=== PATIENT | female | born 1940 | race Caucasian/White ===

== ENCOUNTER 2020-06-16 10:59 | Inpatient (IN) | payer MEDICARE, SELFPAY ==
[2020-06-16 11:18] VITALS: BP 144/78; BP 158/88; PULSE 115; PULSE 99; RESP 24; TEMP 36.4; O2SAT 88; O2SAT 90; BMI 18.7
--- NOTE | 2020-06-16 11:20 | PC.NURSE ---
PT ALERT AND ORIENTED X4. NEUROS INTACT. SKIN WPD. RR APPROX 24 AT REST, BUT APPEARS NON-LABORED. I/E WHEEZE THROUGHOUT BILATERALLY. SPO2 88% ON RA. PLACED ON 1L VIA NC AND SPO2 INCREASED TO MID 90S. PT ALSO HAS VERY MILD EDEMA TO BILATERAL ANKLES. PT RECEIVED DUONEB GUT SORTER BY EMS. SINUS RHYTHM ON MONITOR. IV ACCESS IN PLACE. AWAITING INITIAL MD CARMICHAEL.
--- NOTE | 2020-06-16 11:42 | XR_ITS ---
EXAMINATION: XR CHEST CLINICAL INFORMATION: Dyspnea. COMPARISON: None TECHNIQUE: Frontal view of the chest was obtained. FINDINGS: Asymmetric curvilinear opacity is noted at right upper lung field, may represent changes secondary to osseous disease involving the anterior end of the right first rib. Both lung girard are symmetrically expanded, otherwise appear unremarkable. The cardiac mediastinal silhouette is within normal limit. Moderate thoracolumbar levoscoliosis is present. IMPRESSION: Asymmetric opacity at right upper lung field, may represent changes secondary to osseous disease involving anterior end of the right first rib.
--- NOTE | 2020-06-16 12:08 | PC.NURSE ---
pt ambulated short distance. steady but slow gait using walker. states ambulating is much easier with walker compared to cane she has at home. spo2 85% on ra upon return to stretcher.
[2020-06-16 12:17] LABS: Basophils Percent Auto 0.2 % (0-2); Hematocrit 42.3 % (37-47); Hemoglobin 14.3 g/dl (12.0-16.0); Imm Gran Abs Auto 0.06 X10*3/uL (0.00-0.03); Imm Gran Pct Auto 0.5 % (0.0-0.4); Lymphocytes Absolute Auto 0.5 X10*3/uL (1.2-4.9); Lymphocytes Percent Auto 4.6 % (20-40); MANUAL DIFF FLAG SCAN; Mean Corpuscular HGB Conc 33.8 g/dl (31.0-35.0); Mean Corpuscular Volume 97.7 fL (80-98); Mean Platelet Volume 9.9 fL (9.4-12.3); Monocytes Absolute Auto 0.7 X10*3/uL (0.1-1.2); Monocytes Percent Auto 5.9 % (2-11); Neutrophils Absolute Auto 10.4 X10*3/uL (2.0-8.3); Neutrophils Percent Auto 88.8 % (45-73); Platelet Count 315 X10*3/uL (160-400); Red Blood Count 4.33 X10*6/uL (4.20-5.50); Red Cell Distribution Width 14.2 % (11.0-16.0); SCAN SMEAR FLAG 1; White Blood Count 11.7 X10*3/uL (4.8-10.8)
[2020-06-16 12:37] LABS: SLIDE REVIEW VERIFIED
[2020-06-16 12:38] LABS: Alanine Aminotransferase 26 U/L (0-31); Albumin Level 3.3 g/dL (3.5-5.0); Alkaline Phosphatase 117 U/L (39-117); Anion Gap 14 (12-20); Aspartate Amino Transferase 43 U/L (5-31); Bilirubin Total 0.7 mg/dL (0.0-1.0); Blood Urea Nitrogen 10 mg/dL (9-16); Calcium 8.9 mg/dL (8.4-10.2); Carbon Dioxide 30 mmol/L (22-29); Chloride 93 mmol/L (96-108); Creatinine Clr Calc Pharmacy 86.5; Estimated Glomerular Filt Rate > 60; Glucose Random 105 mg/dL (60-115); Potassium 3.6 mmol/l (3.3-5.1); Sodium 133 mmol/L (135-145); Total Protein 6.1 g/dL (6.5-8.0)
--- NOTE | 2020-06-16 12:40 | CT_ITS ---
EXAMINATION: CT HEAD W/O IV CONTRAST CT CERVICAL SPINE W/O IV CONTRAST CLINICAL INFORMATION: Weakness. Patient on ground. COMPARISON: None TECHNIQUE: Head - Contiguous axial imaging of the head was performed from the skull base to the vertex without the administration of intravenous contrast, and axial images are reconstructed at 2 mm and 5 mm slice thickness. Cervical spine - A volumetric, helical CT acquisition of the cervical spine was obtained without contrast; in addition to the standard set of axial images, multiplanar reformatted images were provided in the coronal and sagittal imaging planes. This CT examination was performed using dose optimization techniques as appropriate, variously including the following: *Automated exposure control *Adjustment of mA and/or kV according to patient size (this includes techniques or standardized protocols for targeted exams where dose is matched to indication/reason for exam; i.e. extremities or head) *Use of iterative reconstruction technique DLP: 855 mGy-cm (total) FINDINGS: HEAD: No intracranial hemorrhage, extra-axial fluid collection, focal mass effect or midline shift. Atherosclerotic calcification of cavernous carotid arteries. Patchy hypoattenuation is present within supratentorial white matter, likely sequela of chronic [id number] microangiopathy. The butler-white matter differentiation is maintained. No evidence of an acute major vascular territory infarction. Xpdx-xv-fbkowybk atrophy of cerebral and cerebellar hemispheres is associated with commensurate prominence of the ventricles and sulci. No hydrocephalus. No acute findings within the cerebellar hemispheres or brainstem. The cerebellar tonsils are in normal position. The calvarium is intact. The mastoid air cells and middle ear cavities are well aerated. Temporomandibular joints are normal. Scattered secretions/mucosal thickening of some of the ethmoid air cells. Otherwise, paranasal sinuses are unremarkable. Orbits and globes are unremarkable. CERVICAL SPINE: No acute abnormalities. The craniocervical junction is normal. The occipital condyles, dens and atlantodental articulation are intact. The vertebral body heights are maintained. No fractures in the anterior or posterior elements. No prevertebral soft tissue swelling. 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 Chondrocalcinosis of multiple intervertebral discs. The disc spaces are generally well-preserved throughout the cervical spine. There is a stairstep pattern of mild, approximately 0.2 cm anterolisthesis at C4-C5, C5-C6, C6-C7 and C7-T1. No evidence of spinal canal or neural foraminal stenosis. No spinal hematoma or focal fluid collection in the visualized neck. There is centrilobular and paraseptal emphysema of the partially visualized upper lobes. Thyroid gland is atrophied. There appears to be a small, 0.5 cm hypodense nodule in the right thyroid lobe. IMPRESSION: * No hemorrhage or other acute intracranial pathology. * Ivxh-vj-jquzzumt cerebral atrophy, and chronic small vessel ischemic changes of supratentorial white matter. * No cervical spine fracture. Multilevel facet arthropathy is noted. There is a stairstep pattern of mild degenerative anterolisthesis at C4-C5, C5-C6, C6-C7 and C7-T1. * Centrilobular and paraseptal emphysema of the visualized upper lobes.
[2020-06-16 12:44] LABS: INTERNATIONAL NORM RATIO 1.3 (0.9-1.1); Prothrombin Time 14.9 SEC (10.8-13.0)
[2020-06-16 12:45] LABS: B Type Natriuretic Peptide 26 pg/mL (<100); Troponin-I High Sensitivity 8.9 ng/L (<3.5-17.0)
--- NOTE | 2020-06-16 12:45 | CT_ITS ---
EXAMINATION: CT ANGIOGRAM OF THE CHEST WITH AND WITHOUT CONTRAST (CT PULMONARY ANGIOGRAM FOR PE) CLINICAL INFORMATION: Reason for Exam hypoxia. Pneumonia? PE? COMPARISON: None TECHNIQUE: Prior to contrast administration, noncontrast localization images were obtained. Subsequently, multidetector volumetric imaging was performed from the thoracic inlet to below the diaphragms following the administration of 65 mL Omnipaque 350 intravenous contrast. No contrast reaction reported Sagittal, coronal, and MIP oblique sagittal reformatted images were obtained on the CT workstation, uploaded to PACS, and reviewed. This CT examination was performed using dose optimization techniques as appropriate, variously including the following: *Automated exposure control *Adjustment of mA and/or kV according to patient size (this includes techniques or standardized protocols for targeted exams where dose is matched to indication/reason for exam; i.e. extremities or head) *Use of iterative reconstruction technique Total exam dose-length product 222 mGy-cm FINDINGS: QUALITY OF STUDY/CONTRAST BOLUS: Satisfactory. PULMONARY ARTERIES: No central or segmental pulmonary emboli. THORACIC AORTA: No aneurysm or dissection. Marked atherosclerotic changes with abundant asymmetric irregular plaque present in the descending thoracic aorta. No mural ulcerations are seen. LUNG: Emphysematous changes are present throughout the lungs. The left hemidiaphragm is mildly elevated and there is left lower lobe infiltrate/atelectasis. There is a 4 mm left lower lobe lung nodule (series 7 image 309). No other nodules are seen. PLEURA: No pleural effusion or pneumothorax. MEDIASTINUM: Normal heart size. No pericardial effusion. No hilar or mediastinal lymphadenopathy. No evidence of septal bowing or right heart strain. CHEST WALL/AXILLA: No axillary or internal mammary lymphadenopathy. OSSEOUS STRUCTURES: There is a mild scoliosis convex to the right. Minimal degenerative changes are seen. A compression fracture is noted in the last included vertebrae of the series. UPPER ABDOMEN: Unremarkable. No reflux of contrast into the hepatic veins to suggest elevated right heart pressures. IMPRESSION: 1. No evidence of pulmonary emboli. 2. 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 VTE: Negative
[2020-06-16 12:47] LABS: Partial Thromboplastin Time 34.5 SEC (24.1-38.0)
[2020-06-16] MEDS: Albuterol/Iprat 2.5/0.5MG 3 ML AMPUL.NEB INHALE ×2 (12:56→20:03)
[2020-06-16] MEDS: Magnesium Sulfate/H2O 2 GM/50 ML PIGGYBACK IV (13:06)
[2020-06-16] MEDS: methylPREDNISolone Sod Succ/PF 125 MG/2 ML VIAL IVPUSH (13:07)
[2020-06-16 13:25] LABS: Lactic Acid 0.9 mmol/L (0.5-2.0)
[2020-06-16 13:42] VITALS: BP 130/60; PULSE 97; O2SAT 96
--- NOTE | 2020-06-16 13:47 | ED_ITS ---
HPI - SOB/Dyspnea General Chief Complaint: Dyspnea Stated Complaint: difficulty breathing Time Seen by Provider: 06/16/20 12:40 History of Present Illness HPI Narrative: patient presents to ED for shortness of breath and chronic cough. Patient states shortness of breath on exertion. Patient states secondary complaint is weakness has worsened since the Summer. Patient states this morning when she was on the toilet she felt weak / tired and could not get up. Patient states she crawled to the kitchen to she go use the phone and called her son. Patient states usually ambulates with a cane. Patient once again chronic weakness since the summer. Related Data Home Medications Medication Instructions Recorded Confirmed albuterol sulfate [ProAir HFA] 2 puff INHALATION DIRECTED PRN 06/16/20 06/16/20 atorvastatin 5 mg PO QAM 06/16/20 06/16/20 fluticasone furoate-vilanterol 1 inh INHALATION DAILY 06/16/20 06/16/20 [Breo Ellipta] Allergies Allergy/AdvReac Type Severity Reaction Status Date / Time No Known Allergies Allergy Verified 06/16/20 11:11 Review of Systems Review of Systems: Chronic weakness Yes all other systems are reviewed and are negative Cardiovascular: Cardiovascular: Reports no additional cardiovascular complaints, Denies chest pain, Denies chest pain at rest, Denies chest pain with activity, Denies Epigastric Pain, Reports dyspnea and Reports dyspnea on exertion Respiratory: Respiratory: Reports cough, Denies excessive phlegm production, Denies pain on inspiration, Denies pain with cough, Reports dyspnea and Reports dyspnea on exertion Gastrointestinal: Gastrointestinal: Reports no additional gastrointestinal co mplaints Genitourinary: Genitourinary: Reports no additional female genitourinary complaints Musculoskeletal: Musculoskeletal: Reports no additional musculoskeletal complaints Neurologic: Reports system reviewed and no additional complaints, except as documented Psychiatric: Psychiatric: Reports no additional psychiatric complaints [facility] Past Medical History Medical History (Updated 06/16/20 @ 17:46 by REGGIE Saleh) COPD (chronic obstructive pulmonary disease) Hyperlipidemia Hypertension Peripheral vascular disease Family History Family History (Updated 06/16/20 @ 17:08 by Alycia Sinha NP) Mother Breast cancer Social History Social History Alcohol intake: never Smoking Status: Current every day smoker Use of substances other than those prescribed or required for medical reasons: No Advance Directives: No Advance Directives Information Provided: No Physical Exam Vital Signs: Vital Signs: Vital Signs Temp Pulse Resp BP Pulse Ox 06/16/20 15:26 97.9 F 97 14 125/60 95 06/16/20 13:42 97 130/60 96 06/16/20 11:18 97.5 F 99 24 H 144/78 H 88 L Body Mass Index 18.7 Const: General: cooperative, healthy appearing and comfortable Orientation/consciousness: oriented to person, oriented to place, oriented to time and patient oriented x3 Chest: Chest palpation & inspection: normal inspection of the chest Resp: Effort & Inspection: normal respiratory effort and able to speak in complete sentences Auscultation: wheezes and diminished lung sounds Cardio: Jugular venous distension: no JVD Palpation: normal PMI Rhythm: regular rhythm Heart sounds: S1 normal heart sound present GI: Inspection: Yes normal to inspection : General: No CVA tenderness and Yes no CVA tenderness Back/Spine/Pelvis: Back: no CVA tenderness, No CVA tenderness and No back tenderness Skin: General skin exam: no rashes or lesions noted Neuro: General: oriented to person, oriented to place, oriented to time, patient oriented x3, gait normal and CN's II-XI intact bilaterally Cranial n erves: Yes CN's II-XII intact bilaterally Extrem: Other: vascular, motor, and neuro exam of all extremities are intact. Patient able to ambulate on her own with a walker. While ambulating O2 sat dropped to 88%. Bilateral lower extremity negative for any pitting edema or calf pain Course Course Course Narrative: patient will have a cardiac evaluation due to due to age and complaining of shortness of breath. Patient will also be treated for COPD. Patient will be given magnesium, Solu-Medrol, and albuterol ipratropium. O2 saturation dropped to 88% on room air on ambulation. Patient complained of shortness of breath on exertion. Reevaluation(s) Reevaluation #1: X-ray shows right upper lobe opacity will do chest CT to confirm for pneumonia and rule out PE. Lactic and blood culture order. Patient on 2 L oxygen 94%. Time: 14:11 Reevaluation #2: patient admitted to the hospital for COPD exacerbation. patient given ceftriaxone and azithromycin at the request of hospitalist. Chest CT negative for PE. COVID swab sent Time: 17:42 MDM - SOB/Dyspnea MDM Narrative Medical decision making narrative: patient admitted to the hospital for COPD exacerbation. Patient presently states she is feeling better after receiving treatment. Patient is seen any evaluated by hospitalist. Differential Diagnosis Differential diagnosis: Likely acute exacerbation of chronic obstructive airways disease Lab Data Result diagrams: 06/16/20 12:11 06/16/20 12:11 Labs: Lab Results 06/16/20 06/16/20 06/16/20 Range/Units 12:11 12:11 12:11 WBC 11.7 H (4.8-10.8) X10*3/uL RBC 4.33 (4.20-5.50) X10*6/uL Hgb 14.3 (12.0-16.0) g/dl Hct 42.3 (37-47) % MCV 97.7 (80-98) fL MCH 33.0 (27.0-33.0) pg MCHC 33.8 (31.0-35.0) g/dl RDW 14.2 (11.0-16.0) % Plt Count 315 (160-400) X10*3/uL MPV 9.9 (9.4-12.3) fL Immature Gran % (Auto) 0.5 H (0.0-0.4) % Neut % (Auto) 88.8 H (45-73) % Lymph % (Auto) 4.6 L (20-40) % Spink % (Auto) 5.9 (2-11) % Eos % (Auto) 0.0 (0-4) % Baso % (Auto) 0.2 (0-2) % Lymph # (Auto) 0.5 L (1.2-4.9) X10*3/uL Spink # (Auto) 0.7 (0.1-1.2) X10*3/uL Eos # (Auto) 0.0 (0.0-0.4) X10*3/uL Baso # (Auto) 0.0 (0.0-0.2) X10*3/uL Abs Immat Gran (auto) 0.06 H (0.00-0.03) X10*3/uL Absolute Neuts (auto) 10.4 H (2.0-8.3) X10*3/uL Absolute Nucleated RBC 0.000 (0.0-0.012) X10*3/uL Nucleated RBC % (auto) 0.0 (0.0-0.2) /100WBC Smear Tech's Comments VERIFIED PT 14.9 H (10.8-13.0) SEC INR 1.3 H (0.9-1.1) APTT 34.5 (24.1-38.0) SEC Sodium 133 L (135-145) mmol/L Potassium 3.6 (3.3-5.1) mmol/l Chloride 93 L (96-108) mmol/L Carbon Dioxide 30 H (22-29) mmol/L Anion Gap 14 (12-20) BUN 10 (9-16) mg/dL Creatinine 0.48 L (0.5-1.4) mg/dL Estim Creat Clear Calc 86.5 Estimated GFR > 60 Random Glucose 105 (60-115) mg/dL Lactic Acid (0.5-2.0) mmol/L Calcium 8.9 (8.4-10.2) mg/dL Total Bilirubin 0.7 (0.0-1.0) mg/dL AST 43 H (5-31) U/L ALT 26 (0-31) U/L Alkaline Phosphatase 117 (39-117) U/L Troponin I High Sens (<3.5-17.0) ng/L B-Natriuretic Peptide (<100) pg/mL Total Protein 6.1 L (6.5-8.0) g/dL Albumin 3.3 L (3.5-5.0) g/dL Urine Color Urine Appearance Urine pH (5.0-8.0) Ur Specific [place] (1.005-1.025) Urine Protein (NEG-TRACE) MG/DL Urine Glucose (UA) (NEG) MG/DL Urine Ketones (NEG) MG/DL Urine Blood (NEG) Urine Nitrite (NEG) Ur Leukocyte Esterase (NEG) Coronavirus (PCR) 06/16/20 06/16/20 06/16/20 Range/Units 12:11 12:59 15:11 WBC (4.8-10.8) X10*3/uL RBC (4.20-5.50) X10*6/uL Hgb (12.0-16.0) g/dl Hct (37-47) % MCV (80-98) fL MCH (27.0-33.0) pg MCHC (31.0-35.0) g/dl RDW (11.0-16.0) % Plt Count (160-400) X10*3/uL MPV (9.4-12.3) fL Immature Gran % (Auto) (0.0-0.4) % Neut % (Auto) (45-73) % Lymph % (Auto) (20-40) % Spink % (Auto) (2-11) % Eos % (Auto) (0-4) % Baso % (Auto) (0-2) % Lymph # (Auto) (1.2-4.9) X10*3/uL Spink # (Auto) (0.1-1.2) X10*3/uL Eos # (Auto) (0.0-0.4) X10*3/uL Baso # (Auto) (0.0-0.2) X10*3/uL Abs Immat Gran (auto) (0.00-0.03) X10*3/uL Absolute Neuts (auto) (2.0-8.3) X10*3/uL Absolute Nucleated RBC (0.0-0.012) X10*3/uL Nucleated RBC % (auto) (0.0-0.2) /100WBC Smear Tech's Comments PT (10.8-13.0) SEC INR (0.9-1.1) APTT (24.1-38.0) SEC Sodium (135-145) mmol/L Potassium (3.3-5.1) mmol/l Chloride (96-108) mmol/L Carbon Dioxide (22-29) mmol/L Anion Gap (12-20) BUN (9-16) mg/dL Creatinine (0.5-1.4) mg/dL Estim Creat Clear Calc Estimated GFR Random Glucose (60-115) mg/dL Lactic Acid 0.9 (0.5-2.0) mmol/L Calcium (8.4-10.2) mg/dL Total Bilirubin (0.0-1.0) mg/dL AST (5-31) U/L ALT (0-31) U/L Alkaline Phosphatase (39-117) U/L Troponin I High Sens 8.9 (<3.5-17.0) ng/L B-Natriuretic Peptide 26 (<100) pg/mL Total Protein (6.5-8.0) g/dL Albumin (3.5-5.0) g/dL Urine Color YELLOW Urine Appearance CLEAR Urine pH 7.0 (5.0-8.0) Ur Specific [place] <= 1.005 (1.005-1.025) Urine Protein NEG (NEG-TRACE) MG/DL Urine Glucose (UA) NEG (NEG) MG/DL Urine Ketones NEG (NEG) MG/DL Urine Blood NEG (NEG) Urine Nitrite NEG (NEG) Ur Leukocyte Esterase NEG (NEG) Coronavirus (PCR) 06/16/20 06/16/20 Range/Units 15:31 16:21 WBC (4.8-10.8) X10*3/uL RBC (4.20-5.50) X10*6/uL Hgb (12.0-16.0) g/dl Hct (37-47) % MCV (80-98) fL MCH (27.0-33.0) pg MCHC (31.0-35.0) g/dl RDW (11.0-16.0) % Plt Count (160-400) X10*3/uL MPV (9.4-12.3) fL Immature Gran % (Auto) (0.0-0.4) % Neut % (Auto) (45-73) % Lymph % (Auto) (20-40) % Spink % (Auto) (2-11) % Eos % (Auto) (0-4) % Baso % (Auto) (0-2) % Lymph # (Auto) (1.2-4.9) X10*3/uL [place]ink # (Auto) (0.1-1.2) X10*3/uL Eos # (Auto) (0.0-0.4) X10*3/uL Baso # (Auto) (0.0-0.2) X10*3/uL Abs Immat Gran (auto) (0.00-0.03) X10*3/uL Absolute Neuts (auto) (2.0-8.3) X10*3/uL Absolute Nucleated RBC (0.0-0.012) X10*3/uL Nucleated RBC % (auto) (0.0-0.2) /100WBC Smear Tech's Comments PT (10.8-13.0) SEC INR (0.9-1.1) APTT (24.1-38.0) SEC Sodium (135-145) mmol/L Potassium (3.3-5.1) mmol/l Chloride (96-108) mmol/L Carbon Dioxide (22-29) mmol/L Anion Gap (12-20) BUN (9-16) mg/dL Creatinine (0.5-1.4) mg/dL Estim Creat Clear Calc Estimated GFR Random Glucose (60-115) mg/dL Lactic Acid (0.5-2.0) mmol/L Calcium (8.4-10.2) mg/dL Total Bilirubin (0.0-1.0) mg/dL AST (5-31) U/L ALT (0-31) U/L Alkaline Phosphatase (39-117) U/L Troponin I High Sens (<3.5-17.0) ng/L B-Natriuretic Peptide (<100) pg/mL Total Protein (6.5-8.0) g/dL Albumin (3.5-5.0) g/dL Urine Color Urine Appearance Urine pH (5.0-8.0) Ur Specific [place] (1.005-1.025) Urine Protein (NEG-TRACE) MG/DL Urine Glucose (UA) (NEG) MG/DL Urine Ketones (NEG) MG/DL Urine Blood (NEG) Urine Nitrite (NEG) Ur Leukocyte Esterase (NEG) Coronavirus (PCR) Cancelled NEGATIVE ECG Data Pacemaker model: EKG shows sinus tachycardia with heart rate of 104. negative STEMI Discharge Plan Discharge Clinical Impression: COPD (chronic obstructive pulmonary disease) Patient Disposition: Admitted As Inpatient
--- NOTE | 2020-06-16 14:10 | ECG_ITS ---
Test Reason : FALL Blood Pressure : / mmHG Vent. Rate : 102 BPM Atrial Rate : 102 BPM P-R Int : 132 ms QRS Dur : 082 ms QT Int : 350 ms P-R-T Axes : 063 -18 067 degrees QTc Int : 456 ms Sinus tachycardia Left axis deviation Otherwise normal ECG No previous ECGs available Referred By: Rodolfo De La Rosa Electronically Signed By:BRIAN LAMAS MD
--- NOTE | 2020-06-16 14:11 | PC.NURSE ---
SON IN [facility] REQUESTING UPDATE ON PATIENTS STATUS, UPDATE GIVEN
--- NOTE | 2020-06-16 14:15 | PC.NURSE ---
pt off to ct
[2020-06-16] MEDS: iohexoL 350 MG/ML 100 ML INFUS..BTL IV (14:50)
--- NOTE | 2020-06-16 15:14 | P.HPIM_ITS ---
History of Present Illness Date of Service: 06/16/20 <Alycia Sinha NP - Last Filed: 06/18/20 19:57> Chief Complaint: Shortness of breath <Alycia Sinha NP - Last Filed: 06/18/20 19:57> 79-year-old woman presenting to the ER with increased shortness of breath and weakness. She reports her shortness of breath has been ongoing but worse over the last several days. She reported that she had went to the bathroom and she was unable to get up from the toilet. She ended up having to crawl on the floor to her kitchen to get her phone. She called her son and then her son ended up calling EMS. She reported a cough with yellow sputum. She denied fever, chills, nausea, vomiting, diarrhea, sick contacts. She has no recent travel or sick contacts. She continues to smoke 5 cigarettes a day. She does not use oxygen at home. Chest CTA was obtained and was negative for PE or consolidation. She was not noted to have fever or leukocytosis. she received several doses of albuterol, 1 dose of Solu-Medrol, ceftriaxone, azithromycin and magnesium. She will be admitted for further management and treatment acute respiratory failure related to COPD exacerbation. <Alycia Sinha NP - Last Filed: 06/18/20 19:57> Review of Systems Review of Systems: Denies any recent fever chills or decrease in appetite respiratory see HPI cardiovascular is adjustment of any PND or edema gastrointestinal denies any dysphagia abdominal pain nausea vomiting or diarrhea genitourinary denies any dysuria frequency or hematuria musculoskeletal denies any joint pain or swelling neuropsych denies any weakness or seizures all other systems reviewed are negative <Alycia Sinha NP - Last Filed: 06/18/20 19:57> Neurologic: Reports system reviewed and no additional complaints, except as documented <Alycia Sinha NP - Last Filed: 06/18/20 19:57> [facility] Medical History: Medical History (Updated 06/27/20 @ 00:00 by Background Daemon) COPD (chronic obstructive pulmonary disease) Hyperlipidemia Hypertension Peripheral vascular disease <EDMUNDO Shetty Last Filed: 06/18/20 19:57> Functional capacity: independent ambulation <EDMUNDO Shetty Last Filed: 06/18/20 19:57> Family History: Family History Mother Breast cancer <Alycia Sinha NP - Last Filed: 06/18/20 19:57> Social History: Social History Household Members: None Housing: House Do you presently have visiting nurse or other home services: No Alcohol intake: never Smoking Status: Current every day smoker Tobacco Type: Cigarette Packs Per Day: 3 Cigarettes Per Day: 60.0 Years Smoked: 50 Smoked in Last 30 Days: Yes Patient Interested in Nicotine Replacement: Yes Patient Given Instructions on How to Stop Smoking: Yes Date Education Initiated: 06/16/20 Second Hand Smoke Exposure: Yes Use of substances other than those prescribed or required for medical reasons: No Currently Displaying Signs/Symptoms of Drug Intoxication Withdrawal: No Have you been hit, kicked, punched, or otherwise hurt by someone within the past year? If so, by whom?: No Do you feel safe in your current relationship?: No Current Relationship Is there a partner from a previous relationship who is making you feel unsafe now?: No Are you made to feel afraid or neglected: No Advance Directives: No Advance Directives Information Provided: No Advance Directives on File: No Do you have thoughts of harming others: None Do you have a plan to hurt others: No Plan Recently lost weight without trying: Yes service: No Current occupational status: retired <Alycia Sinha NP - Last Filed: 06/18/20 19:57> Meds Allergies/Adverse reactions: Allergies Allergy/AdvReac Type Severity Reaction Status Date / Time No Known Allergies Allergy Verified 06/16/20 11:11 <Alycia Sinha NP - Last Filed: 06/18/20 19:57> Home medications: Home Medications Medication Instructions Recorded Confirmed Type Breo Ellipta 1 inh INHALATION DAILY 06/16/20 06/16/20 History albuterol sulfate [ProAir HFA] 2 puff INHALATION DIRECTED PRN 06/16/20 06/16/20 History <Alycia Sinha NP - Last Filed: 06/18/20 19:57> Physical Exam Vital Signs and Narrative: Vital Signs: Last Vital Signs Temp 97.5 F 06/16/20 11:18 Pulse 97 06/16/20 13:42 Resp 24 H 10/11/20 11:18 BP 130/60 06/16/20 13:42 Pulse Ox 96 06/16/20 13:42 Body Mass Index 18.7 <Alycia Sinha NP - Last Filed: 06/18/20 19:57> Results Labs Labs: Laboratory Tests 06/16/20 06/16/20 06/16/20 12:11 12:11 12:11 WBC 11.7 H RBC 4.33 Hgb 14.3 Hct 42.3 MCV 97.7 MCH 33.0 MCHC 33.8 RDW 14.2 Plt Count 315 MPV 9.9 Immature Gran % (Auto) 0.5 H Neut % (Auto) 88.8 H Lymph % (Auto) 4.6 L [place] % (Auto) 5.9 Eos % (Auto) 0.0 Baso % (Auto) 0.2 Lymph # (Auto) 0.5 L [place] # (Auto) 0.7 Eos # (Auto) 0.0 Baso # (Auto) 0.0 Abs Immat Gran (auto) 0.06 H Absolute Neuts (auto) 10.4 H Absolute Nucleated RBC 0.000 Nucleated RBC % (auto) 0.0 Smear Tech's Comments VERIFIED PT 14.9 H INR 1.3 H APTT 34.5 Sodium 133 L Potassium 3.6 Chloride 93 L Carbon Dioxide 30 H Anion Gap 14 BUN 10 Creatinine 0.48 L Estim Creat Clear Calc 86.5 Estimated GFR > 60 Random Glucose 105 Lactic Acid Calcium 8.9 Total Bilirubin 0.7 AST 43 H ALT 26 Alkaline Phosphatase 117 Troponin I High Sens B-Natriuretic Peptide Total Protein 6.1 L Albumin 3.3 L 06/16/20 06/16/20 12:11 12:59 WBC RBC Hgb Hct MCV MCH MCHC RDW Plt Count MPV Immature Gran % (Auto) Neut % (Auto) Lymph % (Auto) [place] % (Auto) Eos % (Auto) Baso % (Auto) Lymph # (Auto) [place] # (Auto) Eos # (Auto) Baso # (Auto) Abs Immat Gran (auto) Absolute Neuts (auto) Absolute Nucleated RBC Nucleated RBC % (auto) Smear Tech's Comments PT INR APTT Sodium Potassium Chloride Carbon Dioxide Anion Gap BUN Creatinine Estim Creat Clear Calc Estimated GFR Random Glucose Lactic Acid 0.9 Calcium Total Bilirubin AST ALT Alkaline Phosphatase Troponin I High Sens 8.9 B-Natriuretic Peptide 26 Total Protein Albumin <Alycia Sinha NP - Last Filed: 06/18/20 19:57> Assessment and Plan (1) COPD (chronic obstructive pulmonary disease): (2) Hyperlipidemia: 79-year-old woman admitted with COPD exacerbation. COPD exacerbation. Duo nebs, Solu-Medrol, supplemental oxygen as needed. antibiotics. Hyperlipidemia. Continue statin. Tachycardia. Likely from albuterol. DVT prophylaxis with Lovenox Case discussed with Dr. Law Full code <Alyica Sinha NP - Last Filed: 06/18/20 19:57>
[2020-06-16 15:23] LABS: Glucose Urine UA NEG (NEG); Leukocyte Esterase Urine NEG (NEG); Nitrite Urine NEG (NEG); Specific Gravity - Urine <= 1.005 (1.005-1.025); Urine Blood NEG (NEG); Urine Ketones NEG (NEG); Urine Protein NEG (NEG-TRACE)
[2020-06-16 15:26] VITALS: BP 125/60; PULSE 97; RESP 14; TEMP 36.6; O2SAT 95
[2020-06-16 15:31] LABS: Appearance Urine CLEAR; Color Urine YELLOW
--- NOTE | 2020-06-16 15:52 | PC.NURSE ---
hospitalist at bedside for evaluation
[2020-06-16] MEDS: cefTRIAXone sodium 1 GM in 0.9 % Sodium Chloride 50 ML IV (16:30)
[2020-06-16] MEDS: Azithromycin 500 MG in 0.9 % Sodium Chloride 250 ML 250 MG IV (17:23)
[2020-06-16 17:45] LABS: SARS COV2 PCR INHOUSE NEGATIVE (Negative)
--- NOTE | 2020-06-16 18:31 | PC.NURSE ---
CALLED MED/SURG FLOOR TO GIVE REPORT. HEAD BUTLER TOLD ME SHE WOULD LET THE RN KNOW AND RN WOULD CALL ME BACK
[2020-06-16 18:52] VITALS: BP 133/70; PULSE 89; RESP 16; O2SAT 98
--- NOTE | 2020-06-16 19:20 | PM.EVENT ---
Event Note Event Note: Patient seen and examined. Case discussed with Alycia Sinha NP. Agree with her history and physical. In brief, 79-year-old smoker who presents to the hospital with complaints of shortness of breath. Being admitted for COPD exacerbation. CT showing possible pneumonia. Steroids Bronchodilators Antibiotics
[2020-06-16] MEDS: Flu Vacc QS2020-21(6mos up)/PF 0.5 ML SYRINGE IM (21:07)
[2020-06-16] MEDS: Enoxaparin Sodium 40 MG/0.4 ML SYRINGE SUBCUT (21:08)
[2020-06-16 23:22] VITALS: BP 127/55; PULSE 93; RESP 16; TEMP 36.4; O2SAT 98
[2020-06-17] VITALS (8 sets, daily range): BP systolic 123–149; BP diastolic 61–70; PULSE 61–105; RESP 16–19; TEMP 36.2–37; O2SAT 94–98; BMI 18.7
[2020-06-17] MEDS: 0.9 % Sodium Chloride Flush 3 ML SYRINGE IVFLUSH ×4 (00:21→23:25)
[2020-06-17] MEDS: guaiFENesin DM 200/20/10 ML 10 ML SYRUP PO (04:37)
[2020-06-17] MEDS: Albuterol/Iprat 2.5/0.5MG 3 ML AMPUL.NEB INHALE ×3 (07:30→19:53)
[2020-06-17 07:32] LABS: Anion Gap 10 (12-20); Blood Urea Nitrogen 17 mg/dL (9-16); Calcium 8.2 mg/dL (8.4-10.2); Carbon Dioxide 30 mmol/L (22-29); Chloride 99 mmol/L (96-108); Creatinine Clr Calc Pharmacy 78.4; Estimated Glomerular Filt Rate > 60; Glucose Random 146 mg/dL (60-115); Potassium 3.6 mmol/l (3.3-5.1); Sodium 135 mmol/L (135-145)
--- NOTE | 2020-06-17 08:37 | MHC.CM.PN ---
pt lives alone in her home. she uses a walker c ambulation. she does have a son that lives in the area and can help if she needs it. this will include a ride home if she is dc'd home . pt would like to go to str if pt eval reveals that she will need it. she would like to stay in [place] for the str and requested refs. be made to [place] str[facility] . this has been done. if pt does not require str then she would like to have [facility] for nsg and home pt, a ref. has been made for this dc option as well. dc plan will be one of these options. cm to cont. to follow.
[2020-06-17] MEDS: Atorvastatin Calcium 10 MG TABLET 5 MG PO (10:19)
--- NOTE | 2020-06-17 10:35 | HO.PM.IMPN ---
Subjective Subjective Date of Service: 06/17/20 Interval History: seen and examined this AM reports copious yellow sputum production reports still SOB with minimal exertion reports wheezing improved overall, slightly better feels weak and things she may need STR upon d/c Review of Systems General - no fevers or chills Cardiovascular - no chest pain Respiratory - +cough, productive; +SOB, denies wheezing Abdominal- no abdominal pain, nausea, vomiting, diarrhea Physical Exam Vital Signs: Vital Signs: Vital Signs Temp Pulse Resp BP Pulse Ox 06/17/20 08:00 97.6 F 92 16 98 06/17/20 07:50 97.3 F 88 18 127/70 95 06/17/20 03:17 98.6 F 100 16 133/67 95 06/17/20 00:00 98.0 F 93 16 123/64 94 06/16/20 23:22 97.6 F 93 16 127/55 L 98 06/16/20 18:52 89 16 133/70 98 06/16/20 15:26 97.9 F 97 14 125/60 95 06/16/20 13:42 97 130/60 96 06/16/20 11:18 97.5 F 99 24 H 144/78 H 88 L Body Mass Index 18.7 General - no acute distress, appears comfortable Cardiovascular - regular rate and rhythm, S1-S2 Lungs - diminished overall; L > R base rales Abdomen - soft, nontender, no rebound regarding Extremities - no edema bilaterally Neuro - awake and alert, no focal deficits Objective Data Current Medications Generic Name Dose Route Start Last Admin Trade Name Freq PRN Reason Stop Dose Admin Acetaminophen 650 mg 06/16/20 19:40 Acetaminophen 325 Mg Tablet PO Q6H PRN Pain, Mild (Pain Scale 1-3) Albuterol/Ipratropium 3 ml 06/16/20 20:00 06/17/20 07:30 Albuterol/Iprat 2.5/0.5mg 3 Ml Ampul.Neb INHALE 3 ml RQ4H WHILE AWAKE SYLVESTER Administration Atorvastatin Calcium 5 mg 06/17/20 09:00 06/17/20 10:19 Atorvastatin Calcium 10 Mg Tablet PO 5 mg DAILY SYL[facility]STER Administration Enoxaparin Sodium 40 mg 06/16/20 22:00 06/16/20 21:08 Enoxaparin Sodium 40 Mg/0.4 Ml Syringe SUBCUT 40 mg Q24H SYLVESTER Administration Guaifenesin/Dextromethorphan 10 ml 06/17/20 04:26 06/17/20 04:37 Guaifenesin Dm 200/20/10 Ml 10 Ml Syrup PO 10 ml Q4H PRN Administration Cough Ceftriaxone Sodium 1 gm/ 50 mls @ 100 mls/hr 06/17/20 15:00 Sodium Chloride IV Q24H SYLVESTER Azithromycin 500 mg/ Sodium 250 mls @ 250 mls/hr 06/17/20 16:00 Chloride IV Q24H SYLVESTER Magnesium Hydroxide 30 ml 06/16/20 19:40 Milk Of Magnesia 30 Ml Oral.Susp PO DAILY PRN Constipation Methylprednisolone Sodium Succinate 40 mg 06/16/20 21:00 06/17/20 10:19 Methylprednisolone Sod Succ/Pf 40 Mg/Ml Vial IVPUSH 40 mg BID SYLVESTER Administration Pharmacy Consult 1 each 06/16/20 16:02 Consult Rx Perform Med Rec MISCELLANE ONCE PRN Consult order Sodium Chloride 3 ml 06/17/20 00:00 06/17/20 10:19 0.9 % Sodium Chloride Flush 3 Ml Syringe IVFLUSH 3 ml QSHIFT SYLVESTER Administration Labs CBC & Chem 7: 06/16/20 12:11 06/17/20 06:28 Assessment and Plan (1) COPD exacerbation: Status: Acute (2) Acute respiratory failure with hypoxia: Status: Acute Assessment and Plan: This is a 79-year-old active smoker who presents to the hospital complaints of productive cough and progressive shortness of breath for several days prior to arrival. She is admitted for COPD exacerbation likely secondary to early pneumonia. 1. Acute respiratory failure with hypoxia wean O2 as tolerated due to copd and pneumonia 2. CAP rocephin/azithromcyin, day #2 f/u blood cx 3. COPD exacerbation wheezing improved stop iv steriods today, start prednisone by tomorrow continue updrafts 4. Generalized weakness Pt concerned about being home and think she may need STR will get PT eval tomorrow 5. HLD statin Full Code DVT pptx, lovenox
--- NOTE | 2020-06-17 12:29 | MHC.CM.PN ---
pls call family regarding dc planning @ [facility] [phone], [place] [phone], [facility] [phone]. dc plan is for patient to go to [facility]. cm to cont. to follow.
[2020-06-17] MEDS: cefTRIAXone sodium 1 GM in 0.9 % Sodium Chloride 50 ML IV (16:24)
[2020-06-17] MEDS: LORazepam 0.5 MG TABLET 0.25 MG PO (16:34)
[2020-06-17] MEDS: Azithromycin 500 MG in 0.9 % Sodium Chloride 250 ML 250 MG IV (17:16)
[2020-06-17] MEDS: Enoxaparin Sodium 40 MG/0.4 ML SYRINGE SUBCUT (23:22)
[2020-06-18] VITALS (8 sets, daily range): BP systolic 140–159; BP diastolic 69–98; PULSE 57–112; RESP 16–20; TEMP 36–37; O2SAT 92–98
[2020-06-18] MEDS: guaiFENesin DM 200/20/10 ML 10 ML SYRUP PO (04:23)
[2020-06-18] MEDS: Acetaminophen 325 MG TABLET 650 MG PO (05:34)
[2020-06-18] MEDS: LORazepam 0.5 MG TABLET 0.25 MG PO ×2 (05:41→21:13)
[2020-06-18] MEDS: Albuterol/Iprat 2.5/0.5MG 3 ML AMPUL.NEB INHALE ×4 (07:39→21:32)
[2020-06-18] MEDS: predniSONE 20 MG TABLET 40 MG PO (09:09)
[2020-06-18] MEDS: 0.9 % Sodium Chloride Flush 3 ML SYRINGE IVFLUSH ×3 (09:09→21:13)
[2020-06-18] MEDS: Atorvastatin Calcium 10 MG TABLET 5 MG PO (09:10)
[2020-06-18] MEDS: Nicotine 14 MG PATCH.TD24 TRANSDERMA (12:06)
--- NOTE | 2020-06-18 12:29 | MHC.CM.PN ---
nurse care melly de luna electronic medicL RECORD REVIEWED CASE DISCUSSED ON MULTIPLE DISCIPLAINRY ROUNDS WELL WITH STAFF GUS , MET WITH PATIENT SHE SEEMED WEAK SITTING IN THE AIR , CONTINUE S QWITH SYUPPPLWEMENTAL OXYGEN , I REVIEWED WITH HER THE FACILITY LIST SHE HAD GIVEN MY CO WORKER ON 06/17/20 SHE SAID SHE WANTED T SEE WHOM WOULD ACCEPT HER FIRST BEFORE MAKING FINAL DECISION, I WENT BACK TO HER ROOM , ATER SHE WAS IN BED , EATING HER LUNCH AND APPEARED TO BE MORE ALERT AND CONVERSATIONAL AND ASKED ABOUT [facility] , THERE HAD BEEN NO RESPONSE SO I CALLED AND ASKED [facility] TO REVIEWE AND PLEASE LET ME KNOW , (SHE DID RESPONF THAT PATIENT WOULD HAVE TO HAVE 2 NEGATIVE COVID TEST BEFORE COMING TO THEM, SHE WILL LET ME KNOW WHETHER CAN CAN ACCEPT PATIENT OR NOT , IN THE MEANTIME PATIENT IS REVIEWING LIST WITH HER FAMILY
--- NOTE | 2020-06-18 15:07 | P.PNIM_ITS ---
Subjective Subjective Date of Service: 06/18/20 Interval History: breathing improved but still anxious did not sleep well yesterday, very anxious Constitutional Constitutional: Denies fever(s) Cardiovascular Cardiovascular: Denies chest pain and Reports dyspnea Respiratory Respiratory: Reports cough, Reports dyspnea and Reports wheezing Allergic/Immunologic Allergic/Immunologic: Reports wheezing Physical Exam Vital Signs: Vital Signs: Vital Signs Temp Pulse Resp BP Pulse Ox 06/18/20 12:00 97.5 F 103 H 18 157/87 H 94 06/18/20 09:09 96 140/71 H 93 06/18/20 08:00 96.8 F 96 16 140/71 H 93 06/18/20 04:00 98.1 F 95 16 151/80 H 92 06/18/20 00:00 97.3 F 112 H 16 147/72 H 95 06/17/20 19:21 97.8 F 105 H 19 140/66 H 97 06/17/20 15:55 98.6 F 61 145/66 H 94 06/17/20 15:51 98.6 F 105 H 145/66 H 94 Body Mass Index 18.7 Const: General: no acute distress Chest: Chest palpation & inspection: normal inspection of the chest Resp: Effort & Inspection: normal respiratory effort Auscultation: wheezes (very soft end-expiratory at base. good air entry throughout) Cardio: Rate: regular rate Rhythm: regular rhythm Extrem: General: Yes no pedal edema Objective Data Current Medications Generic Name Dose Route Start Last Admin Trade Name Freq PRN Reason Stop Dose Admin Acetaminophen 650 mg 06/16/20 19:40 06/18/20 05:34 Acetaminophen 325 Mg Tablet PO 650 mg Q6H PRN Administration Pain, Mild (Pain Scale 1-3) Albuterol/Ipratropium 3 ml 06/16/20 20:00 06/18/20 11:16 Albuterol/Iprat 2.5/0.5mg 3 Ml Ampul.Neb INHALE 3 ml RQ4H WHILE AWAKE SYLVESTER Administration Atorvastatin Calcium 5 mg 06/17/20 09:00 06/18/20 09:10 Atorvastatin Calcium 10 Mg Tablet PO 5 mg DAILY SYLVESTER Administration Doxycycline Hyclate 100 mg 06/18/20 09:00 06/18/20 09:09 Doxycycline Hyclate 100 Mg Tablet PO 100 mg Q12H SYLVESTER Administration Enoxaparin Sodium 40 mg 06/16/20 22:00 06/17/20 23:22 Enoxaparin Sodium 40 Mg/0.4 Ml Syringe SUBCUT 40 mg Q24H SYLVESTER Administration Guaifenesin/Dextromethorphan 10 ml 06/17/20 04:26 06/18/20 04:23 Guaifenesin Dm 200/20/10 Ml 10 Ml Syrup PO 10 ml Q4H PRN Administration Cough Ceftriaxone Sodium 1 gm/ 50 mls @ 100 mls/hr 06/17/20 15:00 06/17/20 17:22 Sodium Chloride IV Infused Q24H SYLVESTER Infusion Lorazepam 0.25 mg 06/17/20 16:13 06/18/20 05:41 Lorazepam 0.5 Mg Tablet PO 0.25 mg Q8H PRN Administration Anxiety Magnesium Hydroxide 30 ml 06/16/20 19:40 Milk Of Magnesia 30 Ml Oral.Susp PO DAILY PRN Constipation Melatonin 3 mg 06/17/20 16:14 Melatonin 3 Mg Tablet PO BEDTIME PRN Insomnia Nicotine 14 mg 06/18/20 12:00 06/18/20 12:06 Nicotine 14 Mg Patch.Td24 TRANSDERMA 14 mg DAILY [facility] Administration Pharmacy Consult 1 each 06/16/20 16:02 Consult Rx Perform Med Rec MISCELLANE ONCE PRN Consult order Prednisone 40 mg 06/18/20 09:00 06/18/20 09:09 Prednisone 20 Mg Tablet PO 40 mg DAILY SYLVESTER Administration Sodium Chloride 3 ml 06/17/20 00:00 06/18/20 09:09 0.9 % Sodium Chloride Flush 3 Ml Syringe IVFLUSH 3 ml QSHIFT [facility] Administration Labs CBC & Chem 7: 06/16/20 12:11 06/17/20 06:28 Labs: Laboratory Results WBC 11.7 X10*3/uL (4.8-10.8) H 06/16/20 12:11 RBC 4.33 X10*6/uL (4.20-5.50) 06/16/20 12:11 Hgb 14.3 g/dl (12.0-16.0) 06/16/20 12:11 Hct 42.3 % (37-47) 06/16/20 12:11 MCV 97.7 fL (80-98) 06/16/20 12:11 MCH 33.0 pg (27.0-33.0) 06/16/20 12:11 MCHC 33.8 g/dl (31.0-35.0) 06/16/20 12:11 RDW 14.2 % (11.0-16.0) 06/16/20 12:11 Plt Count 315 X10*3/uL (160-400) 06/16/20 12:11 MPV 9.9 fL (9.4-12.3) 06/16/20 12:11 Immature Gran % (Auto) 0.5 % (0.0-0.4) H 06/16/20 12:11 Neut % (Auto) 88.8 % (45-73) H 06/16/20 12:11 Lymph % (Auto) 4.6 % (20-40) L 06/16/20 12:11 [place] % (Auto) 5.9 % (2-11) 06/16/20 12:11 Eos % (Auto) 0.0 % (0-4) 06/16/20 12:11 Baso % (Auto) 0.2 % (0-2) 06/16/20 12:11 Lymph # (Auto) 0.5 X10*3/uL (1.2-4.9) L 06/16/20 12:11 [place] # (Auto) 0.7 X10*3/uL (0.1-1.2) 06/16/20 12:11 Eos # (Auto) 0.0 X10*3/uL (0.0-0.4) 06/16/20 12:11 Baso # (Auto) 0.0 X10*3/uL (0.0-0.2) 06/16/20 12:11 Abs Immat Gran (auto) 0.06 X10*3/uL (0.00-0.03) H 06/16/20 12:11 Absolute Neuts (auto) 10.4 X10*3/uL (2.0-8.3) H 06/16/20 12:11 Absolute Nucleated RBC 0.000 X10*3/uL (0.0-0.012) 06/16/20 12:11 Nucleated RBC % (auto) 0.0 /100WBC (0.0-0.2) 06/16/20 12:11 Smear Tech's Comments VERIFIED 06/16/20 12:11 PT 14.9 SEC (10.8-13.0) H 06/16/20 12:11 INR 1.3 (0.9-1.1) H 06/16/20 12:11 APTT 34.5 SEC (24.1-38.0) 06/16/20 12:11 Sodium 135 mmol/L (135-145) 06/17/20 06:28 Potassium 3.6 mmol/l (3.3-5.1) 06/17/20 06:28 Chloride 99 mmol/L (96-108) 06/17/20 06:28 Carbon Dioxide 30 mmol/L (22-29) H 06/17/20 06:28 Anion Gap 10 (12-20) L 06/17/20 06:28 BUN 17 mg/dL (9-16) H D 06/17/20 06:28 Creatinine 0.53 mg/dL (0.5-1.4) 06/17/20 06:28 Estim Creat Clear Calc 78.4 06/17/20 06:28 Estimated GFR > 60 06/17/20 06:28 Random Glucose 146 mg/dL (60-115) H D 06/17/20 06:28 Lactic Acid 0.9 mmol/L (0.5-2.0) 06/16/20 12:59 Calcium 8.2 mg/dL (8.4-10.2) L 06/17/20 06:28 Total Bilirubin 0.7 mg/dL (0.0-1.0) 06/16/20 12:11 AST 43 U/L (5-31) H 06/16/20 12:11 ALT 26 U/L (0-31) 06/16/20 12:11 Alkaline Phosphatase 117 U/L (39-117) 06/16/20 12:11 Troponin I High Sens 8.9 ng/L (<3.5-17.0) 06/16/20 12:11 B-Natriuretic Peptide 26 pg/mL (<100) 06/16/20 12:11 Total Protein 6.1 g/dL (6.5-8.0) L 06/16/20 12:11 Albumin 3.3 g/dL (3.5-5.0) L 06/16/20 12:11 Urine Color YELLOW 06/16/20 15:11 Urine Appearance CLEAR 06/16/20 15:11 Urine pH 7.0 (5.0-8.0) 06/16/20 15:11 Ur Specific [place] <= 1.005 (1.005-1.025) 06/16/20 15:11 Urine Protein NEG MG/DL (NEG-TRACE) 06/16/20 15:11 Urine Glucose (UA) NEG MG/DL (NEG) 06/16/20 15:11 Urine Ketones NEG MG/DL (NEG) 06/16/20 15:11 Urine Blood NEG (NEG) 06/16/20 15:11 Urine Nitrite NEG (NEG) 06/16/20 15:11 Ur Leukocyte Esterase NEG (NEG) 06/16/20 15:11 Coronavirus (PCR) NEGATIVE (Negative) 06/16/20 16:21 Progress Note: A&P (1) COPD (chronic obstructive pulmonary disease): Status: Acute Assessment and Plan: Hospital d#3 79yo F with COPD admitted for acute exacerbation 1. COPD with acute exacerbation - changed to PO steroid, continue nebulized bronchodilators, doxycycline as below 2. acute hypoxic respiratory failure - wean O2 as tolerated 3. question of PNA - no radiographic evidence. on ceftriaxone d#3 but d/c tomorrow if PCT low and BCx negative, change azithromycin to doxycycline 4. tobacco abuse - NRT 5. dyslipidemia - statin 6. VTE ppx - LMWH 7. dispo - anticipate STR- lives alone and has generalized weakness
--- NOTE | 2020-06-18 15:17 | MHC.CM.PN ---
NURSE ANNE-MARIE MANAGEMENT NOTE ELECTRONIC MEDICAL RECRD REVIEWED PATIENT QND FAMILY CHOSE THE [facility] FOR SHORT TERM REHAB, I IONFRMED ALESHIA CHRISTIANSON OF THIS AND ADDI REPORTED THAT THEY MIGHT NOT HAVE A BED AVAILABLE FOR TOMORROW, I RECHECKED WITH [facility] ADDI REPORTED TO ME THAT SHE COULD ACCEPT [id number] AND HAD BED AVAILABILTIY , BUT WOULD NEED SECOND COVID TEST NEGATIVE. THEY ARE SEEKING INSURANCE AUTHRIZATION AND I REQUESTED RAPID COVID TEST ANTICIPATE DISCHARGE ON 06/19/20 GOING TO [facility] FOR AND [facility] FOR TRANSPORT
[2020-06-18] MEDS: cefTRIAXone sodium 1 GM in 0.9 % Sodium Chloride 50 ML IV (15:41)
[2020-06-18 18:35] LABS: SARS COV2 PCR INHOUSE NEGATIVE (Negative)
[2020-06-18] MEDS: Enoxaparin Sodium 40 MG/0.4 ML SYRINGE SUBCUT (21:14)
[2020-06-19 04:00] VITALS: BP 156/80; PULSE 90; RESP 17; TEMP 36.2; O2SAT 98
[2020-06-19 07:00] LABS: MANUAL DIFF FLAG NO
[2020-06-19 07:09] LABS: Hematocrit 35.1 % (37-47); Hemoglobin 11.6 g/dl (12.0-16.0); Imm Gran Abs Auto 0.03 X10*3/uL (0.00-0.03); Imm Gran Pct Auto 0.4 % (0.0-0.4); Lymphocytes Absolute Auto 1.4 X10*3/uL (1.2-4.9); Lymphocytes Percent Auto 20.4 % (20-40); Mean Corpuscular Hemoglobin 33.1 pg (27.0-33.0); Mean Corpuscular Volume 100.3 fL (80-98); Mean Platelet Volume 10.3 fL (9.4-12.3); Monocytes Percent Auto 13.7 % (2-11); Neutrophils Absolute Auto 4.6 X10*3/uL (2.0-8.3); Neutrophils Percent Auto 65.5 % (45-73); Platelet Count 330 X10*3/uL (160-400); Red Cell Distribution Width 14.8 % (11.0-16.0); White Blood Count 7.1 X10*3/uL (4.8-10.8)
[2020-06-19] MEDS: Albuterol/Iprat 2.5/0.5MG 3 ML AMPUL.NEB INHALE ×3 (07:30→15:40)
[2020-06-19 07:39] LABS: Anion Gap 9 (12-20); Blood Urea Nitrogen 16 mg/dL (9-16); Calcium 8.1 mg/dL (8.4-10.2); Carbon Dioxide 33 mmol/L (22-29); Chloride 102 mmol/L (96-108); Creatinine Clr Calc Pharmacy 96.6; Estimated Glomerular Filt Rate > 60; Glucose Random 114 mg/dL (60-115); Potassium 3.3 mmol/l (3.3-5.1); Sodium 141 mmol/L (135-145)
[2020-06-19 07:53] LABS: Procalcitonin 0.13 ng/mL
[2020-06-19 08:00] VITALS: BP 154/76; PULSE 98; RESP 18; TEMP 35.8; O2SAT 90
[2020-06-19] MEDS: Nicotine 14 MG PATCH.TD24 TRANSDERMA (09:19)
[2020-06-19] MEDS: predniSONE 20 MG TABLET 40 MG PO (09:19)
[2020-06-19] MEDS: Atorvastatin Calcium 10 MG TABLET 5 MG PO (09:20)
[2020-06-19] MEDS: Acetaminophen 325 MG TABLET 650 MG PO (09:20)
[2020-06-19] MEDS: 0.9 % Sodium Chloride Flush 3 ML SYRINGE IVFLUSH ×2 (09:21→15:26)
[2020-06-19] MEDS: LORazepam 0.5 MG TABLET 0.25 MG PO ×2 (09:28→17:00)
--- NOTE | 2020-06-19 10:19 | MHC.CM.PN ---
nurse director of patient care note electronic medical record reviewqed along with case discussed with staff nurse , anticipate dischagre back to [facility] today . i called to [employer] oil program compliance specialist to inform her of this possibility , i gave her the fax number to the nurses station for sta ff nurse to have hospitlist to complete with discharge paperwrok also requested that the hospitlaist also provide a discharge summary before transfer ., discharge plan return back to [facility] notified [employer] oil program compliance specialist [facility] transport [facility] follow up they will call the oil program compliance specialist with date and time of appointment
--- NOTE | 2020-06-19 10:30 | MHC.CM.PN ---
electronic medical record reviewqed along with case discussed with staff nurse and the hospitlaist , anticip[ate patient to be discharged today received the second covid test which was negative and forwarded to [facility] at their request with clinical update awaiting ins authorixation [facility] post d/c from [facility] will follow up with her at home
--- NOTE | 2020-06-19 10:33 | MHC.CM.PN ---
nurse career and transition teacher note electronic medical record reviewed along with case discussed with staff nurse , anticipate discharge back to [facility] today . i called to [facility] didactic program in dietetics director to inform her of this possibility , i gave her the fax number to the nurses station for sta ff nurse to have hospitlist to complete with discharge paperwrok also requested that the hospitlaist also provide a discharge summary before transfer ., discharge plan return back to [facility] notified [employer] didactic program in dietetics director [facility] transport [facility] follow up they will call the didactic program in dietetics director with date and time of appointment
[2020-06-19 11:30] VITALS: BP 156/67; PULSE 105; TEMP 36.1; O2SAT 95
--- NOTE | 2020-06-19 12:28 | P.DS_ITS ---
DS: Providers Provider Date of admission: 06/16/20 17:58 Primary care physician: Seng Ty MD DS: Diagnosis Discharge Diagnosis (1) COPD (chronic obstructive pulmonary disease): Status: Acute (2) Acute respiratory failure with hypoxia: Status: Acute DS: Summary Hospital Course Hospital Course: The patient was admitted to the Medical/Surgical floor and treated with supplemental oxygen, IV glucocorticoids, nebulized bronchodilators, and IV a ntibiotics. Her respiratory status improved and there was no evidence of pneumonia. She was discharged to SNF for short-term rehabilitation given generalized weakness. She was prescribed 3 more days of doxycycline and prednisone. Nicotine replacement was started and prescribed. She should be weaned off oxygen at the SNF. Time spent discussing smoking cessation with patient: 3 to 10 minutes Status at Discharge Functional status at discharge: uses cane/walker Overall status at discharge: patient is not back to baseline Time Spent with Patient Time attestation: Total time spent providing and/or coordinating discharge ser vices: 35 Time spent: Greater than 30 minutes Physical Exam Vital Signs: Vital Signs: Vital Signs Temp Pulse Resp BP Pulse Ox 06/19/20 11:30 97 F 105 H 156/67 H 95 06/19/20 08:00 96.5 F L 98 18 154/76 H 90 L 06/19/20 04:00 97.1 F 90 17 156/80 H 98 06/18/20 23:26 97.4 F 110 H 19 159/74 H 93 06/18/20 19:52 97.5 F 103 H 16 151/69 H 98 06/18/20 16:00 98.6 F 57 20 157/98 H 97 Body Mass Index 18.7 Const: General: no acute distress Orientation/consciousness: patient oriented x3 Neck: Neck: Yes supple Resp: Effort & Inspection: normal respiratory effort and able to speak in complete sentences Auscultation: clear to auscultation bilaterally Cardio: Rate: regular rate Rhythm: regular rhythm Neuro: General: patient oriented x3 DS: Data Data Completed and Pending Labs on day of discharge: Laboratory Results - last 72 hr 06/16/20 06/16/20 06/16/20 12:11 12:11 12:11 WBC RBC 4.33 Hgb Hct MCV 97.7 MCH 33.0 MCHC 33.8 RDW 14.2 Plt Count MPV 9.9 Immature Gran % (Auto) 0.5 H Neut % (Auto) 88.8 H Lymph % (Auto) 4.6 L Fisher % (Auto) 5.9 Eos % (Auto) 0.0 Baso % (Auto) 0.2 Lymph # (Auto) 0.5 L Fisher # (Auto) 0.7 Eos # (Auto) 0.0 Baso # (Auto) 0.0 Abs Immat Gran (auto) 0.06 H Absolute Neuts (auto) 10.4 H Absolute Nucleated RBC 0.000 Nucleated RBC % (auto) 0.0 Smear Tech's Comments VERIFIED PT 14.9 H INR 1.3 H APTT 34.5 Sodium 133 L Potassium 3.6 Chloride 93 L Carbon Dioxide 30 H Anion Gap 14 BUN 10 Creatinine 0.48 L Estim Creat Clear Calc 86.5 Estimated GFR > 60 Random Glucose 105 Lactic Acid Calcium 8.9 Total Bilirubin 0.7 AST 43 H ALT 26 Alkaline Phosphatase 117 Troponin I High Sens B-Natriuretic Peptide Total Protein 6.1 L Albumin 3.3 L Procalcitonin Urine Color Urine Appearance Urine pH Ur Specific [place] Urine Protein Urine Glucose (UA) Urine Ketones Urine Blood Urine Nitrite Ur Leukocyte Esterase Coronavirus (PCR) 06/16/20 06/16/20 06/16/20 12:11 12:59 15:11 WBC RBC Hgb Hct MCV MCH MCHC RDW Plt Count MPV Immature Gran % (Auto) Neut % (Auto) Lymph % (Auto) Fisher % (Auto) Eos % (Auto) Baso % (Auto) Lymph # (Auto) Fisher # (Auto) Eos # (Auto) Baso # (Auto) Abs Immat Gran (auto) Absolute Neuts (auto) Absolute Nucleated RBC Nucleated RBC % (auto) Smear Tech's Comments PT INR APTT Sodium Potassium Chloride Carbon Dioxide Anion Gap BUN Creatinine Estim Creat Clear Calc Estimated GFR Random Glucose Lactic Acid 0.9 Calcium Total Bilirubin AST ALT Alkaline Phosphatase Troponin I High Sens 8.9 B-Natriuretic Peptide 26 Total Protein Albumin Procalcitonin Urine Color YELLOW Urine Appearance CLEAR Urine pH 7.0 Ur Specific [place] <= 1.005 Urine Protein NEG Urine Glucose (UA) NEG Urine Ketones NEG Urine Blood NEG Urine Nitrite NEG Ur Leukocyte Esterase NEG Coronavirus (PCR) 06/16/20 06/16/20 06/17/20 15:31 16:21 06:28 WBC RBC Hgb Hct MCV MCH MCHC RDW Plt Count MPV Immature Gran % (Auto) Neut % (Auto) Lymph % (Auto) Fisher % (Auto) Eos % (Auto) Baso % (Auto) Lymph # (Auto) Fisher # (Auto) Eos # (Auto) Baso # (Auto) Abs Immat Gran (auto) Absolute Neuts (auto) Absolute Nucleated RBC Nucleated RBC % (auto) Smear Tech's Comments PT INR APTT Sodium 135 Potassium 3.6 Chloride 99 Carbon Dioxide 30 H Anion Gap 10 L BUN 17 H D Creatinine 0.53 Estim Creat Clear Calc 78.4 Estimated GFR > 60 Random Glucose 146 H D Lactic Acid Calcium 8.2 L Total Bilirubin AST ALT Alkaline Phosphatase Troponin I High Sens B-Natriuretic Peptide Total Protein Albumin Procalcitonin Urine Color Urine Appearance Urine pH Ur Specific [place] Urine Protein Urine Glucose (UA) Urine Ketones Urine Blood Urine Nitrite Ur Leukocyte Esterase Coronavirus (PCR) Cancelled NEGATIVE 06/18/20 06/19/20 06/19/20 17:37 06:15 06:15 WBC 7.1 RBC 3.50 L Hgb 11.6 L Hct 35.1 L MCV 100.3 H MCH 33.1 H MCHC 33.0 RDW 14.8 Plt Count 330 MPV 10.3 Immature Gran % (Auto) 0.4 Neut % (Auto) 65.5 Lymph % (Auto) 20.4 Fisher % (Auto) 13.7 H Eos % (Auto) 0.0 Baso % (Auto) 0.0 Lymph # (Auto) 1.4 Fisher # (Auto) 1.0 Eos # (Auto) 0.0 Baso # (Auto) 0.0 Abs Immat Gran (auto) 0.03 Absolute Neuts (auto) 4.6 Absolute Nucleated RBC 0.000 Nucleated RBC % (auto) 0.0 Smear Tech's Comments PT INR APTT Sodium 141 Potassium 3.3 Chloride 102 Carbon Dioxide 33 H Anion Gap 9 L BUN 16 Creatinine 0.43 L Estim Creat Clear Calc 96.6 Estimated GFR > 60 Random Glucose 114 Lactic Acid Calcium 8.1 L Total Bilirubin AST ALT Alkaline Phosphatase Troponin I High Sens B-Natriuretic Peptide Total Protein Albumin Procalcitonin Urine Color Urine Appearance Urine pH Ur Specific [place] Urine Protein Urine Glucose (UA) Urine Ketones Urine Blood Urine Nitrite Ur Leukocyte Esterase Coronavirus (PCR) NEGATIVE 06/19/20 06:15 WBC RBC Hgb Hct MCV MCH MCHC RDW Plt Count MPV Immature Gran % (Auto) Neut % (Auto) Lymph % (Auto) Fisher % (Auto) Eos % (Auto) Baso % (Auto) Lymph # (Auto) Fisher # (Auto) Eos # (Auto) Baso # (Auto) Abs Immat Gran (auto) Absolute Neuts (auto) Absolute Nucleated RBC Nucleated RBC % (auto) Smear Tech's Comments PT INR APTT Sodium Potassium Chloride Carbon Dioxide Anion Gap BUN Creatinine Estim Creat Clear Calc Estimated GFR Random Glucose Lactic Acid Calcium Total Bilirubin AST ALT Alkaline Phosphatase Troponin I High Sens B-Natriuretic Peptide Total Protein Albumin Procalcitonin 0.13 Urine Color Urine Appearance Urine pH Ur Specific [place] Urine Protein Urine Glucose (UA) Urine Ketones Urine Blood Urine Nitrite Ur Leukocyte Esterase Coronavirus (PCR) CTA chest 06/16/20: IMPRESSION: 1. No evidence of pulmonary emboli. 2. 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 Discharge Plan Discharge Patient Disposition: Xfer SNF Referrals: [facility] [Other] (they will provide short term rehab fr you ) [facility] [Outside] (nce you are discharged from the short term reahb they will be following you once you are home ) Seng Ty MD [Primary Care Provider] - Discharge Medications: New atorvastatin 10 mg Tablet 5 mg PO DAILY Qty: 30 RF: 0 doxycycline hyclate 100 mg Tablet 100 mg PO Q12H Qty: 6 RF: 0 ipratropium-albuterol 0.5 mg-3 mg(2.5 mg base)/3 mL Solution For Nebulization 3 ml inhalation RQ4H WHILE AWAKE Qty: 90 RF: 0 nicotine 14 mg/24 hr Patch 24 Hour 14 mg transdermal DAILY Qty: 30 RF: 0 lorazepam 0.5 mg Tablet 0.25 mg PO Q8H PRN (Reason: Anxiety) Qty: 12 RF: 0 prednisone 20 mg Tablet 40 mg PO DAILY Qty: 6 RF: 0 melatonin 3 mg Tablet 3 mg PO BEDTIME PRN (Reason: Insomnia) Qty: 30 RF: 0 dextromethorphan-guaifenesin 10-100 mg/5 mL Syrup 10 ml PO Q4H PRN (Reason: Cough) Qty: 120 RF: 0 Continued albuterol sulfate [ProAir HFA] 90 mcg/actuation Hfa Aerosol Inhaler 2 puff INHALATION DIRECTED PRN (Reason: Dyspnea) RF: 0 Breo Ellipta 100-25 mcg/dose Blister With Device 1 inh inhalation DAILY RF: 0 Discontinued atorvastatin 10 mg Tablet 5 mg PO QAM RF: 0 Discharge Orders: Discharge Order (Routine); Ordered 06/19/20 Ordered By: Joshua Mehta Diet: advance to your usual diet Activity on Discharge: As tolerated Patient Instructions: COPD (Chronic Obstructive Pulmonary Disease) (DC) Visit Report Forms: Patient Portal Discharge page Care Plan Goals: see Plan of Treatment Health Concerns: see Plan of Treatment Plan of Treatment: prednisone 40 mg daily for 3 days doxycycline 100 mg twice daily for 3 days quit smoking- use nicotine patch to quit see your primary care doctor upon discharge from SNF
[2020-06-19 15:00] VITALS: BP 143/66; PULSE 107; TEMP 36.3; O2SAT 94
[2020-06-19] MEDS: cefTRIAXone sodium 1 GM in 0.9 % Sodium Chloride 50 ML IV (15:25)
--- NOTE | 2020-06-19 16:33 | MHC.CM.PN ---
NURSE PURCHASING DEPARTMENT CLERK NOTE STILL AWAITING TO HEAR BACK FROM VIOLETTA AT [facility] REGARDING INSUIRnce authorization , received a message from case management office secretary that violetta garza could not get insruraNCE AUTH THEY HAD QUESTIONS AND FOR ME TO PLEASE CALL THE INSRUANCE NURSE JOHANNY I SPOKE WITH HER REVIEWED SOME CLINICAL AND THE P.T. EVAL AND DATE IT WAS DONE , SHE REPORTED TO ME THAT SHE WOULD CALL VIOLETTA AT [facility] . call to violetta at [facility] and found out that she had left for the day , i spoke with the [facility] rehab nurse chioma and she reportee she will reach violetta . i did not heaer from her so i again called the [place] nurse nain and she reported violetta hasd accepted patient and she would need to be hear before 6pm. i called [facility] and spoke with louie she checked and called me back o report that [facility] will be her for 5 pm transport to take patient to [facility] , i called to patient son eze borges with the discharge inofrmation phone number and address as he will bring clothes t her tnight i reviewed this with community outreach worker and to [facility] nurse milian i asked that he call the nurse nain with nurse to nurse report and fax over the discharge packet to them d/c summary and pt eval also in the green discharge envelpe for discharge
== END 2020-06-19 17:05 | disposition skilled nursing facility (03) | DRG 190 ==
LOC: HO.ED 18:11 → HO.S3 18:35
PROVIDERS: Physician Assistant; Admitting Provider Family Medicine; Emergency Provider Emergency Medicine; PCP Internal Medicine; Visit Provider Family Medicine
DX: J44.1 Chronic obstructive pulmonary disease with (acute) exacerbation (principal); J96.01 Acute respiratory failure with hypoxia; E78.5 Hyperlipidemia, unspecified; I10 Essential (primary) hypertension; F17.210 Nicotine dependence, cigarettes, uncomplicated; Z71.6 Tobacco abuse counseling; Z20.828 Contact with and (suspected) exposure to other viral communicable diseases; Z79.52 Long term (current) use of systemic steroids; Z79.899 Other long term (current) drug therapy
CPT/HCPCS: 36415; 70450; 71045; 71275; 72125; 80048; 80053; 81003; 83605; 83880; 84145; 84484; 85025; 85610; 85730; 87040; 87635; 90686; 93005; 96365; 96366; 96367; 96375; 97162; 99285; J1650; J2920; J2930; J3475

== ENCOUNTER → 2020-07-30 13:37 | Outpatient (BNVA) | payer MEDICARE, SELFPAY | PROVIDERS: PCP Family Medicine; Visit Provider Internal Medicine | DX: J44.9 Chronic obstructive pulmonary disease, unspecified (principal); J96.91 Respiratory failure, unspecified with hypoxia; F17.200 Nicotine dependence, unspecified, uncomplicated; Z79.899 Other long term (current) drug therapy; Z99.81 Dependence on supplemental oxygen | CPT/HCPCS: 99202 ==

== ENCOUNTER → 2020-10-08 14:32 | Outpatient (BNVA) | payer MEDICARE, SELFPAY | PROVIDERS: PCP Family Medicine; Visit Provider Internal Medicine | DX: Z13.89 Encounter for screening for other disorder (principal) | CPT/HCPCS: Q3014 ==

== ENCOUNTER 2021-01-01 14:00 | Outpatient (RCR) | payer MEDICARE, SELFPAY ==
--- NOTE | 2020-11-27 13:14 | MHC.PT.EP ---
[facility] [place] Office [place] Office [place] Office [address] Rani Wallace [address] [phone] F: [phone] F: [phone] F: [phone] F: [phone] Physical Therapy Plan of Care Date of Evaluation: 11/27/20 Date of Surgery: NA Diagnosis: DORSALGIA Assessment: Pt IS 79 YO F REFERRED TO PT FROM DR ODELL WITH DORSALGIA. Pt SEEN WITH HER SON PRESENT. BOTH REPORT HER BIGGEST ISSUE AT THIS TIME IS HER BALANCE. SON REPORTS MULTIPLE FALLS (OF NOTE, Pt HAD A 10 DAY STAY AT [facility] ?JUNE/JUL 2020 AFTER AN ER VISIT BECAUSE OF WEAKNESS. Pt THEN HAD HOME PT. HAS BEEN USING [facility] AND [facility] O2 (3L) SINCE THAT TIME. PRESENTS TO PT WITH DECREASED OVERALL STRENGTH AND POOR BALANCE. SHOULD BENEFIT FROM PT TO ADDRESS THESE ISSUES TO HELP IMPROVED FUNCTIONAL MOBILITY. Pt HAD BEEN LIVING ALONE, BUT NOW HER SON, SAMIA, LIVES WITH HER TO ASSIST HER WITH ADLS. FAR BACK PAIN, Pt SHOULD BENEFIT FROM SOME GENTLE STRETCHING AND SOFT TISSUE WORK. HER STRENGTH AND MOBILITY/BAL IMPROVES, WE MAY SEE AN IMPROVEMENT IN HER BACK PAIN ALSO Frequency and Duration: The patient will be seen 2X/WK X 12 WKS Short Term Goals: 1. Pt TO STAND FROM CHAIR WITH ARMS CROSSED 2. Pt/SON TO REPORT NO FALLS Care Home Goals: 1. I HEP WITH DC EX PLAN 2. DECREASED BACK PAIN AT LEAST 50% WITH ADLS 3. Pt ABLE TO STAND TANDEM FOR AT LEAST 10 SEC 4. INCREASED HIP FLEX AND ABD STRENGTH AT LEAST 1/2 MM GRADE 5. IMPROVED MOD OSWESTRY Treatment Plan: Modalities to reduce pain, spasms and effusion. Manual therapy to restore motion and function. Therapeutic exercise to improve strength and flexibility. Neuromuscular re-education for posture and balance. Therapeutic activities to return to functional activities of daily living. Electronically signed by: ABRAM BEJARANO PT Please sign and return to therapist. Thank you for your referral.
--- NOTE | 2021-01-10 12:56 | MHC.PT.PR ---
[facility] [place] Office [place] Office [place] Office [address] Rani Wallace [address] [phone] F: [phone] F: [phone] F: [phone] F: [phone] Physical Therapy Progress Note Diagnosis: DORSALGIA Date of Surgery: NA Date of Evaluation: 11/27/20 Treatments to Date: 6 Cancellations to Date: 5 No Shows to Date: 1 Subjective: Pt WITH SON. Pt WITH [facility] AND SON BRINGS PORTABLE O2 TANK (Pt NOT WEARING TO WALK IN/OUT OR DURING SESSION TODAY ). REPORTS NOT HAVING TOO MUCH PAIN TODAY. DIDNT COME IN ON WEDNESDAY BECAUSE MISSED APPT TIME Pain Score and Location: 2 LB Objective Measures: SEE EVAL Assessment: HISTORY OF CANCELLATIONS- ? TRANSITION TO HOME BASED PT DUE TO POOR ATTENDANCE/DESIRE TO ATTEND OUTPATIENT THERAPY IN RECENT WEEKS PT Plan: Frequency and Duration: The patient will be seen ? HOME Treatment Plan: Therapeutic Exercise Dynamic Therapeutic Activities Neuromuscular Re-ed Manual Therapies Canalith Repositioning Home Exercise Program Patient Education PT'S SON CALLED TODAY TO CANCEL APPT IN THERAPY AGAIN, STATING HIS MOM APPEARS MORE DEPRESSED, NOTICING HER IN BED MORE- NOT AGREEABLE TO COME TO PT DESPITE REPEATED ENCOURAGEMENT. THERAPIST DISCUSSED POTENTIAL OPTION OF EXPLORING HOME BASED PT TO HAVE THEM COME INTO THE HOME. PT'S SON TO SPEAK WITH PATIENT REGARDING PLAN/STATUS OF THERAPY- REPEATED WEEKLY CANCELLATIONS. PT'S SON REPORTS THEY ARE SLATED TO SEE DR. ODELL AT THE END OF THE MONTH FOR 2 MONTH FOLLOW UP. THERAPIST ENCOURAGED PATIENT'S SON TO PHONE PRIMARY REGARDING STATUS TO DISCUSS CONCERNS RE: DEPRESSION, AND PARTICIPATION WITH THERAPY. Reviewed/ Agreed with Student Documentation: Therapist: Thank you once again for your referral.
--- NOTE | 2021-01-22 15:19 | MHC.PT.DC ---
[facility] [place] Office [place] Office [place] Office [address] Rani Wallace [address] [phone] F: [phone] F: [phone] F: [phone] F: [phone] Physical Therapy Discharge Report Diagnosis: DORSALGIA Date of Surgery: NA Date of Evaluation: 11/27/20 Date of Discharge: 01/22/21 Treatments to Date: 6 Cancellations to Date: 5 No Shows to Date: 1 Discharge Status: Recommend MD Follow-up Visit Non-compliance Discharge Summary: Pt WAS SEEN IN PT FOR 6 TREATMENTS BUT MULTIPLE CANCELLATIONS/NO SHOWS. Pt WITH OVERALL FLUCTUATING POOR VS FAIR TOLERANCE TO EXS/STRETCHES WITHOUT SIGNIF CHANGE IN FUNCTIONAL MOBILITY OR PAIN LEVELS. Pt WITH REPORTED (THROUGH SON) DECREASED WILLINGNESS TO PARTICIPATE IN OUTPt PT (HX OF DEPRESSION). MAY BENEFIT FROM HOME PT SERVICES TO CONTINUE TO WORK ON STRENGTH/ENDURANCE, FUNCTIONAL MOBILITY AND MAY BENEFIT FROM PSYCH CONSULT/INTERVENTION (SPOKE WITH SON RE THIS). HE (SAMIA) SAYS HE WILL CONTACT MD MEDINA THESE ISSUES FOR POSSIBLE REFERRAL TO [facility] FOR HOME PT Electronically signed by: ABRAM BEJARANO PT Please sign and return to therapist. Thank you for your referral.
== END 2021-01-22 15:20 | disposition other institution (70) ==
LOC: HO.PTWFD 14:00
PROVIDERS: Visit Provider Family Medicine
DX: M54.9 Dorsalgia, unspecified (principal)
CPT/HCPCS: 97110; 97140; 97162; 97530

== ENCOUNTER 2021-02-07 10:31 | Outpatient (REF) | payer MEDICARE, SELFPAY ==
[2021-02-07 11:30] LABS: MANUAL DIFF FLAG NO
[2021-02-07 11:40] LABS: Basophils Absolute Auto 0.1 X10*3/uL (0.0-0.2); Eosinophils Absolute Auto 0.3 X10*3/uL (0.0-0.4); Eosinophils Percent Auto 5.1 % (0-4); Hematocrit 38.5 % (37-47); Hemoglobin 12.2 g/dl (12.0-16.0); Imm Gran Abs Auto 0.01 X10*3/uL (0.00-0.03); Imm Gran Pct Auto 0.2 % (0.0-0.4); Lymphocytes Absolute Auto 2.4 X10*3/uL (1.2-4.9); Lymphocytes Percent Auto 45.8 % (20-40); Mean Corpuscular HGB Conc 31.7 g/dl (31.0-35.0); Mean Corpuscular Volume 94.6 fL (80-98); Mean Platelet Volume 10.2 fL (9.4-12.3); Monocytes Absolute Auto 0.6 X10*3/uL (0.1-1.2); Monocytes Percent Auto 10.6 % (2-11); Neutrophils Percent Auto 37.3 % (45-73); Platelet Count 261 X10*3/uL (160-400); Red Blood Count 4.07 X10*6/uL (4.20-5.50); Red Cell Distribution Width 12.9 % (11.0-16.0); White Blood Count 5.3 X10*3/uL (4.8-10.8)
[2021-02-07 12:08] LABS: Alanine Aminotransferase 9 U/L (0-31); Albumin Level 4.1 g/dL (3.5-5.0); Alkaline Phosphatase 80 U/L (39-117); Anion Gap 15 (12-20); Aspartate Amino Transferase 17 U/L (5-31); Bilirubin Total 0.5 mg/dL (0.0-1.0); Blood Urea Nitrogen 16 mg/dL (9-16); Calcium 10.2 mg/dL (8.4-10.2); Carbon Dioxide 29 mmol/L (22-29); Chloride 100 mmol/L (96-108); Cholesterol 276 mg/dL; Estimated Glomerular Filt Rate > 60; Glucose Fasting 91 mg/dL (60-99); HDL Cholesterol 44 mg/dL; Potassium 4.6 mmol/L (3.3-5.1); Sodium 139 mmol/L (135-145); Total Protein 6.9 g/dL (6.5-8.0); Triglycerides 411 mg/dL
[2021-02-07 12:12] LABS: TSH reflex Free T4 2.28 uIU/mL (0.32-4.0)
== END 2021-02-07 10:32 | disposition home or self-care (01) ==
LOC: HO.LAB 10:31
PROVIDERS: PCP Family Medicine; Visit Provider Family Medicine
DX: Z00.00 Encounter for general adult medical examination without abnormal findings (principal)
CPT/HCPCS: 36415; 80053; 80061; 84443; 85025

== ENCOUNTER 2021-03-05 21:41 | Emergency (ER) | payer MEDICARE, SELFPAY ==
--- NOTE | ~2021-03-05 | XR_ITS ---
EXAMINATION: 1. CHEST X-RAY 2. RADIOGRAPHS RIGHT ELBOW 3. RADIOGRAPHS RIGHT HIP 4. RADIOGRAPHS RIGHT KNEE CLINICAL INFORMATION: Diffuse pain after fall. COMPARISON: Chest x-ray June 16, 2020 TECHNIQUE: Frontal view of the chest, 3 views of the right elbow, 2 views of the right hip (including frontal pelvis) and 2 views of the right knee were obtained. FINDINGS: CHEST: Cardiac silhouette is normal in size. The lungs are well aerated. There is no lobar consolidation. No pleural effusion or pneumothorax. Right elbow: No fracture or dislocation of the right elbow. No joint effusion. Mild soft tissue swelling. No radiopaque foreign body. Right hip: Visualized portion of the proximal right femur demonstrate no fracture. Femoral head is well-seated within the acetabulum. There is moderate narrowing of the right femoral acetabular joint space. The pelvic ring is intact. Vascular calcifications noted. Degenerative changes of the left hip without gross fracture or dislocation. Right knee: No fracture or dislocation. Tiny suprapatellar joint effusion. Mild to moderate narrowing of the medial and lateral joint spaces. Chondrocalcinosis noted. Vascular calcifications. XR/XR elbow RT 2V IMPRESSION: 1. No acute pulmonary pathology. 2. Soft tissue swelling of the right elbow without fracture. 3. Moderate degenerative changes of the right hip without fracture or dislocation. 4. Moderate degenerative changes of the right knee with a tiny suprapatellar joint effusion.
--- NOTE | ~2021-03-05 | CT_ITS ---
EXAMINATION: HEAD CT WITHOUT CONTRAST CERVICAL SPINE CT WITHOUT CONTRAST CLINICAL INFORMATION: Fall. Head trauma. COMPARISON: 06/16/2020 TECHNIQUE: Contiguous axial imaging of the head was performed without the administration of IV contrast. Axial multidetector volumetric images were also performed through the cervical spine without intravenous contrast. Multiplanar reconstructed images in coronal and sagittal orientations were submitted. This CT examination was performed using dose optimization techniques as appropriate, variously including the following: *Automated exposure control *Adjustment of mA and/or kV according to patient size (this includes techniques or standardized protocols for targeted exams where dose is matched to indication/reason for exam; i.e. extremities or head) *Use of iterative reconstruction technique DOSE: 929 mGy-cm FINDINGS: HEAD: There is no evidence of acute intracranial hemorrhage or territorial infarction. No abnormal mass-effect or midline shift. No extra-axial fluid collections. Hannon to white matter differentiation is well preserved. Mild to moderate enlargement of the ventricles, sulci, and extra-axial CSF spaces is indicative of parenchymal volume loss. Multiple areas of hypoattenuation in the subcortical and periventricular white matter are most consistent with chronic microangiopathic changes. Calcific atherosclerosis is present within the cavernous and supraclinoid segments of the internal carotid arteries. Patient is edentulous. No acute osseous findings. Soft tissues are unremarkable. Mastoid air cells are clear. A few round foci mucosal thickening are evident in the left maxillary sinus inferiorly. CERVICAL SPINE: Vertebral body heights are normal. No fractures of the vertebral bodies or posterior elements. As seen on the prior study, there is a stairstep pattern of mild, 2 mm anterolisthesis from C4-C5 through C7-T1, unchanged from prior and chronic in nature. No acute subluxation. Mild degenerative findings at the atlantodental articulation. Plantar occipital articulation is normal in alignment. Mild multilevel degenerative disc disease is characterized by slight loss of vertebral disc height and endplate and uncovertebral osteophytes with annular mineralization. There is [id number] multilevel facet arthropathy, most notably on the left at C4-C5. Central canal appears patent. No epidural hematomas are identified. No significant neural foraminal encroachment is appreciated. No significant paravertebral soft tissue swelling. Atherosclerotic calcifications are present in the carotid arteries. Centrilobular emphysema is noted in the lung apices. Thyroid gland is normal aside from a 7 mm hypointense cystic focus in the right lobe. No imaging follow-up is necessary. CT/CT cervical spine wo con IMPRESSION: 1. No acute intracranial pathology. Mild to moderate cerebral atrophy and chronic microangiopathic white matter changes. 2. No acute fracture or malalignment in the cervical spine. Mild to moderate multilevel degenerative spondylosis with chronic, degenerative pattern of anterolisthesis at multiple levels.
--- NOTE | ~2021-03-05 | XR_ITS ---
EXAMINATION: 1. CHEST X-RAY 2. RADIOGRAPHS RIGHT ELBOW 3. RADIOGRAPHS RIGHT HIP 4. RADIOGRAPHS RIGHT KNEE CLINICAL INFORMATION: Diffuse pain after fall. COMPARISON: Chest x-ray June 16, 2020 TECHNIQUE: Frontal view of the chest, 3 views of the right elbow, 2 views of the right hip (including frontal pelvis) and 2 views of the right knee were obtained. FINDINGS: CHEST: Cardiac silhouette is normal in size. The lungs are well aerated. There is no lobar consolidation. No pleural effusion or pneumothorax. Right elbow: No fracture or dislocation of the right elbow. No joint effusion. Mild soft tissue swelling. No radiopaque foreign body. Right hip: Visualized portion of the proximal right femur demonstrate no fracture. Femoral head is well-seated within the acetabulum. There is moderate narrowing of the right femoral acetabular joint space. The pelvic ring is intact. Vascular calcifications noted. Degenerative changes of the left hip without gross fracture or dislocation. Right knee: No fracture or dislocation. Tiny suprapatellar joint effusion. Mild to moderate narrowing of the medial and lateral joint spaces. Chondrocalcinosis noted. Vascular calcifications. XR/XR hip RT w [id number] IMPRESSION: 1. No acute pulmonary pathology. 2. Soft tissue swelling of the right elbow without fracture. 3. Moderate degenerative changes of the right hip without fracture or dislocation. 4. Moderate degenerative changes of the right knee with a tiny suprapatellar joint effusion.
--- NOTE | ~2021-03-05 | CT_ITS ---
EXAMINATION: HEAD CT WITHOUT CONTRAST CERVICAL SPINE CT WITHOUT CONTRAST CLINICAL INFORMATION: Fall. Head trauma. COMPARISON: 06/16/2020 TECHNIQUE: Contiguous axial imaging of the head was performed without the administration of IV contrast. Axial multidetector volumetric images were also performed through the cervical spine without intravenous contrast. Multiplanar reconstructed images in coronal and sagittal orientations were submitted. This CT examination was performed using dose optimization techniques as appropriate, variously including the following: *Automated exposure control *Adjustment of mA and/or kV according to patient size (this includes techniques or standardized protocols for targeted exams where dose is matched to indication/reason for exam; i.e. extremities or head) *Use of iterative reconstruction technique DOSE: 929 mGy-cm FINDINGS: HEAD: There is no evidence of acute intracranial hemorrhage or territorial infarction. No abnormal mass-effect or midline shift. No extra-axial fluid collections. Hannon to white matter differentiation is well preserved. Mild to moderate enlargement of the ventricles, sulci, and extra-axial CSF spaces is indicative of parenchymal volume loss. Multiple areas of hypoattenuation in the subcortical and periventricular white matter are most consistent with chronic microangiopathic changes. Calcific atherosclerosis is present within the cavernous and supraclinoid segments of the internal carotid arteries. Patient is edentulous. No acute osseous findings. Soft tissues are unremarkable. Mastoid air cells are clear. A few round foci mucosal thickening are evident in the left maxillary sinus inferiorly. CERVICAL SPINE: Vertebral body heights are normal. No fractures of the vertebral bodies or posterior elements. As seen on the prior study, there is a stairstep pattern of mild, 2 mm anterolisthesis from C4-C5 through C7-T1, unchanged from prior and chronic in nature. No acute subluxation. Mild degenerative findings at the atlantodental articulation. Plantar occipital articulation is normal in alignment. Mild multilevel degenerative disc disease is characterized by slight loss of vertebral disc height and endplate and uncovertebral osteophytes with annular mineralization. There is [id number] multilevel facet arthropathy, most notably on the left at C4-C5. Central canal appears patent. No epidural hematomas are identified. No significant neural foraminal encroachment is appreciated. No significant paravertebral soft tissue swelling. Atherosclerotic calcifications are present in the carotid arteries. Centrilobular emphysema is noted in the lung apices. Thyroid gland is normal aside from a 7 mm hypointense cystic focus in the right lobe. No imaging follow-up is necessary. CT/CT head/brain wo con IMPRESSION: 1. No acute intracranial pathology. Mild to moderate cerebral atrophy and chronic microangiopathic white matter changes. 2. No acute fracture or malalignment in the cervical spine. Mild to moderate multilevel degenerative spondylosis with chronic, degenerative pattern of anterolisthesis at multiple levels.
--- NOTE | ~2021-03-05 | XR_ITS ---
EXAMINATION: 1. CHEST X-RAY 2. RADIOGRAPHS RIGHT ELBOW 3. RADIOGRAPHS RIGHT HIP 4. RADIOGRAPHS RIGHT KNEE CLINICAL INFORMATION: Diffuse pain after fall. COMPARISON: Chest x-ray June 16, 2020 TECHNIQUE: Frontal view of the chest, 3 views of the right elbow, 2 views of the right hip (including frontal pelvis) and 2 views of the right knee were obtained. FINDINGS: CHEST: Cardiac silhouette is normal in size. The lungs are well aerated. There is no lobar consolidation. No pleural effusion or pneumothorax. Right elbow: No fracture or dislocation of the right elbow. No joint effusion. Mild soft tissue swelling. No radiopaque foreign body. Right hip: Visualized portion of the proximal right femur demonstrate no fracture. Femoral head is well-seated within the acetabulum. There is moderate narrowing of the right femoral acetabular joint space. The pelvic ring is intact. Vascular calcifications noted. Degenerative changes of the left hip without gross fracture or dislocation. Right knee: No fracture or dislocation. Tiny suprapatellar joint effusion. Mild to moderate narrowing of the medial and lateral joint spaces. Chondrocalcinosis noted. Vascular calcifications. XR/XR chest 1V IMPRESSION: 1. No acute pulmonary pathology. 2. Soft tissue swelling of the right elbow without fracture. 3. Moderate degenerative changes of the right hip without fracture or dislocation. 4. Moderate degenerative changes of the right knee with a tiny suprapatellar joint effusion.
--- NOTE | ~2021-03-05 | XR_ITS ---
EXAMINATION: 1. CHEST X-RAY 2. RADIOGRAPHS RIGHT ELBOW 3. RADIOGRAPHS RIGHT HIP 4. RADIOGRAPHS RIGHT KNEE CLINICAL INFORMATION: Diffuse pain after fall. COMPARISON: Chest x-ray June 16, 2020 TECHNIQUE: Frontal view of the chest, 3 views of the right elbow, 2 views of the right hip (including frontal pelvis) and 2 views of the right knee were obtained. FINDINGS: CHEST: Cardiac silhouette is normal in size. The lungs are well aerated. There is no lobar consolidation. No pleural effusion or pneumothorax. Right elbow: No fracture or dislocation of the right elbow. No joint effusion. Mild soft tissue swelling. No radiopaque foreign body. Right hip: Visualized portion of the proximal right femur demonstrate no fracture. Femoral head is well-seated within the acetabulum. There is moderate narrowing of the right femoral acetabular joint space. The pelvic ring is intact. Vascular calcifications noted. Degenerative changes of the left hip without gross fracture or dislocation. Right knee: No fracture or dislocation. Tiny suprapatellar joint effusion. Mild to moderate narrowing of the medial and lateral joint spaces. Chondrocalcinosis noted. Vascular calcifications. XR/XR knee RT 2V IMPRESSION: 1. No acute pulmonary pathology. 2. Soft tissue swelling of the right elbow without fracture. 3. Moderate degenerative changes of the right hip without fracture or dislocation. 4. Moderate degenerative changes of the right knee with a tiny suprapatellar joint effusion.
[2021-03-05 21:59] VITALS: BP 168/80; BP 173/74; PULSE 76; RESP 16; TEMP 36.9; O2SAT 100; O2SAT 98; BMI 19.4
--- NOTE | 2021-03-05 22:23 | ED_ITS ---
HPI - Head Injury General Chief complaint: Extremity Injury, Lower Stated complaint: fall/leg pain Time Seen by Provider: 03/05/21 22:10 Source: patient and EMS Mode of arrival: EMS Limitations: no limitations History of Present Illness HPI Narrative: 80-year-old female with past medical history of depression, anxi ety, hyperlipidemia, hypertension, COPD O2 dependent presents with a fall from a stool. Landed on her back, hit the back of her head, and her right elbow and hip. Son states that she has been falling quite a bit over the past several months and that her physical function has rapidly declined. Patient does not report any alcohol or drug abuse. Denies weight loss. Stated that she does not have any concerning problems at home. MD Complaint: head injury Onset (ago): hour(s) ( Within the hour of arrival) Arrival Conditions: C-spine immobilization present Mechanism of Injury: fall Place: home Loss of Consciousness: no Location of injury: occipital Severity: moderate Severity scale (1-10): 5 Quality: throbbing Radiation: neck Other Injuries: upper extremity Associated symptoms: denies other symptoms Related Data Home Medications Medication Instructions Recorded Confirmed albuterol sulfate [ProAir HFA] 2 puff INHALATION DIRECTED PRN 06/16/20 06/16/20 docusate sodium 100 mg capsule 100 mg PO DAILY 07/02/20 acetaminophen 325 mg tablet 325 mg PO QID PRN 07/30/20 ascorbic acid (vitamin C) 500 mg 500 mg PO DAILY 07/30/20 tablet cholecalciferol (vitamin D3) 50 50 mcg PO DAILY 07/30/20 mcg (2,000 unit) capsule multivitamin 1 tab PO DAILY 07/30/20 fluticasone furoate 200 INHALATION 10/08/20 mcg-vilanterol 25 mcg/dose inhalation powder Previous Rx's Medication Instructions Recorded ipratropium-albuterol 3 ml INHALATION RQ4H WHILE AWAKE 06/19/20 #90 ml melatonin 3 mg PO BEDTIME PRN #30 tab 06/19/20 atorvastatin 10 mg tablet 10 mg PO DAILY 90 Days #90 tab 07/02/20 miscellaneous medical supply #1 ea 07/16/20 gabapentin 400 mg capsule 400 mg PO TID 90 Days #270 cap 12/03/20 sertraline 100 mg tablet See Rx Instructions PO .B.i.d. 90 12/03/20 Days #135 tab lorazepam 0.5 mg tablet 0.5 mg PO TID PRN 30 Days #90 tab 02/10/21 tramadol 50 mg tablet 25 mg PO DAILY 30 Days #15 tab 02/12/21 Allergies Allergy/AdvReac Type Severity Reaction Status Date / Time No Known Allergies Allergy Verified 12/03/20 12:21 Review of Systems Review of Systems: Constitutional: No Fever, No Chills ENT/Mouth: No Ear Pain, No Hoarseness, No sore throat Eyes: No Eye Pain, No Swelling, No Redness, No Foreign Body Cardiovascular: No Chest Pain, No SOB Respiratory: No Cough, No Dyspnea Gastrointestinal: No Nausea, No Vomiting, No Diarrhea, No abdominal Pain Genitourinary: No Dysuria, No Hematuria Musculoskeletal: positive neck, right elbow, right hip and right knee pain, No Myalgias, No Joint Swelling Skin: No Skin lacerations, No rash Neuro: positive headache, No Weakness, No Numbness, No Paresthesias, No Loss of Consciousness, No Dizziness Psych: No Anxiety/Panic, No Depression Heme/Lymph: no easy bruising, no Lymphadenopathy Endocrine: No Polyuria, No Polydipsia Yes all other systems are reviewed and are negative [facility] Past Medical History Attestation statement: The following information was validated with the patient. Source: old records reviewed Medical History COPD (chronic obstructive pulmonary disease) Hyperlipidemia Hypertension Peripheral vascular disease Respiratory failure Family History Family History Mother Breast cancer Social History Social History Household Members: None Housing: House Do you presently have visiting nurse or other home services: No Alcohol intake: never Cigarette Packs Per Day: 3 Cigarettes Per Day: 60.0 Years Smoked: 50 Second Hand Smoke Exposure: Yes Advance Directives: No Advance Directives Information Provided: No service: No Current occupational status: retired Physical Exam Vital Signs: Vital Signs: Last Vital Signs Temp 98.5 F 03/05/21 21:59 Pulse 76 03/05/21 21:59 Resp 16 03/05/21 21:59 BP 173/74 H 03/05/21 21:59 Pulse Ox 100 03/05/21 21:59 Body Mass Index 19.4 Appearance: Alert. Oriented X3. mild distress. Head: Normal external exam. Normocephalic. Atraumatic. No Agustin signs noted. No raccoon eyes noted Eyes: PERRLA. EOMI. Conjunctiva and sclera normal. Eyelids normal. ENT: TM's Normal. Pharynx normal. Uvula midline. Moist mucous membranes. No trismus noted. No drooling noted. No muffled voice noted. Neck: Normal inspection. Neck supple. No adenopathy. Thyroid Normal. No meningeal signs. No neck mass noted. cervical spine tenderness without step- offs. CVS: Normal heart rate and rhythm. Heart sound normal. No murmurs noted. Pulses equal to all extremities. Respiratory: No respiratory distress. Painless inspiration. Breath sounds normal. No wheezes/rales/rhonchi noted. Chest nontender. No accessory muscle usage noted or decreased air movement noted. Abdomen: Soft and nontender. Bowel sounds normal in all 4 quadrants. No distention noted. No organomegaly noted. No visible injury noted. Back: No CVA tenderness. Full range of motion noted. Skin: Skin warm and dry. Normal skin color. Normal skin turgor. No rashes/lesions/lacerations noted. Extremities: No lower extremity edema. Extremities exhibit normal range of motion. Extremities nontender. Neuro: cranial nerves 2-12 intact, no focal neural deficits, strength 5/5 to all extremities, No motor deficit. No sensory deficit. Course Course Course Narrative: 80-year-old female presents via EMS in a C-collar after a fall off of a stool. Patient fell backwards, reporting occipital headache, cervical spine pain, right elbow and right hip and knee pain. Will order CT scan of head, cervical spine, x-ray of chest, right elbow and right knee with hip and pelvis. X-rays are negative for acute findings, CT scan negative for acute findings requiring emergent intervention. Degenerative disc disease noted. Will discharge home with concussive protocol. Patient was offered physical therapy case management social media campaign manager however she does not want the services at this time. Son feels like she could benefit from the services however she is alert oriented x4 he is able to make her own decisions. Patient is discharged home with instructions for close follow-up with primary care physician. Patient patient family verbalized understanding of and agrees to plan of care discharge home. MDM - Head Injury Differential Diagnosis Differential diagnosis: Likely concussion without loss of consciousness, closed head injury, subarachnoid hematoma, postconcussion syndrome and subdural hematoma Medical Records Attestation: I reviewed the patient's medical records. Lab Data Attestation: I reviewed the patient's lab results. Result diagrams: 03/05/21 23:26 03/05/21 23:26 Labs: Lab Results 03/05/21 03/05/21 03/05/21 Range/Units 23:26 23:26 23:26 WBC 7.5 (4.8-10.8) X10*3/uL RBC 4.20 (4.20-5.50) X10*6/uL Hgb 12.9 (12.0-16.0) g/dl Hct 39.3 (37-47) % MCV 93.6 (80-98) fL MCH 30.7 (27.0-33.0) pg MCHC 32.8 (31.0-35.0) g/dl RDW 13.1 (11.0-16.0) % Plt Count 217 (160-400) X10*3/uL MPV 9.4 (9.4-12.3) fL Immature Gran % (Auto) 0.3 (0.0-0.4) % Neut % (Auto) 77.5 H (45-73) % Lymph % (Auto) 13.7 L (20-40) % Rush % (Auto) 6.4 (2-11) % Eos % (Auto) 1.6 (0-4) % Baso % (Auto) 0.5 (0-2) % Lymph # (Auto) 1.0 L (1.2-4.9) X10*3/uL Rush # (Auto) 0.5 (0.1-1.2) X10*3/uL Eos # (Auto) 0.1 (0.0-0.4) X10*3/uL Baso # (Auto) 0.0 (0.0-0.2) X10*3/uL Abs Immat Gran (auto) 0.02 (0.00-0.03) X10*3/uL Absolute Neuts (auto) 5.8 (2.0-8.3) X10*3/uL Absolute Nucleated RBC 0.000 (0.0-0.012) X10*3/uL Nucleated RBC % (auto) 0.0 (0.0-0.2) /100WBC Sodium 139 (135-145) mmol/L Potassium 4.2 (3.3-5.1) mmol/L Chloride 100 (96-108) mmol/L Carbon Dioxide 30 H (22-29) mmol/L Anion Gap 13 (12-20) BUN 14 (9-16) mg/dL Creatinine 0.64 (0.5-1.4) mg/dL Estim Creat Clear Calc 64.3 Estimated GFR > 60 Random Glucose 118 H (60-115) mg/dL Calcium 9.7 (8.4-10.2) mg/dL Troponin I High Sens < 3.5 (<3.5-17.0) ng/L Imaging Data CT head neck: Attestation: I personally reviewed and interpreted this imaging study as follows: Radiologist's impression: FINDINGS: HEAD: There is no evidence of acute intracranial hemorrhage or territorial infarction. No abnormal mass-effect or midline shift. No extra-axial fluid collections. Hannon to white matter differentiation is well preserved. Mild to moderate enlargement of the ventricles, sulci, and extra-axial CSF spaces is indicative of parenchymal volume loss. Multiple areas of hypoattenuation in the subcortical and periventricular white matter are most consistent with chronic microangiopathic changes. Calcific atherosclerosis is present within the cavernous and supraclinoid segments of the internal carotid arteries. Patient is edentulous. No acute osseous findings. Soft tissues are unremarkable. Mastoid air cells are clear. A few round foci mucosal thickening are evident in the left maxillary sinus inferiorly. CERVICAL SPINE: Vertebral body heights are normal. No fractures of the vertebral bodies or posterior elements. As seen on the prior study, there is a stairstep pattern of mild, 2 mm anterolisthesis from C4-C5 through C7-T1, unchanged from prior and chronic in nature. No acute subluxation. Mild degenerative findings at the atlantodental articulation. Plantar occipital articulation is normal in alignment. Mild multilevel degenerative disc disease is characterized by slight loss of vertebral disc height and endplate and uncovertebral osteophytes with annular mineralization. There is [id number] multilevel facet arthropathy, most notably on the left at C4-C5. Central canal appears patent. No epidural hematomas are identified. No significant neural foraminal encroachment is appreciated. No significant paravertebral soft tissue swelling. Atherosclerotic calcifications are present in the carotid arteries. Centrilobular emphysema is noted in the lung apices. Thyroid gland is normal aside from a 7 mm hypointense cystic focus in the right lobe. No imaging follow-up is necessary. CT/CT cervical spine wo con IMPRESSION: 1. No acute intracranial pathology. Mild to moderate cerebral atrophy and chronic microangiopathic white matter changes. 2. No acute fracture or malalignment in the cervical spine. Mild to moderate multilevel degenerative spondylosis with chronic, degenerative pattern of anterolisthesis at multiple levels. x-ray chest, right elbow, right knee, hip: Attestation: I personally reviewed and interpreted this imaging study as follows: Radiologist's impression: EXAMINATION: 1. CHEST X-RAY 2. RADIOGRAPHS RIGHT ELBOW 3. RADIOGRAPHS RIGHT HIP 4. RADIOGRAPHS RIGHT KNEE CLINICAL INFORMATION: Diffuse pain after fall. COMPARISON: Chest x-ray June 16, 2020 TECHNIQUE: Frontal view of the chest, 3 views of the right elbow, 2 views of the right hip (including frontal pelvis) and 2 views of the right knee were obtained. FINDINGS: CHEST: Cardiac silhouette is normal in size. The lungs are well aerated. There is no lobar consolidation. No pleural effusion or pneumothorax. Right elbow: No fracture or dislocation of the right elbow. No joint effusion. Mild soft tissue swelling. No radiopaque foreign body. Right hip: Visualized portion of the proximal right femur demonstrate no fracture. Femoral head is well-seated within the acetabulum. There is moderate narrowing of the right femoral acetabular joint space. The pelvic ring is intact. Vascular calcifications noted. Degenerative changes of the left hip without gross fracture or dislocation. Right knee: No fracture or dislocation. Tiny suprapatellar joint effusion. Mild to moderate narrowing of the medial and lateral joint spaces. Chondrocalcinosis noted. Vascular calcifications. XR/XR elbow RT 2V IMPRESSION: 1. No acute pulmonary pathology. 2. Soft tissue swelling of the right elbow without fracture. 3. Moderate degenerative changes of the right hip without fracture or dislocation. 4. Moderate degenerative changes of the right knee with a tiny suprapatellar joint effusion. ECG Data Attestation: I personally reviewed and interpreted this ECG as follows: ECG interpretation date: 03/05/21 ECG interpretation time: 23:21 Interpretation: Vent. Rate : 075 BPM Atrial Rate : 075 BPM P-R Int : 136 ms QRS Dur : 068 ms QT Int : 394 ms P-R-T Axes : 053 -10 049 degrees QTc Int : 439 ms Normal sinus rhythm Junctional ST depression, probably normal Borderline ECG When compared with ECG of 16-JUN-2020 11:05, Criteria for Septal infarct are no longer Present Discharge Plan Discharge Clinical Impression: Hematoma Fall Qualifiers: Encounter type: initial encounter Qualified Code(s): W19.XXXA - Unspecified fall, initial encounter Concussion Qualifiers: Encounter type: initial encounter Loss of consciousness presence/duration: without LOC Qualified Code(s): S06.0X0A - Concussion without loss of consciousness, initial encounter Patient Disposition: Home, Self-Care Instructions: Concussion (ED), Fall Prevention for Older Adults (ED), Post Concussion Syndrome (ED), Hematoma (ED) Additional Instructions: you were evaluated for injury sustained from a fall. CT scan of head and neck are negative for acute findings. X-ray of chest, elbow, hips and pelvis, and right knee are negative for acute findings. The x-rays did include the femur on the right side which is negative for fracture . you do have chronic degenerative disc disease. Your lab values are negative for acute findings. Your EKG is normal sinus rhythm. Her troponins are negative. Your offered physical therapy, case management and social media campaign manager consult which you Respectfully declined. you may return at any time for evaluation should you feel that you are not capable of taking care of yourself at home. please follow-up with primary care physician tomorrow or the following day. Use Tylenol as needed for pain management. Please follow concussive protocol. Thank you for choosing this emergency department for evaluation. Please follow-up with primary care physician as needed. Return to the emergency department for any new, concerning, or worsening symptoms. Prescriptions: No Action lorazepam 0.5 mg tablet 0.5 mg PO TID PRN (Reason: anxiety) 30 Days Qty: 90 RF: 0 tramadol 50 mg tablet 25 mg PO DAILY 30 Days Qty: 15 RF: 0 albuterol sulfate [ProAir HFA] 90 mcg/actuation Hfa Aerosol Inhaler 2 puff INHALATION DIRECTED PRN (Reason: Dyspnea) RF: 0 ipratropium-albuterol 0.5 mg-3 mg(2.5 mg base)/3 mL Solution For Nebulization 3 ml inhalation RQ4H WHILE AWAKE Qty: 90 RF: 0 melatonin 3 mg Tablet 3 mg PO BEDTIME PRN (Reason: Insomnia) Qty: 30 RF: 0 docusate sodium [Colace] 100 mg capsule 100 mg PO DAILY RF: 0 atorvastatin 10 mg tablet 10 mg PO DAILY 90 Days Qty: 90 RF: 3 (DME) miscellaneous medical supply Misc See Rx Instructions .ROUTE .MEDSUPPLY Qty: 1 RF: 0 sertraline 100 mg tablet See Rx Instructions PO .B.i.d. 90 Days Qty: 135 RF: 3 gabapentin 400 mg capsule 400 mg PO TID 90 Days Qty: 270 RF: 2 acetaminophen [Tylenol] 325 mg tablet 325 mg PO QID PRNRF: 0 multivitamin [Daily Multi-Vitamin] Tablet 1 tab PO DAILY RF: 0 ascorbic acid (vitamin C) 500 mg tablet 500 mg PO DAILY RF: 0 cholecalciferol (vitamin D3) 50 mcg (2,000 unit) capsule 50 mcg PO DAILY RF: 0 Breo Ellipta 200-25 mcg/dose blister with device inhalation RF: 0 Interventions: ED Discharge Assessment Last Done: 03/06/21 01:33 Discharge Date/Time: 03/06/21 00:25
[2021-03-05 23:34] LABS: Basophils Percent Auto 0.5 % (0-2); Eosinophils Absolute Auto 0.1 X10*3/uL (0.0-0.4); Eosinophils Percent Auto 1.6 % (0-4); Hematocrit 39.3 % (37-47); Hemoglobin 12.9 g/dl (12.0-16.0); Imm Gran Abs Auto 0.02 X10*3/uL (0.00-0.03); Imm Gran Pct Auto 0.3 % (0.0-0.4); Lymphocytes Percent Auto 13.7 % (20-40); MANUAL DIFF FLAG NO; Mean Corpuscular HGB Conc 32.8 g/dl (31.0-35.0); Mean Corpuscular Hemoglobin 30.7 pg (27.0-33.0); Mean Corpuscular Volume 93.6 fL (80-98); Mean Platelet Volume 9.4 fL (9.4-12.3); Monocytes Absolute Auto 0.5 X10*3/uL (0.1-1.2); Monocytes Percent Auto 6.4 % (2-11); Neutrophils Absolute Auto 5.8 X10*3/uL (2.0-8.3); Neutrophils Percent Auto 77.5 % (45-73); Platelet Count 217 X10*3/uL (160-400); Red Cell Distribution Width 13.1 % (11.0-16.0); White Blood Count 7.5 X10*3/uL (4.8-10.8)
--- NOTE | 2021-03-05 23:36 | PC.NURSE ---
pt feeling nausea nnps candy removed hard collar ct scan was negative pt and son aware. pt given bag to vomit no vomit at this time.
[2021-03-05 23:55] LABS: Anion Gap 13 (12-20); Blood Urea Nitrogen 14 mg/dL (9-16); Calcium 9.7 mg/dL (8.4-10.2); Carbon Dioxide 30 mmol/L (22-29); Chloride 100 mmol/L (96-108); Creatinine Clr Calc Pharmacy 64.3; Estimated Glomerular Filt Rate > 60; Glucose Random 118 mg/dL (60-115); Potassium 4.2 mmol/L (3.3-5.1); Sodium 139 mmol/L (135-145)
[2021-03-06 00:01] LABS: Troponin-I High Sensitivity < 3.5 ng/L (<3.5-17.0)
[2021-03-06] MEDS: ondansetron HCL 4 MG/2 ML VIAL IVPUSH (00:14)
--- NOTE | 2021-03-06 01:15 | PC.NURSE ---
PT WAS ASK TO USE BATHROOM BED [facility] OFFERED PT REFUSED. PT TAKEN TO RESROOM BY W/C AND PLACED ON TOILET REFUCED TO GO TO BATHROOM STATED TOILET SEAT WAS TO COLD AND WE NEED TO TURN UP HEAT. 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 PT REQUESTING NARCOTIC PT WAS TOLD SHE COULD HAVE TYLENOL. PT HAS SCRIPT FOR TORADOL AT HOME ALREADY AND IS WORRIED ABOUT IT RUNNING OUT AND SHE WANTS MORE. I TOLD PT AND SON SHE WOULD NEED TO F/U WITH PCP IF SHE TO REFILL THAT SCRIPT. PER SON PT HAS BEEN REFERRED TO PAIN MANAGEMENT AND REFUSED TO GO TO APT. PT REFUSING TO STAY AT HOSPITAL FOR PT/OT EVALUATION. PER SON THEY DID NOT LIKE HER LAST REHAB SHE WENT TO AND THAT HE WANTED TO TAKE HER HOME AND FELT SAFE TAKING CARE OF HER AT HOME SHE HAS ALL HER OWN WALKER AND EQUIPMENT. PT AND FAMILY REQUESTING D/C HOME.
--- NOTE | 2021-03-06 01:36 | PC.NURSE ---
PT W/C TO CAR SON ASSISTED PT INTO CAR.
== END 2021-03-06 00:25 | disposition home or self-care (01) ==
PROVIDERS: Nurse Practitioner Family; Emergency Provider Student in an Organized Health Care Education/Training Program; PCP Family Medicine
DX: S06.6X0A Traumatic subarachnoid hemorrhage without loss of consciousness, initial encounter (principal); S06.0X0A Concussion without loss of consciousness, initial encounter; M54.2 Cervicalgia; M25.551 Pain in right hip; M25.461 Effusion, right knee; M79.89 Other specified soft tissue disorders; I10 Essential (primary) hypertension; E78.5 Hyperlipidemia, unspecified; J44.9 Chronic obstructive pulmonary disease, unspecified; W11.XXXA Fall on and from ladder, initial encounter; Y93.9 Activity, unspecified; Y92.019 Unspecified place in single-family (private) house as the place of occurrence of the external cause; Y99.9 Unspecified external cause status
CPT/HCPCS: 36415; 70450; 71045; 72125; 73070; 73502; 73560; 80048; 84484; 85025; 93005; 96374; 99284; 99285; J2405

== ENCOUNTER 2021-03-07 17:37 | Emergency (ER) | payer MEDICARE, SELFPAY ==
--- NOTE | ~2021-03-07 | XR_ITS ---
EXAMINATION: XR RIGHT HIP WITH AP PELVIS XR KNEE, RIGHT CLINICAL INFORMATION: Pain just medial to the patellar ligament. Pain. Inability to walk. Pop COMPARISON: 03/05/2021 TECHNIQUE: AP and cross-table lateral views of the right hip and an AP view of the pelvis. AP, lateral, and both oblique views of the knee FINDINGS: Pelvis and hip: Bones are osteopenic. There is a transverse lucency in the right proximal femur at the subtrochanteric region which is evident on both the AP and lateral views and most concerning for a fracture, new from prior. No additional fractures are identified. Mild osteoarthritis is present in both hip joints and SI joints. There is degenerative spondylosis in the lower lumbar spine. Soft tissues are unremarkable. Calcific atherosclerosis is present within the right femoral arteries. Right knee: Bones are osteopenic. No acute fractures are identified. Mild tricompartmental osteoarthritis with chondrocalcinosis of the medial and lateral compartments. Mild soft tissue swelling at the medial/anterior aspect of the knee. XR/XR hip RT w PEL1V IMPRESSION: 1. Transverse nondisplaced subtrochanteric fracture of the right proximal femoral shaft. 2. No acute fractures in the right knee. 3. Osteoporosis.
--- NOTE | ~2021-03-07 | XR_ITS ---
EXAMINATION: XR CHEST CLINICAL INFORMATION: Preoperative assessment COMPARISON: 03/05/2021 TECHNIQUE: Frontal view of the chest was obtained. FINDINGS: Normal symmetric lung volumes. No parenchymal consolidation. No pleural effusion. No pneumothorax. Normal heart size and pulmonary vascularity. Aorta is atherosclerotic. No acute osseous abnormalities. XR/XR chest 1V IMPRESSION: No acute findings.
--- NOTE | ~2021-03-07 | XR_ITS ---
EXAMINATION: XR RIGHT HIP WITH AP PELVIS XR KNEE, RIGHT CLINICAL INFORMATION: Pain just medial to the patellar ligament. Pain. Inability to walk. Pop COMPARISON: 03/05/2021 TECHNIQUE: AP and cross-table lateral views of the right hip and an AP view of the pelvis. AP, lateral, and both oblique views of the knee FINDINGS: Pelvis and hip: Bones are osteopenic. There is a transverse lucency in the right proximal femur at the subtrochanteric region which is evident on both the AP and lateral views and most concerning for a fracture, new from prior. No additional fractures are identified. Mild osteoarthritis is present in both hip joints and SI joints. There is degenerative spondylosis in the lower lumbar spine. Soft tissues are unremarkable. Calcific atherosclerosis is present within the right femoral arteries. Right knee: Bones are osteopenic. No acute fractures are identified. Mild tricompartmental osteoarthritis with chondrocalcinosis of the medial and lateral compartments. Mild soft tissue swelling at the medial/anterior aspect of the knee. XR/XR knee RT 4V IMPRESSION: 1. Transverse nondisplaced subtrochanteric fracture of the right proximal femoral shaft. 2. No acute fractures in the right knee. 3. Osteoporosis.
[2021-03-07 17:49] VITALS: BP 151/100; PULSE 71; RESP 18; TEMP 36.6; O2SAT 98; BMI 18.8
[2021-03-07 20:00] VITALS: BP 167/68; PULSE 79; RESP 18; TEMP 36.8; O2SAT 96
--- NOTE | 2021-03-07 22:01 | ED.LOWEXIN ---
HPI - Extremity Injury (Lower) General Chief Complaint: Extremity Injury, Lower Stated Complaint: R LEG PAIN, FALL Time Seen by Provider: 03/07/21 22:01 Source: patient and family ( Son) Mode of arrival: EMS History of Present Illness HPI Narrative: 80-year-old female presents via EMS for hearing a pop her leg as she was stepping up a stair with her walker prior to arrival. Afterwards, patient states that she felt severe pain running from her knee up to her hip and was unable to bear weight. Of note, patient was seen here on 03/05 for a fall and at that time had undergone extensive imaging without identification of any fractures at that time. patient endorses that at that time she did not want to stay for further evaluation and her son reports that she has been unable to walk since leaving the emergency room 2 days ago. Her right hip and knee were in a flexed position when the pop was heard. Related Data Home Medications Medication Instructions Recorded Confirmed albuterol sulfate [ProAir HFA] 2 puff INHALATION DIRECTED PRN 06/16/20 06/16/20 docusate sodium 100 mg capsule 100 mg PO DAILY 07/02/20 acetaminophen 325 mg tablet 325 mg PO QID PRN 07/30/20 ascorbic acid (vitamin C) 500 mg 500 mg PO DAILY 07/30/20 tablet cholecalciferol (vitamin D3) 50 50 mcg PO DAILY 07/30/20 mcg (2,000 unit) capsule multivitamin 1 tab PO DAILY 07/30/20 fluticasone furoate 200 INHALATION 10/08/20 mcg-vilanterol 25 mcg/dose inhalation powder Previous Rx's Medication Instructions Recorded ipratropium-albuterol 3 ml INHALATION RQ4H WHILE AWAKE 06/19/20 #90 ml melatonin 3 mg PO BEDTIME PRN #30 tab 06/19/20 miscellaneous medical supply #1 ea 07/16/20 gabapentin 400 mg capsule 400 mg PO TID 90 Days #270 cap 12/03/20 sertraline 100 mg tablet See Rx Instructions PO .B.i.d. 90 12/03/20 Days #135 tab tramadol 50 mg tablet 25 mg PO DAILY 30 Days #15 tab 02/12/21 gemfibrozil 600 mg tablet 600 mg PO DAILY 30 Days #30 tab 03/07/21 lorazepam 0.5 mg tablet 0.5 mg PO TID PRN 30 Days #90 tab 03/07/21 sertraline 100 mg tablet 150 mg PO DAILY 90 Days #135 tab 03/07/21 tramadol 50 mg tablet 50 mg PO BID PRN 10 Days #20 tab 03/07/21 Allergies Allergy/AdvReac Type Severity Reaction Status Date / Time No Known Allergies Allergy Verified 03/07/21 15:59 Review of Systems Review of Systems: pertinent positives and negatives as stated in HPI 10 point review systems is otherwise negative. PMFSH Past Medical History Source: nursing notes reviewed Medical History COPD (chronic obstructive pulmonary disease) Hyperlipidemia Hypertension Peripheral vascular disease Respiratory failure Family History Family History Mother Breast cancer Social History Social History Household Members: None Housing: House Do you presently have visiting nurse or other home services: No Alcohol intake: never Patient Tobacco Use Status: Former Tobacco user Cigarette Packs Per Day: 3 Cigarettes Per Day: 60.0 Years Smoked: 50 Second Hand Smoke Exposure: Yes Advance Directives: No Advance Directives Information Provided: No service: No Current occupational status: retired Physical Exam Vital Signs: Vital Signs: Last Vital Signs Temp 98.1 F 03/07/21 22:57 Pulse 75 03/07/21 22:57 Resp 18 03/07/21 22:57 BP 171/73 H 03/07/21 22:57 Pulse Ox 96 03/07/21 22:57 Oxygen Flow Rate 3 03/07/21 17:49 Body Mass Index 18.8 VITAL SIGNS: Reviewed. GENERAL: Well developed, well nourished, in no acute distress. HEAD: Normocephalic/atraumatic EYES: PERRLA, EOMI OROPHARYNX: no oral lesions noted, posterior pharynx clear NECK: Supple, no adenopathy LUNGS: Normal breath sounds. No adventitious sounds or accessory muscle use. SpO2<96> 2 L NASAL CANNULA CARDIOVASCULAR: Regular rate and rhythm without noted murmurs ABDOMEN: Soft, non-tender, non-distended with bowel sounds. RIGHT LOWER EXTREMITY: palpable DP/PT, capillary refill less than 3 seconds, sensation intact, pain on palpation over the mid femur which worsens with attempts to flex at the right hip SKIN: Inspection of the skin reveals no rashes NEUROLOGIC: Alert and oriented x 4. Strength and sensation to light touch were grossly intact x 4. Course Course Course Narrative: 80-year-old female with history and clinical presentation suggestive of fracture and on review of x-rays there is a noted transfers, nondisplaced proximal right fracture. Torres was placed and and urinalysis negative for acute findings. COVID-19 is negative. MDM - Extremity Injury (Lower) Lab Data Labs: Lab Results 03/07/21 Range/Units 22:58 COVID-19 (JASON) Negative (Negative) COVID-19 Clin Com See Note Discharge Plan Discharge Clinical Impression: Closed subtrochanteric fracture Patient Disposition: [facility] Transfer Details: subspecialty required for definitive treatment. Prescriptions: No Action tramadol 50 mg tablet 25 mg PO DAILY 30 Days Qty: 15 RF: 0 albuterol sulfate [ProAir HFA] 90 mcg/actuation Hfa Aerosol Inhaler 2 puff INHALATION DIRECTED PRN (Reason: Dyspnea) RF: 0 ipratropium-albuterol 0.5 mg-3 mg(2.5 mg base)/3 mL Solution For Nebulization 3 ml inhalation RQ4H WHILE AWAKE Qty: 90 RF: 0 melatonin 3 mg Tablet 3 mg PO BEDTIME PRN (Reason: Insomnia) Qty: 30 RF: 0 tramadol 50 mg tablet 50 mg PO BID PRN (Reason: pain) 10 Days Qty: 20 RF: 0 lorazepam 0.5 mg tablet 0.5 mg PO TID PRN (Reason: anxiety) 30 Days Qty: 90 RF: 0 gemfibrozil 600 mg tablet 600 mg PO DAILY 30 Days Qty: 30 RF: 2 sertraline 100 mg tablet 150 mg PO DAILY 90 Days Qty: 135 RF: 2 docusate sodium [Colace] 100 mg capsule 100 mg PO DAILY RF: 0 (DME) miscellaneous medical supply Misc See Rx Instructions .ROUTE .MEDSUPPLY Qty: 1 RF: 0 sertraline 100 mg tablet See Rx Instructions PO .B.i.d. 90 Days Qty: 135 RF: 3 gabapentin 400 mg capsule 400 mg PO TID 90 Days Qty: 270 RF: 2 acetaminophen [Tylenol] 325 mg tablet 325 mg PO QID PRNRF: 0 multivitamin [Daily Multi-Vitamin] Tablet 1 tab PO DAILY RF: 0 ascorbic acid (vitamin C) 500 mg tablet 500 mg PO DAILY RF: 0 cholecalciferol (vitamin D3) 50 mcg (2,000 unit) capsule 50 mcg PO DAILY RF: 0 Breo Ellipta 200-25 mcg/dose blister with device inhalation RF: 0
[2021-03-07] MEDS: Acetaminophen 325 MG TABLET 975 MG PO (22:23)
[2021-03-07] MEDS: Ketorolac Tromethamine 15 MG/ML VIAL IM (22:24)
[2021-03-07 22:57] VITALS: BP 171/73; PULSE 75; RESP 18; TEMP 36.7; O2SAT 96
[2021-03-08 00:02] LABS: COVID-19 Test Negative (Negative)
--- NOTE | 2021-03-08 01:08 | PC.NURSE ---
This RN attempted report to [facility] unsuccessfully. Phone disconnected x 2.
== END 2021-03-08 01:09 | disposition short-term general hospital (02) ==
PROVIDERS: Emergency Provider Student in an Organized Health Care Education/Training Program; PCP Family Medicine
DX: S72.24XA Nondisplaced subtrochanteric fracture of right femur, initial encounter for closed fracture (principal); X50.0XXA Overexertion from strenuous movement or load, initial encounter; Y93.89 Activity, other specified; Y92.9 Unspecified place or not applicable; Y99.9 Unspecified external cause status; I10 Essential (primary) hypertension
CPT/HCPCS: 36415; 71045; 73502; 73564; 87635; 96372; 99285; J1885

== ENCOUNTER 2021-07-07 17:51 | Emergency (ER) | payer MEDICARE, SELFPAY ==
--- NOTE | ~2021-07-07 | CT_ITS ---
EXAMINATION: CT HEAD WITHOUT CONTRAST CT CERVICAL SPINE WITHOUT CONTRAST CLINICAL INFORMATION: Trauma. COMPARISON: CT head March 05, 2021 TECHNIQUE: Imaging was performed from the skull base to vertex without intravenous administration of contrast. In addition, helical noncontrast CT imaging was acquired through the cervical spine and source images were reviewed along with axial reconstructions and sagittal and coronal MPRs. [This CT examination was performed using dose optimization techniques as appropriate, variously including the following: *Automated exposure control *Adjustment of mA and/or kV according to patient size (this includes techniques or standardized protocols for targeted exams where dose is matched to indication/reason for exam; i.e. extremities or head) *Use of iterative reconstruction technique] DLP: 1036 mGy-cm FINDINGS: HEAD: There is a small right-sided acute subdural hematoma in the right parietal region measuring about 2 mm in diameter, coronal image 695/27 series 7. There is no skull fracture. There is generalized global volume loss. There is moderate prominence of the ventricles and the sulci . There is mild hypodensity of the periventricular white matter due to chronic small vessel ischemic disease. There are vascular calcifications of the internal carotid arteries bilaterally. The paranasal sinuses and mastoid air cells are well aerated. CERVICAL SPINE: There is no evidence of acute cervical spine fracture. Vertebral bodies remain normal in height. Cervical vertebrae have normal alignment. There is multilevel degenerative spondylosis of the cervical spine with disc height narrowing and endplate spurs and facet joint arthrosis No pre- or paravertebral soft tissue abnormality is identified. Limited assessment of the lung apices is unremarkable. CT/CT cervical spine wo con IMPRESSION: 1. Small acute right-sided subdural hematoma. 2. No CT evidence of acute cervical spine fracture or traumatic subluxation This critical result was discussed with REGGIE Magana on 07/07/2021, 7:20 PM and it was ascertained that the content and urgency of the report was understood at the time of direct communication.
--- NOTE | ~2021-07-07 | XR_ITS ---
EXAMINATION: XR HIP, LEFT CLINICAL INFORMATION: Fall with hip pain COMPARISON: 03/05/2021, pelvis and right hip TECHNIQUE: Two views of the left hip. FINDINGS: There is a transverse lucency through the left femoral neck with some offset of distal cortex about 2 mm laterally consistent with a femoral neck fracture. No other acute fractures are seen. Intramedullary barrington with 2 screws present in the right hip. XR/XR hip LT w PEL1V IMPRESSION: New minimally displaced left femoral neck fracture
--- NOTE | ~2021-07-07 | XR_ITS ---
EXAMINATION: XR CHEST CLINICAL INFORMATION: Fall. Mid back pain. COMPARISON: Chest x-ray March 07, 2021 TECHNIQUE: Frontal view of the chest was obtained. 1830 hours FINDINGS: Lungs are clear. No pulmonary vascular congestion. There is no pleural effusion. The heart size is normal. The cardiac and mediastinal contours are normal. There are calcifications of the thoracic aorta. No acute osseous abnormality. XR/XR chest 1V IMPRESSION: Unremarkable examination.
[2021-07-07 18:10] VITALS: BP 150/86; BP 196/66; PULSE 83; PULSE 86; RESP 18; TEMP 36.7; O2SAT 98; BMI 18.5
--- NOTE | 2021-07-07 18:20 | ECG_ITS ---
Test Reason : FALL Blood Pressure : / mmHG Vent. Rate : 093 BPM Atrial Rate : 093 BPM P-R Int : 174 ms QRS Dur : 068 ms QT Int : 366 ms P-R-T Axes : 051 -02 055 degrees QTc Int : 455 ms Poor data quality Sinus rhythm with marked sinus arrhythmia Abnormal ECG No previous ECGs available Sinus Arrhythmia is new Referred By: Peace Lopez Electronically Signed By:BRIAN LAMAS MD
--- NOTE | 2021-07-07 18:22 | ED_ITS ---
HPI - Fall General Chief Complaint: Fall Stated Complaint: LEFT HIP PAIN S/P FALL Time Seen by Provider: 07/07/21 18:04 Source: patient and EMS Mode of arrival: EMS Limitations: no limitations History of Present Illness HPI Narrative: 80-year-old female with a past medical history of COPD on home oxygen, hyperlipidemia, anxiety, depression, high cholesterol, hypertension, right hip fracture with fixation here after a fall. Patient tells me that she was walking and she fell and believes she may have tripped. + head strike but denies any loss of consciousness. She landed on her buttocks and left hip which is where she is having pain. NO AC therapy. Related Data Home Medications Medication Instructions Recorded Confirmed albuterol sulfate 90 mcg/actuation 2 puff INHALATION DIRECTED PRN 06/16/20 06/16/20 aerosol inhaler (ProAir HFA) docusate sodium 100 mg capsule 100 mg PO DAILY 07/02/20 (Colace) acetaminophen 325 mg tablet 325 mg PO QID PRN 07/30/20 (Tylenol) ascorbic acid (vitamin C) 500 mg 500 mg PO DAILY 07/30/20 tablet cholecalciferol (vitamin D3) 50 50 mcg PO DAILY 07/30/20 mcg (2,000 unit) capsule multivitamin (Daily Multi-Vitamin) 1 tab PO DAILY 07/30/20 fluticasone furoate 200 INHALATION 10/08/20 mcg-vilanterol 25 mcg/dose inhalation powder Previous Rx's Medication Instructions Recorded ipratropium 0.5 mg-albuterol 3 mg 3 ml INHALATION RQ4H WHILE AWAKE 06/19/20 (2.5 mg base)/3 mL nebulization #90 ml soln melatonin 3 mg tablet 3 mg PO BEDTIME PRN #30 tab 06/19/20 miscellaneous medical supply #1 ea 07/16/20 sertraline 100 mg tablet 150 mg PO DAILY 90 Days #135 tab 03/07/21 sertraline 100 mg tablet 100 mg PO DAILY 90 Days #90 tab 04/11/21 tramadol 50 mg tablet 25 mg PO DAILY 30 Days #15 tab 04/25/21 miscellaneous medical supply #1 ea 05/13/21 gabapentin 300 mg capsule See Rx Instructions PO TID 30 Days 05/15/21 #120 cap gemfibrozil 600 mg tablet 600 mg PO DAILY 30 Days #30 tab 06/05/21 chair, wheel (Wheel chair) #1 ea 06/17/21 lorazepam 0.5 mg tablet 0.5 mg PO TID PRN 30 Days #90 tab 07/01/21 Allergies Allergy/AdvReac Type Severity Reaction Status Date / Time No Known Allergies Allergy Verified 07/07/21 18:10 Review of Systems Review of Systems: Yes all other systems are reviewed and are negative Constitutional: Constitutional: Reports no additional constitutional complaints, Denies body ache(s), Denies chills, Denies fever(s), Denies headache(s) and Denies weakness Eyes: Eyes: Reports no additional eye complaints and Denies change in vision ENT: Reports system reviewed and no additional complaints, except as documented, Denies dizziness, Denies headache(s), Denies nasal congestion, Denies nasal discharge and Denies neck pain Cardiovascular: Cardiovascular: Reports no additional cardiovascular complaints, Denies chest pain, Denies leg edema and Denies dyspnea Respiratory: Respiratory: Reports no additional respiratory complaints, Denies cough and Denies dyspnea Gastrointestinal: Gastrointestinal: Reports no additional gastrointestinal complaints, Denies abdominal pain, Denies diarrhea, Denies nausea and Denies vomiting Genitourinary: Genitourinary: Reports no additional female genitourinary complaints and Denies urinary incontinence Musculoskeletal: Musculoskeletal: Reports no additional musculoskeletal complaints, Reports back pain, Reports arthralgias, Denies joint swelling, Denies neck pain, Denies numbness and Denies tingling Integumentary/Breasts: Skin/Breast: Reports system reviewed and no additional complaints, except as docu and Denies rash Neurologic: Reports system reviewed and no additional complaints, except as documented, Denies Abnormal speech present, Denies dizziness, Denies headache(s), Denies numbness, Denies tingling and Denies weakness PMFSH Past Medical History Attestation statement: The following information was validated with the patient. Source: old records reviewed and nursing notes reviewed Medical History COPD (chronic obstructive pulmonary disease) Hyperlipidemia Hypertension Peripheral vascular disease Respiratory failure Surgical History History of hip surgery Family History Family History Mother Breast cancer Social History Social History Household Members: None Housing: House Do you presently have visiting nurse or other home services: No Alcohol intake: never Patient Tobacco Use Status: Former Tobacco user Cigarette Packs Per Day: 3 Cigarettes Per Day: 60.0 Years Smoked: 50 e-Cigarette/Vaping Use: Never Used Second Hand Smoke Exposure: Yes Use of substances other than those prescribed or required for medical reasons: No Advance Directives: No Advance Directives Information Provided: No service: No Current occupational status: retired Physical Exam Vital Signs: Vital Signs: Last Vital Signs Temp 98.1 F 07/07/21 18:10 Pulse 86 07/07/21 18:10 Resp 18 07/07/21 20:06 BP 196/66 H 07/07/21 18:10 Pulse Ox 98 07/07/21 18:10 Body Mass Index 18.5 Const: General: cooperative, healthy appearing, comfortable and no acute dist ress Orientation/consciousness: oriented to person and oriented to place Limitations: no limitations HENMT: Head: Yes normal to inspection Ears: hearing grossly normal bilaterally and TM's normal bilaterally General nose exam: Normal external nose present Face and sinus: Yes normal facial exam Mouth: Normal oral and palatal mucosa present Throat: Yes posterior oropharynx normal, Yes tonsils normal and Yes uvula midline Eyes: General: appearance normal, both eyes and all related structures Pupils: Equal, round and reactive pupils present Neck: Other: No midline tenderness, step-offs or deformities Neck: Yes normal visual inspection, Yes full ROM and Yes no lymphadenopathy Chest: Chest palpation & inspection: normal inspection of the chest Resp: Effort & Inspection: normal respiratory effort Auscultation: clear to auscultation bilaterally Cardio: Rate: regular rate Rhythm: regular rhythm Peripheral pulses: Peripheral pulses 2+ throughout GI: Inspection: Yes normal to inspection Palpation (GI): Soft to palpation and nontender Auscultation: normal bowel sounds : General: Yes no CVA tenderness Back/Spine/Pelvis: Other: Upper thoracic midline tenderness with no step-offs or deformities Back: no CVA tenderness Thoracic/Lumbar Spine: thoracic and lumbar spine normal to inspection Skin: General skin exam: no rashes or lesions noted Neuro: General: oriented to person, oriented to place, no focal motor deficits, normal sensation to monofilament and Unable to assess gait (Due to hip pain) Cranial nerves: Yes CN's II-XII intact bilaterally, Yes Equal, round and reactive pupils present, Yes Bilaterally intact EOM present, Yes Nystagmus not present and Yes Normal facial strength present Cognition (Neuro): normal cognition Speech: No Abnormal speech present Gait exam (Neuro): Unable to assess gait (Due to hip pain) Motor exam (neuro): 5/5 motor strength present throughout Sensory Exam: Normal double simultaneous stimulation for sensation Extrem: Other: Tenderness the left lateral hip with no obvious shortening, rotation, deformity pain is worsened with abduction and adduction as well as internal rotation General: Yes normal to inspection Course Course Course Narrative: 80-year-old female here with left hip pain after a fall which occurred just prior to arrival. Patient is unclear why she fell but she denies any pre fall symptoms of chest pain, shortness of breath or dizziness. There was a head strike but no loss of consciousness. Patient will need a EKG, labs, CT head and neck, left hip x-ray 1929-received call from Radiology. Patient has a new right 2 mm subdural hematoma with no shift. I reexamined the patient. She is alert and oriented x2. No focal neurological deficit. 1944-reviewed additional images. Patient does have a left femoral neck fracture which is minimally displaced. Nursing to place Torres catheter. Second IV access placed. Will reach out to [facility] for trauma transfer as we do not have neurosurgery service in this hospital. I attempted to reach out to the patient's son Angel [phone]. No answer so I left a voicemail. 1949-spoke to Trauma surgeon Dr. Rivera who accepted transfer to [facility] ER as a trauma transfer. MDM - Fall Medical Records Attestation: I reviewed the patient's medical records. Lab Data Attestation: I reviewed the patient's lab results. Result diagrams: 07/07/21 18:54 07/07/21 18:54 Labs: Lab Results 07/07/21 07/07/21 07/07/21 Range/Units 18:54 18:54 19:31 WBC 11.8 H (4.8-10.8) X10*3/uL RBC 4.44 (4.20-5.50) X10*6/uL Hgb 13.3 (12.0-16.0) g/dl Hct 40.6 (37.0-47.0) % MCV 91.4 (80.0-98.0) fL MCH 30.0 (27.0-33.0) pg MCHC 32.8 (31.0-35.0) g/dl RDW 15.1 (11.0-16.0) % Plt Count 270 (160-400) X10*3/uL MPV 9.7 (9.4-12.3) fL Immature Gran % (Auto) 0.5 H (0.0-0.4) % Neut % (Auto) 81.8 H (45-73) % Lymph % (Auto) 11.1 L (20-40) % [place] % (Auto) 5.4 (2-11) % Eos % (Auto) 0.9 (0-4) % Baso % (Auto) 0.3 (0-2) % Lymph # (Auto) 1.3 (1.2-4.9) X10*3/uL [place] # (Auto) 0.6 (0.1-1.2) X10*3/uL Eos # (Auto) 0.1 (0.0-0.4) X10*3/uL Baso # (Auto) 0.0 (0.0-0.2) X10*3/uL Abs Immat Gran (auto) 0.06 H (0.00-0.03) X10*3/uL Absolute Neuts (auto) 9.62 H (2.0-8.3) x10*3/uL Absolute Nucleated RBC 0.000 (0.0-0.012) X10*3/uL Nucleated RBC % (auto) 0.0 (0.0-0.2) /100WBC Sodium 142 (135-145) mmol/L Potassium 4.2 (3.3-5.1) mmol/L Chloride 103 (96-108) mmol/L Carbon Dioxide 31 H (22-29) mmol/L Anion Gap 12 (12-20) BUN 15 (9-16) mg/dL Creatinine 0.70 (0.5-1.4) mg/dL Estim Creat Clear Calc 57.8 Estimated GFR > 60 Random Glucose 117 H (60-115) mg/dL Calcium 10.1 (8.4-10.2) mg/dL Total Bilirubin 0.4 (0.0-1.0) mg/dL Direct Bilirubin 0.2 (0.0-0.5) mg/dL AST 20 (5-31) U/L ALT 14 (0-31) U/L Alkaline Phosphatase 110 D (39-117) U/L Total Protein 7.6 (6.5-8.0) g/dL Albumin 4.4 (3.5-5.0) g/dL COVID-19 (JASON) Negative (Negative) COVID-19 Clin Com See Note Imaging Data Ct cervical spine/CT head: Attestation: I personally reviewed and interpreted this imaging study as follows: Radiologist's impression: FINDINGS: HEAD: There is a small right-sided acute subdural hematoma in the right parietal region measuring about 2 mm in diameter, coronal image 695/27 series 7. There is no skull fracture. There is generalized global volume loss. There is moderate prominence of the ventricles and the sulci . There is mild hypodensity of the periventricular white matter due to chronic small vessel ischemic disease. There are vascular calcifications of the internal carotid arteries bilaterally. ?The paranasal sinuses and mastoid air cells are well aerated. CERVICAL SPINE: There is no evidence of acute cervical spine fracture. Vertebral bodies remain normal in height. Cervical vertebrae have normal alignment. There is multilevel degenerative spondylosis of the cervical spine with disc height narrowing and endplate spurs and facet joint arthrosis No pre- or paravertebral soft tissue abnormality is identified. Limited assessment of the lung apices is unremarkable. CT/CT cervical spine wo con IMPRESSION: 1. Small acute right-sided subdural hematoma. 2. No CT evidence of acute cervical spine fracture or traumatic subluxation ? Chest x-ray: Attestation: I personally reviewed and interpreted this imaging study as follows: Radiologist's impression: EXAMINATION: XR CHEST CLINICAL INFORMATION: Fall. Mid back pain. COMPARISON: Chest x-ray March 07, 2021 TECHNIQUE: Frontal view of the chest was obtained. 1830 hours FINDINGS: ?Lungs are clear. No pulmonary vascular congestion. There is no pleural effusion. The heart size is normal. The cardiac and mediastinal contours are normal. There are calcifications of the thoracic aorta. No acute osseous abnormality. XR/XR chest 1V IMPRESSION: Unremarkable examination. ? left hip x-ray/pelvix: Attestation: I personally reviewed and interpreted this imaging study as follows: Radiologist's impression: EXAMINATION: XR HIP, LEFT CLINICAL INFORMATION: Fall with hip pain COMPARISON: 03/05/2021, pelvis and right hip TECHNIQUE: Two views of the left hip. FINDINGS: There is a transverse lucency through the left femoral neck with some offset of distal cortex about 2 mm laterally consistent with a femoral neck fracture. No other acute fractures are seen. Intramedullary barrington with 2 screws present in the right hip. XR/XR hip LT w PEL1V IMPRESSION: New minimally displaced left femoral neck fracture ECG Data Attestation: I personally reviewed and interpreted this ECG as follows: ECG interpretation date: 07/07/21 ECG interpretation time: 19:30 Interpretation: Normal sinus rhythm with a sinus arrhythmia, normal MI, normal QRS, normal QT Critical Care Time Critical Care Time Critical Care Time: Yes Total Critical Care Time: 45 Attestation: Discussion with tertiary care center, multiple neurological re- evaluation Discharge Plan Discharge Clinical Impression: Acute subdural hematoma, Femoral neck fracture Patient Disposition: Xfer [facility] Transfer Details: [facility] [place] [facility] Prescriptions: No Action tramadol 50 mg tablet 25 mg PO DAILY 30 Days Qty: 15 RF: 0 (DME) miscellaneous medical supply Misc See Rx Instructions .ROUTE .MEDSUPPLY Qty: 1 RF: 0 gemfibrozil 600 mg tablet 600 mg PO DAILY 30 Days Qty: 30 RF: 2 (DME) Wheel chair Kit See Rx Instructions .Route Qty: 1 RF: 0 lorazepam 0.5 mg tablet 0.5 mg PO TID PRN (Reason: anxiety) 30 Days Qty: 90 RF: 0 albuterol sulfate [ProAir HFA] 90 mcg/actuation Hfa Aerosol Inhaler 2 puff INHALATION DIRECTED PRN (Reason: Dyspnea) RF: 0 ipratropium-albuterol 0.5 mg-3 mg(2.5 mg base)/3 mL Solution For Nebulization 3 ml inhalation RQ4H WHILE AWAKE Qty: 90 RF: 0 melatonin 3 mg Tablet 3 mg PO BEDTIME PRN (Reason: Insomnia) Qty: 30 RF: 0 sertraline 100 mg tablet 150 mg PO DAILY 90 Days Qty: 135 RF: 2 sertraline 100 mg tablet 100 mg PO DAILY 90 Days Qty: 90 RF: 1 docusate sodium [Colace] 100 mg capsule 100 mg PO DAILY RF: 0 (DME) miscellaneous medical supply Misc See Rx Instructions .ROUTE .MEDSUPPLY Qty: 1 RF: 0 gabapentin 300 mg capsule See Rx Instructions PO TID 30 Days Qty: 120 RF: 2 acetaminophen [Tylenol] 325 mg tablet 325 mg PO QID PRNRF: 0 multivitamin [Daily Multi-Vitamin] Tablet 1 tab PO DAILY RF: 0 ascorbic acid (vitamin C) 500 mg tablet 500 mg PO DAILY RF: 0 cholecalciferol (vitamin D3) 50 mcg (2,000 unit) capsule 50 mcg PO DAILY RF: 0 Breo Ellipta 200-25 mcg/dose blister with device inhalation RF: 0 Interventions: Acute Care Transfer Worksheet (ED) Last Done: 07/07/21 20:21 Discharge Date/Time: 07/07/21 20:25
[2021-07-07 18:58] LABS: MANUAL DIFF FLAG NO
[2021-07-07 19:00] LABS: Basophils Percent Auto 0.3 % (0-2); Eosinophils Absolute Auto 0.1 X10*3/uL (0.0-0.4); Eosinophils Percent Auto 0.9 % (0-4); Hematocrit 40.6 % (37.0-47.0); Hemoglobin 13.3 g/dl (12.0-16.0); Imm Gran Abs Auto 0.06 X10*3/uL (0.00-0.03); Imm Gran Pct Auto 0.5 % (0.0-0.4); Lymphocytes Absolute Auto 1.3 X10*3/uL (1.2-4.9); Lymphocytes Percent Auto 11.1 % (20-40); Mean Corpuscular HGB Conc 32.8 g/dl (31.0-35.0); Mean Corpuscular Volume 91.4 fL (80.0-98.0); Mean Platelet Volume 9.7 fL (9.4-12.3); Monocytes Absolute Auto 0.6 X10*3/uL (0.1-1.2); Monocytes Percent Auto 5.4 % (2-11); Neutrophils Absolute Auto 9.62 x10*3/uL (2.0-8.3); Neutrophils Percent Auto 81.8 % (45-73); Platelet Count 270 X10*3/uL (160-400); Red Blood Count 4.44 X10*6/uL (4.20-5.50); Red Cell Distribution Width 15.1 % (11.0-16.0); White Blood Count 11.8 X10*3/uL (4.8-10.8)
[2021-07-07] MEDS: Morphine Sulfate 4 MG/ML CARTRIDGE IVPUSH ×2 (19:02→19:31)
[2021-07-07] MEDS: ondansetron HCL 4 MG/2 ML VIAL IVPUSH (19:02)
--- NOTE | 2021-07-07 19:03 | PC.NURSE ---
iv inserted, labs drawn, pt medicated per order
[2021-07-07 19:18] LABS: Alanine Aminotransferase 14 U/L (0-31); Albumin Level 4.4 g/dL (3.5-5.0); Alkaline Phosphatase 110 U/L (39-117); Anion Gap 12 (12-20); Aspartate Amino Transferase 20 U/L (5-31); Bilirubin Direct 0.2 mg/dL (0.0-0.5); Bilirubin Total 0.4 mg/dL (0.0-1.0); Blood Urea Nitrogen 15 mg/dL (9-16); Calcium 10.1 mg/dL (8.4-10.2); Carbon Dioxide 31 mmol/L (22-29); Chloride 103 mmol/L (96-108); Creatinine Clr Calc Pharmacy 57.8; Estimated Glomerular Filt Rate > 60; Glucose Random 117 mg/dL (60-115); Potassium 4.2 mmol/L (3.3-5.1); Sodium 142 mmol/L (135-145); Total Protein 7.6 g/dL (6.5-8.0)
[2021-07-07 19:31] VITALS: RESP 18
--- NOTE | 2021-07-07 19:33 | PC.NURSE ---
2nd IV PLACED TO LFA. AYALA BEING PLACED, PT TOLERATED WELL. COVID SWAB OBTAINED TO LAB. PT AWAITING FOR TRANSFER TO [facility].
[2021-07-07 20:04] LABS: COVID-19 Test Negative (Negative)
[2021-07-07 20:06] VITALS: RESP 18
[2021-07-07] MEDS: HYDROmorphone HCl 0.5 MG/0.5 ML SYRINGE IVPUSH (20:06)
--- NOTE | 2021-07-07 20:19 | PC.NURSE ---
REPORT TO INESSA CORREIA AT [facility] ED. PT LEFT ED IN NAD. SON WITH PT AT BEDSIDE.
== END 2021-07-07 20:25 | disposition short-term general hospital (02) ==
PROVIDERS: Nurse Practitioner Family; Emergency Provider Emergency Medicine
DX: S06.5X0A Traumatic subdural hemorrhage without loss of consciousness, initial encounter (principal); S72.002A Fracture of unspecified part of neck of left femur, initial encounter for closed fracture; I10 Essential (primary) hypertension; J44.9 Chronic obstructive pulmonary disease, unspecified; W19.XXXA Unspecified fall, initial encounter; Y93.9 Activity, unspecified; Y92.9 Unspecified place or not applicable; Y99.9 Unspecified external cause status; Z20.822 Contact with and (suspected) exposure to COVID-19; Z99.81 Dependence on supplemental oxygen
CPT/HCPCS: 36415; 70450; 71045; 72125; 73502; 80048; 80076; 85025; 87635; 93005; 96374; 96375; 96376; 99285; 99291; J1170; J2270; J2405

== ENCOUNTER 2021-07-16 06:26 | Outpatient (REF) | payer MEDICARE, SELFPAY ==
[2021-07-16 06:30] LABS: MANUAL DIFF FLAG NO
[2021-07-16 06:55] LABS: Basophils Percent Auto 0.4 % (0-2); Eosinophils Absolute Auto 0.2 X10*3/uL (0.0-0.4); Eosinophils Percent Auto 2.4 % (0-4); Hematocrit 34.8 % (37.0-47.0); Imm Gran Abs Auto 0.05 X10*3/uL (0.00-0.03); Imm Gran Pct Auto 0.5 % (0.0-0.4); Lymphocytes Absolute Auto 1.2 X10*3/uL (1.2-4.9); Lymphocytes Percent Auto 13.3 % (20-40); Mean Corpuscular HGB Conc 31.6 g/dl (31.0-35.0); Mean Corpuscular Hemoglobin 29.5 pg (27.0-33.0); Mean Corpuscular Volume 93.3 fL (80.0-98.0); Mean Platelet Volume 10.6 fL (9.4-12.3); Monocytes Absolute Auto 0.9 X10*3/uL (0.1-1.2); Monocytes Percent Auto 10.3 % (2-11); Neutrophils Absolute Auto 6.7 x10*3/uL (2.0-8.3); Neutrophils Percent Auto 73.1 % (45-73); Platelet Count 354 X10*3/uL (160-400); Red Blood Count 3.73 X10*6/uL (4.20-5.50); Red Cell Distribution Width 15.5 % (11.0-16.0); White Blood Count 9.1 X10*3/uL (4.8-10.8)
[2021-07-16 07:21] LABS: Alanine Aminotransferase 26 U/L (0-31); Albumin Level 3.7 g/dL (3.5-5.0); Alkaline Phosphatase 96 U/L (39-117); Anion Gap 14 (12-20); Aspartate Amino Transferase 36 U/L (5-31); Bilirubin Total 0.5 mg/dL (0.0-1.0); Blood Urea Nitrogen 25 mg/dL (9-16); Calcium 9.7 mg/dL (8.4-10.2); Carbon Dioxide 30 mmol/L (22-29); Chloride 98 mmol/L (96-108); Estimated Glomerular Filt Rate > 60; Glucose Random 124 mg/dL (60-115); Potassium 4.7 mmol/L (3.3-5.1); Sodium 137 mmol/L (135-145); Total Protein 6.5 g/dL (6.5-8.0)
== END 2021-07-16 06:27 | disposition home or self-care (01) ==
LOC: HO.MMNH1L 06:26
PROVIDERS: Visit Provider Family Medicine
DX: I10 Essential (primary) hypertension (principal); I73.9 Peripheral vascular disease, unspecified
CPT/HCPCS: 36415; 80053; 85025

== ENCOUNTER 2021-07-21 | Outpatient (REF) | payer MEDICARE, SELFPAY ==
[2021-07-21 07:36] LABS: Hematocrit 34.5 % (37.0-47.0); Hemoglobin 10.9 g/dl (12.0-16.0); Mean Corpuscular HGB Conc 31.6 g/dl (31.0-35.0); Mean Corpuscular Hemoglobin 29.9 pg (27.0-33.0); Mean Corpuscular Volume 94.5 fL (80.0-98.0); Mean Platelet Volume 10.4 fL (9.4-12.3); Platelet Count 484 X10*3/uL (160-400); Red Blood Count 3.65 X10*6/uL (4.20-5.50); Red Cell Distribution Width 15.4 % (11.0-16.0); White Blood Count 6.9 X10*3/uL (4.8-10.8)
[2021-07-21 08:10] LABS: Anion Gap 16 (12-20); Blood Urea Nitrogen 21 mg/dL (9-16); Calcium 9.6 mg/dL (8.4-10.2); Carbon Dioxide 27 mmol/L (22-29); Chloride 99 mmol/L (96-108); Estimated Glomerular Filt Rate > 60; Glucose Random 98 mg/dL (60-115); Potassium 4.6 mmol/L (3.3-5.1); Sodium 137 mmol/L (135-145)
== END 2021-07-21 00:01 | disposition home or self-care (01) ==
LOC: HO.MMNH1L
PROVIDERS: Visit Provider Family Medicine
DX: I10 Essential (primary) hypertension (principal); I73.9 Peripheral vascular disease, unspecified
CPT/HCPCS: 36415; 80048; 85027

== ENCOUNTER 2021-07-28 22:07 | Outpatient (REF) | payer MEDICARE, SELFPAY ==
[2021-07-28 07:10] LABS: Hematocrit 36.5 % (37.0-47.0); Hemoglobin 11.2 g/dl (12.0-16.0); Mean Corpuscular HGB Conc 30.7 g/dl (31.0-35.0); Mean Corpuscular Hemoglobin 29.6 pg (27.0-33.0); Mean Corpuscular Volume 96.3 fL (80.0-98.0); Mean Platelet Volume 10.4 fL (9.4-12.3); Platelet Count 418 X10*3/uL (160-400); Red Blood Count 3.79 X10*6/uL (4.20-5.50); Red Cell Distribution Width 15.6 % (11.0-16.0); White Blood Count 7.5 X10*3/uL (4.8-10.8)
[2021-07-28 07:34] LABS: Anion Gap 17 (12-20); Blood Urea Nitrogen 28 mg/dL (9-16); Carbon Dioxide 25 mmol/L (22-29); Chloride 103 mmol/L (96-108); Estimated Glomerular Filt Rate > 60; Glucose Random 101 mg/dL (60-115); Potassium 4.6 mmol/L (3.3-5.1); Sodium 140 mmol/L (135-145)
== END 2021-07-28 22:08 | disposition home or self-care (01) ==
LOC: HO.MMNH1L 22:07
PROVIDERS: Visit Provider Family Medicine
DX: I10 Essential (primary) hypertension (principal); I73.9 Peripheral vascular disease, unspecified
CPT/HCPCS: 36415; 80048; 85027

== ENCOUNTER 2021-08-04 00:57 | Outpatient (REF) | payer MEDICARE, SELFPAY ==
[2021-08-04 06:58] LABS: Hematocrit 33.6 % (37.0-47.0); Hemoglobin 10.5 g/dl (12.0-16.0); Mean Corpuscular HGB Conc 31.3 g/dl (31.0-35.0); Mean Corpuscular Hemoglobin 29.7 pg (27.0-33.0); Mean Corpuscular Volume 95.2 fL (80.0-98.0); Platelet Count 369 X10*3/uL (160-400); Red Blood Count 3.53 X10*6/uL (4.20-5.50); Red Cell Distribution Width 14.8 % (11.0-16.0)
[2021-08-04 07:23] LABS: Anion Gap 20 (12-20); Blood Urea Nitrogen 22 mg/dL (9-16); Calcium 9.5 mg/dL (8.4-10.2); Carbon Dioxide 22 mmol/L (22-29); Chloride 96 mmol/L (96-108); Estimated Glomerular Filt Rate > 60; Glucose Random 122 mg/dL (60-115); Potassium 4.3 mmol/L (3.3-5.1); Sodium 134 mmol/L (135-145)
== END 2021-08-04 00:58 | disposition home or self-care (01) ==
LOC: HO.MMNH1L 00:57
PROVIDERS: Visit Provider Family Medicine
DX: I10 Essential (primary) hypertension (principal); I73.9 Peripheral vascular disease, unspecified
CPT/HCPCS: 36415; 80048; 85027

== ENCOUNTER 2021-08-06 06:15 | Outpatient (REF) | payer MEDICARE, SELFPAY ==
[2021-08-06 06:34] LABS: Appearance Urine HAZY; Color Urine DK YELLOW; Glucose Urine UA NEG (NEG); Leukocyte Esterase Urine 3+ (NEG); Nitrite Urine POS (NEG); PH >= 9.0 (5.0-8.0); Specific Gravity - Urine <= 1.005 (1.005-1.025); UACC Culture Trigger YES; Urine Blood NEG (NEG); Urine Ketones NEG (NEG)
[2021-08-06 06:43] LABS: Urine Protein 1+ MG/DL (NEG-TRACE)
[2021-08-06 07:50] LABS: Mucus Urine 2+ /LPF; RBC Urine 0 /HPF (0); Squamous Epithelial Cell Urine 1+ /LPF; Triple Phosphate Crystal Urine 1+ /LPF
[2021-08-06 07:51] LABS: Bacteria Urine 2+ /LPF; Granular Casts Urine 0-2 /LPF
== END 2021-08-06 06:16 | disposition home or self-care (01) ==
LOC: HO.MMNH1L 06:15
PROVIDERS: Visit Provider Family Medicine
DX: R41.0 Disorientation, unspecified (principal); R44.3 Hallucinations, unspecified
CPT/HCPCS: 81001; 87086; 87088; 87186

== ENCOUNTER 2021-08-11 00:16 | Outpatient (REF) | payer MEDICARE, SELFPAY ==
[2021-08-11 07:53] LABS: Hematocrit 36.9 % (37.0-47.0); Hemoglobin 11.6 g/dl (12.0-16.0); Mean Corpuscular HGB Conc 31.4 g/dl (31.0-35.0); Mean Corpuscular Hemoglobin 31.6 pg (27.0-33.0); Mean Corpuscular Volume 100.5 fL (80.0-98.0); Mean Platelet Volume 9.8 fL (9.4-12.3); Platelet Count 683 X10*3/uL (160-400); Red Blood Count 3.67 X10*6/uL (4.20-5.50); Red Cell Distribution Width 14.9 % (11.0-16.0); White Blood Count 7.7 X10*3/uL (4.8-10.8)
[2021-08-11 08:20] LABS: Anion Gap 19 (12-20); Blood Urea Nitrogen 17 mg/dL (9-16); Calcium 10.2 mg/dL (8.4-10.2); Carbon Dioxide 25 mmol/L (22-29); Chloride 98 mmol/L (96-108); Estimated Glomerular Filt Rate > 60; Glucose Random 114 mg/dL (60-115); Potassium 5.1 mmol/L (3.3-5.1); Sodium 137 mmol/L (135-145)
== END 2021-08-11 00:17 | disposition home or self-care (01) ==
LOC: HO.MMNH1L 00:16
PROVIDERS: Visit Provider Family Medicine
DX: I10 Essential (primary) hypertension (principal); I73.9 Peripheral vascular disease, unspecified
CPT/HCPCS: 36415; 80048; 85027

== ENCOUNTER 2021-08-16 06:16 | Emergency (ER) | payer MEDICARE, SELFPAY ==
--- NOTE | 2021-08-16 | ECG_ITS ---
Test Reason : CP Blood Pressure : / mmHG Vent. Rate : 082 BPM Atrial Rate : 082 BPM P-R Int : 150 ms QRS Dur : 064 ms QT Int : 360 ms P-R-T Axes : 060 -20 061 degrees QTc Int : 420 ms Normal sinus rhythm Normal ECG When compared with ECG of 07-JUL-2021 19:30, Criteria for Septal infarct are no longer Present Referred By: Generic ED Physician Electronically Signed By:Patrice Silverio
--- NOTE | ~2021-08-16 | CT_ITS ---
EXAMINATION: CT ANGIOGRAM OF THE CHEST WITH AND WITHOUT CONTRAST (CT PULMONARY ANGIOGRAM FOR PE) CLINICAL INFORMATION: Reason for Exam chest pain COMPARISON: Previous chest x-ray most recent July 2021 and CTA June 2020 TECHNIQUE: Prior to contrast administration, noncontrast localization images were obtained. Subsequently, multidetector volumetric imaging was performed from the thoracic inlet to below the diaphragms following the administration of 65 mL Omnipaque 350 intravenous contrast. No contrast reaction reported Sagittal, coronal, and MIP oblique sagittal reformatted images were obtained on the CT workstation, uploaded to PACS, and reviewed. This CT examination was performed using dose optimization techniques as appropriate, variously including the following: *Automated exposure control *Adjustment of mA and/or kV according to patient size (this includes techniques or standardized protocols for targeted exams where dose is matched to indication/reason for exam; i.e. extremities or head) *Use of iterative reconstruction technique Total exam dose-length product 239 mGy-cm FINDINGS: QUALITY OF STUDY/CONTRAST BOLUS: Satisfactory. PULMONARY ARTERIES: No central or segmental pulmonary emboli. THORACIC AORTA: No aneurysm or dissection. There is evidence of severe atherosclerotic disease. Significant plaque. LUNG: There is evidence of emphysema. There are new clustered nodular opacities in the superior segment of the right lower lobe and bronchial soft tissue opacification/mucus plugging. There are new small clustered peribronchial nodules in the left lower lobe. There is bilateral lower lobe posterior atelectasis or small pneumonia. This is new on in the right lower lobe and decrease in size compared to previous 3 and the left lower lobe on July 2020 exam. PLEURA: No pleural effusion or pneumothorax. MEDIASTINUM: Normal heart size. Coronary artery calcification. No pericardial effusion. There are no enlarged hilar or mediastinal lymph nodes. Lymphadenopathy. No evidence of septal bowing or right heart strain. CHEST WALL/AXILLA: No axillary or internal mammary lymphadenopathy. OSSEOUS STRUCTURES: There is a scoliosis. There is a moderate T6 vertebral body compression fracture and T2 vertebral body compression fracture that are new in the interval from 2019 exam. UPPER ABDOMEN: Unremarkable. No reflux of contrast into the hepatic veins to suggest elevated right heart pressures. CT/CT angio chest PE protocol IMPRESSION: No evidence of pulmonary embolism. Emphysema. Bilateral lower lobe pneumonia, right greater than left. T2 and T6 vertebral body compression fractures new in the interval from 2019 exam. VTE: negative
[2021-08-16 06:31] VITALS: BP 145/75; PULSE 83; RESP 24; TEMP 36.2; O2SAT 98; BMI 29.2
--- NOTE | 2021-08-16 06:39 | ED_ITS ---
HPI - Chest Pain General Chief Complaint: Chest Pain Stated Complaint: chest pain Time Seen by Provider: 08/16/21 06:38 Source: patient Mode of arrival: EMS Limitations: no limitations History of Present Illness MD complaint: chest pain and chest heaviness Onset (ago): week(s) (1 but much worse since 3 am) Timing of current episode: constant Prior episodes: No Onset: during rest and during exertion Pain location: left chest Pain radiation: other (across to R chest) Severity: moderate Quality: heaviness Relieving factors: nothing Exacerbating factors: inspiration Context: recent illness (states heas been in bed all week because she didn't feel well) Associated symptoms: dyspnea Treatment prior to arrival: aspirin (324mg aspirin) Related Data Home Medications Medication Instructions Recorded Confirmed albuterol sulfate 90 mcg/actuation 2 puff INHALATION DIRECTED PRN 06/16/20 06/16/20 aerosol inhaler (ProAir HFA) docusate sodium 100 mg capsule 100 mg PO DAILY 07/02/20 (Colace) acetaminophen 325 mg tablet 325 mg PO QID PRN 07/30/20 (Tylenol) ascorbic acid (vitamin C) 500 mg 500 mg PO DAILY 07/30/20 tablet cholecalciferol (vitamin D3) 50 50 mcg PO DAILY 07/30/20 mcg (2,000 unit) capsule multivitamin (Daily Multi-Vitamin) 1 tab PO DAILY 07/30/20 fluticasone furoate 200 INHALATION 10/08/20 mcg-vilanterol 25 mcg/dose inhalation powder Previous Rx's Medication Instructions Recorded ipratropium 0.5 mg-albuterol 3 mg 3 ml INHALATION RQ4H WHILE AWAKE 06/19/20 (2.5 mg base)/3 mL nebulization #90 ml soln melatonin 3 mg tablet 3 mg PO BEDTIME PRN #30 tab 06/19/20 miscellaneous medical supply #1 ea 07/16/20 sertraline 100 mg tablet 150 mg PO DAILY 90 Days #135 tab 03/07/21 sertraline 100 mg tablet 100 mg PO DAILY 90 Days #90 tab 04/11/21 tramadol 50 mg tablet 25 mg PO DAILY 30 Days #15 tab 04/25/21 miscellaneous medical supply #1 ea 05/13/21 gabapentin 300 mg capsule See Rx Instructions PO TID 30 Days 05/15/21 #120 cap gemfibrozil 600 mg tablet 600 mg PO DAILY 30 Days #30 tab 06/05/21 chair, wheel (Wheel chair) #1 ea 06/17/21 lorazepam 0.5 mg tablet 0.5 mg PO TID PRN 30 Days #90 tab 07/01/21 Allergies Allergy/AdvReac Type Severity Reaction Status Date / Time No Known Allergies Allergy Verified 07/07/21 18:10 Review of Systems Review of Systems: Constitutional : No Weight loss, No Fever, No Chills ENT/Mouth : No sore throat, No Rhinorrhea Eyes: No Eye Pain, No Swelling Cardiovascular : pos Chest Pain, pos SOB, no Dyspnea on Exertion, No Orthopnea, No Edema, No Palpitations Respiratory : No Cough, No Sputum Gastrointestinal : no Nausea, No Vomiting, No Diarrhea, No abdominal Pain, No Hematochezia, No Melena Genitourinary : No Dysuria, No Urinary Frequency Musculoskeletal : No joint pain, No Myalgias, No Joint Swelling, pos chronic low back pain Skin : No Skin Lesions, No rash Neuro : No Weakness, No Numbness, No Dizziness, No Headache Psych : No Anxiety/Panic, No Depression Heme/Lymph: No Bruising, No Lymphadenopathy Endocrine : No Polyuria, No Polydipsia All other systems reviewed and are negative PMFSH Past Medical History Attestation statement: The following information was validated with the patient. Medical History COPD (chronic obstructive pulmonary disease) Hyperlipidemia Hypertension Peripheral vascular disease Respiratory failure Surgical History History of hip surgery Family History Family History Mother Breast cancer Social History Social History Household Members: None Housing: House Do you presently have visiting nurse or other home services: No Alcohol intake: never Patient Tobacco Use Status: Former Tobacco user Cigarette Packs Per Day: 3 Cigarettes Per Day: 60.0 Years Smoked: 50 e-Cigarette/Vaping Use: Never Used Second Hand Smoke Exposure: Yes Use of substances other than those prescribed or required for medical reasons: No Advance Directives: No service: No Current occupational status: retired Physical Exam Vital Signs: Vital Signs: Last Vital Signs Temp 97.8 F 08/16/21 07:21 Pulse 77 08/16/21 10:35 Resp 18 08/16/21 10:35 BP 170/72 H 08/16/21 10:35 Pulse Ox 100 08/16/21 10:35 Oxygen Flow Rate 2 08/16/21 06:31 BMI result Body Mass Index 29.2 Appearance: Alert. Oriented X3. No acute distress. Eyes: Pupils equal, round and reactive to light. ENT: Pharynx normal. Neck: Normal inspection. Neck supple. CVS: Normal heart rate and rhythm. Pulses normal. Respiratory: No respiratory distress. Breath sounds slightly diminished Abdomen: Soft and non-tender. Skin: Skin warm and dry. Normal skin color. Normal skin turgor. Extremities: No lower extremity edema. No calf ttp Neuro: Oriented X 3. No motor deficit. No sensory deficit. Course Course Course Narrative: troponin negative - EKG nonischemic + infection suspected 1103 am cultures suspected no increased O2 demands but bilateral LL pneumonia - CAP treament bilateral LL pneumonia on CT scan - no WBC count, no increased O2 demands, neg COVID, at this time can be managed at [facility] - Chest Pain MDM Narrative Medical decision making narrative: 80 yo female with COPD on 2L NC, anxiety, HLD, chronic back pain notes for the past week she has had chest heaviness and not feeling well since 3 am today the pain is worse and hurts with deep inspiration at this time will need EKG, troponin x 2, CTA for PE/pneumonia. IV morphine for pain. Her pain seems somewhat unusual for ACS but is concerning for PE/pneumonia Lab Data Result diagrams: 08/16/21 06:49 08/16/21 06:49 Labs: Lab Results 08/16/21 08/16/21 08/16/21 Range/Units 06:49 06:49 06:49 WBC 8.0 (4.8-10.8) X10*3/uL RBC 3.92 L (4.20-5.50) X10*6/uL Hgb 11.9 L (12.0-16.0) g/dl Hct 38.1 (37.0-47.0) % MCV 97.2 (80.0-98.0) fL MCH 30.4 (27.0-33.0) pg MCHC 31.2 (31.0-35.0) g/dl RDW 15.0 (11.0-16.0) % Plt Count 551 H (160-400) X10*3/uL MPV 9.3 L (9.4-12.3) fL Immature Gran % (Auto) 0.4 (0.0-0.4) % Neut % (Auto) 73.5 H (45-73) % Lymph % (Auto) 16.9 L (20-40) % [place] % (Auto) 7.9 (2-11) % Eos % (Auto) 0.9 (0-4) % Baso % (Auto) 0.4 (0-2) % Lymph # (Auto) 1.4 (1.2-4.9) X10*3/uL [place] # (Auto) 0.6 (0.1-1.2) X10*3/uL Eos # (Auto) 0.1 (0.0-0.4) X10*3/uL Baso # (Auto) 0.0 (0.0-0.2) X10*3/uL Abs Immat Gran (auto) 0.03 (0.00-0.03) X10*3/uL Absolute Neuts (auto) 5.9 (2.0-8.3) x10*3/uL Absolute Nucleated RBC 0.000 (0.0-0.012) X10*3/uL Nucleated RBC % (auto) 0.0 (0.0-0.2) /100WBC Sodium 139 (135-145) mmol/L Potassium 4.6 (3.3-5.1) mmol/L Chloride 99 (96-108) mmol/L Carbon Dioxide 32 H (22-29) mmol/L Anion Gap 13 (12-20) BUN 17 H (9-16) mg/dL Creatinine 0.63 (0.5-1.4) mg/dL Estim Creat Clear Calc 71.3 Estimated GFR > 60 Random Glucose 122 H (60-115) mg/dL Calcium 10.7 H (8.4-10.2) mg/dL Magnesium 2.0 (1.6-2.6) mg/dL Total Bilirubin 0.2 (0.0-1.0) mg/dL Direct Bilirubin 0.2 (0.0-0.5) mg/dL AST 15 D (5-31) U/L ALT 12 (0-31) U/L Alkaline Phosphatase 130 H D (39-117) U/L Troponin I High Sens 4.5 (<3.5-17.0) ng/L Total Protein 7.6 (6.5-8.0) g/dL Albumin 3.9 (3.5-5.0) g/dL COVID-19 (JASON) (Negative) COVID-19 Clin Com 08/16/21 08/16/21 Range/Units 06:49 10:33 WBC (4.8-10.8) X10*3/uL RBC (4.20-5.50) X10*6/uL Hgb (12.0-16.0) g/dl Hct (37.0-47.0) % MCV (80.0-98.0) fL MCH (27.0-33.0) pg MCHC (31.0-35.0) g/dl RDW (11.0-16.0) % Plt Count (160-400) X10*3/uL MPV (9.4-12.3) fL Immature Gran % (Auto) (0.0-0.4) % Neut % (Auto) (45-73) % Lymph % (Auto) (20-40) % [place] % (Auto) (2-11) % Eos % (Auto) (0-4) % Baso % (Auto) (0-2) % Lymph # (Auto) (1.2-4.9) X10*3/uL [place] # (Auto) (0.1-1.2) X10*3/uL Eos # (Auto) (0.0-0.4) X10*3/uL Baso # (Auto) (0.0-0.2) X10*3/uL Abs Immat Gran (auto) (0.00-0.03) X10*3/uL Absolute Neuts (auto) (2.0-8.3) x10*3/uL Absolute Nucleated RBC (0.0-0.012) X10*3/uL Nucleated RBC % (auto) (0.0-0.2) /100WBC Sodium (135-145) mmol/L Potassium (3.3-5.1) mmol/L Chloride (96-108) mmol/L Carbon Dioxide (22-29) mmol/L Anion Gap (12-20) BUN (9-16) mg/dL Creatinine (0.5-1.4) mg/dL Estim Creat Clear Calc Estimated GFR Random Glucose (60-115) mg/dL Calcium (8.4-10.2) mg/dL Magnesium (1.6-2.6) mg/dL Total Bilirubin (0.0-1.0) mg/dL Direct Bilirubin (0.0-0.5) mg/dL AST (5-31) U/L ALT (0-31) U/L Alkaline Phosphatase (39-117) U/L Troponin I High Sens 4.0 (<3.5-17.0) ng/L Total Protein (6.5-8.0) g/dL Albumin (3.5-5.0) g/dL COVID-19 (JASON) Negative (Negative) COVID-19 Clin Com See Note ECG Data ECG #1: Attestation: I personally reviewed and interpreted this ECG as follows: ECG interpretation date: 08/16/21 ECG interpretation time: 06:40 Interpretation: Rate: 82 Rhythm: NSR Gibbon: left Normal P waves. Normal AMINA. Normal QRS complex. ST T wave : nonspecific no ROGELIO qTC: normal prior studies: no acute ischemia The study has been interpreted contemporaneously by me. . Discharge Plan Discharge Clinical Impression: Chest pain Qualifiers: Chest pain type: precordial pain Qualified Code(s): R07.2 - Precordial pain Pneumonia Qualifiers: Pneumonia type: due to unspecified organism Laterality: bilateral Lung location: lower lobe of lung Qualified Code(s): J18.9 - Pneumonia, unspecified organism Patient Disposition: Xfer SNF Transfer Details: [facility] Instructions: Pneumonia (ED) Additional Instructions: return to ED for any worsening symptoms or concerns no blood clots, negative for COVID, small bilateral lower lobe pneumonia, given ceftriaxone and azithromycin, NO WBC COUNT AFEBRILE 100% ON 2L NC START ON CEFTIN 500MG BID X 10 DAYS AND AZITHROMYCIN 250MG FOR ADDITIONAL 4 DAYS START ON 40MG PREDNISONE FOR 5 DAYS Prescriptions: No Action tramadol 50 mg tablet 25 mg PO DAILY 30 Days Qty: 15 RF: 0 (DME) miscellaneous medical supply [facility] See Rx Instructions .ROUTE .MEDSUPPLY Qty: 1 RF: 0 gemfibrozil 600 mg tablet 600 mg PO DAILY 30 Days Qty: 30 RF: 2 (DME) Wheel chair Kit See Rx Instructions .Route Qty: 1 RF: 0 lorazepam 0.5 mg tablet 0.5 mg PO TID PRN (Reason: anxiety) 30 Days Qty: 90 RF: 0 albuterol sulfate [ProAir HFA] 90 mcg/actuation Hfa Aerosol Inhaler 2 puff INHALATION DIRECTED PRN (Reason: Dyspnea) RF: 0 ipratropium-albuterol 0.5 mg-3 mg(2.5 mg base)/3 mL Solution For Nebulization 3 ml inhalation RQ4H WHILE AWAKE Qty: 90 RF: 0 melatonin 3 mg Tablet 3 mg PO BEDTIME PRN (Reason: Insomnia) Qty: 30 RF: 0 sertraline 100 mg tablet 150 mg PO DAILY 90 Days Qty: 135 RF: 2 sertraline 100 mg tablet 100 mg PO DAILY 90 Days Qty: 90 RF: 1 docusate sodium [Colace] 100 mg capsule 100 mg PO DAILY RF: 0 (DME) miscellaneous medical supply [facility] [place] [facility] See Rx Instructions .ROUTE .MEDSUPPLY Qty: 1 RF: 0 gabapentin 300 mg capsule See Rx Instructions PO TID 30 Days Qty: 120 RF: 2 acetaminophen [Tylenol] 325 mg tablet 325 mg PO QID PRNRF: 0 multivitamin [Daily Multi-Vitamin] Tablet 1 tab PO DAILY RF: 0 ascorbic acid (vitamin C) 500 mg tablet 500 mg PO DAILY RF: 0 cholecalciferol (vitamin D3) 50 mcg (2,000 unit) capsule 50 mcg PO DAILY RF: 0 Breo Ellipta 200-25 mcg/dose blister with device inhalation RF: 0
[2021-08-16 06:55] LABS: MANUAL DIFF FLAG NO
[2021-08-16 06:56] LABS: Basophils Percent Auto 0.4 % (0-2); Eosinophils Absolute Auto 0.1 X10*3/uL (0.0-0.4); Eosinophils Percent Auto 0.9 % (0-4); Hematocrit 38.1 % (37.0-47.0); Hemoglobin 11.9 g/dl (12.0-16.0); Imm Gran Abs Auto 0.03 X10*3/uL (0.00-0.03); Imm Gran Pct Auto 0.4 % (0.0-0.4); Lymphocytes Absolute Auto 1.4 X10*3/uL (1.2-4.9); Lymphocytes Percent Auto 16.9 % (20-40); Mean Corpuscular HGB Conc 31.2 g/dl (31.0-35.0); Mean Corpuscular Hemoglobin 30.4 pg (27.0-33.0); Mean Corpuscular Volume 97.2 fL (80.0-98.0); Mean Platelet Volume 9.3 fL (9.4-12.3); Monocytes Absolute Auto 0.6 X10*3/uL (0.1-1.2); Monocytes Percent Auto 7.9 % (2-11); Neutrophils Absolute Auto 5.9 x10*3/uL (2.0-8.3); Neutrophils Percent Auto 73.5 % (45-73); Platelet Count 551 X10*3/uL (160-400); Red Blood Count 3.92 X10*6/uL (4.20-5.50)
[2021-08-16 07:13] LABS: COVID-19 Test Negative (Negative); IDNOW Serial# 9DD0AD1C
[2021-08-16 07:14] LABS: Alanine Aminotransferase 12 U/L (0-31); Albumin Level 3.9 g/dL (3.5-5.0); Alkaline Phosphatase 130 U/L (39-117); Anion Gap 13 (12-20); Aspartate Amino Transferase 15 U/L (5-31); Bilirubin Direct 0.2 mg/dL (0.0-0.5); Bilirubin Total 0.2 mg/dL (0.0-1.0); Blood Urea Nitrogen 17 mg/dL (9-16); Calcium 10.7 mg/dL (8.4-10.2); Carbon Dioxide 32 mmol/L (22-29); Chloride 99 mmol/L (96-108); Creatinine Clr Calc Pharmacy 71.3; Estimated Glomerular Filt Rate > 60; Glucose Random 122 mg/dL (60-115); Potassium 4.6 mmol/L (3.3-5.1); Sodium 139 mmol/L (135-145); Total Protein 7.6 g/dL (6.5-8.0)
[2021-08-16 07:16] LABS: Troponin-I High Sensitivity 4.5 ng/L (<3.5-17.0)
[2021-08-16 07:21] VITALS: BP 180/78; PULSE 84; RESP 30; TEMP 36.6; O2SAT 94
[2021-08-16] MEDS: Morphine Sulfate 2 MG/ML CARTRIDGE IVPUSH (07:24)
--- NOTE | 2021-08-16 07:31 | PC.NURSE ---
Pt received this morning AOx4 but c/o lower mid back pain stating she fell this morning appro 0500 while going to the [place] in her detention. Pt hx of COPD and is normally on 2L N/C NSR, lung clear on auscultation No bruising noted to back. IV flush and patent
[2021-08-16 07:33] VITALS: BP 137/66; PULSE 75; RESP 22; O2SAT 100
[2021-08-16 08:26] VITALS: BP 148/78; PULSE 77; RESP 12; O2SAT 100
--- NOTE | 2021-08-16 10:09 | PC.NURSE ---
Pt to CT at this time
[2021-08-16] MEDS: iohexoL 350 MG/ML 100 ML INFUS..BTL IV (10:31)
[2021-08-16 10:35] VITALS: BP 170/72; PULSE 77; RESP 18; O2SAT 100
--- NOTE | 2021-08-16 11:56 | PHA.MEDREC ---
Pharmacy Consult ? Medication Reconciliation Pharmacy has completed the medication reconciliation. Completed med rec based on skilled nursing list. Tess SilvaD BCPS
[2021-08-16] MEDS: cefTRIAXone sodium 1 GM in 0.9 % Sodium Chloride 50 ML IV (12:15)
--- NOTE | 2021-08-16 12:18 | PHA.MEDREC ---
Pharmacy Consult ? Medication Reconciliation Pharmacy has completed the medication reconciliation. MED LIST FROM [facility]
[2021-08-16 12:56] LABS: Influenza A PCR NEGATIVE (Negative); Influenza B PCR NEGATIVE (Negative); Resp Syncy Virus RNA Qual PCR NEGATIVE (Negative); SARS COV2 PCR INHOUSE NEGATIVE (Negative)
[2021-08-16] MEDS: Azithromycin 500 MG in 0.9 % Sodium Chloride 250 ML 125 MG IV (13:09)
--- NOTE | 2021-08-16 13:13 | MHC.CM.ED ---
Received case management consult from Dr Vann. Patient came to ER due to chest pain. Patient found to have Pneumonia but is stable. Admission is not required. Patient can return to [facility]. T/W spoke with Juan Renae, weekend cook house supervisor at [facility]. PCR covid required. Covid test ordered. Test is negative. ER H&P and neg test faxed to [facility]. Flora MARTINEZS booked for 2pm. Med [facility] with chart.
--- NOTE | 2021-08-16 17:42 | PC.NURSE ---
Pt D/C back to [facility] by INESSA Cooper. Pt transported back by EMS.
== END 2021-08-16 17:43 | disposition skilled nursing facility (03) ==
PROVIDERS: Emergency Provider Emergency Medicine; PCP Family Medicine
DX: R07.2 Precordial pain (principal); J18.9 Pneumonia, unspecified organism; Z20.822 Contact with and (suspected) exposure to COVID-19; R06.02 Shortness of breath; I10 Essential (primary) hypertension; E78.5 Hyperlipidemia, unspecified; Z87.891 Personal history of nicotine dependence; Z79.899 Other long term (current) drug therapy
CPT/HCPCS: 0241U; 36415; 71275; 80048; 80076; 83605; 83735; 84484; 85025; 87040; 87635; 93005; 96365; 96367; 96375; 99284; J0456; J0696; J2270; Q9967

== ENCOUNTER 2021-08-18 00:17 | Outpatient (REF) | payer MEDICARE, SELFPAY ==
[2021-08-18 07:01] LABS: Hematocrit 33.7 % (37.0-47.0); Hemoglobin 10.5 g/dl (12.0-16.0); Mean Corpuscular HGB Conc 31.2 g/dl (31.0-35.0); Mean Corpuscular Hemoglobin 30.3 pg (27.0-33.0); Mean Corpuscular Volume 97.1 fL (80.0-98.0); Mean Platelet Volume 9.9 fL (9.4-12.3); Platelet Count 511 X10*3/uL (160-400); Red Blood Count 3.47 X10*6/uL (4.20-5.50); Red Cell Distribution Width 14.6 % (11.0-16.0); White Blood Count 6.1 X10*3/uL (4.8-10.8)
[2021-08-18 07:20] LABS: Anion Gap 11 (12-20); Blood Urea Nitrogen 18 mg/dL (9-16); Calcium 9.9 mg/dL (8.4-10.2); Carbon Dioxide 31 mmol/L (22-29); Chloride 97 mmol/L (96-108); Estimated Glomerular Filt Rate > 60; Glucose Random 102 mg/dL (60-115); Potassium 4.2 mmol/L (3.3-5.1); Sodium 135 mmol/L (135-145)
== END 2021-08-18 00:18 | disposition home or self-care (01) ==
LOC: HO.MMNH1L 00:17
PROVIDERS: Visit Provider Family Medicine
DX: I10 Essential (primary) hypertension (principal); I73.9 Peripheral vascular disease, unspecified
CPT/HCPCS: 36415; 80048; 85027

== ENCOUNTER 2021-08-25 01:28 | Outpatient (REF) | payer MEDICARE, SELFPAY | END 2021-08-25 01:29 | disposition home or self-care (01) | LOC: HO.MMNH1L 01:28 | PROVIDERS: Visit Provider Family Medicine | DX: Z13.89 Encounter for screening for other disorder (principal) ==

== ENCOUNTER 2021-09-04 12:31 | Outpatient (RCR) | payer MEDICARE, SELFPAY | END 2021-11-06 09:08 | disposition home or self-care (01) | LOC: HO.WCC 12:31 | PROVIDERS: PCP Family Medicine; Visit Provider Surgery | DX: L89.159 Pressure ulcer of sacral region, unspecified stage (principal); L30.4 Erythema intertrigo | CPT/HCPCS: 11042; 99212; 99213 ==

== ENCOUNTER 2021-09-04 14:02 | Outpatient (REF) | payer MEDICARE, SELFPAY ==
--- NOTE | ~2021-09-04 | XR_ITS ---
EXAMINATION: XR CHEST CLINICAL INFORMATION: Pneumonia. COMPARISON: CT angiography chest 08/16/2021, chest radiograph 07/07/2021 TECHNIQUE: 2 views of the chest were obtained. FINDINGS: The heart size is normal. Moderate aortic calcific atherosclerosis noted. No effusions or pneumothoraces. No focal pulmonary consolidation identified. Normal pattern of pulmonary vasculature. Diffuse osteopenia. T6 vertebral body demonstrates a marked anterior wedge deformity with approximately 75% loss of craniocaudal height. The upper thoracic spine including the T2 vertebral body are obscured from visualization by overlying densities on the lateral view. A mild compression deformity was noted in the T2 vertebral body on the comparison study of 08/16/2021. XR/XR chest 2V IMPRESSION: *No acute cardiopulmonary abnormalities. No evidence of pneumonia. *T6 vertebral body compression deformity increased in degree compared with 08/16/2021 currently exhibiting approximately 75% maximal loss of craniocaudal height. *Diffuse osteopenia.
== END 2021-09-04 14:03 | disposition home or self-care (01) ==
LOC: HO.XRAY 14:02
PROVIDERS: PCP Family Medicine; Visit Provider Family Medicine
DX: J18.9 Pneumonia, unspecified organism (principal)
CPT/HCPCS: 71046

== ENCOUNTER 2022-02-01 06:13 | Emergency (ER) | payer MEDICARE, SELFPAY ==
--- NOTE | ~2022-02-01 | XR_ITS ---
EXAMINATION: XR CHEST CLINICAL INFORMATION: Chest congestion COMPARISON: 09/04/2021 TECHNIQUE: 2 views of the chest were obtained. FINDINGS: Lungs are well expanded and without acute abnormality. No pulmonary edema, consolidation or pleural effusion. Cardiac silhouette is normal in size. There is slightly tortuous appearance of the atherosclerotic aorta. Bones are diffusely osteopenic. Chronic compression fracture deformity of T6 vertebral body, approximately 70% anterior height loss. XR/XR chest 2V IMPRESSION: * No evidence of pneumonia. No acute cardiopulmonary abnormality compared to 09/04/2021. * The T6 vertebral body compression fracture is unchanged compared to 09/04/2021.
[2022-02-01 06:27] VITALS: BP 183/90; PULSE 87; RESP 20; TEMP 36.8; O2SAT 98; BMI 20.9
[2022-02-01 06:42] LABS: MANUAL DIFF FLAG NO
[2022-02-01 06:44] LABS: Basophils Percent Auto 0.7 % (0-2); Eosinophils Absolute Auto 0.3 X10*3/uL (0.0-0.4); Eosinophils Percent Auto 4.2 % (0-4); Hematocrit 41.3 % (37.0-47.0); Hemoglobin 13.2 g/dl (12.0-16.0); Imm Gran Abs Auto 0.01 X10*3/uL (0.00-0.03); Imm Gran Pct Auto 0.2 % (0.0-0.4); Lymphocytes Absolute Auto 1.8 X10*3/uL (1.2-4.9); Lymphocytes Percent Auto 29.9 % (20-40); Mean Corpuscular Hemoglobin 30.8 pg (27.0-33.0); Mean Corpuscular Volume 96.5 fL (80.0-98.0); Mean Platelet Volume 9.6 fL (9.4-12.3); Monocytes Absolute Auto 0.6 X10*3/uL (0.1-1.2); Monocytes Percent Auto 9.6 % (2-11); Neutrophils Absolute Auto 3.3 x10*3/uL (2.0-8.3); Neutrophils Percent Auto 55.4 % (45-73); Platelet Count 301 X10*3/uL (160-400); Red Blood Count 4.28 X10*6/uL (4.20-5.50); Red Cell Distribution Width 13.9 % (11.0-16.0)
[2022-02-01 07:06] LABS: Alanine Aminotransferase 10 U/L (0-31); Albumin Level 4.4 g/dL (3.5-5.0); Alkaline Phosphatase 89 U/L (39-117); Anion Gap 14 (12-20); Aspartate Amino Transferase 14 U/L (5-31); Bilirubin Total 0.7 mg/dL (0.0-1.0); Blood Urea Nitrogen 19 mg/dL (9-16); Calcium 10.3 mg/dL (8.4-10.2); Carbon Dioxide 28 mmol/L (22-29); Chloride 103 mmol/L (96-108); Creatinine Clr Calc Pharmacy 69.5; Estimated Glomerular Filt Rate > 60; Glucose Random 115 mg/dL (60-115); Potassium 3.9 mmol/L (3.3-5.1); Sodium 141 mmol/L (135-145); Total Protein 7.9 g/dL (6.5-8.0)
--- NOTE | 2022-02-01 08:49 | ED_ITS ---
HPI - URI/Sore Throat General Chief Complaint: Upper Respiratory Symptoms Stated Complaint: coughing up phlegm; back pain Time Seen by Provider: 02/01/22 08:36 Source: patient and family Mode of arrival: ambulatory Limitations: no limitations History of Present Illness HPI Narrative: 81 years old female with history of COPD and former smoker, patient use supplemental 2 L of oxygen / at home, patient live with her son mostly dependent, brought in by her son for evaluation of coughing. Patient otherwise decline chest pain, and shortness of breath. No fever, no chills. Patient has been coughing, no viral symptoms. Patient had a history of pneumonia son was concerned that mom might have a pneumonia. Related Data Home Medications Medication Instructions Recorded Confirmed albuterol sulfate 90 mcg/actuation 2 puff INHALATION Q6H PRN 06/16/20 08/16/21 aerosol inhaler (ProAir HFA) ascorbic acid (vitamin C) 500 mg 500 mg PO DAILY 07/30/20 08/16/21 tablet cholecalciferol (vitamin D3) 50 50 mcg PO DAILY 07/30/20 08/16/21 mcg (2,000 unit) capsule multivitamin (Daily Multi-Vitamin) 1 tab PO DAILY 07/30/20 08/16/21 acetaminophen 500 mg tablet 1,000 mg PO TID 08/16/21 08/16/21 amlodipine 5 mg tablet 5 mg PO DAILY 08/16/21 08/16/21 calcium carbonate 200 mg calcium 200 mg PO Q4H PRN 08/16/21 08/16/21 (500 mg) chewable tablet collagenase clostridium histo. 250 1 appl TOPICAL DAILY 08/16/21 08/16/21 unit/gram topical ointment (Santyl) fluticasone furoate 200 1 inh INHALATION DAILY 08/16/21 08/16/21 mcg-vilanterol 25 mcg/dose inhalation powder (Breo Ellipta) melatonin 5 mg tablet 5 mg PO BEDTIME 08/16/21 08/16/21 Previous Rx's Medication Instructions Recorded miscellaneous medical supply #1 ea 07/16/20 miscellaneous medical supply #1 ea 05/13/21 chair, wheel (Wheel chair) #1 ea 06/17/21 cefuroxime axetil 500 mg tablet 500 mg PO BID 7 Days #14 tab 08/25/21 amlodipine 5 mg tablet 5 mg PO DAILY 90 Days #90 tab 09/03/21 famotidine 20 mg tablet 20 mg PO BID 90 Days #180 tab 09/03/21 lorazepam 0.5 mg tablet 0.5 mg PO DAILY PRN 30 Days #30 tab 09/03/21 meloxicam 15 mg tablet 15 mg PO DAILY 30 Days #30 tab 10/20/21 gabapentin 300 mg capsule See Rx Instructions PO TID 30 Days 11/20/21 #120 cap sertraline 50 mg tablet 50 mg PO DAILY 90 Days #90 tab 11/20/21 alendronate 70 mg tablet 70 mg PO QWEEK 28 Days #4 tab 12/15/21 Allergies Allergy/AdvReac Type Severity Reaction Status Date / Time No Known Allergies Allergy Verified 01/13/22 11:48 Review of Systems Review of Systems: All other systems are reviewed and are negative Constitutional: Reports as per HPI and Reports no additional constitutional c omplaints Eyes: Reports as per HPI and Reports no additional eye complaints Reports system reviewed and no additional complaints, except as documented Cardiovascular: Reports as per HPI and Reports no additional cardiovascular complaints Respiratory: Reports as per HPI and Reports no additional respiratory complaints Gastrointestinal: Reports as per HPI and Reports no additional gastrointestinal complaints Genitourinary: Reports no additional female genitourinary complaints Musculoskeletal: Reports no additional musculoskeletal complaints Skin/Breast: Reports system reviewed and no additional complaints, except as docu Psychiatric: Reports no additional psychiatric complaints Endocrine: Reports no additional endocrine complaints Hematologic/Lymphatic: Reports no additional hematologic/lymphatic complaints Allergic/Immunologic: Reports no additional allergic/immunologic complaints Reports system reviewed and no additional complaints, except as documented and Reports Abnormal speech present [facility] Past Medical History Medical History COPD (chronic obstructive pulmonary disease) Hyperlipidemia Hypertension Peripheral vascular disease Respiratory failure Surgical History History of hip surgery Family History Family History Mother Breast cancer Social History Social History Household Members: None Housing: House Do you presently have visiting nurse or other home services: No Alcohol intake: never Patient Tobacco Use Status: Former Tobacco user Cigarette Packs Per Day: 3 Cigarettes Per Day: 60.0 Years Smoked: 50 e-Cigarette/Vaping Use: Never Used Second Hand Smoke Exposure: Yes Advance Directives: Yes Advance Directives on File: Yes Advance Directives Date on File: 02/01/22 service: No Current occupational status: retired Current occupational exposures/hazards: No Cognitive needs: No Hearing needs: No Vision needs: No Physical Exam Vital Signs: Vital Signs: Last Vital Signs Temp 98.3 F 02/01/22 06:27 Pulse 87 02/01/22 06:27 Resp 20 02/01/22 06:27 BP 183/90 H 02/01/22 06:27 Pulse Ox 98 02/01/22 06:27 Oxygen Flow Rate 2 02/01/22 06:27 BMI result Body Mass Index 20.9 Vital signs have been reviewed as appeared to be correct. Blood pressure elevated. Heart rate normal. Respiration rate normal. Temperature normal. Oxygen saturation normal. Appearance: Alert. Oriented X3. No acute distress. Head: Normal external exam. Normocephalic. Atraumatic. No Agustin signs noted. No raccoon eyes noted Eyes: PERRLA. EOMI. Conjunctiva and sclera normal. Eyelids normal. ENT: TM's Normal. Pharynx normal. Uvula midline. Moist mucous membranes. No trismus noted. No drooling noted. No muffled voice noted. Neck: Normal inspection. Neck supple. FROM. No adenopathy. Thyroid Normal. No meningeal signs. No neck mass noted. CVS: Normal heart rate and rhythm. Heart sound normal. No murmurs noted. Pulses normal throughout. Respiratory: No respiratory distress. Painless inspiration. Breath sounds normal. No wheezes/rales/rhonchi noted. Chest nontender. No accessory muscle usage noted or decreased air movement noted. Abdomen: Soft and nontender. Bowel sounds normal in all 4 quadrants. No distention noted. No organomegaly noted. No visible injury noted. Back: No CVA tenderness. Full range of motion noted. Skin: Skin warm and dry. Normal skin color. Normal skin turgor. No rashes/lesions/lacerations noted. Extremities: No lower extremity edema. Extremities exhibit normal range of motion. Extremities nontender. Neuro: Oriented X 3. Cranial nerve exam: II-XII are grossly intact No motor deficit. No sensory deficit. Reflexes normal. Course Course Course Narrative: Assessment and plan. 81-year-old female came in for evaluation of coughing, patient otherwise appears stable at her baseline as per son, labs and chest x-ray revealing no acute pathology. Will discharge the patient to continue with her routine supplemental oxygen. MDM - URI/Sore Throat Medical Records Attestation: I reviewed the patient's medical records. Lab Data Attestation: I reviewed the patient's lab results. Result diagrams: 02/01/22 06:34 02/01/22 06:34 Labs: Lab Results 02/01/22 02/01/22 02/01/22 Range/Units 06:34 06:34 08:57 WBC 6.0 (4.8-10.8) X10*3/uL RBC 4.28 D (4.20-5.50) X10*6/uL Hgb 13.2 D (12.0-16.0) g/dl Hct 41.3 D (37.0-47.0) % MCV 96.5 (80.0-98.0) fL MCH 30.8 (27.0-33.0) pg MCHC 32.0 (31.0-35.0) g/dl RDW 13.9 (11.0-16.0) % Plt Count 301 D (160-400) X10*3/uL MPV 9.6 (9.4-12.3) fL Immature Gran % (Auto) 0.2 (0.0-0.4) % Neut % (Auto) 55.4 (45-73) % Lymph % (Auto) 29.9 (20-40) % Morehouse % (Auto) 9.6 (2-11) % Eos % (Auto) 4.2 H (0-4) % Baso % (Auto) 0.7 (0-2) % Lymph # (Auto) 1.8 (1.2-4.9) X10*3/uL Morehouse # (Auto) 0.6 (0.1-1.2) X10*3/uL Eos # (Auto) 0.3 (0.0-0.4) X10*3/uL Baso # (Auto) 0.0 (0.0-0.2) X10*3/uL Abs Immat Gran (auto) 0.01 (0.00-0.03) X10*3/uL Absolute Neuts (auto) 3.3 (2.0-8.3) x10*3/uL Absolute Nucleated RBC 0.000 (0.0-0.012) X10*3/uL Nucleated RBC % (auto) 0.0 (0.0-0.2) /100WBC Sodium 141 (135-145) mmol/L Potassium 3.9 (3.3-5.1) mmol/L Chloride 103 (96-108) mmol/L Carbon Dioxide 28 (22-29) mmol/L Anion Gap 14 (12-20) BUN 19 H (9-16) mg/dL Creatinine 0.61 (0.5-1.4) mg/dL Estim Creat Clear Calc 69.5 Estimated GFR > 60 Random Glucose 115 (60-115) mg/dL Calcium 10.3 H (8.4-10.2) mg/dL Total Bilirubin 0.7 (0.0-1.0) mg/dL AST 14 (5-31) U/L ALT 10 (0-31) U/L Alkaline Phosphatase 89 D (39-117) U/L Troponin I High Sens < 3.5 (<3.5-17.0) ng/L B-Natriuretic Peptide 22 (<100) pg/mL Total Protein 7.9 (6.5-8.0) g/dL Albumin 4.4 (3.5-5.0) g/dL Influenza Type A (PCR) (Negative) Influenza Type B (PCR) (Negative) RSV RNA Qual (PCR) (Negative) SARS-CoV-2 RNA (RT-PCR) (Negative) 02/01/22 Range/Units 08:57 WBC (4.8-10.8) X10*3/uL RBC (4.20-5.50) X10*6/uL Hgb (12.0-16.0) g/dl Hct (37.0-47.0) % MCV (80.0-98.0) fL MCH (27.0-33.0) pg MCHC (31.0-35.0) g/dl RDW (11.0-16.0) % Plt Count (160-400) X10*3/uL MPV (9.4-12.3) fL Immature Gran % (Auto) (0.0-0.4) % Neut % (Auto) (45-73) % Lymph % (Auto) (20-40) % Morehouse % (Auto) (2-11) % Eos % (Auto) (0-4) % Baso % (Auto) (0-2) % Lymph # (Auto) (1.2-4.9) X10*3/uL [place]house # (Auto) (0.1-1.2) X10*3/uL Eos # (Auto) (0.0-0.4) X10*3/uL Baso # (Auto) (0.0-0.2) X10*3/uL Abs Immat Gran (auto) (0.00-0.03) X10*3/uL Absolute Neuts (auto) (2.0-8.3) x10*3/uL Absolute Nucleated RBC (0.0-0.012) X10*3/uL Nucleated RBC % (auto) (0.0-0.2) /100WBC Sodium (135-145) mmol/L Potassium (3.3-5.1) mmol/L Chloride (96-108) mmol/L Carbon Dioxide (22-29) mmol/L Anion Gap (12-20) BUN (9-16) mg/dL Creatinine (0.5-1.4) mg/dL Estim Creat Clear Calc Estimated GFR Random Glucose (60-115) mg/dL Calcium (8.4-10.2) mg/dL Total Bilirubin (0.0-1.0) mg/dL AST (5-31) U/L ALT (0-31) U/L Alkaline Phosphatase (39-117) U/L Troponin I High Sens (<3.5-17.0) ng/L B-Natriuretic Peptide (<100) pg/mL Total Protein (6.5-8.0) g/dL Albumin (3.5-5.0) g/dL Influenza Type A (PCR) NEGATIVE (Negative) Influenza Type B (PCR) NEGATIVE (Negative) RSV RNA Qual (PCR) NEGATIVE (Negative) SARS-CoV-2 RNA (RT-PCR) NEGATIVE (Negative) Imaging Data Chest x-ray: Attestation: I personally reviewed and interpreted this imaging study as follows: Radiologist's impression: ?No evidence of pneumonia. No acute cardiopulmonary abnormality compared to 09/04/2021. *? The T6 vertebral body compression fracture is unchanged compared to 09/04/2021. Discharge Plan Discharge Clinical Impression: COPD (chronic obstructive pulmonary disease), Acute cough Patient Disposition: Home, Self-Care Instructions: Acute Cough (ED) Prescriptions: No Action (DME) [facility] See Rx Instructions .ROUTE .MEDSUPPLY Qty: 1 0RF Rx Instructions: Transport chair 4 wheel manual, Daily As directed, 999 days/Lifetime. Disp#1 (DME) Wheel chair Kit See Rx Instructions .Route Qty: 1 0RF Rx Instructions: transport wheel chair meloxicam 15 mg tablet 15 mg PO DAILY 30 Days Qty: 30 0RF gabapentin 300 mg capsule See Rx Instructions PO TID 30 Days Qty: 120 2RF Rx Instructions: 300 mg a.m., 300 mg early p.m., 600 mg at bedtime PO 3 times a day; sertraline 50 mg tablet 50 mg PO DAILY 90 Days Qty: 90 2RF alendronate 70 mg tablet 70 mg PO QWEEK 28 Days Qty: 4 4RF albuterol sulfate [ProAir HFA] 90 mcg/actuation Hfa Aerosol Inhaler 2 puff INHALATION Q6H PRN (Reason: Dyspnea) 0RF amlodipine 5 mg Tablet 5 mg PO DAILY 0RF acetaminophen 500 mg Tablet 1,000 mg PO TID 0RF calcium carbonate 200 mg calcium (500 mg) Tablet,Chewable 200 mg PO Q4H PRN (Reason: Dyspepsia) 0RF Santyl 250 unit/gram Ointment 1 appl TOPICAL DAILY 0RF melatonin 5 mg Tablet 5 mg PO BEDTIME 0RF Breo Ellipta 200-25 mcg/dose Blister With Device 1 inh INHALATION DAILY 0RF (DME) [facility] See Rx Instructions .ROUTE .MEDSUPPLY Qty: 1 0RF Rx Instructions: donut cushion/pillow. As directed. DX: M53.3, Duration 999 days cefuroxime axetil 500 mg tablet 500 mg PO BID 7 Days Qty: 14 0RF amlodipine 5 mg tablet 5 mg PO DAILY 90 Days Qty: 90 2RF famotidine 20 mg tablet 20 mg PO BID 90 Days Qty: 180 2RF lorazepam 0.5 mg tablet 0.5 mg PO DAILY PRN (Reason: anxiety) 30 Days Qty: 30 0RF Rx Instructions: [employer] verified. Partial refill upon request. multivitamin [Daily Multi-Vitamin] Tablet 1 tab PO DAILY 0RF ascorbic acid (vitamin C) 500 mg tablet 500 mg PO DAILY 0RF cholecalciferol (vitamin D3) 50 mcg (2,000 unit) capsule 50 mcg PO DAILY 0RF Referrals: Juan Jose Haywood MD [Primary Care Provider] -
[2022-02-01 09:24] LABS: B Type Natriuretic Peptide 22 pg/mL (<100); Troponin-I High Sensitivity < 3.5 ng/L (<3.5-17.0)
[2022-02-01 09:53] LABS: Influenza A PCR NEGATIVE (Negative); Influenza B PCR NEGATIVE (Negative); Resp Syncy Virus RNA Qual PCR NEGATIVE (Negative); SARS COV2 PCR INHOUSE NEGATIVE (Negative)
[2022-02-01 10:47] VITALS: BP 189/89; PULSE 101; RESP 14; O2SAT 97
== END 2022-02-01 11:10 | disposition home or self-care (01) ==
PROVIDERS: Emergency Provider Emergency Medicine; PCP Family Medicine
DX: J44.9 Chronic obstructive pulmonary disease, unspecified (principal); R05.9 Cough, unspecified; M54.50 Low back pain, unspecified; R06.02 Shortness of breath; Z20.822 Contact with and (suspected) exposure to COVID-19; Z87.891 Personal history of nicotine dependence; Z99.81 Dependence on supplemental oxygen; Z79.899 Other long term (current) drug therapy
CPT/HCPCS: 0241U; 36415; 71046; 80053; 83880; 84484; 85025; 99282; 99283

== ENCOUNTER 2022-03-18 08:15 | Emergency (ER) | payer MEDICARE, SELFPAY ==
[2022-03-18] VITALS (7 sets, daily range): BP systolic 158–183; BP diastolic 58–92; PULSE 75–105; RESP 15–18; TEMP 36.6–37; O2SAT 89–98; BMI 19.8
--- NOTE | ~2022-03-18 | XR_ITS ---
EXAMINATION: XR CHEST CLINICAL INFORMATION: Dyspnea COMPARISON: Chest 02/01/2022 TECHNIQUE: Frontal view of the chest was obtained. FINDINGS: The lungs are hypoexpanded with with ill-defined round opacity right lower lobe question focal infiltrate versus lesion. This is new compared to previous study. Rest of lungs are expanded and clear. Heart size is normal. Pulmonary vascularity is prominent.. No gross bony abnormality seen. XR/XR chest 1V IMPRESSION: Hypoexpanded lungs with patchy round opacity right lower lobe question focal infiltrate versus lesion. It is new since 02/01/2022.. Mild increased pulmonary vascularity is suspicious for mild vascular congestion.
--- NOTE | 2022-03-18 10:01 | ECG_ITS ---
Test Reason : weakness Blood Pressure : / mmHG Vent. Rate : 075 BPM Atrial Rate : 075 BPM P-R Int : 156 ms QRS Dur : 070 ms QT Int : 382 ms P-R-T Axes : 052 -14 040 degrees QTc Int : 426 ms Normal sinus rhythm Normal ECG When compared with ECG of 16-AUG-2021 06:31, No significant change was found Referred By: Мария Vann Electronically Signed By:EVE MACIAS MD
--- NOTE | 2022-03-18 10:06 | ED.WEAKNESS ---
HPI - Weakness General Chief complaint: General Medical Stated complaint: dyhydration lethargic back and hip pain Time Seen by Provider: 03/18/22 09:44 Source: patient and family Mode of arrival: ambulatory Limitations: no limitations History of Present Illness MD Complaint: generalized weakness (poor PO intake) Onset (ago): day(s) (3) Duration: constant Location: generalized Migration: none Severity: mild Relieving factors: rest Exacerbating factors: exertion Context: other (hx of same in past, overall decompensated since prior hip fractures) Associated symptoms: other (poor PO intake) Related Data Home Medications Medication Instructions Recorded Confirmed albuterol sulfate 90 mcg/actuation 2 puff inhalation Q6H PRN Dyspnea 06/16/20 08/16/21 aerosol inhaler (ProAir HFA) ascorbic acid (vitamin C) 500 mg 500 mg PO DAILY 07/30/20 08/16/21 tablet cholecalciferol (vitamin D3) 50 50 mcg PO DAILY 07/30/20 08/16/21 mcg (2,000 unit) capsule multivitamin (Daily Multi-Vitamin) 1 tab PO DAILY 07/30/20 08/16/21 acetaminophen 500 mg tablet 1,000 mg PO TID 08/16/21 08/16/21 calcium carbonate 200 mg calcium 200 mg PO Q4H PRN Dyspepsia 08/16/21 08/16/21 (500 mg) chewable tablet collagenase clostridium histo. 250 1 appl topical DAILY 08/16/21 08/16/21 unit/gram topical ointment (Santyl) melatonin 5 mg tablet 5 mg PO BEDTIME 08/16/21 08/16/21 gabapentin 300 mg capsule 300 mg PO BID@0900,1300 03/18/22 gabapentin 300 mg capsule 600 mg PO BEDTIME 03/18/22 ketorolac 0.5 % eye drops drp 03/18/22 Previous Rx's Medication Instructions Recorded miscellaneous medical supply #1 ea 07/16/20 miscellaneous medical supply #1 ea 05/13/21 chair, wheel (Wheel chair) #1 ea 06/17/21 cefuroxime axetil 500 mg tablet 500 mg PO BID 7 days #14 tabs 08/25/21 amlodipine 5 mg tablet 5 mg PO DAILY 90 days #90 tabs 09/03/21 famotidine 20 mg tablet 20 mg PO BID 90 days #180 tabs 09/03/21 lorazepam 0.5 mg tablet 0.5 mg PO DAILY PRN anxiety 30 09/03/21 days #30 tabs meloxicam 15 mg tablet 15 mg PO DAILY 30 days #30 tabs 10/20/21 sertraline 50 mg tablet 50 mg PO DAILY 90 days #90 tabs 11/20/21 alendronate 70 mg tablet 70 mg PO QWEEK 28 days #4 tabs 12/15/21 fluticasone furoate 200 1 inh inhalation DAILY 28 days #28 02/03/22 mcg-vilanterol 25 mcg/dose ea inhalation powder (Breo Ellipta) Allergies Allergy/AdvReac Type Severity Reaction Status Date / Time No Known Allergies Allergy Verified 01/13/22 11:48 Review of Systems Review of Systems: Constitutional : No Fever, No Chills, pos Fatigue, pos Malaise ENT/Mouth : No sore throat, No Rhinorrhea Eyes: No Eye Pain, No Swelling, No Redness Cardiovascular : No Chest Pain, No SOB, po Dyspnea on Exertion, No Orthopnea, No Edema, No Palpitations Respiratory : No Cough, No Sputum, No Wheezing Gastrointestinal : No Nausea, No Vomiting, No Diarrhea Genitourinary : No Dysuria, No Urinary Frequency, No Hematuria, Musculoskeletal : No joint pain, No Myalgias, No Joint Swelling Skin : No Skin Lesions, No rash Neuro : pos Weakness, No Numbness, No Dizziness, No Headache Psych : No Anxiety/Panic, No Depression Heme/Lymph: No Bruising, No Bleeding,No Lymphadenopathy Endocrine : No Polyuria, No Polydipsia All other systems reviewed and are negative PMFSH Past Medical History Attestation statement: The following information was validated with the patient. Medical History COPD (chronic obstructive pulmonary disease) Hyperlipidemia Hypertension Peripheral vascular disease Respiratory failure Surgical History History of hip surgery Family History Family History Mother Breast cancer Social History Social History Household Members: None Housing: House Do you presently have visiting nurse or other home services: No Alcohol intake: never Patient Tobacco Use Status: Former Tobacco user Cigarette Packs Per Day: 3 Cigarettes Per Day: 60.0 Years Smoked: 50 e-Cigarette/Vaping Use: Never Used Second Hand Smoke Exposure: Yes Advance Directives: Yes Advance Directives on File: Yes Advance Directives Date on File: 02/25/22 service: No Current occupational status: retired Current occupational exposures/hazards: No Cognitive needs: No Hearing needs: No Vision needs: No Physical Exam Vital Signs: Vital Signs: Last Vital Signs Temp 98.6 F 03/18/22 08:25 Pulse 83 03/18/22 11:01 Resp 16 03/18/22 11:01 BP 171/86 H 03/18/22 11:01 Pulse Ox 97 03/18/22 11:01 O2 Del Method 03/18/22 11:01 O2 Flow Rate 2 03/18/22 11:01 BMI result Body Mass Index 19.8 Appearance: Alert. Oriented X3. No acute distress. Frail Eyes: Pupils equal, round and reactive to light. ENT: Pharynx normal. Neck: Normal inspection. Neck supple. CVS: Normal heart rate and rhythm. Pulses normal. Respiratory: No respiratory distress. Breath sounds normal. Abdomen: Soft and nontender. Skin: Skin warm and dry. Normal skin color. Normal skin turgor. Extremities: No lower extremity edema. No calf ttp Neuro: Oriented X 3. No motor deficit. No sensory deficit. Course Course Course Narrative: labs stable, no sig dehydration no hypoxia afebrile no WBC count will start on oral ceftin and refer to PT/CM Patient placed in physician observation at 1136am. The indication for observation is that the patient needs more time for PT/CM to assist in placement for STR. At this time the patient is well developed well nourished, lungs clear, CV RRR, abd nontender, neuro is intact. MDM - Weakness MDM Narrative Medical decision making narrative: 81 yo female with hx of COPD O2 dependent, GERD, pneumonia, HLD, comes from home overall has just been weakened since prior hip fractures she lives with her son and they have tried to help and manage her at home but feel they need more help. He is worried about decreased PO intake at this time. At this time she has no complaints will obtain labs, UA, CXR, EKG once medically cleared will refer to CM family is requesting STR for PT Lab Data Result diagrams: 03/18/22 10:27 03/18/22 10:27 Labs: Lab Results 03/18/22 03/18/22 03/18/22 Range/Units 10:27 10:27 10:27 WBC 6.0 (4.8-10.8) X10*3/uL RBC 3.96 L (4.20-5.50) X10*6/uL Hgb 12.4 (12.0-16.0) g/dl Hct 37.7 (37.0-47.0) % MCV 95.2 (80.0-98.0) fL MCH 31.3 (27.0-33.0) pg MCHC 32.9 (31.0-35.0) g/dl RDW 13.0 (11.0-16.0) % Plt Count 251 (160-400) X10*3/uL MPV 9.8 (9.4-12.3) fL Immature Gran % (Auto) 0.2 (0.0-0.4) % Neut % (Auto) 67.6 (45-73) % Lymph % (Auto) 19.6 L (20-40) % [place] % (Auto) 10.8 (2-11) % Eos % (Auto) 1.5 (0-4) % Baso % (Auto) 0.3 (0-2) % Lymph # (Auto) 1.2 (1.2-4.9) X10*3/uL [place] # (Auto) 0.7 (0.1-1.2) X10*3/uL Eos # (Auto) 0.1 (0.0-0.4) X10*3/uL Baso # (Auto) 0.0 (0.0-0.2) X10*3/uL Abs Immat Gran (auto) 0.01 (0.00-0.03) X10*3/uL Absolute Neuts (auto) 4.1 (2.0-8.3) x10*3/uL Absolute Nucleated RBC 0.000 (0.0-0.012) X10*3/uL Nucleated RBC % (auto) 0.0 (0.0-0.2) /100WBC Sodium 138 (135-145) mmol/L Potassium 4.2 (3.3-5.1) mmol/L Chloride 97 (96-108) mmol/L Carbon Dioxide 31 H (22-29) mmol/L Anion Gap 14 (12-20) BUN 18 H (9-16) mg/dL Creatinine 0.67 (0.5-1.4) mg/dL Estim Creat Clear Calc 63.3 Estimated GFR > 60 Random Glucose 121 H (60-115) mg/dL Calcium 9.8 (8.4-10.2) mg/dL Magnesium 2.0 (1.6-2.6) mg/dL Total Bilirubin 0.7 (0.0-1.0) mg/dL Direct Bilirubin 0.3 (0.0-0.5) mg/dL AST 18 (5-31) U/L ALT 11 (0-31) U/L Alkaline Phosphatase 126 H D (39-117) U/L Troponin I High Sens (<3.5-17.0) ng/L B-Natriuretic Peptide 35 (<100) pg/mL Total Protein 7.4 (6.5-8.0) g/dL Albumin 4.3 (3.5-5.0) g/dL Urine Color Urine Appearance Urine pH (5.0-8.0) Ur Specific [place] (1.005-1.025) Urine Protein (NEG-TRACE) MG/DL Urine Glucose (UA) (NEG) MG/DL Urine Ketones (NEG) MG/DL Urine Blood (NEG) Urine Nitrite (NEG) Ur Leukocyte Esterase (NEG) Urine RBC (0) /HPF Urine WBC (0-4) /HPF Ur Squamous Epith Cells /LPF Ur Renal Epithelial Cell /LPF Urine Bacteria /LPF COVID-19 (JASON) (Negative) COVID-19 Clin Com 03/18/22 03/18/22 03/18/22 Range/Units 10:27 10:27 10:49 WBC (4.8-10.8) X10*3/uL RBC (4.20-5.50) X10*6/uL Hgb (12.0-16.0) g/dl Hct (37.0-47.0) % MCV (80.0-98.0) fL MCH (27.0-33.0) pg MCHC (31.0-35.0) g/dl RDW (11.0-16.0) % Plt Count (160-400) X10*3/uL MPV (9.4-12.3) fL Immature Gran % (Auto) (0.0-0.4) % Neut % (Auto) (45-73) % Lymph % (Auto) (20-40) % [place] % (Auto) (2-11) % Eos % (Auto) (0-4) % Baso % (Auto) (0-2) % Lymph # (Auto) (1.2-4.9) X10*3/uL [place] # (Auto) (0.1-1.2) X10*3/uL Eos # (Auto) (0.0-0.4) X10*3/uL Baso # (Auto) (0.0-0.2) X10*3/uL Abs Immat Gran (auto) (0.00-0.03) X10*3/uL Absolute Neuts (auto) (2.0-8.3) x10*3/uL Absolute Nucleated RBC (0.0-0.012) X10*3/uL Nucleated RBC % (auto) (0.0-0.2) /100WBC Sodium (135-145) mmol/L Potassium (3.3-5.1) mmol/L Chloride (96-108) mmol/L Carbon Dioxide (22-29) mmol/L Anion Gap (12-20) BUN (9-16) mg/dL Creatinine (0.5-1.4) mg/dL Estim Creat Clear Calc Estimated GFR Random Glucose (60-115) mg/dL Calcium (8.4-10.2) mg/dL Magnesium (1.6-2.6) mg/dL Total Bilirubin (0.0-1.0) mg/dL Direct Bilirubin (0.0-0.5) mg/dL AST (5-31) U/L ALT (0-31) U/L Alkaline Phosphatase (39-117) U/L Troponin I High Sens 5.5 D (<3.5-17.0) ng/L B-Natriuretic Peptide (<100) pg/mL Total Protein (6.5-8.0) g/dL Albumin (3.5-5.0) g/dL Urine Color YELLOW Urine Appearance HAZY Urine pH 6.0 (5.0-8.0) Ur Specific [place] 1.010 (1.005-1.025) Urine Protein NEG (NEG-TRACE) MG/DL Urine Glucose (UA) NEG (NEG) MG/DL Urine Ketones NEG (NEG) MG/DL Urine Blood NEG (NEG) Urine Nitrite NEG (NEG) Ur Leukocyte Esterase 1+ H (NEG) Urine RBC 0-2 (0) /HPF Urine WBC 5-9 H (0-4) /HPF Ur Squamous Epith Cells 1+ /LPF Ur Renal Epithelial Cell 1+ /LPF Urine Bacteria NONE /LPF COVID-19 (JASON) Negative (Negative) COVID-19 Clin Com See Note ECG Data Attestation: I personally reviewed and interpreted this ECG as follows: ECG interpretation date: 03/18/22 ECG interpretation time: 10:17 Interpretation: Rate: 75 Rhythm: NSR [place]: left Normal P waves. Normal AMINA. Normal QRS complex. ST T wave : normal no ROGELIO qTC: normal prior studies: no acute ischemia The study has been interpreted contemporaneously by me. . Discharge Plan Discharge Clinical Impression: Adult failure to thrive, Opacity of lung on imaging study Patient Disposition: Still a Patient Prescriptions: No Action (DME) miscellaneous medical supply Misc See Rx Instructions .ROUTE .MEDSUPPLY Qty: 1 0RF Rx Instructions: Transport chair 4 wheel manual, Daily As directed, 999 days/Lifetime. Disp#1 (DME) Wheel chair Kit See Rx Instructions .Route Qty: 1 0RF Rx Instructions: transport wheel chair meloxicam 15 mg tablet 15 mg PO DAILY 30 Days Qty: 30 0RF sertraline 50 mg tablet 50 mg PO DAILY 90 Days Qty: 90 2RF alendronate 70 mg tablet 70 mg PO QWEEK 28 Days Qty: 4 4RF Breo Ellipta 200-25 mcg/dose blister with device 1 inh INHALATION DAILY 28 Days Qty: 28 4RF albuterol sulfate [ProAir HFA] 90 mcg/actuation Hfa Aerosol Inhaler 2 puff INHALATION Q6H PRN (Reason: Dyspnea) acetaminophen 500 mg Tablet 1,000 mg PO TID calcium carbonate 200 mg calcium (500 mg) Tablet,Chewable 200 mg PO Q4H PRN (Reason: Dyspepsia) Santyl 250 unit/gram Ointment 1 appl TOPICAL DAILY melatonin 5 mg Tablet 5 mg PO BEDTIME ketorolac 0.5 % drops gabapentin 300 mg capsule 600 mg PO BEDTIME gabapentin 300 mg capsule 300 mg PO BID@0900,1300 (DME) miscellaneous medical supply Misc See Rx Instructions .ROUTE .MEDSUPPLY Qty: 1 0RF Rx Instructions: donut cushion/pillow. As directed. DX: M53.3, Duration 999 days cefuroxime axetil 500 mg tablet 500 mg PO BID 7 Days Qty: 14 0RF amlodipine 5 mg tablet 5 mg PO DAILY 90 Days Qty: 90 2RF famotidine 20 mg tablet 20 mg PO BID 90 Days Qty: 180 2RF lorazepam 0.5 mg tablet 0.5 mg PO DAILY PRN (Reason: anxiety) 30 Days Qty: 30 0RF Rx Instructions: [employer] verified. Partial refill upon request. multivitamin [Daily Multi-Vitamin] Tablet 1 tab PO DAILY ascorbic acid (vitamin C) 500 mg tablet 500 mg PO DAILY cholecalciferol (vitamin D3) 50 mcg (2,000 unit) capsule 50 mcg PO DAILY
[2022-03-18 10:32] LABS: MANUAL DIFF FLAG NO
[2022-03-18 10:34] LABS: Basophils Percent Auto 0.3 % (0-2); Eosinophils Absolute Auto 0.1 X10*3/uL (0.0-0.4); Eosinophils Percent Auto 1.5 % (0-4); Hematocrit 37.7 % (37.0-47.0); Hemoglobin 12.4 g/dl (12.0-16.0); Imm Gran Abs Auto 0.01 X10*3/uL (0.00-0.03); Imm Gran Pct Auto 0.2 % (0.0-0.4); Lymphocytes Absolute Auto 1.2 X10*3/uL (1.2-4.9); Lymphocytes Percent Auto 19.6 % (20-40); Mean Corpuscular HGB Conc 32.9 g/dl (31.0-35.0); Mean Corpuscular Hemoglobin 31.3 pg (27.0-33.0); Mean Corpuscular Volume 95.2 fL (80.0-98.0); Mean Platelet Volume 9.8 fL (9.4-12.3); Monocytes Absolute Auto 0.7 X10*3/uL (0.1-1.2); Monocytes Percent Auto 10.8 % (2-11); Neutrophils Absolute Auto 4.1 x10*3/uL (2.0-8.3); Neutrophils Percent Auto 67.6 % (45-73); Platelet Count 251 X10*3/uL (160-400); Red Blood Count 3.96 X10*6/uL (4.20-5.50)
[2022-03-18 10:56] LABS: Troponin-I High Sensitivity 5.5 ng/L (<3.5-17.0)
[2022-03-18 10:57] LABS: B Type Natriuretic Peptide 35 pg/mL (<100)
[2022-03-18 10:58] LABS: COVID-19 Test Negative (Negative); IDNOW Serial# 16C4AD1C
[2022-03-18 11:00] LABS: Appearance Urine HAZY; Color Urine YELLOW; Glucose Urine UA NEG (NEG); Leukocyte Esterase Urine 1+ (NEG); Nitrite Urine NEG (NEG); UACC Culture Trigger YES; Urine Blood NEG (NEG); Urine Ketones NEG (NEG); Urine Protein NEG (NEG-TRACE)
[2022-03-18 11:11] LABS: Renal Epithelial Cells Urine 1+ /LPF; Squamous Epithelial Cell Urine 1+ /LPF
[2022-03-18 11:12] LABS: RBC Urine 0-2 /HPF (0)
[2022-03-18 11:23] LABS: Alanine Aminotransferase 11 U/L (0-31); Albumin Level 4.3 g/dL (3.5-5.0); Alkaline Phosphatase 126 U/L (39-117); Anion Gap 14 (12-20); Aspartate Amino Transferase 18 U/L (5-31); Bilirubin Direct 0.3 mg/dL (0.0-0.5); Bilirubin Total 0.7 mg/dL (0.0-1.0); Blood Urea Nitrogen 18 mg/dL (9-16); Calcium 9.8 mg/dL (8.4-10.2); Carbon Dioxide 31 mmol/L (22-29); Chloride 97 mmol/L (96-108); Creatinine Clr Calc Pharmacy 63.3; Estimated Glomerular Filt Rate > 60; Glucose Random 121 mg/dL (60-115); Potassium 4.2 mmol/L (3.3-5.1); Sodium 138 mmol/L (135-145); Total Protein 7.4 g/dL (6.5-8.0)
--- NOTE | 2022-03-18 11:56 | PHA.MEDREC ---
Pharmacy Consult ? Medication Reconciliation Pharmacy has completed the medication reconciliation. Spoke with patient's son. Reports she has no gotten alendronate since November. Reports she is done with the ketorlac eye drops. Reports they are tyring to taper the patient off of gabapentin currently taking 300 mg BID. He was unsure about meloxicam, however he reports there is an empty bottle at home and that might be what it was. Gregoria Plaza, ShiraD
--- NOTE | 2022-03-18 11:59 | PC.NURSE ---
patient a/o x3 . lungs clear . pearrla . skin pink warm and dry . pt ambulated with walker to bathroom with one assist . gait steady . pain level 2/10 . patient medicated as ordered . patient aware of plan of care .
--- NOTE | 2022-03-18 17:57 | MHC.CM.ED ---
CM met with patient at request of Dr. Vann. PT recommends STR. Pt is agreeable. Would like facilities in [place], with [facility] at first choice. A&Ox2. Lives with her son/HCP#2 Jas Dominguez ([phone]). Uses a walker and has no services. HCP/son #1 Angel Dominguez ([phone]).Vax x2/[employer] 11/30/20 & 07/17/21. Pt has a MOLST-full code. D/C plan: STR. Referrals placed. Will need transportation. CM to follow for d/c needs.
[2022-03-18] MEDS: amLODIPine Besylate 5 MG TABLET PO (22:06)
[2022-03-18] MEDS: Acetaminophen 325 MG TABLET 650 MG PO (22:06)
[2022-03-19] VITALS (10 sets, daily range): BP systolic 153–173; BP diastolic 75–92; PULSE 92–110; RESP 14–18; TEMP 36.6–36.8; O2SAT 91–99
--- NOTE | 2022-03-19 02:46 | PC.NURSE ---
pt a&o, assisting to bathroom with walker. Notified INESSA Murphy.
--- NOTE | 2022-03-19 04:47 | PC.NURSE ---
pt has been up thru the night with frequent urination this is new for the pt per the pt. pt teaching on the proper use of the walker and instructing pt to lift her right leg as she walks, pt is trying and can do. pt has a hard time lifting her own weight from a sitting position. pt is unable to recall how much home o2 she uses and all her answers are my son knows .
--- NOTE | 2022-03-19 08:15 | PC.NURSE ---
Pt A&Ox1, person only at this time. Pt thought she was in someone's home in [place], confused to year as well. Pt states she would like to go home, reoriented patient to place and situation. Pt is aware CM is working with her HCP on placement at this time. Pt offers no complaints of pain, VS as documented, c/o mild upset stomach at this time. LCA, abd soft, non tender, +BS x4. Ambulates with assitx1 and walker. Call ross within reach. Awaiting dispo. Will continue to monitor.
[2022-03-19] MEDS: Fluticasone/Vilanterol 200/25 BLST.W.DEV 1 PUFF INHALE (08:34)
[2022-03-19] MEDS: Cyanocobalamin (Vitamin B-12) 1,000 MCG TABLET 1000 MCG PO (09:02)
[2022-03-19] MEDS: Gabapentin 300 MG CAPSULE PO ×2 (09:02→20:46)
[2022-03-19] MEDS: Cholecalciferol (Vitamin D3) 25 MCG TABLET 50 MCG PO (09:02)
[2022-03-19] MEDS: Ascorbic Acid 500 MG TABLET PO (09:03)
[2022-03-19] MEDS: Calcium Carbonate 750 MG TAB.CHEW 375 MG PO (09:03)
[2022-03-19] MEDS: NaPROXEN 500 MG TABLET PO ×2 (09:03→20:47)
[2022-03-19] MEDS: Multivitamin TABLET 1 TAB PO (09:03)
[2022-03-19] MEDS: amLODIPine Besylate 5 MG TABLET PO (09:03)
[2022-03-19] MEDS: Acetaminophen 325 MG TABLET 975 MG PO ×2 (09:04→20:46)
[2022-03-19] MEDS: Famotidine 20 MG TABLET PO (09:04)
[2022-03-19] MEDS: Sertraline HCL 50 MG TABLET PO (09:22)
--- NOTE | 2022-03-19 09:45 | PC.NURSE ---
Pt OOB to BR with walker and assit x 1. Medicated as per MAR orders. Tums given PRN for upset stomach . Call ross within reach. Will continue to monitor.
--- NOTE | 2022-03-19 10:03 | MHC.CM.ED ---
Patient remains in ER. Needs short term rehab. [facility]. [facility] is going for insurance auth. Continue to monitor for d/c needs.
[2022-03-19] MEDS: Collagenase Clostridium Hist. 30 GM TUBE 1 APPL TOPICAL (10:49)
--- NOTE | 2022-03-19 18:13 | MHC.CM.ED ---
CM received fax notification from JOSS Merritt at [facility] that [facility] has denied payment for STR. Paperwork given to son/HCP Jas Dominguez ([phone]). Jas will file a Fast Appeal to authorize payment for STR. Pt aware and will remain in the ED. Jas given CM contact information. CM to follow for d/c needs.
--- NOTE | 2022-03-19 20:17 | PC.NURSE ---
pt found out of bed in hallway with isaías, pt states, the person who was watching me went downstairs i dont know where they went pt assisted back to bed with no safety incidents, this RN to make charge aware for bed placement closer to nurses station
[2022-03-19] MEDS: Melatonin 3 MG TABLET 6 MG PO (20:47)
--- NOTE | 2022-03-20 04:20 | PC.NURSE ---
pt sleeping comfortably in bed, all safety measures maintained, visible chest rise & fall, respirations free and easy
[2022-03-20 06:29] VITALS: BP 145/81; PULSE 82; RESP 16; TEMP 36.9; O2SAT 95
[2022-03-20 07:35] VITALS: BP 167/79; PULSE 85; RESP 15; TEMP 36.4; O2SAT 93
[2022-03-20] MEDS: Sertraline HCL 50 MG TABLET PO (08:12)
[2022-03-20] MEDS: Multivitamin TABLET 1 TAB PO (08:12)
[2022-03-20] MEDS: Acetaminophen 325 MG TABLET 975 MG PO (08:13)
[2022-03-20] MEDS: Cyanocobalamin (Vitamin B-12) 1,000 MCG TABLET 1000 MCG PO (08:13)
[2022-03-20] MEDS: NaPROXEN 500 MG TABLET PO (08:14)
[2022-03-20] MEDS: Gabapentin 300 MG CAPSULE PO (08:14)
[2022-03-20] MEDS: Cholecalciferol (Vitamin D3) 25 MCG TABLET 50 MCG PO (08:14)
[2022-03-20] MEDS: Ascorbic Acid 500 MG TABLET PO (08:14)
[2022-03-20] MEDS: Famotidine 20 MG TABLET PO (08:15)
[2022-03-20] MEDS: amLODIPine Besylate 5 MG TABLET PO (08:15)
--- NOTE | 2022-03-20 10:07 | MHC.CM.ED ---
Patient remains in ER. Patient and family have decided to appeal [facility]'s denial of STR. Requested clinical information has already been faxed to [facility] from case management office. Continue to monitor for d/c needs.
[2022-03-20 12:20] VITALS: BP 168/76; PULSE 94; RESP 16; TEMP 36.6; O2SAT 97
[2022-03-20 14:24] VITALS: BP 168/84; PULSE 89; RESP 18; O2SAT 94
--- NOTE | 2022-03-20 18:53 | MHC.CM.ED ---
Addendum entered by Kimberley Meneses 03/20/22 19:38: Referral made to [facility]. Original Note: CM received telephone call at 1600 from Qing chaudhari [facility] ([phone]) and unfortunately, [facility] has denied the pt and family appeal and will not authorize payment for STR. Per Qing, [facility] automatically sends the denial to another appeal process with Artie (federal level) form them to review the denials. They will expedite the request and there should be a decision in 3 days. Pt and family aware. CM spoke with Shannon Hu. Pt and son, Jas were offered referral for home services, or were informed that the hospital may bill them for further ED stays. Pt and Jas choose to go home and CM will set up home PT. Jas feels his mother is safe to go home. Has walker and commode. Jas feels his mother needs strengthening. Discussed home PT with [facility], private pay help at home, de icer kit assembler services for his mother and contacting [facility] to see if they can offer any help. Referral made. CM to follow for d/c needs.
--- NOTE | 2022-03-21 10:50 | MHC.CM.ED ---
Pt has been accepted by [facility] for home services. Call placed to pt's son, Jas to inform him of plan. He is in agreement.
== END 2022-03-20 18:45 | disposition home or self-care (01) ==
PROVIDERS: Emergency Provider Emergency Medicine; PCP Family Medicine
DX: R62.7 Adult failure to thrive (principal); Z68.1 Body mass index [BMI] 19.9 or less, adult; R91.8 Other nonspecific abnormal finding of lung field; Z20.822 Contact with and (suspected) exposure to COVID-19; R53.83 Other fatigue; I10 Essential (primary) hypertension; E78.5 Hyperlipidemia, unspecified; J44.9 Chronic obstructive pulmonary disease, unspecified; Z99.81 Dependence on supplemental oxygen; Z87.891 Personal history of nicotine dependence; Z79.899 Other long term (current) drug therapy
CPT/HCPCS: 36415; 71045; 80048; 80076; 81001; 81003; 83735; 83880; 84484; 85025; 87086; 87147; 87635; 93005; 94664; 97162; 99285

== ENCOUNTER 2022-03-23 08:27 | Emergency (ER) | payer MEDICARE, SELFPAY ==
--- NOTE | ~2022-03-23 | CT_ITS ---
EXAMINATION: CT ABDOMEN AND PELVIS WITH CONTRAST CLINICAL INFORMATION: Abdominal and low back pain, urinary retention COMPARISON: None TECHNIQUE: Multidetector volumetric images were obtained from the superior aspect of the liver through the pubic symphysis following administration 85 mL of Omnipaque 350 intravenous contrast. Sagittal and coronal reformatted images were obtained on the technologist's workstation. Oral contrast: No This CT examination was performed using dose optimization techniques as appropriate, variously including the following: *Automated exposure control *Adjustment of mA and/or kV according to patient size (this includes techniques or standardized protocols for targeted exams where dose is matched to indication/reason for exam; i.e. extremities or head) *Use of iterative reconstruction technique DLP: 517 mGy-cm FINDINGS: LUNG BASES: The visualized lung bases are unremarkable aside from bibasilar atelectasis.. LIVER, GALLBLADDER, AND BILIARY TREE: The liver is normal in size, shape, and attenuation. No focal hepatic lesion or biliary ductal dilatation is present. The gallbladder is unremarkable with no evidence of radiopaque gallstones, gallbladder wall thickening, or obvious pericholecystic inflammatory changes. PANCREAS: Unremarkable. SPLEEN: Unremarkable. ADRENAL GLANDS: Unremarkable. KIDNEYS AND URETERS: The kidneys are normal in size, shape, and attenuation. No hydronephrosis, hydroureter, or calculi seen. No perinephric stranding. BLADDER: The bladder is poorly distended with symmetric wall thickening. There is certainly no evidence to suggest urinary retention. GASTROINTESTINAL TRACT: The small and large bowel are unremarkable. The appendix is unremarkable. ABDOMINAL WALL: No significant hernia is appreciated. LYMPH NODES: No retroperitoneal lymphadenopathy. VASCULAR: There is an infrarenal abdominal aortic aneurysm present measuring 3.1 cm in greatest dimension. The left gonadal vein is dilated. No significant pelvic varices are seen. PELVIC VISCERA: Unremarkable. OSSEOUS STRUCTURES: A barrington and screw is present within the right femur with 3 screws present through the left femoral neck. Degenerative changes present throughout the spine with compression fractures involving multiple vertebral bodies most marked at L3 and T11. When comparison is made to the prior CT scan of the chest from 08/16/2021, the fracture involving T11 is new. No pathologic bony destructive lesions are seen. CT/CT abdomen pelvis w con IMPRESSION: 1. Decompressed bladder with no evidence of urinary retention. 2. Multiple vertebral compression fractures. The fracture involving T11 is new when compared to the prior study. I suspect a fracture involving L3 could be new as well although no prior radiographs are available for comparison. These findings could certainly be responsible for the patient's low back pain. 3. 3.1 cm AAA Fleischner guidelines were followed.
--- NOTE | ~2022-03-23 | XR_ITS ---
EXAMINATION: XR CHEST CLINICAL INFORMATION: Shortness of breath, prior right lower lobe opacity. COMPARISON: Chest radiographs dated 03/18/2022 and 02/01/2022. TECHNIQUE: 2 views of the chest were obtained. FINDINGS: The previously seen small opacity in the right lower lung has decreased with persistent small nodular density. The left lung is clear. The heart and mediastinal structures are unremarkable. XR/XR chest 2V IMPRESSION: Small opacity in the right lower lung has decreased, but there is a persistent small nodular opacity. A short-term repeat chest radiograph within one month is recommended to assess for resolution.
[2022-03-23 08:44] VITALS: BP 180/88; BP 196/92; PULSE 87; PULSE 89; RESP 16; TEMP 36.8; O2SAT 100; O2SAT 97; BMI 22.8
--- NOTE | 2022-03-23 09:02 | ED_ITS ---
HPI - General Adult General Chief complaint: General Medical Stated complaint: BODY PAIN X'S 2 HOURS,97% ON 3LPM HOME O2 FOR COPD Time Seen by Provider: 03/23/22 08:56 Source: patient and family Mode of arrival: EMS Limitations: altered mental status History of Present Illness HPI narrative: Patient presents emergency department via EMS. When asked why she was brought here today it is unclear. She reports that her son had called 911. EMS report includes that she has been having body pain for the past 2 hours. Patient states that she thinks she may have fallen today but she is unsure. Upon speaking with patient's son who is her primary scooper at home, he states that he contacted 911 because she was reporting chest pain this morning. Related Data Home Medications Medication Instructions Recorded Confirmed albuterol sulfate 90 mcg/actuation 2 puff inhalation Q6H PRN Dyspnea 06/16/20 03/18/22 aerosol inhaler (ProAir HFA) ascorbic acid (vitamin C) 500 mg 500 mg PO DAILY 07/30/20 03/18/22 tablet cholecalciferol (vitamin D3) 50 50 mcg PO DAILY 07/30/20 03/18/22 mcg (2,000 unit) capsule multivitamin (Daily Multi-Vitamin 1 tab PO DAILY 07/30/20 03/18/22 tablet) calcium carbonate 200 mg calcium 200 mg PO Q4H PRN Dyspepsia 08/16/21 03/18/22 (500 mg) chewable tablet collagenase clostridium histo. 250 1 appl topical DAILY 08/16/21 03/18/22 unit/gram topical ointment (Santyl) melatonin 5 mg tablet 5 mg PO BEDTIME 08/16/21 03/18/22 Prevagen 2 tab PO DAILY 03/18/22 03/18/22 acetaminophen 650 mg 1,300 mg PO BID 03/18/22 03/18/22 tablet,extended release cyanocobalamin (vitamin B-12) 1,000 mcg PO DAILY 03/18/22 03/18/22 1,000 mcg tablet famotidine 20 mg tablet 20 mg PO DAILY 03/18/22 03/18/22 gabapentin 300 mg capsule 300 mg PO BID 03/18/22 03/18/22 Previous Rx's Medication Instructions Recorded miscellaneous medical supply #1 ea 07/16/20 miscellaneous medical supply #1 ea 05/13/21 chair, wheel (Wheel chair) #1 ea 06/17/21 amlodipine 5 mg tablet 5 mg PO DAILY 90 days #90 tabs 09/03/21 meloxicam 15 mg tablet 15 mg PO DAILY 30 days #30 tabs 10/20/21 sertraline 50 mg tablet 50 mg PO DAILY 90 days #90 tabs 11/20/21 fluticasone furoate 200 1 inh inhalation DAILY 28 days #28 02/03/22 mcg-vilanterol 25 mcg/dose ea inhalation powder (Breo Ellipta) cefuroxime axetil 500 mg tablet 500 mg PO BID #8 tabs 03/20/22 lidocaine 5 % topical patch 2 patch topical DAILY #30 ea 03/23/22 (Lidoderm) Allergies Allergy/AdvReac Type Severity Reaction Status Date / Time No Known Allergies Allergy Verified 01/13/22 11:48 Review of Systems Review of Systems: Constitutional : No Fever, No Chills, pos Fatigue, pos Malaise ENT/Mouth : No sore throat, No Rhinorrhea Eyes: No Eye Pain, No Swelling, No Redness Cardiovascular : No Chest Pain, No SOB, No Dyspnea on Exertion, No Orthopnea, No Edema, No Palpitations Respiratory : No Cough, No Sputum, No Wheezing Gastrointestinal : No Nausea, No Vomiting, No Diarrhea Genitourinary : No Dysuria, No Urinary Frequency, No Hematuria, Musculoskeletal : No joint pain, No Myalgias, No Joint Swelling Skin : No Skin Lesions, No rash Neuro : pos Weakness, No Numbness, No Dizziness, No Headache Psych : No Anxiety/Panic, No Depression Heme/Lymph: No Bruising, No Bleeding,No Lymphadenopathy Endocrine : No Polyuria, No Polydipsia Yes all other systems are reviewed and are negative [facility] Past Medical History Attestation statement: The following information was validated with the patient. Source: old records reviewed Medical History COPD (chronic obstructive pulmonary disease) Hyperlipidemia Hypertension Peripheral vascular disease Respiratory failure Surgical History History of hip surgery Family History Family History Mother Breast cancer Social History Social History Household Members: None Housing: House Do you presently have visiting nurse or other home services: No Alcohol intake: never Patient Tobacco Use Status: Never used Tobacco Cigarette Packs Per Day: 3 Cigarettes Per Day: 60.0 Years Smoked: 50 e-Cigarette/Vaping Use: Never Used Second Hand Smoke Exposure: Yes Advance Directives: Yes Advance Directives on File: Yes Advance Directives Date on File: 02/25/22 service: No Current occupational status: retired Current occupational exposures/hazards: No Cognitive needs: No Hearing needs: No Vision needs: No Physical Exam ED Vital Signs: Vital Signs - 24 hr 03/23/22 08:44 03/23/22 11:39 03/23/22 15:16 Temperature 98.3 F 98.3 F 98.4 F Pulse Rate 87 95 87 Respiratory Rate 16 18 16 Blood Pressure 196/92 H 164/96 H 170/80 H Pulse Oximetry 100 100 98 Oxygen Delivery Method Nasal Cannula Nasal Cannula Nasal Cannula Oxygen Flow Rate 2 2 BMI result Body Mass Index 22.8 Vital signs have been reviewed as normal and appeared to be correct. Hypertensive? Heart rate normal.? Respiration rate normal. Temperature normal.? Oxygen saturation normal. Appearance: Alert.?Oriented to person, place and time. No acute distress.? Appears frail. Eyes: Pupils equal, round and reactive to light.? ENT: Pharynx normal.?? Neck: Normal inspection.? Neck supple.?? CVS: Heart sounds normal. Normal heart rate and rhythm.? Pulses normal.?? Respiratory: No respiratory distress.? Lung sounds clear to auscultation bilaterally?? Abdomen: Soft and non-tender. Normoactive bowel sounds. No pulsatile mass.?? Skin: Skin warm and dry.? Normal skin color.? Extremities: No lower extremity edema.? Neuro: Moves all extremities spontaneously. Sensation intact bilaterally. Ambulates with a slow steady gait and assist Course Course Course Narrative: Patient is a 81-year-old female with a past medical history of COPD with O2 dependence, GERD, hyperlipidemia, hypertension, chronic back pain, presenting to the emergency department today based on center for the patient reporting chest pain earlier this morning. Patient was evaluated in the emergency department 03/18/2020 to, and was noted to have a right lower lobe opacity for which she was being treated with Ceftin. Will obtain CBC to evaluate for leukocytosis/ anemia, CMP to evaluate for abnormal electrolytes /abnormal renal function/ abnormal hepatic/biliary function, EKG and troponin to evaluate for ischemia/ACS. Chest x-ray to evaluate consolidation/ infiltrate/ mass/ pulmonary congestion and Urinalysis. Reevaluation(s) Reevaluation #1: At this time advised by nursing staff the patient is reporting abdominal pain and lower back pain, patient attempted to void, and was only able to void a very small amount into a bedpan, was found to have a PVR bladder scan of 785. Patient is straight cathed at this time, 1L removed, will send urinalysis for testing. Will obtain CT of the abdomen and pelvis to exclude obstructive pathology. Time: 10:45 Reevaluation #2: Urinalysis without sign of infection. Delta troponin flat, prior report chest pain unlikely to be secondary to ACS. Chest x-ray reveals small placed in the right lower lobe actually having decreased, discussed with patient's son, she should complete the course of antibiotics as prescribed, follow up outpatient with primary care provider to assure resolution. Time: 13:32 Reevaluation #3: CT of the abdomen and pelvis shows a decompressed bladder no evidence of tension, no obstructive pathology or hydronephrosis or perinephric stranding. Multiple vertebral compression fractures involving T11 which appears new and L3 may also be new, prior CT scan August 2021, it is unclear when these compression fractures occurred, will treat with Tylenol and Lidoderm patches. Also on CT there is mention of a 3.1 cm AAA, which appears to be new, not noted in patient's previous records, for this will refer patient to vascular, Dr. Camp for outpatient follow-up and management. Discussed all findings with patient and son. Advised for plan of care for discharge home, outpatient follow-up with her primary care provider within 1-3 d ays, worrisome signs and symptoms to return back to the emergency department for, all questions answered, she was discharged home in stable condition. Time: 16:01 Medical Decision Making Medical Records Medical records reviewed: Yes I reviewed the patient's medical records. Lab Data Lab results reviewed: Yes I reviewed the patient's lab results. Result diagrams: 03/23/22 08:54 03/23/22 08:54 Labs: Lab Results 03/23/22 03/23/22 03/23/22 Range/Units 08:54 08:54 08:54 WBC 5.3 (4.8-10.8) X10*3/uL RBC 3.99 L (4.20-5.50) X10*6/uL Hgb 12.5 (12.0-16.0) g/dl Hct 38.4 (37.0-47.0) % MCV 96.2 (80.0-98.0) fL MCH 31.3 (27.0-33.0) pg MCHC 32.6 (31.0-35.0) g/dl RDW 13.1 (11.0-16.0) % Plt Count 320 D (160-400) X10*3/uL MPV 9.7 (9.4-12.3) fL Immature Gran % (Auto) 0.4 (0.0-0.4) % Neut % (Auto) 57.4 (45-73) % Lymph % (Auto) 27.4 (20-40) % R[place] % (Auto) 10.6 (2-11) % Eos % (Auto) 3.4 (0-4) % Baso % (Auto) 0.8 (0-2) % Lymph # (Auto) 1.5 (1.2-4.9) X10*3/uL [place] # (Auto) 0.6 (0.1-1.2) X10*3/uL Eos # (Auto) 0.2 (0.0-0.4) X10*3/uL Baso # (Auto) 0.0 (0.0-0.2) X10*3/uL Abs Immat Gran (auto) 0.02 (0.00-0.03) X10*3/uL Absolute Neuts (auto) 3.0 (2.0-8.3) x10*3/uL Absolute Nucleated RBC 0.000 (0.0-0.012) X10*3/uL Nucleated RBC % (auto) 0.0 (0.0-0.2) /100WBC Sodium 138 (135-145) mmol/L Potassium 4.4 (3.3-5.1) mmol/L Chloride 99 (96-108) mmol/L Carbon Dioxide 30 H (22-29) mmol/L Anion Gap 13 (12-20) BUN 14 (9-16) mg/dL Creatinine 0.62 (0.5-1.4) mg/dL Estim Creat Clear Calc 71.5 Estimated GFR > 60 Random Glucose 110 (60-115) mg/dL Calcium 9.8 (8.4-10.2) mg/dL Total Bilirubin 0.5 (0.0-1.0) mg/dL Direct Bilirubin 0.2 (0.0-0.5) mg/dL AST 24 (5-31) U/L ALT 13 (0-31) U/L Alkaline Phosphatase 113 (39-117) U/L Troponin I High Sens 4.9 (<3.5-17.0) ng/L Total Protein 7.8 (6.5-8.0) g/dL Albumin 4.3 (3.5-5.0) g/dL Urine Color Urine Appearance Urine pH (5.0-8.0) Ur Specific [place] (1.005-1.025) Urine Protein (NEG-TRACE) MG/DL Urine Glucose (UA) (NEG) MG/DL Urine Ketones (NEG) MG/DL Urine Blood (NEG) Urine Nitrite (NEG) Ur Leukocyte Esterase (NEG) Urine RBC (0) /HPF Urine WBC (0-4) /HPF Ur Squamous Epith Cells /LPF Urine Bacteria /LPF 03/23/22 03/23/22 Range/Units 12:06 12:26 WBC (4.8-10.8) X10*3/uL RBC (4.20-5.50) X10*6/uL Hgb (12.0-16.0) g/dl Hct (37.0-47.0) % MCV (80.0-98.0) fL MCH (27.0-33.0) pg MCHC (31.0-35.0) g/dl RDW (11.0-16.0) % Plt Count (160-400) X10*3/uL MPV (9.4-12.3) fL Immature Gran % (Auto) (0.0-0.4) % Neut % (Auto) (45-73) % Lymph % (Auto) (20-40) % [place] % (Auto) (2-11) % Eos % (Auto) (0-4) % Baso % (Auto) (0-2) % Lymph # (Auto) (1.2-4.9) X10*3/uL [place] # (Auto) (0.1-1.2) X10*3/uL Eos # (Auto) (0.0-0.4) X10*3/uL Baso # (Auto) (0.0-0.2) X10*3/uL Abs Immat Gran (auto) (0.00-0.03) X10*3/uL Absolute Neuts (auto) (2.0-8.3) x10*3/uL Absolute Nucleated RBC (0.0-0.012) X10*3/uL Nucleated RBC % (auto) (0.0-0.2) /100WBC Sodium (135-145) mmol/L Potassium (3.3-5.1) mmol/L Chloride (96-108) mmol/L Carbon Dioxide (22-29) mmol/L Anion Gap (12-20) BUN (9-16) mg/dL Creatinine (0.5-1.4) mg/dL Estim Creat Clear Calc Estimated GFR Random Glucose (60-115) mg/dL Calcium (8.4-10.2) mg/dL Total Bilirubin (0.0-1.0) mg/dL Direct Bilirubin (0.0-0.5) mg/dL AST (5-31) U/L ALT (0-31) U/L Alkaline Phosphatase (39-117) U/L Troponin I High Sens 4.9 (<3.5-17.0) ng/L Total Protein (6.5-8.0) g/dL Albumin (3.5-5.0) g/dL Urine Color STRAW Urine Appearance CLEAR Urine pH 6.5 (5.0-8.0) Ur Specific [place] <= 1.005 (1.005-1.025) Urine Protein NEG (NEG-TRACE) MG/DL Urine Glucose (UA) NEG (NEG) MG/DL Urine Ketones NEG (NEG) MG/DL Urine Blood TRACE (NEG) Urine Nitrite NEG (NEG) Ur Leukocyte Esterase NEG (NEG) Urine RBC 1-4 (0) /HPF Urine WBC 0 (0-4) /HPF Ur Squamous Epith Cells NONE /LPF Urine Bacteria NONE /LPF Imaging Data Chest x-ray: Radiologist's impression: XR/XR chest 2V IMPRESSION: Small opacity in the right lower lung has decreased, but there is a persistent small nodular opacity. A short-term repeat chest radiograph within one month is recommended to assess for resolution. CT scan - abdomen: Radiologist's impression: CT/CT abdomen pelvis w con IMPRESSION: 1.? Decompressed bladder with no evidence of urinary retention. 2.? Multiple vertebral compression fractures. The fracture involving T11 is new when compared to the prior study. I suspect a fracture involving L3 could be new as well although no prior radiographs are available for comparison. These findings could certainly be responsible for the patient's low back pain. 3.? 3.1 cm AAA ECG Data Attestation: I personally reviewed and interpreted this ECG as follows: Prior ECG tracings: available for review Interpretation: Rate: Normal sinus rhythm Rhythm: 85? [place]:? Normal Normal P waves.? Normal AMINA.?? Normal QRS complex.?? ST T wave :??No ST elevation, ST depression, no T-wave inversion qTC: 437 The study has been interpreted contemporaneously by me. Discharge Plan Discharge Clinical Impression: Compression fracture of body of thoracic vertebra, Compression fracture of lumbar vertebra Patient Disposition: Home, Self-Care Instructions: Vertebral Compression Fracture (ED) Additional Instructions: Imaging today reveals compression fracture of T11/L3. It is unclear when these occurred, compared to prior CT scan of the chest in August 2021, this appears to be new. You can take Tylenol 500 mg, 2 tablets (1,000mg) every 4-6 hours as needed for pain, but not to exceed 3 doses daily (3,000mg). In addition, you have been given a prescription for a Lidoderm patch, which can be applied to the back where there is pain. Please contact primary care provider and arrange for a follow-up visit within 1- 3 days. ? Prescriptions: New lidocaine [Lidoderm] 5 % adhesive patch,medicated 2 patch topical DAILY Qty: 30 0RF Rx Instructions: leave on most painful area for up to 12 hrs No Action (DME) miscellaneous medical supply Misc See Rx Instructions .ROUTE .MEDSUPPLY Qty: 1 0RF Rx Instructions: Transport chair 4 wheel manual, Daily As directed, 999 days/Lifetime. Disp#1 (DME) Wheel chair Kit See Rx Instructions .Route Qty: 1 0RF Rx Instructions: transport wheel chair meloxicam 15 mg tablet 15 mg PO DAILY 30 Days Qty: 30 0RF sertraline 50 mg tablet 50 mg PO DAILY 90 Days Qty: 90 2RF Breo Ellipta 200-25 mcg/dose blister with device 1 inh INHALATION DAILY 28 Days Qty: 28 4RF albuterol sulfate [ProAir HFA] 90 mcg/actuation Hfa Aerosol Inhaler 2 puff INHALATION Q6H PRN (Reason: Dyspnea) calcium carbonate 200 mg calcium (500 mg) Tablet,Chewable 200 mg PO Q4H PRN (Reason: Dyspepsia) Santyl 250 unit/gram Ointment 1 appl TOPICAL DAILY melatonin 5 mg Tablet 5 mg PO BEDTIME gabapentin 300 mg capsule 300 mg PO BID acetaminophen [Tylenol Arthritis] 650 mg Tablet Extended Release 1,300 mg PO BID famotidine 20 mg tablet 20 mg PO DAILY cyanocobalamin (vitamin B-12) 1,000 mcg Tablet 1,000 mcg PO DAILY Prevagen 2 tab PO DAILY cefuroxime axetil 500 mg tablet 500 mg PO BID Qty: 8 0RF (DME) miscellaneous medical supply Misc See Rx Instructions .ROUTE .MEDSUPPLY Qty: 1 0RF Rx Instructions: verito winters/gloria. As directed. DX: M53.3, Duration 999 days amlodipine 5 mg tablet 5 mg PO DAILY 90 Days Qty: 90 2RF multivitamin [Daily Multi-Vitamin] Tablet 1 tab PO DAILY ascorbic acid (vitamin C) 500 mg tablet 500 mg PO DAILY cholecalciferol (vitamin D3) 50 mcg (2,000 unit) capsule 50 mcg PO DAILY Interventions: ED Discharge Assessment Last Done: 03/23/22 16:42 Discharge Date/Time: 03/23/22 16:43
--- NOTE | 2022-03-23 09:03 | ECG_ITS ---
Test Reason : fall Blood Pressure : / mmHG Vent. Rate : 085 BPM Atrial Rate : 085 BPM P-R Int : 154 ms QRS Dur : 066 ms QT Int : 368 ms P-R-T Axes : 055 -24 041 degrees QTc Int : 437 ms Normal sinus rhythm Possible Left atrial enlargement Borderline ECG When compared with ECG of 18-MAR-2022 10:11, No significant change was found Referred By: Marina Sweeney Electronically Signed By:Patrice Silverio
[2022-03-23 09:04] LABS: MANUAL DIFF FLAG NO
[2022-03-23 09:09] LABS: Basophils Percent Auto 0.8 % (0-2); Eosinophils Absolute Auto 0.2 X10*3/uL (0.0-0.4); Eosinophils Percent Auto 3.4 % (0-4); Hematocrit 38.4 % (37.0-47.0); Hemoglobin 12.5 g/dl (12.0-16.0); Imm Gran Abs Auto 0.02 X10*3/uL (0.00-0.03); Imm Gran Pct Auto 0.4 % (0.0-0.4); Lymphocytes Absolute Auto 1.5 X10*3/uL (1.2-4.9); Lymphocytes Percent Auto 27.4 % (20-40); Mean Corpuscular HGB Conc 32.6 g/dl (31.0-35.0); Mean Corpuscular Hemoglobin 31.3 pg (27.0-33.0); Mean Corpuscular Volume 96.2 fL (80.0-98.0); Mean Platelet Volume 9.7 fL (9.4-12.3); Monocytes Absolute Auto 0.6 X10*3/uL (0.1-1.2); Monocytes Percent Auto 10.6 % (2-11); Neutrophils Percent Auto 57.4 % (45-73); Platelet Count 320 X10*3/uL (160-400); Red Blood Count 3.99 X10*6/uL (4.20-5.50); Red Cell Distribution Width 13.1 % (11.0-16.0); White Blood Count 5.3 X10*3/uL (4.8-10.8)
[2022-03-23 09:20] LABS: Anion Gap 13 (12-20); Blood Urea Nitrogen 14 mg/dL (9-16); Calcium 9.8 mg/dL (8.4-10.2); Carbon Dioxide 30 mmol/L (22-29); Chloride 99 mmol/L (96-108); Creatinine Clr Calc Pharmacy 71.5; Estimated Glomerular Filt Rate > 60; Glucose Random 110 mg/dL (60-115); Potassium 4.4 mmol/L (3.3-5.1); Sodium 138 mmol/L (135-145)
[2022-03-23 09:26] LABS: Troponin-I High Sensitivity 4.9 ng/L (<3.5-17.0)
[2022-03-23 09:50] LABS: Alanine Aminotransferase 13 U/L (0-31); Albumin Level 4.3 g/dL (3.5-5.0); Alkaline Phosphatase 113 U/L (39-117); Aspartate Amino Transferase 24 U/L (5-31); Bilirubin Direct 0.2 mg/dL (0.0-0.5); Bilirubin Total 0.5 mg/dL (0.0-1.0); Total Protein 7.8 g/dL (6.5-8.0)
[2022-03-23 11:39] VITALS: BP 164/96; PULSE 95; RESP 18; TEMP 36.8; O2SAT 100
[2022-03-23 12:30] LABS: Troponin-I High Sensitivity 4.9 ng/L (<3.5-17.0)
[2022-03-23 12:33] LABS: Appearance Urine CLEAR; Color Urine STRAW; Glucose Urine UA NEG (NEG); Leukocyte Esterase Urine NEG (NEG); Nitrite Urine NEG (NEG); PH 6.5 (5.0-8.0); Specific Gravity - Urine <= 1.005 (1.005-1.025); UACC Culture Trigger NO; Urine Blood TRACE (NEG); Urine Ketones NEG (NEG); Urine Protein NEG (NEG-TRACE)
[2022-03-23 12:43] LABS: WBC Urine 0 /HPF (0-4)
[2022-03-23] MEDS: iohexoL 350 MG/ML 100 ML INFUS..BTL IV (13:40)
[2022-03-23 15:16] VITALS: BP 170/80; PULSE 87; RESP 16; TEMP 36.9; O2SAT 98
--- NOTE | 2022-03-23 15:18 | PC.NURSE ---
PATIENT WAS HELP TO BED ZIMMERMAN BY THIS PCT ,PATIENT VOID LARGE AMOUNT OF URINE ,CARE GIVEN .
== END 2022-03-23 16:43 | disposition home or self-care (01) ==
PROVIDERS: Nurse Practitioner Family; Emergency Provider Student in an Organized Health Care Education/Training Program; PCP Family Medicine
DX: M48.55XA Collapsed vertebra, not elsewhere classified, thoracolumbar region, initial encounter for fracture (principal); M79.10 Myalgia, unspecified site; R06.02 Shortness of breath; R33.9 Retention of urine, unspecified; M54.50 Low back pain, unspecified; R10.9 Unspecified abdominal pain; F17.210 Nicotine dependence, cigarettes, uncomplicated; Z79.899 Other long term (current) drug therapy; Z71.6 Tobacco abuse counseling
CPT/HCPCS: 36415; 71046; 74177; 80048; 80076; 81001; 84484; 85025; 93005; 99284; Q9967

== ENCOUNTER 2022-03-31 11:54 | Outpatient (REF) | payer MEDICARE, SELFPAY ==
[2022-03-31 13:34] LABS: Appearance Urine CLOUDY; Color Urine YELLOW; Glucose Urine UA NEG (NEG); Leukocyte Esterase Urine 3+ (NEG); Nitrite Urine POS (NEG); Specific Gravity - Urine <= 1.005 (1.005-1.025); Urine Blood TRACE (NEG); Urine Ketones NEG (NEG); Urine Protein NEG (NEG-TRACE)
[2022-03-31 14:16] LABS: Bacteria Urine 3+ /LPF; RBC Urine 0-2 /HPF (0); WBC Urine 30-49 /HPF (0-4)
[2022-03-31 14:17] LABS: Squamous Epithelial Cell Urine 1+ /LPF
== END 2022-03-31 11:55 | disposition home or self-care (01) ==
LOC: HO.WFDLNP 11:54
PROVIDERS: Visit Provider Family Medicine
DX: R30.0 Dysuria (principal)
CPT/HCPCS: 81001; 87086; 87088; 87186

== ENCOUNTER 2022-04-06 11:03 | Emergency (ER) | payer MEDICARE, SELFPAY ==
[2022-04-06 11:19] VITALS: BP 164/84; PULSE 91; PULSE 93; RESP 16; TEMP 36.6; O2SAT 98; O2SAT 99; BMI 22.0
--- NOTE | 2022-04-06 11:29 | ECG_ITS ---
Test Reason : back pain Blood Pressure : / mmHG Vent. Rate : 088 BPM Atrial Rate : 088 BPM P-R Int : 154 ms QRS Dur : 074 ms QT Int : 356 ms P-R-T Axes : 048 -25 043 degrees QTc Int : 430 ms Normal sinus rhythm Normal ECG When compared with ECG of 23-MAR-2022 09:10, No significant change was found Referred By: Helen Peters Electronically Signed By:EVE MACIAS MD
[2022-04-06 12:12] VITALS: BP 174/85; PULSE 85; RESP 18; TEMP 36.9; O2SAT 99
--- NOTE | 2022-04-06 12:13 | ED.GENADULT ---
HPI - General Adult General Chief complaint: Back Pain/Injury Stated complaint: 8/10 back pain Time Seen by Provider: 04/06/22 11:29 Source: patient and family (Son) Mode of arrival: EMS History of Present Illness HPI narrative: 81-year-old female with known compression fractures in the back and currently has an appointment for evaluation of vertebroplasty is brought in by EMS with complaints of 8/10 back pain and son is at bedside. The son expresses 3 main concerns: He is concerned that his mother continues to have back pain and feels that she was not discharged with pain medication (review of chart demonstrates that patient was discharged with only lidocaine patch), constipation, as well as concerns about small amount of urine production although his mother was started on antibiotics 3 days ago and he is concerned that she might be retaining urine. On speaking with the patient she describes she continues to have back pain which has affected some of her ability to have a bowel movement, however on questioning the son he has provided her with 2 doses of laxatives and patient was able to have a loose stool this morning and is denying any nausea, vomiting, fever, chills, abdominal discomfort. Related Data Home Medications Medication Instructions Recorded Confirmed albuterol sulfate 90 mcg/actuation 2 puff inhalation Q6H PRN Dyspnea 06/16/20 03/25/22 aerosol inhaler (ProAir HFA) ascorbic acid (vitamin C) 500 mg 500 mg PO DAILY 07/30/20 03/25/22 tablet cholecalciferol (vitamin D3) 50 50 mcg PO DAILY 07/30/20 03/25/22 mcg (2,000 unit) capsule multivitamin (Daily Multi-Vitamin 1 tab PO DAILY 07/30/20 03/25/22 tablet) calcium carbonate 200 mg calcium 200 mg PO Q4H PRN Dyspepsia 08/16/21 03/25/22 (500 mg) chewable tablet collagenase clostridium histo. 250 1 appl topical DAILY 08/16/21 03/25/22 unit/gram topical ointment (Santyl) Prevagen 2 tab PO DAILY 03/18/22 03/25/22 acetaminophen 650 mg 1,300 mg PO BID 03/18/22 03/25/22 tablet,extended release cyanocobalamin (vitamin B-12) 1,000 mcg PO DAILY 03/18/22 03/25/22 1,000 mcg tablet famotidine 20 mg tablet 20 mg PO DAILY 03/18/22 03/25/22 gabapentin 300 mg capsule 300 mg PO BID 03/18/22 03/25/22 melatonin 5 mg tablet 10 mg PO BEDTIME 03/25/22 03/25/22 Previous Rx's Medication Instructions Recorded miscellaneous medical supply #1 ea 07/16/20 miscellaneous medical supply #1 ea 05/13/21 chair, wheel (Wheel chair) #1 ea 06/17/21 amlodipine 5 mg tablet 5 mg PO DAILY 90 days #90 tabs 09/03/21 sertraline 50 mg tablet 50 mg PO DAILY 90 days #90 tabs 11/20/21 fluticasone furoate 200 1 inh inhalation DAILY 28 days #28 02/03/22 mcg-vilanterol 25 mcg/dose ea inhalation powder (Breo Ellipta) cefuroxime axetil 500 mg tablet 500 mg PO BID #8 tabs 03/20/22 lidocaine 5 % topical patch 2 patch topical DAILY 1 month #60 03/25/22 (Lidoderm) ea lorazepam 0.5 mg tablet (Ativan) 0.5 mg PO BEDTIME PRN anxiety and 03/25/22 sleep assist 4 weeks #42 tabs meloxicam 7.5 mg tablet 7.5 mg PO DAILY #30 tabs 03/25/22 levofloxacin 750 mg tablet 750 mg PO DAILY 5 days #5 tabs 04/03/22 alendronate 70 mg tablet 70 mg PO QWEEK 84 days #12 tabs 04/05/22 Allergies Allergy/AdvReac Type Severity Reaction Status Date / Time No Known Allergies Allergy Verified 03/25/22 15:45 Review of Systems Review of Systems: Pertinent positives and negatives as stated in HPI 10 point review of systems otherwise negative. [facility] Past Medical History Source: nursing notes reviewed Medical History COPD (chronic obstructive pulmonary disease) Hyperlipidemia Hypertension Peripheral vascular disease Respiratory failure Surgical History History of hip surgery Family History Family History Mother Breast cancer Social History Social History Household Members: None Housing: House Do you presently have visiting nurse or other home services: No Alcohol intake: never Patient Tobacco Use Status: Former Tobacco user Cigarette Packs Per Day: 3 Cigarettes Per Day: 60.0 Years Smoked: 50 e-Cigarette/Vaping Use: Never Used Second Hand Smoke Exposure: Yes Advance Directives: Yes Advance Directives on File: Yes Advance Directives Date on File: 02/25/22 service: No Current occupational status: retired and disabled Current occupational exposures/hazards: No Cognitive needs: No Hearing needs: No Vision needs: No Physical Exam ED Vital Signs: Vital Signs - 24 hr 04/06/22 11:19 04/06/22 12:12 Temperature 97.8 F 98.5 F Pulse Rate 93 85 Respiratory Rate 16 18 Blood Pressure 164/84 H 174/85 H Pulse Oximetry 98 99 Oxygen Delivery Method Nasal Cannula Room Air BMI result Body Mass Index 22.0 VITAL SIGNS: Reviewed. GENERAL: Well developed, well nourished, in no acute distress. HEAD: Normocephalic/atraumatic EYES: PERRLA, EOMI EARS: Ext canals without abnormality OROPHARYNX: no oral lesions noted, posterior pharynx clear LUNGS: Normal breath sounds, no wheeze/rhonchi/rales, no tachypnea. SpO2<98> on nasal cannula from home CARDIOVASCULAR: Regular rate and rhythm without noted murmurs, no JVD or lower extremity edema. ABDOMEN: Soft, non-tender, non-distended with bowel sounds. MUSCULOSKELETAL: No tenderness, deformities, or effusions noted on gross inspection. EXTREMITIES: No cyanosis, clubbing or edema. SKIN: Inspection of the skin reveals no rashes NEUROLOGIC: Alert and oriented x 4. Strength and sensation to light touch were grossly intact x 4. Course Course Course Narrative: 81-year-old female with history and clinical presentation consistent with UTI and compression fractures as well as constipation. I reviewed the microbiology results on 03/31 for patient's current treatment regimen and it does appear that levofloxacin is appropriate as it is sensitive and on review of sensitivities this is the most appropriate. Patient was encouraged to continue the regimen and, bladder scan only demonstrates 190 cc within the bladder and is not consistent with a urinary retention. Patient provided with combination analgesics as well as a lidocaine patch for the thoracic lumbar pain and will be re-evaluated for adequate pain control. There is no evidence of acute infection, COPD exacerbation, or pneumonia/anemia. Patient is oxygenating well on her home oxygen and appears comfortable. On evaluation of her abdomen there are no firm areas within the abdomen and no pain on examination and patient's bowel movement this morning is reassuring. Patient appears to have good follow-up for evaluation of possible vertebroplasty and both she and her son were encouraged to keep that appointment. Patient already has physical therapy available in home. Review of all investigations without acute findings. On re-evaluation patient is feeling much better and states ?not a care in the world? when asked how her back pain is feeling. Once again, she is not retaining urine and the antibiotics have been prescribed are appropriate for sensitivities of her urine culture. She is otherwise stable for discharge to home. Medical Decision Making Lab Data Result diagrams: 04/06/22 12:07 04/06/22 12:07 Labs: Lab Results 04/06/22 04/06/22 04/06/22 Range/Units 12:07 12:07 12:07 WBC 5.8 (4.8-10.8) X10*3/uL RBC 3.84 L (4.20-5.50) X10*6/uL Hgb 12.0 (12.0-16.0) g/dl Hct 37.4 (37.0-47.0) % MCV 97.4 (80.0-98.0) fL MCH 31.3 (27.0-33.0) pg MCHC 32.1 (31.0-35.0) g/dl RDW 13.3 (11.0-16.0) % Plt Count 313 (160-400) X10*3/uL MPV 9.0 L (9.4-12.3) fL Immature Gran % (Auto) 0.2 (0.0-0.4) % Neut % (Auto) 63.1 (45-73) % Lymph % (Auto) 23.8 (20-40) % Fleming % (Auto) 10.8 (2-11) % Eos % (Auto) 1.6 (0-4) % Baso % (Auto) 0.5 (0-2) % Lymph # (Auto) 1.4 (1.2-4.9) X10*3/uL Fleming # (Auto) 0.6 (0.1-1.2) X10*3/uL Eos # (Auto) 0.1 (0.0-0.4) X10*3/uL Baso # (Auto) 0.0 (0.0-0.2) X10*3/uL Abs Immat Gran (auto) 0.01 (0.00-0.03) X10*3/uL Absolute Neuts (auto) 3.6 (2.0-8.3) x10*3/uL Absolute Nucleated RBC 0.000 (0.0-0.012) X10*3/uL Nucleated RBC % (auto) 0.0 (0.0-0.2) /100WBC PT 11.9 (10.0-13.1) SEC INR 1.0 (0.9-1.1) VBG pH (7.32-7.43) VBG pCO2 mmHg VBG pO2 mmHg VBG HCO3 (22-26) mmol/L VBG O2 Saturation % VBG Base Excess mmol/L Sodium 140 (135-145) mmol/L Potassium 4.1 (3.3-5.1) mmol/L Chloride 100 (96-108) mmol/L Carbon Dioxide 31 H (22-29) mmol/L Anion Gap 13 (12-20) BUN 16 (9-16) mg/dL Creatinine 0.71 (0.5-1.4) mg/dL Estim Creat Clear Calc 60.1 Estimated GFR > 60 Random Glucose 107 (60-115) mg/dL Calcium 9.9 (8.4-10.2) mg/dL Total Bilirubin 0.4 (0.0-1.0) mg/dL AST 14 D (5-31) U/L ALT 7 (0-31) U/L Alkaline Phosphatase 120 H (39-117) U/L Troponin I High Sens (<3.5-17.0) ng/L Total Protein 6.9 (6.5-8.0) g/dL Albumin 3.9 (3.5-5.0) g/dL 04/06/22 04/06/22 Range/Units 12:07 12:13 WBC (4.8-10.8) X10*3/uL RBC (4.20-5.50) X10*6/uL Hgb (12.0-16.0) g/dl Hct (37.0-47.0) % MCV (80.0-98.0) fL MCH (27.0-33.0) pg MCHC (31.0-35.0) g/dl RDW (11.0-16.0) % Plt Count (160-400) X10*3/uL MPV (9.4-12.3) fL Immature Gran % (Auto) (0.0-0.4) % Neut % (Auto) (45-73) % Lymph % (Auto) (20-40) % Fleming % (Auto) (2-11) % Eos % (Auto) (0-4) % Baso % (Auto) (0-2) % Lymph # (Auto) (1.2-4.9) X10*3/uL Fleming # (Auto) (0.1-1.2) X10*3/uL Eos # (Auto) (0.0-0.4) X10*3/uL Baso # (Auto) (0.0-0.2) X10*3/uL Abs Immat Gran (auto) (0.00-0.03) X10*3/uL Absolute Neuts (auto) (2.0-8.3) x10*3/uL Absolute Nucleated RBC (0.0-0.012) X10*3/uL Nucleated RBC % (auto) (0.0-0.2) /100WBC PT (10.0-13.1) SEC INR (0.9-1.1) VBG pH 7.38 (7.32-7.43) VBG pCO2 50 mmHg VBG pO2 51 mmHg VBG HCO3 30 H (22-26) mmol/L VBG O2 Saturation 80.0 % VBG Base Excess 4.2 mmol/L Sodium (135-145) mmol/L Potassium (3.3-5.1) mmol/L Chloride (96-108) mmol/L Carbon Dioxide (22-29) mmol/L Anion Gap (12-20) BUN (9-16) mg/dL Creatinine (0.5-1.4) mg/dL Estim Creat Clear Calc Estimated GFR Random Glucose (60-115) mg/dL Calcium (8.4-10.2) mg/dL Total Bilirubin (0.0-1.0) mg/dL AST (5-31) U/L ALT (0-31) U/L Alkaline Phosphatase (39-117) U/L Troponin I High Sens 3.8 (<3.5-17.0) ng/L Total Protein (6.5-8.0) g/dL Albumin (3.5-5.0) g/dL ECG Data Attestation: I personally reviewed and interpreted this ECG as follows: Prior ECG tracings: available for review Interpretation: NSR, HR-88, no STEMI, VA/QRS/QTC are within normal limits. Discharge Plan Discharge Clinical Impression: Acute UTI, Constipation, Compression fracture of thoracic vertebra Patient Disposition: Home, Self-Care Instructions: Constipation (ED), Fleet Enema (ED), High Fiber Diet (ED), Urinary Tract Infection in Older Adults (ED), Vertebral Compression Fracture (ED) Additional Instructions: 1. Resume all home medications as prescribed. 2. Back pain with compression fractures: Keep the appointment scheduled for evaluation for possible vertebroplasty that is scheduled for tomorrow. Continue with 1000 mg of Tylenol every 6 hours and avoid exceeding 4000 mg within 24 hours. Continue with [id number] lidocaine patch that should be applied over area of maximal tenderness as directed on the outside packaging. Combine this with positioning to further advised symptom relief. 3. Constipation: Continue to drink adequate water, increase fiber, do not give any further laxatives, suspect that further bowel movements are pending. 4. UTI: The urine culture results were reviewed and the antibiotic that you are on is appropriate and you should complete the entire course. There is no evidence at this time of urinary retention. 5. Follow-up with your primary care provider in the next 1-2 days for further outpatient management and workup. Return to the ER for worsening symptoms. Prescriptions: No Action (DME) miscellaneous medical supply Misc See Rx Instructions .ROUTE .MEDSUPPLY Qty: 1 0RF Rx Instructions: Transport chair 4 wheel manual, Daily As directed, 999 days/Lifetime. Disp#1 (DME) Wheel chair Kit See Rx Instructions .Route Qty: 1 0RF Rx Instructions: transport wheel chair sertraline 50 mg tablet 50 mg PO DAILY 90 Days Qty: 90 2RF Breo Ellipta 200-25 mcg/dose blister with device 1 inh INHALATION DAILY 28 Days Qty: 28 4RF levofloxacin 750 mg tablet 750 mg PO DAILY 5 Days Qty: 5 0RF alendronate 70 mg tablet 70 mg PO QWEEK 84 Days Qty: 12 3RF albuterol sulfate [ProAir HFA] 90 mcg/actuation Hfa Aerosol Inhaler 2 puff INHALATION Q6H PRN (Reason: Dyspnea) calcium carbonate 200 mg calcium (500 mg) Tablet,Chewable 200 mg PO Q4H PRN (Reason: Dyspepsia) Santyl 250 unit/gram Ointment 1 appl TOPICAL DAILY gabapentin 300 mg capsule 300 mg PO BID acetaminophen [Tylenol Arthritis] 650 mg Tablet Extended Release 1,300 mg PO BID famotidine 20 mg tablet 20 mg PO DAILY cyanocobalamin (vitamin B-12) 1,000 mcg Tablet 1,000 mcg PO DAILY Prevagen 2 tab PO DAILY cefuroxime axetil 500 mg tablet 500 mg PO BID Qty: 8 0RF (DME) miscellaneous medical supply Misc See Rx Instructions .ROUTE .MEDSUPPLY Qty: 1 0RF Rx Instructions: donut cushion/pillow. As directed. DX: M53.3, Duration 999 days amlodipine 5 mg tablet 5 mg PO DAILY 90 Days Qty: 90 2RF lidocaine [Lidoderm] 5 % adhesive patch,medicated 2 patch topical DAILY 30 Days Qty: 60 6RF Rx Instructions: leave on most painful area for up to 12 hrs meloxicam 7.5 mg tablet 7.5 mg PO DAILY Qty: 30 1RF lorazepam [Ativan] 0.5 mg tablet 0.5 mg PO BEDTIME PRN (Reason: anxiety and sleep assist) 28 Days Qty: 42 0RF Rx Instructions: may repeat dose for sleep assistance melatonin 5 mg tablet 10 mg PO BEDTIME multivitamin [Daily Multi-Vitamin] Tablet 1 tab PO DAILY ascorbic acid (vitamin C) 500 mg tablet 500 mg PO DAILY cholecalciferol (vitamin D3) 50 mcg (2,000 unit) capsule 50 mcg PO DAILY Referrals: Juan Jose Haywood MD [Primary Care Provider] -
[2022-04-06 12:14] LABS: MANUAL DIFF FLAG NO
[2022-04-06 12:17] LABS: Basophils Percent Auto 0.5 % (0-2); Eosinophils Absolute Auto 0.1 X10*3/uL (0.0-0.4); Eosinophils Percent Auto 1.6 % (0-4); Hematocrit 37.4 % (37.0-47.0); Imm Gran Abs Auto 0.01 X10*3/uL (0.00-0.03); Imm Gran Pct Auto 0.2 % (0.0-0.4); Lymphocytes Absolute Auto 1.4 X10*3/uL (1.2-4.9); Lymphocytes Percent Auto 23.8 % (20-40); Mean Corpuscular HGB Conc 32.1 g/dl (31.0-35.0); Mean Corpuscular Hemoglobin 31.3 pg (27.0-33.0); Mean Corpuscular Volume 97.4 fL (80.0-98.0); Monocytes Absolute Auto 0.6 X10*3/uL (0.1-1.2); Monocytes Percent Auto 10.8 % (2-11); Neutrophils Absolute Auto 3.6 x10*3/uL (2.0-8.3); Neutrophils Percent Auto 63.1 % (45-73); Platelet Count 313 X10*3/uL (160-400); Red Blood Count 3.84 X10*6/uL (4.20-5.50); Red Cell Distribution Width 13.3 % (11.0-16.0); White Blood Count 5.8 X10*3/uL (4.8-10.8)
[2022-04-06 12:17] LABS: VBG Base Excess 4.2 mmol/L; VBG HCO3 30 mmol/L (22-26); VBG pCO2 50 mmHg; VBG pH 7.38 (7.32-7.43); VBG pO2 51 mmHg
[2022-04-06 12:17] LABS: Venous Blood Gas Refer to POC result
[2022-04-06 12:23] LABS: Prothrombin Time 11.9 SEC (10.0-13.1)
[2022-04-06 12:36] LABS: Alanine Aminotransferase 7 U/L (0-31); Albumin Level 3.9 g/dL (3.5-5.0); Alkaline Phosphatase 120 U/L (39-117); Anion Gap 13 (12-20); Aspartate Amino Transferase 14 U/L (5-31); Bilirubin Total 0.4 mg/dL (0.0-1.0); Blood Urea Nitrogen 16 mg/dL (9-16); Calcium 9.9 mg/dL (8.4-10.2); Carbon Dioxide 31 mmol/L (22-29); Chloride 100 mmol/L (96-108); Creatinine Clr Calc Pharmacy 60.1; Estimated Glomerular Filt Rate > 60; Glucose Random 107 mg/dL (60-115); Potassium 4.1 mmol/L (3.3-5.1); Sodium 140 mmol/L (135-145); Total Protein 6.9 g/dL (6.5-8.0)
[2022-04-06 12:40] LABS: Troponin-I High Sensitivity 3.8 ng/L (<3.5-17.0)
[2022-04-06] MEDS: Ketorolac Tromethamine 15 MG/ML VIAL IM (12:44)
[2022-04-06] MEDS: Acetaminophen 325 MG TABLET 975 MG PO (12:46)
[2022-04-06] MEDS: Lidocaine 4 % Patch ADH..PATCH 1 PATCH TRANSDERMA (12:46)
== END 2022-04-06 15:01 | disposition home or self-care (01) ==
PROVIDERS: Emergency Provider Student in an Organized Health Care Education/Training Program; PCP Family Medicine
DX: N39.0 Urinary tract infection, site not specified (principal); M54.50 Low back pain, unspecified; K59.00 Constipation, unspecified; R07.89 Other chest pain; Z87.891 Personal history of nicotine dependence; Z79.899 Other long term (current) drug therapy
CPT/HCPCS: 36415; 51798; 80053; 82803; 84484; 85025; 85610; 93005; 96372; 99284; J1885

== ENCOUNTER → 2022-04-07 14:52 | Outpatient (BNVA) | payer MEDICARE, SELFPAY | PROVIDERS: PCP Family Medicine; Visit Provider Nurse Practitioner Family | DX: S22.009A Unspecified fracture of unspecified thoracic vertebra, initial encounter for closed fracture (principal); S32.000A Wedge compression fracture of unspecified lumbar vertebra, initial encounter for closed fracture; M53.3 Sacrococcygeal disorders, not elsewhere classified; M81.0 Age-related osteoporosis without current pathological fracture | CPT/HCPCS: 99202 ==

== ENCOUNTER 2022-04-15 12:36 | Outpatient (REF) | payer MEDICARE, SELFPAY | END 2022-04-15 12:37 | disposition home or self-care (01) | LOC: HO.LAB 12:36 | PROVIDERS: Visit Provider Family Medicine | DX: R35.0 Frequency of micturition (principal) | CPT/HCPCS: 87086 ==

== ENCOUNTER 2022-04-22 15:57 | Outpatient (REF) | payer MEDICARE, SELFPAY ==
--- NOTE | ~2022-04-22 | MR_ITS ---
MRI OF THORACIC AND LUMBAR SPINE WITHOUT IV CONTRAST CLINICAL INFORMATION: Wedge compression fracture. COMPARISON: Abdominal CT 03/23/2022. TECHNIQUE: Multiplanar multisequence MR imaging of the thoracic and lumbar spine obtained without IV contrast. FINDINGS: THORACIC SPINE MRI: There are 12 rib-bearing thoracic type vertebral bodies. There is an acute edematous biconcave compression fracture at T11. Exhibiting 70% vertebral body height loss. There is an acute edematous biconcave compression fracture at T12 exhibiting 60% vertebral body height loss. There is low signal intensity throughout the T12 vertebral body that may be secondary to sclerosis seen on the recent CT study and is nonspecific. There are chronic compression fractures at T2 and T6. Intraosseous hemangioma within the T8 vertebral body. There are T2 signal changes within the posterior elements at T7 that can be followed with a chest CT to exclude any fracture or evidence of lesion in these areas. There is a kyphosis centered at T6. At T6, retropulsion mildly narrows the central canal. There is no severe central canal stenosis within the thoracic spine. There is no thoracic cord compression. There are no significant thoracic disc herniations. No thoracic cord signal changes accounting for artifact. No significant extraspinal soft tissue findings. There is paraspinal muscular atrophy bilaterally. LUMBAR SPINE MRI: There are 5 nonrib-bearing lumbar-type vertebral bodies. Lumbar alignment is maintained. There is an acute edematous compression fracture at L3 exhibiting 70% vertebral body height loss and no significant retropulsion. Chronic compression fractures at L2 and L5. Intraosseous hemangioma within the S2 vertebral body. L1 and L4 vertebral body heights are maintained. There is moderate to severe disc volume loss at L3-L4 and there is severe left-sided disc volume loss at L4-L5. There is disc desiccation at all lumbar levels. Conus terminates at the L1 level. There is paraspinal muscular atrophy bilaterally. At L2-L3, and disc osteophyte and moderate bilateral hypertrophic facet arthropathy result in mild narrowing of the central canal and right lateral disc osteophyte results in moderate right-sided foraminal stenosis. At L3-L4, a right lateral disc osteophyte results in mild to moderate right foraminal stenosis. Moderate bilateral facet arthropathy and ligamentum flavum thickening at this level. At L4-L5, left lateral disc osteophyte results in mild left foraminal encroachment. At L5-S1, there is a small annular disc bulge and there is moderate bilateral facet arthropathy. No central canal stenosis and no foraminal stenosis. MR/MR thoracic spine wo con IMPRESSION: - There is an acute edematous biconcave compression fracture T11 with 70% vertebral body height loss and very slight upper endplate retropulsion. - There is an acute biconcave compression fracture at T12 exhibiting 60% vertebral body height loss and slight retropulsion. There is low signal intensity throughout the T12 vertebral body likely reflecting sclerosis seen on the previous CT study which is nonspecific. - There is an acute edematous compression fracture at L3 exhibiting 70% vertebral body height loss and no significant retropulsion. There are chronic compression fractures at L2 and L5. Paraspinal muscular atrophy throughout the lumbar spine. - There are T2 signal changes within the posterior elements at T7 that can be followed with a chest CT to exclude any fracture or evidence of lesion in these areas. There are chronic compression fractures at T2 and T6. There is a large intraosseous hemangioma within the T8 vertebral body. Kyphosis at T6. - A known infrarenal abdominal aortic aneurysm is better seen on the prior abdominal CT, obscured by a saturation band on this MRI.
== END 2022-04-22 15:58 | disposition home or self-care (01) ==
LOC: HO.MRI 15:57
PROVIDERS: Visit Provider Nurse Practitioner Family
DX: S32.000A Wedge compression fracture of unspecified lumbar vertebra, initial encounter for closed fracture (principal); S22.009A Unspecified fracture of unspecified thoracic vertebra, initial encounter for closed fracture
CPT/HCPCS: 72146; 72148

== ENCOUNTER → 2022-05-14 14:58 | Outpatient (BNVA) | payer MEDICARE, SELFPAY | PROVIDERS: PCP Family Medicine; Visit Provider Internal Medicine | DX: J44.9 Chronic obstructive pulmonary disease, unspecified (principal); J18.9 Pneumonia, unspecified organism; R09.02 Hypoxemia; M54.9 Dorsalgia, unspecified | CPT/HCPCS: 94010; 99212 ==

== ENCOUNTER 2022-05-21 13:56 | Outpatient (REF) | payer MEDICARE, SELFPAY ==
--- NOTE | ~2022-05-21 | XR_ITS ---
EXAMINATION: XR CHEST 2 VIEWS CLINICAL INFORMATION: Follow-up pneumonia. COMPARISON: Prior chest radiographs, most recently 03/23/2022; CTA chest dated 08/16/2021. TECHNIQUE: Frontal and lateral views of the chest were obtained. FINDINGS: The heart, great vessels, pulmonary vasculature and mediastinum are normal. The lungs show no new focal infiltrate, effusion or pneumothorax. There is a stable nodular opacity at the right base on the frontal view. There is no acute osseous abnormality. XR/XR chest 2V IMPRESSION: 1. No new focal infiltrate or congestive heart failure is seen. 2. There is a continued stable 10 mm nodular opacity at the right base. Consider CT evaluation.
[2022-05-21 14:39] LABS: MANUAL DIFF FLAG NO
[2022-05-21 14:44] LABS: Basophils Percent Auto 0.5 % (0-2); Eosinophils Absolute Auto 0.1 X10*3/uL (0.0-0.4); Eosinophils Percent Auto 1.9 % (0-4); Imm Gran Abs Auto 0.01 X10*3/uL (0.00-0.03); Imm Gran Pct Auto 0.2 % (0.0-0.4); Lymphocytes Absolute Auto 1.4 X10*3/uL (1.2-4.9); Lymphocytes Percent Auto 34.1 % (20-40); Mean Corpuscular HGB Conc 32.5 g/dl (31.0-35.0); Mean Corpuscular Hemoglobin 30.7 pg (27.0-33.0); Mean Corpuscular Volume 94.6 fL (80.0-98.0); Mean Platelet Volume 9.6 fL (9.4-12.3); Monocytes Absolute Auto 0.4 X10*3/uL (0.1-1.2); Monocytes Percent Auto 8.7 % (2-11); Neutrophils Absolute Auto 2.3 x10*3/uL (2.0-8.3); Neutrophils Percent Auto 54.6 % (45-73); Platelet Count 295 X10*3/uL (160-400); Red Blood Count 4.23 X10*6/uL (4.20-5.50); Red Cell Distribution Width 12.2 % (11.0-16.0); White Blood Count 4.1 X10*3/uL (4.8-10.8)
[2022-05-21 15:18] LABS: Alanine Aminotransferase 10 U/L (0-31); Albumin Level 4.3 g/dL (3.5-5.0); Alkaline Phosphatase 108 U/L (39-117); Anion Gap 13 (12-20); Aspartate Amino Transferase 17 U/L (5-31); Bilirubin Total 0.7 mg/dL (0.0-1.0); Blood Urea Nitrogen 12 mg/dL (9-16); Calcium 9.9 mg/dL (8.4-10.2); Carbon Dioxide 34 mmol/L (22-29); Chloride 95 mmol/L (96-108); Estimated Glomerular Filt Rate > 60; Glucose Random 118 mg/dL (60-115); Potassium 3.6 mmol/L (3.3-5.1); Sodium 138 mmol/L (135-145); Total Protein 7.5 g/dL (6.5-8.0)
== END 2022-05-21 13:57 | disposition home or self-care (01) ==
LOC: HO.LAB 13:56
PROVIDERS: Absent Provider Internal Medicine; PCP Family Medicine; Visit Provider Family Medicine
DX: Z00.00 Encounter for general adult medical examination without abnormal findings (principal); R30.0 Dysuria; R35.0 Frequency of micturition; J18.9 Pneumonia, unspecified organism
CPT/HCPCS: 36415; 71046; 80053; 85025

== ENCOUNTER 2022-05-22 14:47 | Outpatient (REF) | payer MEDICARE, SELFPAY ==
--- NOTE | ~2022-05-22 | MM_ITS ---
EXAMINATION: BONE DENSITOMETRY CLINICAL INDICATION: Osteoporosis. COMPARISON: MR thoracic and lumbar spine 04/22/2022. No prior bone density exam (current study represents initial baseline exam). TECHNIQUE: Using a Sun[employer] DXA System (software version: 13.1) manufactured by [employer], dual-energy x-ray absorptiometry was performed of the lumbar spine and left forearm radius 33%. There is hardware in both hips precluding bone density measurement. The images are of good technical quality. Summary results are attached. FINDINGS: AP SPINE L1-L4 (excluding L3): The data of L1-L4 has been changed to exclude the L3 vertebral body, because degenerative changes at this level may cause overestimation of lumbar spine density. BMD 0.557 g/cm2, Z-score 3.1, T-score -5.1, osteoporosis. LEFT FOREARM RADIUS 33%: BMD 0.415 g/cm2, Z-score -2.6, T-score -5.3, osteoporosis. IDENTIFIED RISK FACTORS: Menopause, family history (parent hip fracture), height loss, history of fracture (adult), osteoporosis, recurrent falls. HISTORY OF FRACTURE: Hip, spine (T11, T12, L3). MEDICATIONS: Calcium, vitamin D. MM/XR DEXA axial skeleton IMPRESSION: 1. DIAGNOSIS: Severe osteoporosis based on the lowest T-score value of -5.3 in the forearm radius 33% and history of fracture of the hip and spine applying World Health Organization criteria. 2. 10-YEAR FRACTURE RISK PREDICTION, FRAX: According to the guidelines, FRAX calculation should only be performed on patients in the osteopenia bone density category and with hip density measurement. Therefore, FRAX was not performed on this patient. 3. Treatment Recommendations: NOF guidelines recommend consideration for treatment in postmenopausal women and men age 50 and older presenting with the following: -A hip or vertebral (clinical or morphometric) fracture. -T-score less than or equal to -2.5 at the femoral neck or spine after appropriate evaluation to exclude secondary causes. -Low bone mass at the hip or spine and a 10-year fracture probability by FRAX of greater than or equal to 3% for hip fracture or greater than or equal to 20% for major osteoporotic fracture based on the [place] adapted WHO algorithm. 4. Other Recommendations: All treatment decisions require clinical judgment and consideration of individual patient factors, including patient preferences, comorbidities, previous drug use, risk factors not captured in the FRAX model (e.g. frailty, falls, vitamin D deficiency, increased bone turnover, interval significant decline in bone density) and possible under or overestimation of fracture risk by FRAX. Additional medical evaluation for secondary cause of low bone mineral density may be appropriate. FUTURE SCAN RECOMMENDATION: People with diagnosed cases of osteoporosis or at high risk for fracture should have regular bone mineral density tests. For patients eligible for Medicare, routine testing is allowed once every 2 years. The testing frequency can be increased to one year for patients who have rapidly progressing disease, those who are receiving or discontinuing medical therapy to restore bone mass, or have additional risk factors.
== END 2022-05-22 14:48 | disposition home or self-care (01) ==
LOC: HO.MAMMO 14:47
PROVIDERS: PCP Family Medicine; Visit Provider Neurological Surgery
DX: M81.0 Age-related osteoporosis without current pathological fracture (principal); S22.009A Unspecified fracture of unspecified thoracic vertebra, initial encounter for closed fracture
CPT/HCPCS: 77080

== ENCOUNTER 2022-05-25 11:37 | Outpatient (REF) | payer MEDICARE, SELFPAY ==
[2022-05-25 12:18] LABS: Appearance Urine Cloudy; Color Urine Yellow; Glucose Urine UA Negative (Negative); Leukocyte Esterase Urine Moderate (2+) (Negative); Nitrite Urine Negative (Negative); UMIC TRIGGER UA YES; Urine Blood Negative (Negative); Urine Ketones Negative (Negative); Urine Protein 30 (1+) mg/dL (Neg-Trace)
[2022-05-25 12:42] LABS: Bacteria Urine None Seen (None Seen); Calcium Oxalate Crystals Urine Present; Hyaline Casts Urine 0-2 /LPF (0-2); RBC Urine 0-2 /HPF (0-2)
== END 2022-05-25 11:38 | disposition home or self-care (01) ==
LOC: HO.LNP 11:37
PROVIDERS: Visit Provider Family Medicine
DX: R35.0 Frequency of micturition (principal); R30.0 Dysuria
CPT/HCPCS: 81001

== ENCOUNTER 2022-06-11 12:50 | Emergency (ER) | payer MEDICARE, SELFPAY ==
[2022-06-11] VITALS (8 sets, daily range): BP systolic 154–195; BP diastolic 80–106; PULSE 92–103; RESP 12–26; TEMP 36.8–36.9; O2SAT 97–100; BMI 20.1
--- NOTE | ~2022-06-11 | CT_ITS ---
EXAMINATION: CT ABDOMEN AND PELVIS WITHOUT CONTRAST CLINICAL INFORMATION: Obstructive uropathy COMPARISON: CT abdomen and pelvis 03/23/2022 TECHNIQUE: Multidetector volumetric imaging was performed from the superior aspect of the liver through the pubic symphysis. Sagittal and coronal reformatted images were obtained on the technologist's workstation. This CT examination was performed using dose optimization techniques as appropriate, variously including the following: *Automated exposure control *Adjustment of mA and/or kV according to patient size (this includes techniques or standardized protocols for targeted exams where dose is matched to indication/reason for exam; i.e. extremities or head) *Use of iterative reconstruction technique DLP: 456 mGy-cm FINDINGS: LUNG BASES: Motion artifact degrades image quality in the lung bases. There is linear atelectasis/scarring in the lung bases. Extensive coronary artery disease. LIVER, GALLBLADDER, AND BILIARY TREE: The liver is normal in size, shape, and attenuation. No focal hepatic lesion or biliary ductal dilatation is present. The gallbladder is unremarkable with no evidence of radiopaque gallstones, gallbladder wall thickening, or obvious pericholecystic inflammatory changes. PANCREAS: Unremarkable. SPLEEN: Unremarkable. ADRENAL GLANDS: Unremarkable. KIDNEYS AND URETERS: 4 mm nonobstructing calculus in the midpole of the left kidney. No right-sided renal calculi. No hydronephrosis. BLADDER: No bladder calculi. GASTROINTESTINAL TRACT: There is no bowel obstruction, moderate amount stool in the colon. ABDOMINAL WALL: No significant hernia is appreciated. LYMPH NODES: Normal. VASCULAR: Severe atherosclerotic disease with infrarenal abdominal aorta aneurysm measuring 3.2 x 3.2 cm PELVIC VISCERA: Unremarkable. OSSEOUS STRUCTURES: Status post vertebral augmentation at T11, T12 and L3. Chronic appearing compression fracture in the superior endplate of L2. Multilevel degenerative disc disease. Orthopedic hardware in both hips. CT/CT abdomen pelvis wo IV con IMPRESSION: 1. Nonobstructing 4 mm calculus in the midpole of the left kidney. No hydronephrosis or ureteral calculi. No bladder calculi. 2. Infrarenal abdominal aortic aneurysm measuring 3.2 x 3.2 cm. Severe atherosclerotic disease including coronary artery calcifications. 3. Status post vertebral augmentation at T11, T12 and L3. Chronic compression deformity at L2. No new compression deformities are visualized. Fleischner guidelines were followed.
--- NOTE | ~2022-06-11 | XR_ITS ---
EXAMINATION: XR CHEST CLINICAL INFORMATION: Altered mental status COMPARISON: 05/21/2022 TECHNIQUE: Frontal view of the chest was obtained. FINDINGS: Cardiac leads overlie the chest. The lungs are well expanded. There is no focal consolidation, edema, or effusion. No pneumothorax. The cardiomediastinal silhouette is within normal limits. No acute osseous abnormality. Lower thoracic vertebral body kyphoplasty noted. XR/XR chest 1V IMPRESSION: No acute pulmonary finding.
--- NOTE | ~2022-06-11 | CT_ITS ---
EXAMINATION: CT HEAD WITHOUT CONTRAST CLINICAL INFORMATION: Altered mental status. Confusion. COMPARISON: 07/07/2021 TECHNIQUE: Contiguous axial imaging was performed from the skull base to vertex without intravenous contrast. This CT examination was performed using dose optimization techniques as appropriate, variously including the following: * Automated exposure control * Adjustment of mA and/or kV according to patient size (this includes techniques or standardized protocols for targeted exams where dose is matched to indication/reason for exam; i.e. extremities or head) Use of iterative reconstruction technique DLP: 689 mGy-cm. FINDINGS: There is no evidence of acute intracranial hemorrhage or territorial infarction. No abnormal mass effect or midline shift is seen. Hannon to white matter differentiation is well preserved. No extra-axial fluid collections are identified. No hydrocephalus. Proportional prominence of the ventricles and sulcal spaces is consistent with moderate volume loss. Patchy periventricular and deep white matter hypoattenuation is consistent with moderate small vessel ischemic changes. The osseous structures and soft tissues are normal. Partially opacified left frontal sinus and left ethmoid air cells anteriorly. The mastoid air cells and visualized portions of the paranasal sinuses are otherwise well aerated. CT/CT head/brain wo IV con IMPRESSION: No acute intracranial pathology. Chronic volume loss with small vessel ischemic change.
--- OUTSIDE RECORDS SUMMARY | 2022-06-11 13:35 | XMS_ITS ---
:1940 Author Name Juan Jose Haywood Care Team Providers Name Role Phone Juan Jose Haywood Unavailable Unavailable PROBLEMS Unknown Problems ALLERGIES No Information ENCOUNTERS Encounter Location Date Diagnosis [facility] [address] [place] [id number] IMMUNIZATIONS No Known Immunizations SOCIAL HISTORY Never Assessed REASON FOR REFERRAL FUNCTIONAL STATUS PLAN OF CARE VITAL SIGNS MEDICATIONS Unknown Medications PROCEDURES No Known procedures RESULTS No Results REASON FOR VISIT Insurance Providers [facility] Health Member Patient Patient Patient Patient Patient Subscriber Subscriber Subscriber Group Insurance Plan Plan Plan Plan ID Relationship Address Phone Name Date of ID Name Date of No Type Insurance Insurance Insurance Coverage to Subscriber Address Phone Name Dates [place] [phone] Lauren self Prudence [id number] Senior [id number] [facility] [place] [facility] [id number]
--- OUTSIDE RECORDS SUMMARY | 2022-06-11 13:35 | XMS_ITS | Continuity of Care Document ---
:1940 Author Organization [facility] Address [address] [place] [address]- Care Team Providers Name Role Phone Yobany EDWARDS, Juan Jose Ferrer Primary Care Physician [place] [facility] [place]): [place]/15/[address] [address]- Discharge Disposition: A-Transfer SNF Attending Physician: Bowen Hyde MD Admitting Physician: Ganga Rivera MD Referring Physician: Not on Staff, Referring MD Allergies, Adverse Reactions, Alerts Substance Reaction Severity Status NKA Active Immunizations Given and Recorded Vaccine Date Status Refusal Reason SARS-CoV-2 (COVID-19) mRNA BNT-162b2 vac 12/21/20 Given SARS-CoV-2 (COVID-19) mRNA BNT-162b2 vac 11/30/20 Given Medications Albuterol (Eqv-ProAir HFA) 2 puffs, Inhalation, Every 6 hours, 0 Refills, Maintenance, 07/08/21 19:58:00 EDT, Partial fill uponpatient request if the prescription is for a schedule II opioid drug. Start Date: 07/08/21 Status: Orderedalbuterol CFC free 90 mcg/inh inhalation aerosol 180 mcg, 2, puffs, Inhalation, Every 4 hours, PRN, Refills 0, Maintenance, 03/13/21 12:49:00 EDT, Inhaler Start Date: 03/13/21 Status: OrderedamLODIPine 5 mg oral tablet 5 mg, 1, tablet, By Mouth, Daily, Refills 0, Maintenance, 07/15/21 11:04:00 EST, Partial fill upon patient request if the prescription is for a schedule II opioid drug. Start Date: 07/15/21 Status: OrderedamLODIPine 5 mg oral tablet 5 mg, Tablet, By Mouth, 07/15/21 9:00:00 EST Start Date: 07/15/21 Stop Date: 07/15/21 Status: Completedascorbic acid 500 mg oral capsule 1 capsule = 500 mg, By Mouth, Daily, # 30 capsule, 0 Refills, Maintenance, 07/08/21 19:57:00 EDT, Capsule, Partial fill upon patient request if the prescription is for a schedule II opioid drug. Start Date: 07/08/21 Status: Orderedbisacodyl 10 mg rectal suppository 1 supp = 10 mg, Rectally, Daily, PRN Constipation, 0 Refills, Maintenance, 07/15/21 11:04:00 EST, Suppository, Partial fill upon patient request if the prescription is for a schedule II opioid drug. Start Date: 07/15/21 Status: OrderedBreo Ellipta 200 mcg-25 mcg/inh inhalation powder 1 puffs, Inhalation, Daily Start Date: 07/08/21 Status: OrderedDocusate/Senna Tablet 1 tablet, By Mouth, 2 times a day, 0 Refills, Maintenance, 07/15/21 11:04:00 EST, Tablet, Partial fill upon patient request if the prescription is for a schedule II opioid drug. Start Date: 07/15/21 Status: Orderedfamotidine 20 mg oral tablet 20 mg, 1, tablet, By Mouth, 2 times a day, Refills 0, Maintenance, 07/15/21 11:04:00 EST, Partial fill upon patient request if the prescription is for a schedule II opioid drug. Start Date: 07/15/21 Status: OrderedFlomax 0.4 mg oral capsule 0.4 mg, 1, capsule, By Mouth, Daily, Refills 0, Maintenance, 07/15/21 11:05:00 EST, Partial fill upon patient request if the prescription is for a schedule II opioid drug. Start Date: 07/15/21 Status: Orderedgabapentin 300 mg oral capsule 300 mg, 1, capsule, By Mouth, 3 times a day, # 90 capsule, Refills 0, Maintenance, 07/08/21 10:19:00EDT, Partial fill upon patient request if the prescription is for a schedule II opioid drug. Start Date: 07/08/21 Status: Orderedgabapentin 300 mg oral capsule 300 mg, Capsule, By Mouth, 07/15/21 15:00:00 EST Start Date: 07/15/21 Stop Date: 07/15/21 Status: Completedgemfibrozil 600 mg oral tablet 600 mg, 1, tablet, By Mouth, Daily Start Date: 07/08/21 Status: OrderedHeparin Inj 1 mL = 5,000 units, Subcutaneous Injection, 3 times a day, 0 Refills, Maintenance, 07/15/21 11:04:00EST, Injection, Partial fill upon patient request if the prescription is for a schedule II opioid drug. Start Date: 07/15/21 Status: Orderedlidocaine 5% topical film Topically, Daily, Apply to chest remove patches after 12 hours, 0 Refills, Maintenance, 07/15/21 11:05:00 EST, Patch, Partial fill upon patient request if the prescription is for a schedule II opioid drug. Start Date: 07/15/21 Status: Orderedlidocaine 5% topical film Topically, Daily, Apply to low back remove patches after 12 hours, 0 Refills, Maintenance, 07/15/21 11:05:00 EST, Patch, Partial fill upon patient request if the prescription is for a schedule II opioid drug. Start Date: 07/15/21 Status: OrderedLORazepam 0.5 mg oral tablet 1 tablet = 0.5 mg, By Mouth, Daily, PRN Anxiety, for 3 days, # 3 tablet, 0 Refills, Acute 07/18/21 11:00:00 EST, 07/15/21 11:00:00 EST, Tablet, Partial fill upon patient request if the prescription is for a schedule II opioid drug. Start Date: 07/15/21 Stop Date: 07/18/21 Status: OrderedMaalox Plus Liquid 15 mL, By Mouth, 4 times a day, PRN Dyspepsia, 0 Refills, Maintenance, 07/15/21 11:04:00 EST, Suspension, Partial fill upon patient request if the prescription is for a schedule II opioid drug. Start Date: 07/15/21 Status: Orderedmelatonin 5 mg oral tablet By Mouth, Daily at bedtime, 0 Refills, Maintenance, 07/15/21 11:02:00 EST, Tablet, Partial fill uponpatient request if the prescription is for a schedule II opioid drug. Start Date: 07/15/21 Status: OrderedMilk of Magnesia Liquid 30 mL, By Mouth, 2 times a day, PRN Constipation, 0 Refills, Maintenance, 07/15/21 11:04:00 EST, Suspension, Partial fill upon patient request if the prescription is for a schedule II opioid drug. Start Date: 07/15/21 Status: OrderedMultivitamin Tablet 1 tablet, By Mouth, Daily, 0 Refills, Maintenance, 07/15/21 11:04:00 EST, Tablet, Partial fill upon patient request if the prescription is for a schedule II opioid drug. Start Date: 07/15/21 Status: OrderedoxyCODONE 5 mg oral tablet 2.5 mg, 0.5, tablet, By Mouth, Every 4 hours, PRN, # 9 tablet, Refills 0, Tot. Refills 0, Acute 07/19/21 11:05:00 EST, Pain , Severe, 07/15/21 11:04:00 EST, Print Requisition, Partial fill upon patientrequest if the prescription is for a schedule II... Start Date: 07/15/21 Stop Date: 07/19/21 Status: Orderedsertraline 50 mg oral tablet 1 tablet = 50 mg, By Mouth, Daily, 0 Refills, Maintenance, 07/15/21 11:05:00 EST, Tablet, Partial fill upon patient request if the prescription is for a schedule II opioid drug. Start Date: 07/15/21 Status: OrderedTums 500 mg oral tablet, chewable 500 mg, 1, tablet, Chew, Every 4 hours, PRN, Refills 0, Maintenance, Dyspepsia, 07/15/21 11:04:00 EST, Partial fill upon patient request if the prescription is for a schedule II opioid drug. Start Date: 07/15/21 Status: OrderedTylenol 325 mg oral tablet 975 mg, 3, tablet, By Mouth, 3 times a day, Refills 0, Maintenance, 07/15/21 11:00:00 EST, Partial fill upon patient request if the prescription is for a schedule II opioid drug. Start Date: 07/15/21 Status: OrderedTylenol 325 mg oral tablet 975 mg, Tablet, By Mouth, 07/15/21 15:00:00 EST Start Date: 07/15/21 Stop Date: 07/15/21 Status: CompletedVitamin D3 2000 intl units oral capsule 1 capsule = 50 mcg, By Mouth, Daily, # 60 capsule, 0 Refills, Maintenance, 07/08/21 19:57:00 EDT, Capsule, Partial fill upon patient request if the prescription is for a schedule II opioid drug. Start Date: 07/08/21 Status: Ordered Problem List Condition Effective Dates Status Health Status Informant Abdominal aortic aneurysm Active (AAA)(Confirmed) Anxiety(Confirmed) Active Chronic obstructive pulmonary Active disease(Confirmed) Depression(Confirmed) Active Hyperlipidemia(Confirmed) Active Hypertension(Confirmed) Active Peripheral vascular disease(Confirmed) Active Procedures Procedure Date Related Diagnosis Body Site Status Percutaneous skeletal fixation of 07/09/21 Completed femoral fracture, proximal end, neck1 Repair of right femur 03/2021 Comple jb 1[employer] 7.0 cannulated screws, 90 mm calcar, anterior and 85 mm posterior Results Radiology Reports Exam Date Time Procedure Performing Provider Status 07/09/21 2:20 PM C-Arm < 1 Hour Monica Hearn; Auth (Chepe ified) Notes:(C-Arm < 1 Hour) Reason For Exam: left hip fractureRESULT: C-Arm < 1 Hour Hip Comp 2 Views Left, C-Arm < 1 Hour INDICATION: Left hip fracture. COMPARISONS: None TECHNIQUE: Fluoroscopy support was provided. No radiologist in attendance. Fluoroscopy time: 27 seconds. Technologist time: 35 minutes. Exposure: 6.5313 mGy FINDINGS: 3 cannulated cancellous bone screws traversing the left proximal femur. Near anatomic alignment of the proximal left femur IMPRESSION: See above. I have personally reviewed the images and I agree with this report. WSN: [id number] Ordering Physician: Bowen Hyde MD Dictated By: Michi Cardoso MD Dictated Date/Time: 07/09/21 3:47 pm Reviewed By: Jas Martinez MD Signed By: Jas Martinez MD Signed Date/Time: 07/09/21 3:52 pm Transcribed By: ABDOUL Transcribed Date/Time: 07/09/21 2:25 pm Exam Date Time Procedure Performing Provider Status 07/09/21 2:20 PM XR Hip Comp 2 Views Left Monica Hearn; Auth (Verified) Notes:(XR Hip Comp 2 Views Left) Reason For Exam: left hip fractureRESULT: Hip Comp 2 Views Left Hip Comp 2 Views Left, C-Arm < 1 Hour INDICATION: Left hip fracture. COMPARISONS: None TECHNIQUE: Fluoroscopy support was provided. No radiologist in attendance. Fluoroscopy time: 27 seconds. Technologist time: 35 minutes. Exposure: 6.5313 mGy FINDINGS: 3 cannulated cancellous bone screws traversing the left proximal femur. Near anatomic alignment of the proximal left femur IMPRESSION: See above. I have personally reviewed the images and I agree with this report. WSN: [id number] Ordering Physician: Bowen Hyde MD Dictated By: Michi Cardoso MD Dictated Date/Time: 07/09/21 3:47 pm Reviewed By: Jas Martinez MD Signed By: Jas Martinez MD Signed Date/Time: 07/09/21 3:52 pm Transcribed By: ABDOUL Transcribed Date/Time: 07/09/21 2:25 pm Exam Date Time Procedure Performing Provider Status 07/08/21 1:32 PM Chest Portable Delphine King; Auth (Verified) Notes:(Chest Portable) Reason For Exam: AnginaRESULT: Chest Portable Chest Portable Reason: Angina; Clinical Question(s): widened mediastinum aortic dissection?; COMPARISON: 03/11/2021. FINDINGS: LINES AND TUBES: None. LUNGS AND PLEURA: Clear lungs. Normal pulmonary vascularity. No pleural effusion. No pneumothorax. HEART, MEDIASTINUM AND RAMANA: Heart is normal in size. Normal upper mediastinal and hilar contour. BONES AND SOFT TISSUES: No acute abnormality. IMPRESSION: No acute abnormality. WSN: [id number] Ordering Physician: Ellie De La O Dictated By: Melvin Lopez MD Dictated Date/Time: 07/08/21 2:34 pm Reviewed By: Melvin Lopez MD Signed By: Melvin Lopez MD Signed Date/Time: 07/08/21 2:34 pm Transcribed By: ABDOUL Transcribed Date/Time: 07/08/21 2:33 pm Exam Date Time Procedure Performing Provider Status 07/07/21 10:44 PM Knee 1 or 2 Views Left Ella Salamanca; Auth (Ve rified) Notes:(Knee 1 or 2 Views Left) Reason For Exam: TraumaRESULT: Knee 1 or 2 Views Left Knee 1 or 2 Views Left CLINICAL INDICATION: Hx of Present Illness: Pt [facility] ambulance [facility], fall today at home, SDH, L hip fracture. Confused at baseline, AOx3 now. 3L NC baseline.; Reason: Trauma; Clinical Question(s): Fracture COMPARISONS: None TECHNIQUE: AP and crosstable lateral views of the left knee were obtained. FINDINGS: Moderate to severe near [id number] femoral tibial joint space narrowing. No distal femoral fracture or knee dislocation. No joint effusion. The patella is normally positioned. IMPRESSION: No fracture or dislocation. 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 WSN: [id number] Ordering Physician: Alejandro Kelley Dictated By: Chris Dc MD Dictated Date/Time: 07/07/21 10:59 p Reviewed By: Chris Dc MD Signed By: Chris Dc MD Signed Date/Time: 07/07/21 10:59 pm Transcribed By: ABDOUL Transcribed Date/Time: 07/07/21 10:57 pm Exam Date Time Procedure Performing Provider Status 07/07/21 10:44 PM XR Hip w/Pelvis 2-3 View Left Winter Salamanca [facility] (Verified) Notes:(XR Hip w/Pelvis 2-3 View Left) Reason For Exam: TraumaRESULT: XR Hip w/Pelvis 2-3 View Left XR Hip w/Pelvis 2-3 View Left Hx of Present Illness: [facility] at [facility], SDH, L hip fracture. Confused at baseline, AOx3 now. 3L NC baseline.; Reason: Trauma; Clinical Question(s): Fracture COMPARISON: None. TECHNIQUE: AP view of the pelvis along with AP and cross table lateral views of the left hip. FINDINGS: Status post remote ORIF right femoral fracture. There is a minimally impacted left basicervical femoral neck fracture. No pelvic or pubic bone fracture is identified. Sacrum is not well seen due to overlapping bowel gas. IMPRESSION: Minimally impacted left basicervical femoral neck fracture. WSN: [id number] Ordering Physician: Alejandro Kelley Dictated By: Chris Dc MD Dictated Date/Time: 07/07/21 10:57 p Reviewed By: Chris Dc MD Signed By: Chris Dc MD Signed Date/Time: 07/07/21 10:57 pm Transcribed By: ABDOUL Transcribed Date/Time: 07/07/21 10:55 pm Vital Signs Most recent to oldest 1 2 3 [Reference Range]: Height 170 cm 170 cm 170 cm (07/15/21 3:41 PM) (07/15/21 11:33 AM) (07/15/21 6: 36 AM) Weight 62.0 kg 65.9 kg 61 kg (07/11/21 9:43 AM) (07/10/21 7:59 AM) (07/09/21 1:2 2 PM) Oxygen Saturation [94-100 %] 99 % 99 % 95 % (07/15/21 3:41 PM) (07/15/21 11:33 AM) (07/15/21 6: 36 AM) Pulse Rate [55-90 bpm] 101 bpm 88 bpm 81 bpm *H* (07/15/21 11:33 AM) (07/15/21 6:36 AM) (07/15/21 3:41 PM) Body Mass Index [18.5-24.99] 21.11 21.28 (07/09/21 1:22 PM) (07/08/21 11:33 PM) Blood Pressure [90-138/55-84 131/52 mm Hg 128/61 mm Hg 131 /52 mm Hg mm Hg] (07/15/21 3:41 PM) (07/15/21 11:33 AM) (07/15/21 8: 27 AM) Respiratory Rate [16-30 18 br/min 18 br/min 17 br/mi n br/min] (07/15/21 3:56 PM) (07/15/21 3:56 PM) (07/15/21 3:4 1 PM) Temperature [96.8-100.4 97.8 DegF 97.5 DegF 98.7 Deg F DegF] (07/15/21 3:41 PM) (07/15/21 11:33 AM) (07/15/21 6: 36 AM) Liters per Minute 3 L/min 2 L/min 2 L/min (07/15/21 3:41 PM) (07/15/21 11:33 AM) (07/15/21 6: 36 AM) Mode of Delivery (Oxygen) Nasal cannula Nasal cannula Nasal cannula (07/15/21 3:41 PM) (07/15/21 11:33 AM) (07/15/21 6: 36 AM) Blood pressure sites Arm, right Arm, right Arm, left (07/15/21 3:41 PM) (07/15/21 11:33 AM) (07/15/21 6: 36 AM) Temperature Route Oral Oral Oral (07/15/21 3:41 PM) (07/15/21 11:33 AM) (07/15/21 6: 36 AM) Dry Weight 61.5 kg (07/08/21 11:33 PM) Weight Obtained Via Bed scale Bed scale Bed scale (07/11/21 9:43 AM) (07/10/21 7:59 AM) (07/08/21 11: 33 PM) Dry Weight Obtained Via Bed scale (07/08/21 11:33 PM) Social History Social History Type Response Smoking Status Former smoker, quit more kapil n 30 days ago; Type: Cigarettes; Total pack years: 60; Started at age: 18; entered on: 07/08/21 Sex
--- OUTSIDE RECORDS SUMMARY | 2022-06-11 13:35 | XMS_ITS | Continuity of Care Document ---
:1940 Author Organization [facility] Address [address] [place] [id number]- Care Team Providers Name Role Phone Not on Staff, PCP Primary Care Physician Unavailable Encounter [facility] Date(s): 03/08/21 - 03/13/[address] [address]- Encounter Diagnosis Closed subtrochanteric fracture of right femur (Discharge Diagnosis) - 03/12/21 Discharge Disposition: A-Transfer SNF Attending Physician: Colby Woods MD Admitting Physician: Colby Woods MD Referring Physician: Not on Staff, Referring MD Allergies, Adverse Reactions, Alerts No Known Medication Allergies Substance Reaction Severity Status NKA Active Immunizations Given and Recorded Vaccine Date Status Refusal Reason SARS-CoV-2 (COVID-19) mRNA BNT-162b2 vac 12/21/20 Given SARS-CoV-2 (COVID-19) mRNA BNT-162b2 vac 11/30/20 Given Medications albuterol CFC free 90 mcg/inh inhalation aerosol 180 mcg, 2, puffs, Inhalation, Every 4 hours, PRN, Refills 0, Maintenance, 03/13/21 12:49:00 EDT, Inhaler Start Date: 03/13/21 Status: OrderedColace sodium 100 mg oral capsule 100 mg, 1, capsule, By Mouth, 2 times a day, Refills 0, Maintenance, 03/13/21 12:49:00 EDT, Partial fill upon patient request if the prescription is for a schedule II opioid drug. Start Date: 03/13/21 Status: OrderedEnoxaparin 0.4 mL = 40 mg, Subcutaneous Injection, Daily, 0 Refills, Maintenance, 03/13/21 12:49:00 EDT, Injection, Partial fill upon patient request if the prescription is for a schedule II opioid drug. Start Date: 03/13/21 Status: Orderedfluticasone-vilanterol Inhalation, Daily, 0 Refills, Maintenance, 03/13/21 12:49:00 EDT, Inhaler, Partial fill upon patientrequest if the prescription is for a schedule II opioid drug. Start Date: 03/13/21 Status: Orderedgabapentin 400 mg oral capsule 400 mg, 1, capsule, By Mouth, 3 times a day, Refills 0, Maintenance, 03/13/21 12:49:00 EDT, Partial fill upon patient request if the prescription is for a schedule II opioid drug. Start Date: 03/13/21 Status: Orderedgabapentin 400 mg oral capsule 400 mg, Capsule, By Mouth, 03/13/21 9:00:00 EDT Start Date: 03/13/21 Stop Date: 03/13/21 Status: CompletedLORazepam 0.5 mg oral tablet 1 tablet = 0.5 mg, By Mouth, 3 times a day, PRN Anxiety, 0 Refills, Maintenance, 03/13/21 12:49:00 EDT, Tablet, Partial fill upon patient request if the prescription is for a schedule II opioid drug. Start Date: 03/13/21 Status: OrderedMaalox Plus Liquid 15 mL, By Mouth, 4 times a day, PRN Dyspepsia, 0 Refills, Maintenance, 03/13/21 12:49:00 EDT, Suspension, Partial fill upon patient request if the prescription is for a schedule II opioid drug. Start Date: 03/13/21 Status: OrderedMilk of Magnesia Liquid 30 mL, By Mouth, 2 times a day, PRN Constipation, 0 Refills, Maintenance, 03/13/21 12:50:00 EDT, Suspension, Partial fill upon patient request if the prescription is for a schedule II opioid drug. Start Date: 03/13/21 Status: OrderedMiraLax Powder 1 pack/packet = 17 Gm, By Mouth, Daily, 0 Refills, Maintenance, 03/13/21 12:50:00 EDT, Powder, Partial fill upon patient request if the prescription is for a schedule II opioid drug. Start Date: 03/13/21 Status: OrderedoxyCODONE 5 mg oral tablet 5 mg, 1, tablet, By Mouth, Every 4 hours, PRN, for 5 days, # 30 tablet, Refills 0, Tot. Refills 0, Acute 03/18/21 12:19:00 EDT, Pain , Moderate, 03/13/21 12:19:00 EDT, Print Requisition, Partial fill upon patient request if the prescription is for a s... Start Date: 03/13/21 Stop Date: 03/18/21 Status: OrderedSenna 8.6 mg oral tablet 8.6 mg, 1, tablet, By Mouth, Daily, Refills 0, Maintenance, 03/13/21 12:50:00 EDT, Tablet, Partial fill upon patient request if the prescription is for a schedule II opioid drug. Start Date: 03/13/21 Status: Orderedsertraline 50 mg oral tablet 1 tablet = 50 mg, By Mouth, Daily, Daily at night, # 30 tablet, 0 Refills, Maintenance, 03/08/21 17:51:00 EDT, Tablet, Partial fill upon patient request if the prescription is for a schedule II opioid drug. Start Date: 03/08/21 Stop Date: 03/08/21 Status: OrderedTums 500 mg oral tablet, chewable 1,000 mg, 2, tablet, Chew, Every 4 hours, PRN, Refills 0, Maintenance, Dyspepsia, 03/13/21 12:49:00 EDT, Partial fill upon patient request if the prescription is for a schedule II opioid drug. Start Date: 03/13/21 Status: OrderedTylenol 325 mg oral tablet 650 mg, Tablet, By Mouth, 03/13/21 12:00:00 EDT Start Date: 03/13/21 Stop Date: 03/13/21 Status: CompletedTylenol 325 mg oral tablet 650 mg, 2, tablet, By Mouth, Every 6 hours, Refills 0, Maintenance, 03/13/21 12:49:00 EDT, Partial fill upon patient request if the prescription is for a schedule II opioid drug. Start Date: 03/13/21 Status: Ordered Problem List Diagnosis Diagnosis Type Effective Dates Health Clinical Infor mant Status Service Closed Discharge 03/12/21 Non-Specified subtrochanteric Diagnosis fracture of right femur Results Radiology Reports Exam Date Time Procedure Performing Provider Status 03/11/21 12:54 PM Chest Single Frontal View Danitza Davila; Aut h (Verified) Notes:(Chest Single Frontal View) Reason For Exam: AnginaRESULT: Chest Single Frontal View Chest Single Frontal View Reason: Angina; Clinical Question(s): Other: COMPARISON: 03/09/2021 FINDINGS: LINES AND TUBES: None. LUNGS AND PLEURA: Bandlike area of atelectasis has developed at the left base laterally. The lungs are otherwise clear. The pulmonary vascularity is normal. No pleural effusion. No pneumothorax. HEART, MEDIASTINUM AND RAMANA: Heart is normal in size. There is aortic unfolding and atherosclerosis. Stable upper mediastinal and hilar contours. BONES AND SOFT TISSUES: No acute abnormality. IMPRESSION: Mild left basilar atelectasis, new since examination 2 days ago. Otherwise no interval change without acute cardiopulmonary pathology. WSN: [id number] Ordering Physician: Anabelle Posey Dictated By: Asif James MD Dictated Date/Time: 03/11/21 3:38 pm Reviewed By: Asif James MD Signed By: Asif Jamse MD Signed Date/Time: 03/11/21 3:38 pm Transcribed By: ABDOUL Transcribed Date/Time: 03/11/21 3:23 pm Exam Date Time Procedure Performing Provider Status 03/11/21 12:54 PM Shoulder Min 2 Views Right Danitza Davila; Au th (Verified) Notes:(Shoulder Min 2 Views Right) Reason For Exam: PainRESULT: Shoulder Min 2 Views Right Shoulder Min 2 Views Right, 2 views Reason: Pain; Clinical Question(s): Fracture COMPARISON: None. FINDINGS: No fracture or dislocation. No arthritic change of the glenohumeral joint. Mild degenerative changes of the AC joint. The portion of the clavicle included on the exam is normal. No calcification of the rotator cuff. IMPRESSION: Mild acromioclavicular degenerative change with no acute fracture. WSN: [id number] Ordering Physician: Anabelle Posey Dictated By: Cleo Zarate MD Dictated Date/Time: 03/11/21 3:03 pm Reviewed By: Cleo Zarate MD Signed By: Cleo Zarate MD Signed Date/Time: 03/11/21 3:03 pm Transcribed By: ABDOUL Transcribed Date/Time: 03/11/21 3:02 pm Exam Date Time Procedure Performing Provider Status 03/10/21 10:31 PM C-Arm < 1 Hour Monica Vilchis; Nataliya (Verifie d) Notes:(C-Arm < 1 Hour) Reason For Exam: right femur fracture, right femur im nailingRESULT: C-Arm < 1 Hour 5 intraprocedural fluoroscopic images dated March 10, 2021. Comparison films are from March 08, 2021. HISTORY: Fracture. FINDINGS: Intraprocedural fluoroscopy was utilized. The technologist time was 40 minutes. The fluoroscopic time was 57 seconds. FINDINGS: This examination shows an intramedullary barrington fixed proximally by 2 sliding screws. The endof the screws are within the cortex of the femoral head on orthogonal views. The distal end of the barrington is anchored by a single screw. Alignment at the fracture site is anatomic. IMPRESSION: Status post open reduction and internal fixation with anatomic alignment. Examination 465[address]. Thank you for allowing me to participate in the care of this patient. WSN: [id number] Ordering Physician: Colby Woods Dictated By: Christian Palacios MD Dictated Date/Time: 03/11/21 8:44 am Reviewed By: Christian Palacios MD Signed By: Christian Palacios MD Signed Date/Time: 03/11/21 8:44 am Transcribed By: ABDOUL Transcribed Date/Time: 03/11/21 8:44 am Exam Date Time Procedure Performing Provider Status 03/10/21 10:31 PM XR Femur 2 Views Right Gamaliel Vilchis ( Verified) Notes:(XR Femur 2 Views Right) Reason For Exam: right femur fracture, right femur im nailingRESULT: Femur 2 Views Right 5 intraprocedural fluoroscopic images dated March 10, 2021. Comparison films are from March 08, 2021. HISTORY: Fracture. FINDINGS: Intraprocedural fluoroscopy was utilized. The technologist time was 40 minutes. The fluoroscopic time was 57 seconds. FINDINGS: This examination shows an intramedullary barrington fixed proximally by 2 sliding screws. The endof the screws are within the cortex of the femoral head on orthogonal views. The distal end of the barrington is anchored by a single screw. Alignment at the fracture site is anatomic. IMPRESSION: Status post open reduction and internal fixation with anatomic alignment. Examination [id number]. Thank you for allowing me to participate in the care of this patient. WSN: [id number] Ordering Physician: Colby Woods Dictated By: Christian Palacios MD Dictated Date/Time: 03/11/21 8:44 am Reviewed By: Christian Palacios MD Signed By: Christian Palacios MD Signed Date/Time: 03/11/21 8:44 am Transcribed By: ABDOUL Transcribed Date/Time: 03/11/21 8:44 am Exam Date Time Procedure Performing Provider Status 03/09/21 10:43 AM Chest Portable Monica Hearn; Nataliya (Chepe ified) Notes:(Chest Portable) Reason For Exam: Chest pain/pressure;Other:RESULT: Chest Portable AP portable chest, INDICATION: Reason: Other:; Chest pain pressure; Clinical Question(s): Other: COMPARISON: None FINDINGS: LINES AND TUBES: Feeding tube ends in the stomach. LUNGS AND PLEURA AND MEDIASTINUM: There is no pneumothorax. Clear lungs without focal infiltrate. Normal size heart. IMPRESSION: No acute abnormality. WSN: [id number] Ordering Physician: Alyx Bagley Dictated By: Julia Butler MD Dictated Date/Time: 03/09/21 2:34 pm Reviewed By: Julia Butler MD Signed By: Julia Butler MD Signed Date/Time: 03/09/21 2:34 pm Transcribed By: ABDOUL Transcribed Date/Time: 03/09/21 2:18 pm Exam Date Time Procedure Performing Provider Status 03/08/21 7:04 AM XR Femur 2 Views Right Rachele Manzano; Nataliya (Chepe ified) Notes:(XR Femur 2 Views Right) Reason For Exam: PainRESULT: Femur 2 Views Right PROCEDURE: Femur 2 Views Right CLINICAL INDICATION: 80 years old Female with Pain; Clinical Question(s): Fracture. COMPARISONS: None. FINDINGS: Bones and joints: No fracture or dislocation. Joint spaces are not well evaluated on this study but there is moderate degree joint space narrowing in bilateral tibiofemoral compartments of the knee joint and mild osteoarthritic changes in the hip joint. Soft Tissues: Regional soft tissues are unremarkable. There is no suprapatellar joint effusion. No evidence of radiopaque foreign body. IMPRESSION: 1. No evidence of acute bony injuries. 2. Osteoarthritic changes. Thank you for allowing me to participate in the care of this patient. WSN: [id number] Ordering Physician: Abdirashid Boateng Dictated By: Earnest Carpio MD Dictated Date/Time: 03/08/21 8:26 am Reviewed By: Earnest Carpoi MD Signed By: Earnest Carpio MD Signed Date/Time: 03/08/21 8:26 am Transcribed By: ABDOUL Transcribed Date/Time: 03/08/21 8:25 am Vital Signs Most recent to oldest 1 2 3 [Reference Range]: Height 168 cm 168 cm 168 cm (03/13/21 10:59 AM) (03/13/21 6:34 AM) (03/13/21 3:41 AM) Weight 57 kg 57 kg (03/10/21 7:22 PM) (03/08/21 1:26 AM) Oxygen Saturation [94-100 %] 96 % 95 % 94 % (03/13/21 10:59 AM) (03/13/21 6:34 AM) (03/13/21 3:41 AM) Pulse Rate [55-90 bpm] 88 bpm 91 bpm 99 bpm (03/13/21 10:59 AM) *H* *H* (03/13/21 6:34 AM) (03/13/21 3:41 AM ) Body Mass Index [18.5-24.99] 20.2 (03/10/21 7:22 PM) Blood Pressure [90-138/55-84 mm 130/57 mm Hg 144/59 mm Hg 135/55 mm Hg Hg] (03/13/21 10:59 AM) *H* (03/13/21 3:41 A M) (03/13/21 6:34 AM) Respiratory Rate [16-30 br/min] 17 br/min 19 br/min 17 br/min (03/13/21 1:22 PM) (03/13/21 10:59 AM) (03/13/21 10:03 AM) Temperature [96.8-100.4 DegF] 97.8 DegF 98.3 DegF 97 .9 DegF (03/13/21 10:59 AM) (03/13/21 6:34 AM) (03/13/21 3:41 AM) Liters per Minute 2 L/min 2 L/min 2 L/min (03/13/21 10:59 AM) (03/13/21 6:34 AM) (03/12/21 11:11 AM) Mode of Delivery (Oxygen) Humidification Humidification Room a ir (03/13/21 10:59 AM) (03/13/21 6:34 AM) (03/13/21 3:41 AM) Blood pressure sites Arm, right Arm, right Arm, right (03/13/21 3:41 AM) (03/13/21 12:06 AM) (03/12/21 7:22 PM) Temperature Route Oral Oral Oral (03/13/21 10:59 AM) (03/13/21 6:34 AM) (03/13/21 3:41 AM) Dry Weight 57 kg (03/08/21 1:26 AM)
--- OUTSIDE RECORDS SUMMARY | 2022-06-11 13:35 | XMS_ITS ---
:1940 Author Care Team Providers Name Role Phone CHEN CHRISTIANSON 1ST FLOOR OTHER [phone] Allergies Code Code System Name Reaction Severity Status Onset NKDA ? Medications Notes: Med list reviewed. please see Carlos VERDE for most accurate medication list. Problems Name Status Onset Date Source ? Hyperlipidemia Active 07/17/2021 ? Anxiety Active 07/17/2021 ? Depressive Disorder Active 07/17/2021 ? Insomnia Active 07/17/2021 ? Essential Hypertension Active 07/17/2021 ? Peripheral Vascular Disease Active 07/17/2021 ? Chronic Obstructive Lung Disease Active 07/17/2021 ? Gastroesophageal Reflux Disease without Esophagitis Active 07/17/2021 ? Retention of Urine Active 07/17/2021 ? 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 Falls Active 07/17/2021 ? Closed Subcapital Fracture of Left Femur Active 021 ? Vitamin Deficiency Active 07/23/2021 ? Neuropathy Active 07/23/2021 ? Chronic Low Back Pain Active 07/23/2021 ? Non-cardiac Chest Pain Active 07/23/2021 ? Acute Urinary Tract Infection Active 08/12/2021 ? Pneumonia Active 08/18/2021 ? Procedures None recorded. Results Lab Results None recorded. Past Encounters 08/20/2021 Closed Subcapital Fracture of Left Femur ; Subdural Hematoma; Falls; Chronic Obstructive Lung Disease; Depressive Disorder; Anxiety; Retention of Urine; Essential Hypertension; Gastroesophageal Reflux Di sease without Esophagitis; Hyperlipidemi a; Insomnia; Chronic Low Back Pain; Non- cardiac Chest Pain; Neuropathy; Vitamin Deficiency; Peripheral Vascular Disease; Pneumonia; Acute Urinary Tract Infection Wilda Pringle [employer]: [address] [facility] , [place] [address], Ph. 08/18/2021 Pneumonia; Closed Subcapital Fracture of Left Femur; Subdural Hematoma; Falls; Chronic Obstructive Lung Disease; Depressive Disorder; Anxiety; Retention of Urine; Essential Hypertension; Gastroesophagea l Reflux Disease without Esophagitis; Hy perlipidemia; Insomnia; Chronic Low Back Pain; Non-cardiac Chest Pain; Neuropathy; Vitamin Deficiency Wilda Pringle, [employer]ACH[employer]: [address] , [place] [address], Ph. 08/12/2021 Chronic Low Back Pain; Retention of Urin e; Acute Urinary Tract Infection Wilda Pringle, [employer]: [address] , [place] [address], Ph. 08/08/2021 Chronic Low Back Pain; Anxiety; Neuropat hy Wilda Pringle, [employer]: [address] [facility] , [place] [address], Ph. 08/05/2021 Closed Subcapital Fracture of Left Femur ; Subdural Hematoma Wlida Pringle [employer]: [address] [facility] , [place] [address], Ph. 08/01/2021 Closed Subcapital Fracture of Left Femur ; Peripheral Vascular Disease; Subdural Hematoma Wilda Pringle, [employer]: [address] , [place] [address], Ph. 07/28/2021 Chronic Low Back Pain; Closed Subcapital Fracture of Left Femur; Subdural Hematoma Wilda Heath Pino, [employer]: [address] [facility] , [place] [address], Ph. 07/25/2021 Closed Subcapital Fracture of Left Femur ; Subdural Hematoma Wilda Pringle, [employer]: [address] [facility] , [place] [address], Ph. 07/22/2021 Closed Subcapital Fracture of Left Femur ; Subdural Hematoma; Falls; Chronic Obstructive Lung Disease; Depressive Disorder; Anxiety; Retention of Urine; Essential Hypertension; Gastroesophageal Reflux Di sease without Esophagitis; Hyperlipidemi a; Insomnia; Chronic Low Back Pain; Non- cardiac Chest Pain; Neuropathy; Vitamin Deficiency Leydi Gambino MD: [address] [facility], [place] [address], Ph. 07/21/2021 Closed Subcapital Fracture of Left Femur ; Subdural Hematoma; Falls Wilda Pringle [employer]: [address] , [place] [address], Ph. 07/18/2021 Subdural Hematoma; Chronic Obstructive L marques Disease; Anxiety; Closed Subcapital Fracture of Left Femur Wilda Pringle [employer]: [address] , [place] [address], Ph. 07/17/2021 Closed Subcapital Fracture of Left Femur ; Retention of Urine; Essential Hypertension; Gastroesophageal Reflux Disease without Esophagitis; Depressive Disorder; Hyperlipidemia; Anxiety; Insomnia; Chronic Obstructive Lung Disease; Falls Gemini Hughes: [address], [place] [address], Ph. Social History Tobacco Smoking Status Former Smoker Notes: quit 201 9 Vaccine List Vaccine Type COVID-19, mRNA, LNP-S, PF, 30 mcg/0.3 mL dose ([employer]) 11/30/2020 12/21/2020 07/17/2021 Plan of Care Reminders Provider Appointments None recorded. ? ? Lab None recorded. ? ? Referral None recorded. ? ? Procedures None recorded. ? ? Surgeries None recorded. ? ? Imaging None recorded. ? ? Vitals 08/20/2021 08:17AM Discharge Summary Height Weight BMI Blood Pressure 5 ft 7 in 124 lbs 19.4 kg/m2 153/82 mm[Hg] 08/18/2021 08:32AM Routine Rounding Visit Height Blood Pressure 5 ft 7 in 151/89 mm[Hg] 08/12/2021 10:47AM Acute Rounding Visit Height Blood Pressure 5 ft 7 in 132/70 mm[Hg] 08/08/2021 11:11AM Acute Rounding Visit Height Blood Pressure 5 ft 7 in 127/75 mm[Hg] 08/05/2021 09:50AM Acute Rounding Visit Height Blood Pressure 5 ft 7 in 138/71 mm[Hg] 08/01/2021 08:14AM Acute Rounding Visit Height 5 ft 7 in 07/28/2021 11:43AM Acute Rounding Visit Height Blood Pressure 5 ft 7 in 126/64 mm[Hg] 07/25/2021 02:28PM Acute Rounding Visit Height Blood Pressure 5 ft 7 in 126/74 mm[Hg] 07/22/2021 02:47PM Admitting H&P Height Weight BMI Blood Pressure 5 ft 7 in 126.8 lbs 19.9 kg/m2 132/58 mm[Hg] 07/21/2021 10:30AM Acute Rounding Visit Blood Pressure 144/71 mm[Hg] 07/18/2021 10:17AM Acute Rounding Visit Weight Blood Pressure 110.5 lbs 128/72 mm[Hg]
--- NOTE | 2022-06-11 14:20 | PC.NURSE ---
Pt is A/O x 2, respiration is even, non-labored. Speak in clear and full sentences. Pupils are PERRLA. Lung sound is clear in bilat UL lobes, crackles in the LLL. Heart sound regular, no edema noted. Skin is pink, warm and dry. Abdomen is soft, non-tender, bowel sounds present. Moves all extremities, uses walker to ambulate. Pt reported increased general weakness and lack energy X 1 day both at rest and ambulation. Denies chest pain, SOB, light headedness, dizziness. No nausea, no vomiting. Pt resting comfortably, ,ed at lowest position, call ross within reach. Pt and son aware of plan of care.
--- NOTE | 2022-06-11 14:32 | ECG_ITS ---
Test Reason : WEAKNESS Blood Pressure : / mmHG Vent. Rate : 090 BPM Atrial Rate : 090 BPM P-R Int : 146 ms QRS Dur : 078 ms QT Int : 378 ms P-R-T Axes : 050 -23 050 degrees QTc Int : 462 ms Normal sinus rhythm Normal ECG When compared with ECG of 06-APR-2022 11:32, No significant change was found Referred By: Kaylie Canas Electronically Signed By:BETTE YUN
[2022-06-11 15:29] LABS: MANUAL DIFF FLAG NO
[2022-06-11 15:31] LABS: Basophils Percent Auto 0.5 % (0-2); Eosinophils Absolute Auto 0.1 X10*3/uL (0.0-0.4); Eosinophils Percent Auto 1.6 % (0-4); Hematocrit 38.1 % (37.0-47.0); Hemoglobin 12.3 g/dl (12.0-16.0); Imm Gran Abs Auto 0.01 X10*3/uL (0.00-0.03); Imm Gran Pct Auto 0.2 % (0.0-0.4); Lymphocytes Absolute Auto 1.5 X10*3/uL (1.2-4.9); Lymphocytes Percent Auto 24.3 % (20-40); Mean Corpuscular HGB Conc 32.3 g/dl (31.0-35.0); Mean Corpuscular Hemoglobin 30.1 pg (27.0-33.0); Mean Corpuscular Volume 93.2 fL (80.0-98.0); Mean Platelet Volume 9.5 fL (9.4-12.3); Monocytes Absolute Auto 0.5 X10*3/uL (0.1-1.2); Monocytes Percent Auto 7.4 % (2-11); Platelet Count 333 X10*3/uL (160-400); Red Blood Count 4.09 X10*6/uL (4.20-5.50); Red Cell Distribution Width 12.4 % (11.0-16.0); White Blood Count 6.1 X10*3/uL (4.8-10.8)
[2022-06-11 15:37] LABS: INTERNATIONAL NORM RATIO 0.9 (0.9-1.1); Prothrombin Time 10.8 SEC (10.0-13.1)
--- NOTE | 2022-06-11 15:42 | ED_ITS ---
HPI - General Adult General Chief complaint: Weakness Stated complaint: dizziness Time Seen by Provider: 06/11/22 14:08 Source: patient and EMS Mode of arrival: EMS History of Present Illness HPI narrative: 81-year-old female with a past medical history of COPD on baseline 2L NC, HLD, HTN, PVD, pneumonia, respiratory failure, presenting to the ED with son complaining of increasing generalized weakness, lack of coordination, slow ambulation, and confusion x months. Patient with recent kyphoplasty on 05/26/2022. Son denies recent falls/ injury or trauma, fever. Pt denies cough, CP/ SOB, abdominal pain, nausea/ vomiting son reports patient is scheduled for outpatient MRI on 06/17 to rule out normal pressure hydrocephalus Onset (ago): month(s) Related Data Home Medications Medication Instructions Recorded Confirmed albuterol sulfate 90 mcg/actuation 2 puff inhalation Q6H PRN Dyspnea 06/16/20 04/07/22 aerosol inhaler (ProAir HFA) multivitamin (Daily Multi-Vitamin 1 tab PO DAILY 07/30/20 04/07/22 tablet) Prevagen 2 tab PO DAILY 03/18/22 04/07/22 acetaminophen 650 mg 1,300 mg PO BID 03/18/22 04/07/22 tablet,extended release cyanocobalamin (vitamin B-12) 1,000 mcg PO DAILY 03/18/22 04/07/22 1,000 mcg tablet gabapentin 300 mg capsule 300 mg PO BID 03/18/22 04/07/22 melatonin 5 mg tablet 10 mg PO BEDTIME 03/25/22 04/07/22 calcium carbonate 200 mg calcium 500 mg PO DAILY Dyspepsia 04/07/22 04/07/22 (500 mg) chewable tablet Previous Rx's Medication Instructions Recorded miscellaneous medical supply #1 ea 07/16/20 miscellaneous medical supply #1 ea 05/13/21 chair, wheel (Wheel chair) #1 ea 06/17/21 sertraline 50 mg tablet 50 mg PO DAILY 90 days #90 tabs 11/20/21 fluticasone furoate 200 1 inh inhalation DAILY 28 days #28 02/03/22 mcg-vilanterol 25 mcg/dose ea inhalation powder (Breo Ellipta) amlodipine 5 mg tablet 5 mg PO DAILY 90 days #90 tabs 05/14/22 meloxicam 7.5 mg tablet 15 mg PO DAILY 30 days #60 tabs 05/14/22 famotidine 20 mg tablet 20 mg PO DAILY 30 days #30 tabs 06/11/22 Allergies Allergy/AdvReac Type Severity Reaction Status Date / Time No Known Allergies Allergy Verified 05/20/22 12:22 Review of Systems Review of Systems: Constitutional: No Fever, No Chills, No Fatigue, No Malaise ENT/Mouth: No Ear Pain, No Nasal Congestion, No sore throat, No Rhinorrhea, No Swallowing Difficulty Eyes: No Eye Pain, No Swelling, No Redness, No Discharge, No Vision Changes Cardiovascular: No Chest Pain, No SOB, No Edema, No Palpitations Respiratory: No Cough, No Sputum, No Dyspnea Gastrointestinal: No Nausea, No Vomiting, No Diarrhea, No Constipation, No Abdominal pain Genitourinary: No Dysuria, No Urinary Frequency, No Hematuria, No Flank Pain, No Urinary Flow Changes, No Hesitancy Musculoskeletal: No joint pain, No Myalgias, No Joint Swelling Skin: No Skin Lesions, No rash Neuro: +confusion (baseline), +Gen Weakness, No Loss of Consciousness, No Dizziness, +loss of coordination/slow ambulation Yes all other systems are reviewed and are negative Constitutional: Constitutional: Reports as per HPI Neurologic: Denies Abnormal speech present [facility] Past Medical History Attestation statement: The following information was validated with the patient. Medical History COPD (chronic obstructive pulmonary disease) Hyperlipidemia Hypertension Hypoxemia Peripheral vascular disease Pneumonia Respiratory failure Surgical History History of hip surgery Family History Family History Mother Breast cancer Social History Social History Household Members: None Housing: House Do you presently have visiting nurse or other home services: No Alcohol intake: never Patient Tobacco Use Status: Former Tobacco user Cigarette Packs Per Day: 3 Cigarettes Per Day: 60.0 Years Smoked: 50 e-Cigarette/Vaping Use: Never Used Second Hand Smoke Exposure: Yes Advance Directives: Yes Advance Directives on File: Yes Advance Directives Date on File: 02/25/22 service: No Current occupational status: retired and disabled Current occupational exposures/hazards: No Cognitive needs: No Hearing needs: No Vision needs: No Physical Exam ED Vital Signs: Vital Signs - 24 hr 06/11/22 13:34 06/11/22 13:51 06/11/22 14:36 Temperature 98.4 F 98.4 F Pulse Rate 92 92 94 Respiratory Rate 17 26 H 23 H Blood Pressure 171/88 H 171/80 H 183/91 H Pulse Oximetry 100 99 99 Oxygen Delivery Method Nasal Cannula Room Air Nasal Cannula Oxygen Flow Rate 2 BMI result Body Mass Index 20.1 Const General: cooperative, healthy appearing and no acute distress Orientation/consciousness: oriented to person and oriented to place Limitations: no limitations HENMT Head: Yes normal to inspection and Yes atraumatic Ears: hearing grossly normal bilaterally General nose exam: Normal external nose present Face and sinus: Yes normal facial exam Eyes General: appearance normal, both eyes and all related structures Pupils: Equal, round and reactive pupils present EOM: EOMs intact bilaterally Neck Neck: Yes normal visual inspection and Yes no meningeal signs Resp Effort & Inspection: normal respiratory effort and no respiratory distress Auscultation: crackles bilateral at the base Cardio Rate: regular rate Heart sounds: S1 normal heart sound present and S2 normal heart sound present GI Inspection: Yes normal to inspection Palpation (GI): Soft to palpation, nontender, no guarding and not rigid Skin Rashes: no rashes Wounds: no wounds Neuro General: oriented to person, oriented to place, tone normal, moves all extremities, no meningeal signs, no focal motor deficits and CN's II-XI intact bilaterally Cranial nerves: Yes CN's II-XII intact bilaterally, Yes Equal, round and reactive pupils present and Yes Bilaterally intact EOM present Speech: No Abnormal speech present Motor exam (neuro): 5/5 motor strength present throughout and Pronator motor function not present Extrem General: Yes normal to inspection and Yes no pedal edema Course Course Course Narrative: - no leukocytosis. H&H stable. Labs otherwise reassuring /at patient's baseline. Troponin negative. - COVID-19 negative XR chest 1V IMPRESSION: No acute pulmonary finding. CT head/brain wo IV con IMPRESSION: No acute intracranial pathology. Chronic volume loss with small vessel ischemic change. - bladder scan with 409 cc > patient provided urine in the ED > post void residual 345cc >> will place Torres catheter and obtain CT AP to rule out obstructive uropathy - On ambulation trial patient steady, slow, No ataxia. (baseline) At baseline ambulates with walker - UA not infected 2004--CT abdomen pelvis wo IV con IMPRESSION: ? 1. Nonobstructing 4 mm calculus in the midpole of the left kidney. No hydronephrosis or ureteral calculi. No bladder calculi. 2. Infrarenal abdominal aortic aneurysm measuring 3.2 x 3.2 cm. Severe atherosclerotic disease including coronary artery calcifications. 3. Status post vertebral augmentation at T11, T12 and L3. Chronic compression deformity at L2. No new compression deformities are visualized.? ? Fleischner guidelines were followed. >> aneurysm seen on prior CT from 03/23/2022 -2008-- Physician observation initiated as patient needs more time for PT/CM -2099-- ED care transferred to REGGIE Hernandez pending PT/Case management Medical Decision Making MDM Narrative Medical decision making narrative: 81-year-old female with a past medical history of COPD on baseline 2L NC, HLD, HTN, PVD, pneumonia, respiratory failure, presenting to the ED with son c omplaining of increasing generalized weakness, lack of coordination, slow ambulation, and confusion x months. on exam vital signs stable, bibasilar crackles noted, A&O x2 baseline per son, no focal neuro deficits. Concern for progressive dementia vs ? underlying normal pressure hydrocephalus vs metabolic or infectious etiologies. Low suspicion for CVA/TIA plan: EKG, labs, UA, CXR, head CT, re-evaluate, admission vs PT/CM Medical Records Medical records reviewed: Yes I reviewed the patient's medical records. Lab Data Lab results reviewed: Yes I reviewed the patient's lab results. Result diagrams: 06/11/22 15:19 06/11/22 15:19 Labs: Lab Results 06/11/22 06/11/22 06/11/22 Range/Units 15:18 15:19 15:19 WBC 6.1 (4.8-10.8) X10*3/uL RBC 4.09 L (4.20-5.50) X10*6/uL Hgb 12.3 (12.0-16.0) g/dl Hct 38.1 (37.0-47.0) % MCV 93.2 (80.0-98.0) fL MCH 30.1 (27.0-33.0) pg MCHC 32.3 (31.0-35.0) g/dl RDW 12.4 (11.0-16.0) % Plt Count 333 (160-400) X10*3/uL MPV 9.5 (9.4-12.3) fL Immature Gran % (Auto) 0.2 (0.0-0.4) % Neut % (Auto) 66.0 (45-73) % Lymph % (Auto) 24.3 (20-40) % Aiken % (Auto) 7.4 (2-11) % Eos % (Auto) 1.6 (0-4) % Baso % (Auto) 0.5 (0-2) % Lymph # (Auto) 1.5 (1.2-4.9) X10*3/uL Aiken # (Auto) 0.5 (0.1-1.2) X10*3/uL Eos # (Auto) 0.1 (0.0-0.4) X10*3/uL Baso # (Auto) 0.0 (0.0-0.2) X10*3/uL Abs Immat Gran (auto) 0.01 (0.00-0.03) X10*3/uL Absolute Neuts (auto) 4.0 (2.0-8.3) x10*3/uL Absolute Nucleated RBC 0.000 (0.0-0.012) X10*3/uL Nucleated RBC % (auto) 0.0 (0.0-0.2) /100WBC PT 10.8 (10.0-13.1) SEC INR 0.9 (0.9-1.1) Sodium (135-145) mmol/L Potassium (3.3-5.1) mmol/L Chloride (96-108) mmol/L Carbon Dioxide (22-29) mmol/L Anion Gap (12-20) BUN (9-16) mg/dL Creatinine (0.5-1.4) mg/dL Estim Creat Clear Calc Estimated GFR Random Glucose (60-115) mg/dL Lactic Acid 1.0 (0.5-2.0) mmol/L Calcium (8.4-10.2) mg/dL Magnesium (1.6-2.6) mg/dL Total Bilirubin (0.0-1.0) mg/dL Direct Bilirubin (0.0-0.5) mg/dL AST (5-31) U/L ALT (0-31) U/L Alkaline Phosphatase (39-117) U/L Ammonia (13-55) umol/L Troponin I High Sens (<3.5-17.0) ng/L B-Natriuretic Peptide (<100) pg/mL Total Protein (6.5-8.0) g/dL Albumin (3.5-5.0) g/dL Lipase (8-78) U/L Urine Color Urine Appearance Urine pH (5.0-9.0) Ur Specific [place] (1.005-1.025) Urine Protein (Neg-Trace) mg/dL Urine Glucose (UA) (Negative) mg/dL Urine Ketones (Negative) mg/dL Urine Blood (Negative) Urine Nitrite (Negative) Ur Leukocyte Esterase (Negative) Urine RBC (0-2) /HPF Urine WBC (0-5) /HPF Ur Squamous Epith Cells (0-2) /HPF Urine Bacteria (None Seen) Hyaline Casts (0-2) /LPF COVID-19 (JASON) (Negative) COVID-19 Clin Com 06/11/22 06/11/22 06/11/22 Range/Units 15:19 15:19 15:19 WBC (4.8-10.8) X10*3/uL RBC (4.20-5.50) X10*6/uL Hgb (12.0-16.0) g/dl Hct (37.0-47.0) % MCV (80.0-98.0) fL MCH (27.0-33.0) pg MCHC (31.0-35.0) g/dl RDW (11.0-16.0) % Plt Count (160-400) X10*3/uL MPV (9.4-12.3) fL Immature Gran % (Auto) (0.0-0.4) % Neut % (Auto) (45-73) % Lymph % (Auto) (20-40) % Aiken % (Auto) (2-11) % Eos % (Auto) (0-4) % Baso % (Auto) (0-2) % Lymph # (Auto) (1.2-4.9) X10*3/uL Aiken # (Auto) (0.1-1.2) X10*3/uL Eos # (Auto) (0.0-0.4) X10*3/uL Baso # (Auto) (0.0-0.2) X10*3/uL Abs Immat Gran (auto) (0.00-0.03) X10*3/uL Absolute Neuts (auto) (2.0-8.3) x10*3/uL Absolute Nucleated RBC (0.0-0.012) X10*3/uL Nucleated RBC % (auto) (0.0-0.2) /100WBC PT (10.0-13.1) SEC INR (0.9-1.1) Sodium 141 (135-145) mmol/L Potassium 4.2 (3.3-5.1) mmol/L Chloride 98 (96-108) mmol/L Carbon Dioxide 32 H (22-29) mmol/L Anion Gap 15 (12-20) BUN 15 (9-16) mg/dL Creatinine 0.62 (0.5-1.4) mg/dL Estim Creat Clear Calc 65.8 Estimated GFR > 60 Random Glucose 117 H (60-115) mg/dL Lactic Acid (0.5-2.0) mmol/L Calcium 9.9 (8.4-10.2) mg/dL Magnesium 2.0 (1.6-2.6) mg/dL Total Bilirubin 0.4 (0.0-1.0) mg/dL Direct Bilirubin 0.2 (0.0-0.5) mg/dL AST 16 (5-31) U/L ALT 6 (0-31) U/L Alkaline Phosphatase 123 H (39-117) U/L Ammonia 18 (13-55) umol/L Troponin I High Sens 3.6 (<3.5-17.0) ng/L B-Natriuretic Peptide 15 (<100) pg/mL Total Protein 7.4 (6.5-8.0) g/dL Albumin 4.3 (3.5-5.0) g/dL Lipase 17 (8-78) U/L Urine Color Urine Appearance Urine pH (5.0-9.0) Ur Specific [place] (1.005-1.025) Urine Protein (Neg-Trace) mg/dL Urine Glucose (UA) (Negative) mg/dL Urine Ketones (Negative) mg/dL Urine Blood (Negative) Urine Nitrite (Negative) Ur Leukocyte Esterase (Negative) Urine RBC (0-2) /HPF Urine WBC (0-5) /HPF Ur Squamous Epith Cells (0-2) /HPF Urine Bacteria (None Seen) Hyaline Casts (0-2) /LPF COVID-19 (JASON) (Negative) COVID-19 Clin Com 06/11/22 06/11/22 Range/Units 15:19 16:17 WBC (4.8-10.8) X10*3/uL RBC (4.20-5.50) X10*6/uL Hgb (12.0-16.0) g/dl Hct (37.0-47.0) % MCV (80.0-98.0) fL MCH (27.0-33.0) pg MCHC (31.0-35.0) g/dl RDW (11.0-16.0) % Plt Count (160-400) X10*3/uL MPV (9.4-12.3) fL Immature Gran % (Auto) (0.0-0.4) % Neut % (Auto) (45-73) % Lymph % (Auto) (20-40) % Aiken % (Auto) (2-11) % Eos % (Auto) (0-4) % Baso % (Auto) (0-2) % Lymph # (Auto) (1.2-4.9) X10*3/uL Aiken # (Auto) (0.1-1.2) X10*3/uL Eos # (Auto) (0.0-0.4) X10*3/uL Baso # (Auto) (0.0-0.2) X10*3/uL Abs Immat Gran (auto) (0.00-0.03) X10*3/uL Absolute Neuts (auto) (2.0-8.3) x10*3/uL Absolute Nucleated RBC (0.0-0.012) X10*3/uL Nucleated RBC % (auto) (0.0-0.2) /100WBC PT (10.0-13.1) SEC INR (0.9-1.1) Sodium (135-145) mmol/L Potassium (3.3-5.1) mmol/L Chloride (96-108) mmol/L Carbon Dioxide (22-29) mmol/L Anion Gap (12-20) BUN (9-16) mg/dL Creatinine (0.5-1.4) mg/dL Estim Creat Clear Calc Estimated GFR Random Glucose (60-115) mg/dL Lactic Acid (0.5-2.0) mmol/L Calcium (8.4-10.2) mg/dL Magnesium (1.6-2.6) mg/dL Total Bilirubin (0.0-1.0) mg/dL Direct Bilirubin (0.0-0.5) mg/dL AST (5-31) U/L ALT (0-31) U/L Alkaline Phosphatase (39-117) U/L Ammonia (13-55) umol/L Troponin I High Sens (<3.5-17.0) ng/L B-Natriuretic Peptide (<100) pg/mL Total Protein (6.5-8.0) g/dL Albumin (3.5-5.0) g/dL Lipase (8-78) U/L Urine Color Yellow Urine Appearance Clear Urine pH 7.0 (5.0-9.0) Ur Specific [place] 1.010 (1.005-1.025) Urine Protein Negative (Neg-Trace) mg/dL Urine Glucose (UA) Negative (Negative) mg/dL Urine Ketones Negative (Negative) mg/dL Urine Blood Negative (Negative) Urine Nitrite Negative (Negative) Ur Leukocyte Esterase Small (1+) H (Negative) Urine RBC 0-2 (0-2) /HPF Urine WBC 0-5 (0-5) /HPF Ur Squamous Epith Cells 0-2 (0-2) /HPF Urine Bacteria None Seen (None Seen) Hyaline Casts 0-2 (0-2) /LPF COVID-19 (JASON) Negative (Negative) COVID-19 Clin Com See Note ECG Data Attestation: I personally reviewed and interpreted this ECG as follows: Prior ECG tracings: available for review Interpretation: EKG normal sinus rhythm at a rate of 90. Pr interval 146. QRS 78. QTC 462. No STEMI Discharge Plan Discharge Clinical Impression: Generalized weakness, Unsteady gait, Acute urinary retention Patient Disposition: Still a Patient Prescriptions: No Action (DME) miscellaneous medical supply Misc See Rx Instructions .ROUTE .MEDSUPPLY Qty: 1 0RF Rx Instructions: Transport chair 4 wheel manual, Daily As directed, 999 days/Lifetime. Disp#1 (DME) Wheel chair Kit See Rx Instructions .Route Qty: 1 0RF Rx Instructions: transport wheel chair sertraline 50 mg tablet 50 mg PO DAILY 90 Days Qty: 90 2RF Breo Ellipta 200-25 mcg/dose blister with device 1 inh INHALATION DAILY 28 Days Qty: 28 4RF meloxicam 7.5 mg tablet 15 mg PO DAILY 30 Days Qty: 60 3RF amlodipine 5 mg tablet 5 mg PO DAILY 90 Days Qty: 90 2RF famotidine 20 mg tablet 20 mg PO DAILY 30 Days Qty: 30 3RF albuterol sulfate [ProAir HFA] 90 mcg/actuation Hfa Aerosol Inhaler 2 puff INHALATION Q6H PRN (Reason: Dyspnea) calcium carbonate 200 mg calcium (500 mg) tablet,chewable 500 mg PO DAILY gabapentin 300 mg capsule 300 mg PO BID acetaminophen [Tylenol Arthritis] 650 mg Tablet Extended Release 1,300 mg PO BID cyanocobalamin (vitamin B-12) 1,000 mcg Tablet 1,000 mcg PO DAILY Prevagen 2 tab PO DAILY (DME) miscellaneous medical supply Misc See Rx Instructions .ROUTE .MEDSUPPLY Qty: 1 0RF Rx Instructions: donut cushion/pillow. As directed. DX: M53.3, Duration 999 days melatonin 5 mg tablet 10 mg PO BEDTIME multivitamin [Daily Multi-Vitamin] Tablet 1 tab PO DAILY
[2022-06-11 15:44] LABS: Ammonia 18 umol/L (13-55)
[2022-06-11 15:48] LABS: Alanine Aminotransferase 6 U/L (0-31); Albumin Level 4.3 g/dL (3.5-5.0); Alkaline Phosphatase 123 U/L (39-117); Anion Gap 15 (12-20); Aspartate Amino Transferase 16 U/L (5-31); Bilirubin Direct 0.2 mg/dL (0.0-0.5); Bilirubin Total 0.4 mg/dL (0.0-1.0); Blood Urea Nitrogen 15 mg/dL (9-16); Calcium 9.9 mg/dL (8.4-10.2); Carbon Dioxide 32 mmol/L (22-29); Chloride 98 mmol/L (96-108); Creatinine Clr Calc Pharmacy 65.8; Estimated Glomerular Filt Rate > 60; Glucose Random 117 mg/dL (60-115); Lipase 17 U/L (8-78); Potassium 4.2 mmol/L (3.3-5.1); Sodium 141 mmol/L (135-145); Total Protein 7.4 g/dL (6.5-8.0)
[2022-06-11 15:52] LABS: COVID-19 Test Negative (Negative); IDNOW Serial# 55D5AD1C
[2022-06-11 15:55] LABS: B Type Natriuretic Peptide 15 pg/mL (<100); Troponin-I High Sensitivity 3.6 ng/L (<3.5-17.0)
[2022-06-11 16:33] LABS: Appearance Urine Clear; Color Urine Yellow; Glucose Urine UA Negative (Negative); Leukocyte Esterase Urine Small (1+) (Negative); Nitrite Urine Negative (Negative); UMIC TRIGGER UACC YES; Urine Blood Negative (Negative); Urine Ketones Negative (Negative); Urine Protein Negative (Neg-Trace)
[2022-06-11 16:50] LABS: Bacteria Urine None Seen (None Seen); Hyaline Casts Urine 0-2 /LPF (0-2); RBC Urine 0-2 /HPF (0-2); Squamous Epithelial Cell Urine 0-2 /HPF (0-2); UACC Culture Trigger YES; WBC Urine 0-5 /HPF (0-5)
--- NOTE | 2022-06-11 21:34 | PC.NURSE ---
Pt is alert and oriented to person. Breaths are even and unlabored at 12 bpm. O2 sat 99% with 2L nc. NSR on monitor with HR 93. Current BP 179/93. Torres catheter in place with 400cc in collection bag. No apparent distress. Will continue to monitor.
--- NOTE | 2022-06-11 23:52 | PC.NURSE ---
Pt currently sleeping. Breaths are even and unlabored with equal chest rises. No apparent distress noted. Will continue to monitor.
[2022-06-12] VITALS (12 sets, daily range): BP systolic 135–191; BP diastolic 70–98; PULSE 81–102; RESP 13–24; TEMP 36.4–36.9; O2SAT 96–100
--- NOTE | 2022-06-12 01:20 | PC.NURSE ---
PT AMBULATED OFF BEDSIDE COMMODE BACK TO BED.
--- NOTE | 2022-06-12 02:45 | PC.NURSE ---
Pt is sleeping. Breaths are even an unlabored with equal chest rises. No apparent distress noted. HR: 86, RR 13 on monitor. 400cc of clear yellow urine noted on the urine collection bag. Will continue to monitor.
--- NOTE | 2022-06-12 04:31 | PC.NURSE ---
Pt resting quietly in no apparent distress. Breaths are even and unlabored with equal chest rises. O2 sat 100% on 2L nc, RR 12. NSR on monitor. BP 170/82 HR 80. 400cc of clear yellow urine noted in andre collection bag. Will continue to monitor.
--- NOTE | 2022-06-12 06:34 | PC.NURSE ---
PT PULLED UP AND REPOSITONED IN BED. PT GIVEN WARM BLANKET AND CALL [facility]
--- NOTE | 2022-06-12 07:26 | PC.NURSE ---
Pt alert to self and place this AM. Pt requesting breakfast at this time. Reports 2/ chronic back pain. Physical therapy here to see pt.
[2022-06-12] MEDS: NaPROXEN 500 MG TABLET PO ×2 (08:01→21:52)
[2022-06-12] MEDS: Gabapentin 300 MG CAPSULE PO ×2 (08:01→21:53)
[2022-06-12] MEDS: Sertraline HCL 50 MG TABLET PO (08:01)
[2022-06-12] MEDS: amLODIPine Besylate 5 MG TABLET PO (08:01)
--- NOTE | 2022-06-12 08:19 | PC.NURSE ---
pt up and eating breakfast, took morning medications with no issue. This nurse drained andre cath bag, approx 600ml of clear yellow urine present.
[2022-06-12] MEDS: Fluticasone/Vilanterol 200/25 BLST.W.DEV 1 PUFF INHALE (09:13)
--- NOTE | 2022-06-12 11:09 | MHC.CM.ED ---
Received case management consult overnight from Kaylie PAREDES due to dizziness. Work up essentially negative. Physical therapy eval completed. Short term rehab is recommended. Met with patient and son, Jas. Patient currently sleeping. Patient lives with Jas. Patient has been living with Jas since December. Patient uses a walker for mobility. Patient was active with [facility] until the middle of May. Patient had back surgery with Dr Chi and just had a follow up appointment on 06/03. There is concern patient akashy be experiencing hydrocephalus. [place] outpatient [place]17 [place] [facility] [place] been to [facility] in the past. Jas is requesting referral to [facility]. Referral made via [facility]. Continue to monitor for d/c needs.
--- NOTE | 2022-06-12 12:41 | MHC.CM.ED ---
Addendum entered by Kinjal Silva 06/12/22 14:05: Transportation has been tentatively booked for 530pm. Transport will be cancelled if insurance auth has not been obtained. Original Note: Chantel Maria would be willing to go for insurance auth if patient can receive a Covid booster. Moderna Bivalent vaccine [place] available at [facility] [place] Patient's son, Jas is agreeable to patient receiving vaccine. Chantel Maria aware and will go for insurance auth. Continue to monitor for d/c needs.
[2022-06-13] VITALS (7 sets, daily range): BP systolic 126–173; BP diastolic 57–83; PULSE 63–104; RESP 10–31; TEMP 36.7–36.9; O2SAT 95–98
[2022-06-13] MEDS: Fluticasone/Vilanterol 200/25 BLST.W.DEV 1 PUFF INHALE (08:14)
[2022-06-13] MEDS: NaPROXEN 500 MG TABLET PO ×2 (10:01→21:42)
[2022-06-13] MEDS: Sertraline HCL 50 MG TABLET PO (10:01)
[2022-06-13] MEDS: amLODIPine Besylate 5 MG TABLET PO (10:02)
--- NOTE | 2022-06-13 10:27 | PC.NURSE ---
Pt alert and oriented, respirations even and unlabored. Torres catheter in place. Pt had difficulty swallowing large sized pill, given with pudding with good effect. Awaiting placement by case management at this time. Offers no complaints.
--- NOTE | 2022-06-13 11:27 | MHC.CM.ED ---
Addendum entered by Maria Elena Dykes 06/13/22 11:42: Spoke with pt to update her on plan of care - she understands barriers to transfer. Updates given to ED care team. ED CM to follow Original Note: Pt will need payor auth to transfer to [facility]: unfortunately, pt's payor, Lauren, will not be open until Wednesday, 06/16. Call placed to pt's son Jas to update him on plan. Per Jas, he is uncomfortable with pt's mobility at home d/t her increasing unsteadiness and what he feels like is an overall decline. He has been on an FMLA since March to care for her but doesn't feel he can continue.
[2022-06-13] MEDS: oxyCODONE HCl Immed Release 5 MG TABLET PO (16:40)
--- NOTE | 2022-06-13 18:09 | PC.NURSE ---
Pt changed into a hospital stretcher. Son at bedside
[2022-06-13] MEDS: Gabapentin 300 MG CAPSULE PO (21:43)
--- NOTE | 2022-06-13 21:51 | PC.NURSE ---
pt alert, oriented to person, pt reoriented to surroundings - @ [facility] w plan to go to [facility] on , reporting generalized pain, medicated per provider order, pt took medications well with water, ate some pudding. no new orders at this time.
[2022-06-13] MEDS: LORazepam 0.5 MG TABLET PO (22:36)
--- NOTE | 2022-06-13 22:37 | PC.NURSE ---
pt reporting some increased anxiety and stomach pain, provider notified, medicated per provider order.
[2022-06-13] MEDS: Magnesium Hydrox/Alum Hydrox 30 ML ORAL.SUSP PO (22:55)
[2022-06-13] MEDS: oxyCODONE HCl Immed Release 5 MG TABLET 10 MG PO (23:42)
--- NOTE | 2022-06-14 02:30 | PC.NURSE ---
pt sleeping, RR even and unlabored.
[2022-06-14 07:18] VITALS: RESP 20
[2022-06-14 09:44] VITALS: BP 165/77; PULSE 77; RESP 18; TEMP 36.6; O2SAT 97
[2022-06-14] MEDS: NaPROXEN 500 MG TABLET PO ×2 (09:49→20:46)
[2022-06-14] MEDS: amLODIPine Besylate 5 MG TABLET PO (09:50)
[2022-06-14] MEDS: Sertraline HCL 50 MG TABLET PO (09:50)
[2022-06-14] MEDS: Gabapentin 300 MG CAPSULE PO ×2 (09:50→20:47)
[2022-06-14 13:45] VITALS: BP 155/75; PULSE 79; RESP 14; TEMP 36.4; O2SAT 97
--- NOTE | 2022-06-14 16:48 | MHC.CM.ED ---
Pt continues to board in ED awaiting payor auth for pt to transfer to [facility]. No medical issues that warrant admission. CM to follow
[2022-06-14] MEDS: oxyCODONE HCl Immed Release 5 MG TABLET 10 MG PO (20:46)
--- NOTE | 2022-06-14 21:48 | PC.NURSE ---
assumed care of pt at 1845, pt alert and oriented to self, pt confused at baseline, thinks that she is getting picked up by children to go home, requires frequent reorientation. pt reporting 10/10 back pain and generalized body aches, medicated per provider order.
[2022-06-15 05:52] VITALS: BP 141/68; PULSE 80; O2SAT 93
[2022-06-15] MEDS: amLODIPine Besylate 5 MG TABLET PO (08:42)
[2022-06-15] MEDS: NaPROXEN 500 MG TABLET PO ×2 (08:42→23:03)
[2022-06-15] MEDS: Sertraline HCL 50 MG TABLET PO (08:43)
[2022-06-15] MEDS: Gabapentin 300 MG CAPSULE PO ×2 (08:43→23:04)
--- NOTE | 2022-06-15 08:45 | PC.NURSE ---
Patient alert and oriented x4. she is resting comfortably. complains of back pain 5/10.
[2022-06-15 20:50] VITALS: BP 157/71; PULSE 95; RESP 26; TEMP 36.6; O2SAT 95
[2022-06-16 08:33] VITALS: BP 159/66; PULSE 75; RESP 12; TEMP 36.2; O2SAT 98
[2022-06-16] MEDS: Sertraline HCL 50 MG TABLET PO (09:00)
[2022-06-16] MEDS: Gabapentin 300 MG CAPSULE PO (09:00)
[2022-06-16] MEDS: Fluticasone/Vilanterol 200/25 BLST.W.DEV 1 PUFF INHALE (09:00)
[2022-06-16] MEDS: amLODIPine Besylate 5 MG TABLET PO (09:00)
[2022-06-16] MEDS: NaPROXEN 500 MG TABLET PO (09:00)
[2022-06-16 09:59] VITALS: BP 137/61; PULSE 72; RESP 14; TEMP 36.2; O2SAT 97
--- NOTE | 2022-06-16 10:32 | MHC.CM.ED ---
Addendum entered by Kinjal Silva 06/16/22 15:31: Received notification from [facility] that they're unable to accept patient because they're not contracted with patient's insurance. [facility] is able to accept patient. Addendum entered by Kinjal Silva 06/16/22 13:46: [facility] is not able to accept patient at this time. Referral broadcasted in [facility]. [facility] is able to accept patient. Original Note: Patient remains in ER. Received notification from Iliana at [facility] that patient was denied authorization for short term rehab. Appeal can be made via telephone at [phone], [phone]. [phone]. Patient's son, Jas is at patient's bedside. He is not going to file an appeal because he has done in the past and still had authorization denied. Patient was recently active with [facility]. Jas agreeable to resumption of [facility] services. Referral made in [facility]. Jas will transport patient home. Gissell PAREDES aware. Continue to monitor for d/c needs.
== END 2022-06-16 11:44 | disposition home or self-care (01) ==
PROVIDERS: Physician Assistant; Emergency Provider Emergency Medicine; PCP Family Medicine
DX: R53.1 Weakness (principal); R33.9 Retention of urine, unspecified; R26.81 Unsteadiness on feet; I10 Essential (primary) hypertension; E78.5 Hyperlipidemia, unspecified; J44.9 Chronic obstructive pulmonary disease, unspecified; Z99.81 Dependence on supplemental oxygen; Z87.891 Personal history of nicotine dependence; Z20.822 Contact with and (suspected) exposure to COVID-19; Z87.01 Personal history of pneumonia (recurrent)
CPT/HCPCS: 51702; 51798; 70450; 71045; 74176; 80048; 80076; 81001; 82140; 83605; 83690; 83735; 83880; 84484; 85025; 85610; 87040; 87086; 87635; 90471; 91301; 93005; 94640; 97162; 99285

== ENCOUNTER → 2022-07-02 13:54 | Outpatient (BNVA) | payer MEDICARE, SELFPAY | PROVIDERS: PCP Family Medicine; Visit Provider Internal Medicine | DX: J44.9 Chronic obstructive pulmonary disease, unspecified (principal); R09.02 Hypoxemia | CPT/HCPCS: 99212 ==

== ENCOUNTER 2022-07-17 09:53 | Outpatient (REF) | payer MEDICARE, SELFPAY ==
[2022-07-17 10:34] LABS: Appearance Urine Clear; Color Urine Yellow; Glucose Urine UA Negative (Negative); Leukocyte Esterase Urine Large (3+) (Negative); Nitrite Urine Negative (Negative); UMIC TRIGGER UA YES; Urine Blood Trace (Negative); Urine Ketones Negative (Negative); Urine Protein Negative (Neg-Trace)
[2022-07-17 10:41] LABS: Bacteria Urine 3+ (None Seen); Hyaline Casts Urine 0-2 /LPF (0-2); RBC Urine 0-2 /HPF (0-2); Squamous Epithelial Cell Urine 0-2 /HPF (0-2); WBC Urine >50 /HPF (0-5)
== END 2022-07-17 09:54 | disposition home or self-care (01) ==
LOC: HO.HVNA 09:53
PROVIDERS: Visit Provider Urology
DX: R30.0 Dysuria (principal); R35.0 Frequency of micturition; B96.1 Klebsiella pneumoniae [K. pneumoniae] as the cause of diseases classified elsewhere; Z16.11 Resistance to penicillins; Z16.29 Resistance to other single specified antibiotic
CPT/HCPCS: 81001; 81003; 87086; 87088; 87186

== ENCOUNTER 2022-07-23 07:46 | Inpatient (IN) | payer MEDICARE, SELFPAY ==
--- NOTE | ~2022-07-23 | XR_ITS ---
EXAMINATION: XR CHEST CLINICAL INFORMATION: Weakness. COMPARISON: 06/11/2022 chest radiograph. TECHNIQUE: Frontal view of the chest was obtained. FINDINGS: No significant abnormality is noted involving the heart, lungs, mediastinum, bony thorax or soft tissues. XR/XR chest 1V IMPRESSION: No acute cardiopulmonary process.
[2022-07-23 08:02] VITALS: BP 180/85; PULSE 100; RESP 16; TEMP 36.5; O2SAT 96
--- NOTE | 2022-07-23 09:03 | ECG_ITS ---
Test Reason : WEAKNESS Blood Pressure : / mmHG Vent. Rate : 097 BPM Atrial Rate : 097 BPM P-R Int : 132 ms QRS Dur : 076 ms QT Int : 368 ms P-R-T Axes : 041 -13 047 degrees QTc Int : 467 ms Normal sinus rhythm abnormal lead v3 Borderline ECG When compared with ECG of 11-JUN-2022 15:03, lead v3 has changed T wave amplitude has decreased in Anterior leads Referred By: Leilani Lombardo Electronically Signed By:BRIAN LAMAS MD
--- NOTE | 2022-07-23 09:14 | ED_ITS ---
HPI - General Adult General Chief complaint: General Medical Stated complaint: fall Time Seen by Provider: 07/23/22 08:49 Source: patient Mode of arrival: ambulatory Limitations: no limitations History of Present Illness HPI narrative: 81 yo female with history of urinary retention, chronic UTI's, dementia, normal pressure hydrocephalus, COPD on 2L at home, HLD, GERD, osteoporosis, depression and anxiety, HTN, history of hip fracture, presents tot he ED today c/o generalized weakness, and bladder fullness. She reports urinary frequency ,with partial emptying of bladder. She has a long standing history of urinary retention with Torres Catheter. She has an appointment with urologist tomorrow.She denies any fever, nausea, vomiting, burning with urination, flank pain. Related Data Home Medications Medication Instructions Recorded Confirmed albuterol sulfate 90 mcg/actuation 2 puff inhalation Q6H PRN Dyspnea 06/16/20 06/11/22 aerosol inhaler (ProAir HFA) multivitamin (Daily Multi-Vitamin 1 tab PO DAILY 07/30/20 04/07/22 tablet) Prevagen 2 tab PO DAILY 03/18/22 04/07/22 acetaminophen 650 mg 1,300 mg PO BID 03/18/22 04/07/22 tablet,extended release cyanocobalamin (vitamin B-12) 1,000 mcg PO DAILY 03/18/22 04/07/22 1,000 mcg tablet calcium carbonate 200 mg calcium 500 mg PO DAILY Dyspepsia 04/07/22 06/11/22 (500 mg) chewable tablet amlodipine 5 mg tablet 1 tab PO DAILY 06/11/22 06/11/22 Previous Rx's Medication Instructions Recorded miscellaneous medical supply #1 ea 07/16/20 miscellaneous medical supply #1 ea 05/13/21 chair, wheel (Wheel chair) #1 ea 06/17/21 famotidine 20 mg tablet 20 mg PO DAILY 30 days #30 tabs 06/11/22 fluticasone furoate 200 1 inh inhalation DAILY 30 days #60 06/21/22 mcg-vilanterol 25 mcg/dose ea inhalation powder (Breo Ellipta) albuterol sulfate 2.5 mg/3 mL 2.5 mg (3 mL) inhalation Q4-6H PRN 07/09/22 (0.083 %) solution for nebulization shortness of breath or wheezing 30 days #180 mL diclofenac sodium 1 % topical gel 4 g topical QID 30 days #200 grams 07/10/22 metoprolol tartrate 25 mg tablet 12.5 mg PO BID 30 days #30 tabs 07/20/22 sertraline 100 mg tablet 50 mg PO DAILY 90 days #45 tabs 07/20/22 fosfomycin tromethamine 3 gram 1 packet PO Q3D UTI 6 days #2 ea 07/21/22 oral packet Allergies Allergy/AdvReac Type Severity Reaction Status Date / Time No Known Allergies Allergy Verified 07/10/22 13:35 Review of Systems Review of Systems: Constitutional: No Fever, No Chills ENT/Mouth: No sore throat, No Rhinorrhea, No Swallowing Difficulty Eyes: No Eye Pain, No Swelling, No Redness Cardiovascular: No Chest Pain, No SOB, No Orthopnea, No Edema Respiratory: No Cough, No Sputum, No Wheezing, No dyspnea Gastrointestinal: No Nausea, No Vomiting, No Diarrhea, No abdominal Pain, Genitourinary: No Dysuria, + Urinary Frequency, No Hematuria ,+ Bladder fullness Musculoskeletal: No joint pain, No Myalgias ,+Back pain Skin: No Skin Lesions, No rash Neuro: +Weakness, No Numbness, No Dizziness, No Headache PMFSH Past Medical History Attestation statement: The following information was validated with the patient. Medical History COPD (chronic obstructive pulmonary disease) Hyperlipidemia Hypertension Hypoxemia Peripheral vascular disease Pneumonia Respiratory failure Surgical History History of hip surgery Family History Family History Mother Breast cancer Social History Social History Household Members: None Housing: House Do you presently have visiting nurse or other home services: No Alcohol intake: never Patient Tobacco Use Status: Former Tobacco user Cigarette Packs Per Day: 3 Cigarettes Per Day: 60.0 Years Smoked: 50 e-Cigarette/Vaping Use: Never Used Second Hand Smoke Exposure: Yes Advance Directives: Yes Advance Directives on File: Yes Advance Directives Date on File: 02/25/22 service: No Current occupational status: retired and disabled Current occupational exposures/hazards: No Cognitive needs: No Hearing needs: No Vision needs: No Physical Exam ED Vital Signs: Vital Signs - 24 hr 07/23/22 08:02 Temperature 97.7 F Pulse Rate 100 Respiratory Rate 16 Blood Pressure 180/85 H Pulse Oximetry 96 Oxygen Delivery Method Nasal Cannula BMI result Body Mass Index 20.0 Appearance: Alert. Oriented X3. No acute distress. Eyes: Pupils equal, round and reactive to light. ENT: Pharynx normal. Neck: Normal inspection. Neck supple. CVS: Normal heart rate and rhythm. Pulses normal. Respiratory: No respiratory distress. Breath sounds normal. Abdomen: Soft and nontender.+Distended,+ Suprapubic tenderness +BS x4 Skin: Skin warm and dry. Normal skin color. Normal skin turgor. No rashes. Extremities: No lower extremity edema. Neuro: Oriented X 3. No motor deficit. No sensory deficit. Course Course Course Narrative: 81 year old female presenting to the ER for evaluation of generalized weakness and urinary retention. She was recently diagnosed with ESBL Klebsiella UTI (07/17) and was treated outpatient. Due to multi-drug resistance and the current UTI, patient will be admitted for IV treatment per Urology recommendations. IV ertapenem has been ordered. Consultations Consultation #1: Dr. Medina - urinary retention and ESBL Klebsiella UTI Medical Decision Making MDM Narrative Medical decision making narrative: 81 yo female history of urinary retention, chronic UTI's, dementia, normal pressure hydrocephalus, COPD on 2L at home, HLD, GERD, osteoporosis, depression and anxiety, HTN, history of hip fracture, presents tot he ED today c/o generalized weakness, and bladder fullness. She reports urinary frequency ,with partial emptying of bladder. She has a long standing history of urinary retention with Torres Catheter. On exam,hypertensive 180/85, lung CTA, suprapubic tenderness and abdominal discomfort with palpation. Concern for urinary rete ntion vs UTI. Plans: Bladder scan, Labs, Chest XRAY, EKG Lab Data Result diagrams: 07/23/22 11:21 07/23/22 11:21 Labs: Lab Results 07/23/22 07/23/22 07/23/22 Range/Units 11:21 11:21 11:21 WBC 5.0 (4.8-10.8) X10*3/uL RBC 4.11 L (4.20-5.50) X10*6/uL Hgb 12.2 (12.0-16.0) g/dl Hct 38.6 (37.0-47.0) % MCV 93.9 (80.0-98.0) fL MCH 29.7 (27.0-33.0) pg MCHC 31.6 (31.0-35.0) g/dl RDW 13.2 (11.0-16.0) % Plt Count 335 (160-400) X10*3/uL MPV 10.0 (9.4-12.3) fL Immature Gran % (Auto) 0.4 (0.0-0.4) % Neut % (Auto) 62.3 (45-73) % Lymph % (Auto) 26.8 (20-40) % Grayson % (Auto) 8.5 (2-11) % Eos % (Auto) 1.4 (0-4) % Baso % (Auto) 0.6 (0-2) % Lymph # (Auto) 1.4 (1.2-4.9) X10*3/uL Grayson # (Auto) 0.4 (0.1-1.2) X10*3/uL Eos # (Auto) 0.1 (0.0-0.4) X10*3/uL Baso # (Auto) 0.0 (0.0-0.2) X10*3/uL Abs Immat Gran (auto) 0.02 (0.00-0.03) X10*3/uL Absolute Neuts (auto) 3.1 (2.0-8.3) x10*3/uL Absolute Nucleated RBC 0.000 (0.0-0.012) X10*3/uL Nucleated RBC % (auto) 0.0 (0.0-0.2) /100WBC Sodium 140 (135-145) mmol/L Potassium 4.1 (3.3-5.1) mmol/L Chloride 100 (96-108) mmol/L Carbon Dioxide 29 (22-29) mmol/L Anion Gap 15 (12-20) BUN 18 H (9-16) mg/dL Creatinine 0.70 (0.5-1.4) mg/dL Estim Creat Clear Calc 59.7 Estimated GFR > 60 Random Glucose 119 H (60-115) mg/dL Lactic Acid (0.5-2.0) mmol/L Calcium 10.1 (8.4-10.2) mg/dL Magnesium 2.1 (1.6-2.6) mg/dL Total Bilirubin 0.5 (0.0-1.0) mg/dL Direct Bilirubin 0.2 (0.0-0.5) mg/dL AST 17 (5-31) U/L ALT 10 (0-31) U/L Alkaline Phosphatase 111 (39-117) U/L Troponin I High Sens (<3.5-17.0) ng/L B-Natriuretic Peptide 24 (<100) pg/mL Total Protein 7.6 (6.5-8.0) g/dL Albumin 4.3 (3.5-5.0) g/dL Urine Color Urine Appearance Urine pH (5.0-9.0) Ur Specific [place] (1.005-1.025) Urine Protein (Neg-Trace) mg/dL Urine Glucose (UA) (Negative) mg/dL Urine Ketones (Negative) mg/dL Urine Blood (Negative) Urine Nitrite (Negative) Ur Leukocyte Esterase (Negative) Urine RBC (0-2) /HPF Urine WBC (0-5) /HPF Ur Squamous Epith Cells (0-2) /HPF Urine Bacteria (None Seen) Hyaline Casts (0-2) /LPF Influenza Type A (PCR) (Negative) Influenza Type B (PCR) (Negative) RSV RNA Qual (PCR) (Negative) SARS-CoV-2 RNA (RT-PCR) (Negative) 07/23/22 07/23/22 07/23/22 Range/Units 11:21 11:21 12:00 WBC (4.8-10.8) X10*3/uL RBC (4.20-5.50) X10*6/uL Hgb (12.0-16.0) g/dl Hct (37.0-47.0) % MCV (80.0-98.0) fL MCH (27.0-33.0) pg MCHC (31.0-35.0) g/dl RDW (11.0-16.0) % Plt Count (160-400) X10*3/uL MPV (9.4-12.3) fL Immature Gran % (Auto) (0.0-0.4) % Neut % (Auto) (45-73) % Lymph % (Auto) (20-40) % Grayson % (Auto) (2-11) % Eos % (Auto) (0-4) % Baso % (Auto) (0-2) % Lymph # (Auto) (1.2-4.9) X10*3/uL Grayson # (Auto) (0.1-1.2) X10*3/uL Eos # (Auto) (0.0-0.4) X10*3/uL Baso # (Auto) (0.0-0.2) X10*3/uL Abs Immat Gran (auto) (0.00-0.03) X10*3/uL Absolute Neuts (auto) (2.0-8.3) x10*3/uL Absolute Nucleated RBC (0.0-0.012) X10*3/uL Nucleated RBC % (auto) (0.0-0.2) /100WBC Sodium (135-145) mmol/L Potassium (3.3-5.1) mmol/L Chloride (96-108) mmol/L Carbon Dioxide (22-29) mmol/L Anion Gap (12-20) BUN (9-16) mg/dL Creatinine (0.5-1.4) mg/dL Estim Creat Clear Calc Estimated GFR Random Glucose (60-115) mg/dL Lactic Acid (0.5-2.0) mmol/L Calcium (8.4-10.2) mg/dL Magnesium (1.6-2.6) mg/dL Total Bilirubin (0.0-1.0) mg/dL Direct Bilirubin (0.0-0.5) mg/dL AST (5-31) U/L ALT (0-31) U/L Alkaline Phosphatase (39-117) U/L Troponin I High Sens 5.0 (<3.5-17.0) ng/L B-Natriuretic Peptide (<100) pg/mL Total Protein (6.5-8.0) g/dL Albumin (3.5-5.0) g/dL Urine Color Yellow Urine Appearance Clear Urine pH 6.5 (5.0-9.0) Ur Specific [place] 1.010 (1.005-1.025) Urine Protein Negative (Neg-Trace) mg/dL Urine Glucose (UA) Negative (Negative) mg/dL Urine Ketones Negative (Negative) mg/dL Urine Blood Negative (Negative) Urine Nitrite Negative (Negative) Ur Leukocyte Esterase Small (1+) H (Negative) Urine RBC 0-2 (0-2) /HPF Urine WBC 21-50 H (0-5) /HPF Ur Squamous Epith Cells 0-2 (0-2) /HPF Urine Bacteria None Seen (None Seen) Hyaline Casts 0-2 (0-2) /LPF Influenza Type A (PCR) NEGATIVE (Negative) Influenza Type B (PCR) NEGATIVE (Negative) RSV RNA Qual (PCR) NEGATIVE (Negative) SARS-CoV-2 RNA (RT-PCR) NEGATIVE (Negative) 07/23/22 Range/Units 13:53 WBC (4.8-10.8) X10*3/uL RBC (4.20-5.50) X10*6/uL Hgb (12.0-16.0) g/dl Hct (37.0-47.0) % MCV (80.0-98.0) fL MCH (27.0-33.0) pg MCHC (31.0-35.0) g/dl RDW (11.0-16.0) % Plt Count (160-400) X10*3/uL MPV (9.4-12.3) fL Immature Gran % (Auto) (0.0-0.4) % Neut % (Auto) (45-73) % Lymph % (Auto) (20-40) % Grayson % (Auto) (2-11) % Eos % (Auto) (0-4) % Baso % (Auto) (0-2) % Lymph # (Auto) (1.2-4.9) X10*3/uL Grayson # (Auto) (0.1-1.2) X10*3/uL Eos # (Auto) (0.0-0.4) X10*3/uL Baso # (Auto) (0.0-0.2) X10*3/uL Abs Immat Gran (auto) (0.00-0.03) X10*3/uL Absolute Neuts (auto) (2.0-8.3) x10*3/uL Absolute Nucleated RBC (0.0-0.012) X10*3/uL Nucleated RBC % (auto) (0.0-0.2) /100WBC Sodium (135-145) mmol/L Potassium (3.3-5.1) mmol/L Chloride (96-108) mmol/L Carbon Dioxide (22-29) mmol/L Anion Gap (12-20) BUN (9-16) mg/dL Creatinine (0.5-1.4) mg/dL Estim Creat Clear Calc Estimated GFR Random Glucose (60-115) mg/dL Lactic Acid 0.9 (0.5-2.0) mmol/L Calcium (8.4-10.2) mg/dL Magnesium (1.6-2.6) mg/dL Total Bilirubin (0.0-1.0) mg/dL Direct Bilirubin (0.0-0.5) mg/dL AST (5-31) U/L ALT (0-31) U/L Alkaline Phosphatase (39-117) U/L Troponin I High Sens (<3.5-17.0) ng/L B-Natriuretic Peptide (<100) pg/mL Total Protein (6.5-8.0) g/dL Albumin (3.5-5.0) g/dL Urine Color Urine Appearance Urine pH (5.0-9.0) Ur Specific [place] (1.005-1.025) Urine Protein (Neg-Trace) mg/dL Urine Glucose (UA) (Negative) mg/dL Urine Ketones (Negative) mg/dL Urine Blood (Negative) Urine Nitrite (Negative) Ur Leukocyte Esterase (Negative) Urine RBC (0-2) /HPF Urine WBC (0-5) /HPF Ur Squamous Epith Cells (0-2) /HPF Urine Bacteria (None Seen) Hyaline Casts (0-2) /LPF Influenza Type A (PCR) (Negative) Influenza Type B (PCR) (Negative) RSV RNA Qual (PCR) (Negative) SARS-CoV-2 RNA (RT-PCR) (Negative) ECG Data Attestation: I personally reviewed and interpreted this ECG as follows: Prior ECG tracings: available for review Interpretation: Normal sinus rhythm, artifact present, ventricular rate 97 beats per minute, Q- waves present in leads III, V1, V3, no ST segment elevations or depressions. NO Change from prior 1 month ago. Discharge Plan Discharge Clinical Impression: Urinary tract infection due to ESBL Klebsiella, Acute urinary retention Prescriptions: No Action (DME) miscellaneous medical supply Misc See Rx Instructions .ROUTE .MEDSUPPLY Qty: 1 0RF Rx Instructions: Transport chair 4 wheel manual, Daily As directed, 999 days/Lifetime. Disp#1 (DME) Wheel chair Kit See Rx Instructions .Route Qty: 1 0RF Rx Instructions: transport wheel chair famotidine 20 mg tablet 20 mg PO DAILY 30 Days Qty: 30 3RF fluticasone furoate-vilanterol [Breo Ellipta] 200-25 mcg/dose blister with device 1 inh INHALATION DAILY 30 Days Qty: 60 3RF albuterol sulfate 2.5 mg /3 mL (0.083 %) solution for nebulization 2.5 mg inhalation Q4-6H PRN (Reason: shortness of breath or wheezing) 30 Days Qty: 180 2RF metoprolol tartrate 25 mg tablet 12.5 mg PO BID 30 Days Qty: 30 1RF sertraline 100 mg tablet 50 mg PO DAILY 90 Days Qty: 45 2RF fosfomycin tromethamine 3 gram packet 1 packet PO Q3D 6 Days Qty: 2 0RF albuterol sulfate [ProAir HFA] 90 mcg/actuation Hfa Aerosol Inhaler 2 puff INHALATION Q6H PRN (Reason: Dyspnea) calcium carbonate 200 mg calcium (500 mg) tablet,chewable 500 mg PO DAILY acetaminophen [Tylenol Arthritis] 650 mg Tablet Extended Release 1,300 mg PO BID cyanocobalamin (vitamin B-12) 1,000 mcg Tablet 1,000 mcg PO DAILY Prevagen 2 tab PO DAILY amlodipine 5 mg tablet 1 tab PO DAILY (DME) miscellaneous medical supply Misc See Rx Instructions .ROUTE .MEDSUPPLY Qty: 1 0RF Rx Instructions: donut cushion/pillow. As directed. DX: M53.3, Duration 999 days diclofenac sodium 1 % gel 4 g topical QID 30 Days Qty: 200 3RF Rx Instructions: apply to single knee, ankle, foot; for foot includes sole/toes/top of foot multivitamin [Daily Multi-Vitamin] Tablet 1 tab PO DAILY
--- OUTSIDE RECORDS SUMMARY | 2022-07-23 09:32 | XMS_ITS | Continuity of Care Document ---
:1940 Author Organization [facility] Address [address] [place] [address]- Care Team Providers Name Role Phone Yobany EDWARDS, Juan Jose Ferrer Primary Care Physician Encounter [facility] Date(s): 06/16/22 - 07/16/[address] [address]- Attending Physician: Not on Staff, Attending MD Admitting Physician: Not on Staff, Admitting MD Referring Physician: Not on Staff, Referring MD Allergies, Adverse Reactions, Alerts No Known Allergies Immunizations Given and Recorded Vaccine Date Status [...] II opioid drug. Start Date: 07/15/21 Status: Orderedascorbic acid 500 mg oral capsule 1 capsule [...] II opioid drug. Start Date: 07/08/21 Status: Orderedgemfibrozil 600 mg oral tablet 600 mg, 1, [...] II opioid drug. Start Date: 07/15/21 Status: OrderedMaalox Plus Liquid 15 mL, By [...] II opioid drug. Start Date: 07/15/21 Status: Orderedsertraline 50 mg oral tablet 1 [...] II opioid drug. Start Date: 07/15/21 Status: OrderedVitamin D3 2000 intl units oral capsule 1 capsule = 50 mcg, By Mouth, Daily, # 60 capsule, 0 Refills, Maintenance, 07/08/21 19:57:00 EDT, Capsule, Partial fill upon patient request if the prescription is for a schedule II opioid drug. Start Date: 07/08/21 Status: Ordered Problem List Condition Confirmation Course Effective Dates Status Health I nformant Status Abdominal aortic Confirmed Active aneurysm (AAA) Anxiety Confirmed Active Chronic obstructive Confirmed Active pulmonary disease Depression Confirmed Active Hyperlipidemia Confirmed Active Hypertension Confirmed Active Peripheral vascular Confirmed Active disease Social History Social History Type Response Smoking Status Former smoker, quit more kapil n 30 days ago; Type: Cigarettes; Total pack years: 60; Started at age: 18; entered on: 07/08/21 Sex Patient Care team information Care Team PersonnelName: Anali Benavides RN Position: [facility] RN Member Role: Primary Care Nurse Name: Antonietta Alanis RN Position: [facility] RN Member Role: Primary Care Nurse Name: Ad Woods RN Position: [facility] RN Member Role: Primary Care Nurse Name: Moriah Echols RN Position: [facility] RN Member Role: Primary Care Nurse Name: Sharon Alberto RN Position: [facility] RN Member Role: Primary Care Nurse Name: Juan Jose Haywood MD Position: [facility] Outreach Member Role: PCP Address: Address: [address] [place] [address] Name: Ana Craig RN Position: [facility] RN Member Role: Primary Care Nurse Name: Esha Funez RN Position: [facility] RN Member Role: Primary Care Nurse Name: Katherine Isabel Position: [facility] RN Member Role: Primary Care Nurse
--- OUTSIDE RECORDS SUMMARY | 2022-07-23 09:32 | XMS_ITS ---
:1940 Author Care Team Providers Name Role Phone CHEN CHRISTIANSON 1ST FLOOR OTHER [phone] Allergies Code Code System Name Reaction Severity [...] Pneumonia; Acute Urinary Tract Infection Wilda Pringle [employer]: [address] , [place] [id number], Ph. 08/18/2021 Pneumonia; Closed Subcapital Fracture of Left Femur; Subdural Hematoma; Falls; Chronic Obstructive Lung Disease; Depressive Disorder; Anxiety; Retention of Urine; Essential Hypertension; Gastroesophagea l Reflux Disease without Esophagitis; Hy perlipidemia; Insomnia; Chronic Low Back Pain; Non-cardiac Chest Pain; Neuropathy; Vitamin Deficiency Wilda Pringle, [employer]: [address] , [place] [address], Ph. 08/12/2021 Chronic Low Back Pain; Retention of Urin e; Acute Urinary Tract Infection Wilda Pringle, [employer]: [address] , [place] [address], Ph. 08/08/2021 Chronic Low Back Pain; Anxiety; Neuropat hy Wilda Pringle, [employer]: [address] [facility] , [place] [address], Ph. 08/05/2021 Closed Subcapital Fracture of Left Femur ; Subdural Hematoma Wilda Pringle [employer]: [address] , [place] [address], Ph. 08/01/2021 Closed Subcapital Fracture of Left Femur ; Peripheral Vascular Disease; Subdural Hematoma Wilda Pringle, [employer]: [address] , [place] [address], Ph. 07/28/2021 Chronic Low Back Pain; Closed Subcapital Fracture of Left Femur; Subdural Hematoma Wilda Heath Pino, [employer]: [address] [facility] , [place] [address], Ph. 07/25/2021 Closed Subcapital Fracture of Left Femur ; Subdural Hematoma Wilda Pringle, [employer]: [address] [facility] , [place] [address], Ph. 07/22/2021 Closed Subcapital Fracture of Left Femur ; Subdural Hematoma; Falls; Chronic Obstructive Lung Disease; Depressive Disorder; Anxiety; Retention of Urine; Essential Hypertension; Gastroesophageal Reflux Di sease without Esophagitis; Hyperlipidemi a; Insomnia; Chronic Low Back Pain; Non- cardiac Chest Pain; Neuropathy; Vitamin Deficiency Leydi Gambino MD: [address] [facility], [place] [address], Ph. 07/21/2021 Closed Subcapital Fracture of Left Femur ; Subdural Hematoma; Falls Wilda Pringle [employer]: [address] , [place] [address], Ph. 07/18/2021 Subdural Hematoma; Chronic Obstructive L marques Disease; Anxiety; Closed Subcapital Fracture of Left Femur Wilda Pirngle [employer]: [address] , [place] [address], Ph. 07/17/2021 Closed Subcapital Fracture of Left Femur ; Retention of Urine; Essential Hypertension; Gastroesophageal Reflux Disease without Esophagitis; Depressive Disorder; Hyperlipidemia; Anxiety; Insomnia; Chronic Obstructive Lung Disease; Falls Gemini Hughes: [address], [place] [address], Ph. Social History Tobacco Smoking Status Former Smoker Notes: quit 201 9 Vaccine List Vaccine Type COVID-19, mRNA, LNP-S, PF, 30 mcg/0.3 mL dose ([employer]) 11/30/2020 12/21/2020 07/17/2021 Plan of Care Reminders [...]
[2022-07-23 11:29] LABS: MANUAL DIFF FLAG NO
[2022-07-23 11:48] LABS: Basophils Percent Auto 0.6 % (0-2); Eosinophils Absolute Auto 0.1 X10*3/uL (0.0-0.4); Eosinophils Percent Auto 1.4 % (0-4); Hematocrit 38.6 % (37.0-47.0); Hemoglobin 12.2 g/dl (12.0-16.0); Imm Gran Abs Auto 0.02 X10*3/uL (0.00-0.03); Imm Gran Pct Auto 0.4 % (0.0-0.4); Lymphocytes Absolute Auto 1.4 X10*3/uL (1.2-4.9); Lymphocytes Percent Auto 26.8 % (20-40); Mean Corpuscular HGB Conc 31.6 g/dl (31.0-35.0); Mean Corpuscular Hemoglobin 29.7 pg (27.0-33.0); Mean Corpuscular Volume 93.9 fL (80.0-98.0); Monocytes Absolute Auto 0.4 X10*3/uL (0.1-1.2); Monocytes Percent Auto 8.5 % (2-11); Neutrophils Absolute Auto 3.1 x10*3/uL (2.0-8.3); Neutrophils Percent Auto 62.3 % (45-73); Platelet Count 335 X10*3/uL (160-400); Red Blood Count 4.11 X10*6/uL (4.20-5.50); Red Cell Distribution Width 13.2 % (11.0-16.0)
[2022-07-23 11:49] LABS: Alanine Aminotransferase 10 U/L (0-31); Albumin Level 4.3 g/dL (3.5-5.0); Alkaline Phosphatase 111 U/L (39-117); Anion Gap 15 (12-20); Aspartate Amino Transferase 17 U/L (5-31); Bilirubin Direct 0.2 mg/dL (0.0-0.5); Bilirubin Total 0.5 mg/dL (0.0-1.0); Blood Urea Nitrogen 18 mg/dL (9-16); Calcium 10.1 mg/dL (8.4-10.2); Carbon Dioxide 29 mmol/L (22-29); Chloride 100 mmol/L (96-108); Creatinine Clr Calc Pharmacy 59.7; Estimated Glomerular Filt Rate > 60; Glucose Random 119 mg/dL (60-115); Magnesium 2.1 mg/dL (1.6-2.6); Potassium 4.1 mmol/L (3.3-5.1); Sodium 140 mmol/L (135-145); Total Protein 7.6 g/dL (6.5-8.0)
[2022-07-23 11:56] LABS: B Type Natriuretic Peptide 24 pg/mL (<100)
[2022-07-23 12:12] LABS: Appearance Urine Clear; Color Urine Yellow; Glucose Urine UA Negative (Negative); Leukocyte Esterase Urine Small (1+) (Negative); Nitrite Urine Negative (Negative); PH 6.5 (5.0-9.0); UMIC TRIGGER UACC YES; Urine Blood Negative (Negative); Urine Ketones Negative (Negative); Urine Protein Negative (Neg-Trace)
[2022-07-23 12:13] LABS: Influenza A PCR NEGATIVE (Negative); Influenza B PCR NEGATIVE (Negative); Resp Syncy Virus RNA Qual PCR NEGATIVE (Negative); SARS COV2 PCR INHOUSE NEGATIVE (Negative)
[2022-07-23 12:16] LABS: Bacteria Urine None Seen (None Seen); Hyaline Casts Urine 0-2 /LPF (0-2); RBC Urine 0-2 /HPF (0-2); Squamous Epithelial Cell Urine 0-2 /HPF (0-2); UACC Culture Trigger YES; WBC Urine 21-50 /HPF (0-5)
[2022-07-23 14:13] LABS: Lactic Acid 0.9 mmol/L (0.5-2.0)
--- NOTE | 2022-07-23 14:41 | PC.NURSE ---
Antibiotic will not scan, pharmacy aware
[2022-07-23 15:03] VITALS: BP 113/91; PULSE 94; RESP 18; O2SAT 96
--- NOTE | 2022-07-23 15:35 | PM.EVENT ---
Event Note Date of Service: 07/23/22 Event Note: Attending Attestation: I have personally seen and examined the patient independently (on the date of service as documented by YASIR), reviewed the YASIR history, exam and?MDM and agree with the assessment and plan as?written. 81 yo F who presents to the ED with complaints of back pain (she reported bladder fullness and weakness as CC to the ED providers). She was diagnosed with UTI about 1 week ago and treated with bactrim. Urine Cx from the visit showed ESBL klebisella sensitive to gentamicin and ertapenam. Will require IV carbepenam for treatment and eventual PICC line for treatment. Given ertapenam in the ED. UA showing pyuria + lekocyte esterase. IV merram + ID consult + urology consult. Remainder per H&P
--- NOTE | 2022-07-23 15:52 | P.HPHOSP_ITS ---
History of Present Illness Date of Service: 07/23/22 Attending physician on admission: Benitez Law Chief Complaint: Drug resistant UTI Pt is a 81-year-old female with PMH significant for history of urinary retention, chronic UTI's, dementia, normal pressure hydrocephalus, HLD, HTN, and history of hip fracture who presents to the ED today due to generalized weakness and bladder fullness. Due to pt's dementia a full HPI difficult to get. She is alert to person only and lives with her son. Pt reports urinary frequency and only partially emptying her bladder. She has a long standing history of urinary retention with Torres Catheter. Pt denies F/C, N/V, dysuria or flank pain. Of note, pt has been seeing Dr. Medina for chronic UTIs and recently started on Bactrim for a UTI, but cultures have now come back ESBL Klebsella. The ED consulted Dr. Medina who suggested admission with IV abx treatment. CBC unremarkable. Review of Systems Review of Systems: Negative exept for that stated in the HPI. [facility] Medical History COPD (chronic obstructive pulmonary disease) Hyperlipidemia Hypertension Hypoxemia Peripheral vascular disease Pneumonia Respiratory failure Family History Mother Breast cancer Surgical History History of hip surgery Social History Household Members: None Housing: House Do you presently have visiting nurse or other home services: No Alcohol intake: never Patient Tobacco Use Status: Former Tobacco user Cigarette Packs Per Day: 3 Cigarettes Per Day: 60.0 Years Smoked: 50 e-Cigarette/Vaping Use: Never Used Second Hand Smoke Exposure: Yes Advance Directives: Yes Advance Directives on File: Yes Advance Directives Date on File: 02/25/22 service: No Current occupational status: retired and disabled Current occupational exposures/hazards: No Cognitive needs: No Hearing needs: No Vision needs: No Meds Allergies Allergy/AdvReac Type Severity Reaction Status Date / Time No Known Allergies Allergy Verified 07/10/22 13:35 Active Medications: Current Medications Pharmacy Consult (Consult Rx Perform Med Rec) 1 each MISCELLANE ONCE PRN PRN Reason: Consult order Home Medications Medication Instructions Recorded Confirmed Last Taken Type albuterol sulfate 90 mcg/actuation 2 puff inhalation Q6H PRN Dyspnea 06/16/20 06/11/22 06/16/20 09:00 History aerosol inhaler (ProAir HFA) acetaminophen 650 mg 1,300 mg PO BID 03/18/22 04/07/22 03/18/22 History tablet,extended release cyanocobalamin (vitamin B-12) 1,000 mcg PO DAILY 03/18/22 04/07/22 03/17/22 History 1,000 mcg tablet calcium carbonate 200 mg calcium 500 mg PO DAILY Dyspepsia 04/07/22 06/11/22 Unk nown History (500 mg) chewable tablet amlodipine 5 mg tablet 1 tab PO DAILY 06/11/22 07/23/22 Unknown History meloxicam 7.5 mg tablet 2 tab PO DAILY 07/23/22 07/23/22 Unknown History metoprolol tartrate 25 mg tablet 25 mg PO BID 07/23/22 07/23/22 Unknown History sennosides 8.6 mg-docusate sodium 1 tab PO DAILY diarrhea 07/23/22 07/23/22 Unknown History 50 mg tablet (Senexon-S) sertraline 100 mg tablet 100 mg PO DAILY 07/23/22 07/23/22 Unknown History sulfamethoxazole 800 1 tab PO BID 07/23/22 07/23/22 Unknown History mg-trimethoprim 160 mg tablet Physical Exam Vital Signs and Narrative: Vital Signs: Last Vital Signs Temp 97.7 F 07/23/22 08:02 Pulse 94 07/23/22 15:03 Resp 18 07/23/22 15:03 BP 113/91 H 07/23/22 15:03 Pulse Ox 96 07/23/22 15:03 O2 Del Method 07/23/22 15:03 O2 Flow Rate 2 07/23/22 15:03 Oxygen Flow Rate 2 07/23/22 08:02 BMI result Body Mass Index 20.0 Const: General: cooperative, healthy appearing and no acute distress Orientation/consciousness: oriented to person, No oriented to place and No oriented to time HEENT: Head: Yes normal to inspection, Yes normocephalic and Yes atraumatic Eyes: Pupils: Equal, round and reactive pupils present EOM: EOMs intact bilaterally Neck: Yes normal visual inspection Resp: Effort & Inspection: normal respiratory effort Auscultation: clear to auscultation bilaterally Cardio: Rate: regular rate Rhythm: regular rhythm GI: Inspection: Yes normal to inspection, No Abdominal wall edema and No distended Palpation (GI): Soft to palpation, not firm and nontender : General: Yes bladder normal to palpation and No CVA tenderness Bimanual exam- vagina & uterus: bladder normal to palpation Back/Spine/Pelvis: Back: No CVA tenderness Neuro: General: oriented to person, No oriented to place and No oriented to time Cranial nerves: Yes Equal, round and reactive pupils present Extrem: General: Yes no pedal edema Right lower extremity: no edema Left lower extremity: no edema Results Labs CBC and Chem 7: 07/23/22 11:21 07/23/22 11:21 Labs: Laboratory Results - last 24 hr 07/23/22 07/23/22 07/23/22 11:21 11:21 11:21 MCV 93.9 MCH 29.7 MCHC 31.6 RDW 13.2 Plt Count 335 MPV 10.0 Immature Gran % (Auto) 0.4 Neut % (Auto) 62.3 Lymph % (Auto) 26.8 [place] % (Auto) 8.5 Eos % (Auto) 1.4 Baso % (Auto) 0.6 Lymph # (Auto) 1.4 [place] # (Auto) 0.4 Eos # (Auto) 0.1 Baso # (Auto) 0.0 Abs Immat Gran (auto) 0.02 Absolute Neuts (auto) 3.1 Absolute Nucleated RBC 0.000 Nucleated RBC % (auto) 0.0 Anion Gap 15 Estim Creat Clear Calc 59.7 Estimated GFR > 60 Random Glucose 119 H Lactic Acid Calcium 10.1 Magnesium 2.1 Total Bilirubin 0.5 Direct Bilirubin 0.2 AST 17 ALT 10 Alkaline Phosphatase 111 Troponin I High Sens B-Natriuretic Peptide 24 Total Protein 7.6 Albumin 4.3 Urine Color Urine Appearance Urine pH Ur Specific [place] Urine Protein Urine Glucose (UA) Urine Ketones Urine Blood Urine Nitrite Ur Leukocyte Esterase Urine RBC Urine WBC Ur Squamous Epith Cells Urine Bacteria Hyaline Casts Influenza Type A (PCR) Influenza Type B (PCR) RSV RNA Qual (PCR) SARS-CoV-2 RNA (RT-PCR) 11/17/22 11/17/22 11/17/22 11:21 11:21 12:00 MCV MCH MCHC RDW Plt Count MPV Immature Gran % (Auto) Neut % (Auto) Lymph % (Auto) [place] % (Auto) Eos % (Auto) Baso % (Auto) Lymph # (Auto) [place] # (Auto) Eos # (Auto) Baso # (Auto) Abs Immat Gran (auto) Absolute Neuts (auto) Absolute Nucleated RBC Nucleated RBC % (auto) Anion Gap Estim Creat Clear Calc Estimated GFR Random Glucose Lactic Acid Calcium Magnesium Total Bilirubin Direct Bilirubin AST ALT Alkaline Phosphatase Troponin I High Sens 5.0 B-Natriuretic Peptide Total Protein Albumin Urine Color Yellow Urine Appearance Clear Urine pH 6.5 Ur Specific [place] 1.010 Urine Protein Negative Urine Glucose (UA) Negative Urine Ketones Negative Urine Blood Negative Urine Nitrite Negative Ur Leukocyte Esterase Small (1+) H Urine RBC 0-2 Urine WBC 21-50 H Ur Squamous Epith Cells 0-2 Urine Bacteria None Seen Hyaline Casts 0-2 Influenza Type A (PCR) NEGATIVE Influenza Type B (PCR) NEGATIVE RSV RNA Qual (PCR) NEGATIVE SARS-CoV-2 RNA (RT-PCR) NEGATIVE 07/23/22 13:53 MCV MCH MCHC RDW Plt Count MPV Immature Gran % (Auto) Neut % (Auto) Lymph % (Auto) [place] % (Auto) Eos % (Auto) Baso % (Auto) Lymph # (Auto) [place] # (Auto) Eos # (Auto) Baso # (Auto) Abs Immat Gran (auto) Absolute Neuts (auto) Absolute Nucleated RBC Nucleated RBC % (auto) Anion Gap Estim Creat Clear Calc Estimated GFR Random Glucose Lactic Acid 0.9 Calcium Magnesium Total Bilirubin Direct Bilirubin AST ALT Alkaline Phosphatase Troponin I High Sens B-Natriuretic Peptide Total Protein Albumin Urine Color Urine Appearance Urine pH Ur Specific [place] Urine Protein Urine Glucose (UA) Urine Ketones Urine Blood Urine Nitrite Ur Leukocyte Esterase Urine RBC Urine WBC Ur Squamous Epith Cells Urine Bacteria Hyaline Casts Influenza Type A (PCR) Influenza Type B (PCR) RSV RNA Qual (PCR) SARS-CoV-2 RNA (RT-PCR) Imaging Radiologist's Impressions: Impressions Chest X-Ray 07/23/22 09:15 IMPRESSION: No acute cardiopulmonary process. Assessment and Plan (1) Urinary tract infection due to ESBL Klebsiella: Status: Acute (2) Acute urinary retention: Status: Acute (3) Chronic UTI (urinary tract infection): Status: Acute Plan Pt is a 81-year-old female with PMH significant for history of urinary retention, chronic UTI's, dementia, normal pressure hydrocephalus, HLD, HTN, and history of hip fracture who presents to the ED today due to generalized weakness and bladder fullness.?Pt was treated earlier in the week for a UTI and cultures have now come back indicating infection due to ESBL Klebsiella. Pt will be admitted for IV abx. Pt does not meet sepsis criteria. 1) UTI due to ESBL Klebsiella IV abx Consult ID 2) Chronic urinary retention Bladder scan or straight catheter as needed 3) Dementia Appears to be at baseline 4) Normal Pressure Hydrocephalus Pt not complaining of poor balance or diffifulty walking Monitor for poor balance, ataxia, headaches, lightheadedness 5) HLD Continue home meds 6) HTN Continue home meds Full Code DVT pptx, Lovenox Attending: Dr. Law Due to pt's need to be treated with IV abx, the pt's hospital stay is likely to be at least two nights. Quality Stroke Does the patient have a stroke diagnosis?: No VTE Prior VTE?: No VTE Risk Level:: Medical - moderate - high VTE Device Contraindication: Treatment Not Indicated VTE Drug Contraindication: N/A - Med Ordered
[2022-07-23] MEDS: Ertapenem Sodium 1 GM in 0.9 % Sodium Chloride 50 ML IV (16:08)
--- OUTSIDE RECORDS SUMMARY | 2022-07-23 16:12 | XMS_ITS ---
:1940 Author Care Team Providers Name Role Phone CHEN CHRISTIANSON 1ST FLOOR OTHER [phone] Allergies Code Code System Name Reaction Severity [...] Pneumonia; Acute Urinary Tract Infection Wilda Pringle ELECTRICAL CAD TECHNICIAN: [address] [facility] , [place] [address], Ph. 08/18/2021 Pneumonia; Closed Subcapital Fracture of Left Femur; Subdural Hematoma; Falls; Chronic Obstructive Lung Disease; Depressive Disorder; Anxiety; Retention of Urine; Essential Hypertension; Gastroesophagea l Reflux Disease without Esophagitis; Hy perlipidemia; Insomnia; Chronic Low Back Pain; Non-cardiac Chest Pain; Neuropathy; Vitamin Deficiency Wilda Pringle, ELECTRICAL CAD TECHNICIAN: [address] , [place] [address], Ph. 08/12/2021 Chronic Low Back Pain; Retention of Urin e; Acute Urinary Tract Infection Wilda Pringle, ELECTRICAL CAD TECHNICIAN: [address] , [place] [address], Ph. 08/08/2021 Chronic Low Back Pain; Anxiety; Neuropat hy Wilda Pringle, ELECTRICAL CAD TECHNICIAN: [address] [facility] , [place] [address], Ph. 08/05/2021 Closed Subcapital Fracture of Left Femur ; Subdural Hematoma Wilda Pringle ELECTRICAL CAD TECHNICIAN: [address] [facility] , [place] [address], Ph. 08/01/2021 Closed Subcapital Fracture of Left Femur ; Peripheral Vascular Disease; Subdural Hematoma Wilda Pringle, ELECTRICAL CAD TECHNICIAN: [address] , [place] [address], Ph. 07/28/2021 Chronic Low Back Pain; Closed Subcapital Fracture of Left Femur; Subdural Hematoma Wilda Heath Pino, ELECTRICAL CAD TECHNICIAN: [address] [facility] , [place] [address], Ph. 07/25/2021 Closed Subcapital Fracture of Left Femur ; Subdural Hematoma Wilda Pringle, ELECTRICAL CAD TECHNICIAN: [address] [facility] , [place] [address], Ph. 07/22/2021 Closed Subcapital Fracture of Left Femur ; Subdural Hematoma; Falls; Chronic Obstructive Lung Disease; Depressive Disorder; Anxiety; Retention of Urine; Essential Hypertension; Gastroesophageal Reflux Di sease without Esophagitis; Hyperlipidemi a; Insomnia; Chronic Low Back Pain; Non- cardiac Chest Pain; Neuropathy; Vitamin Deficiency Leydi Gambino MD: [address] [facility], [place] [address], Ph. 07/21/2021 Closed Subcapital Fracture of Left Femur ; Subdural Hematoma; Falls Wilda Pringle ELECTRICAL CAD TECHNICIAN: [address] [facility] , [place] [address], Ph. 07/18/2021 Subdural Hematoma; Chronic Obstructive L marques Disease; Anxiety; Closed Subcapital Fracture of Left Femur Wilda Pringle ELECTRICAL CAD TECHNICIAN: [address] [facility] , [place] [address], Ph. 07/17/2021 Closed Subcapital Fracture of Left Femur ; Retention of Urine; Essential Hypertension; Gastroesophageal Reflux Disease without Esophagitis; Depressive Disorder; Hyperlipidemia; Anxiety; Insomnia; Chronic Obstructive Lung Disease; Falls Gemini Hughes: [address] [facility], [place] [address], Ph. Social History Tobacco Smoking Status Former Smoker Notes: quit 201 9 Vaccine List Vaccine Type COVID-19, mRNA, LNP-S, PF, 30 mcg/0.3 mL dose ([place]) 11/30/2020 12/21/2020 07/17/2021 Plan of Care Reminders [...]
[2022-07-23] MEDS: Enoxaparin Sodium 40 MG/0.4 ML SYRINGE SUBCUT (16:19)
[2022-07-23] MEDS: levoFLOXacin/D5W 500 MG/100 ML PIGGYBACK 100 MG IV (16:19)
[2022-07-23 17:17] VITALS: BP 140/64; PULSE 95; RESP 19; TEMP 36.4; O2SAT 98
--- NOTE | 2022-07-23 17:42 | PHA.MEDREC ---
Pharmacy Consult ? Medication Reconciliation Pharmacy has completed the medication reconciliation. spoke to pt's son Murray over the phone who confirmed medications and doses.
[2022-07-23 19:07] VITALS: BP 140/64; PULSE 97; RESP 17; TEMP 36.4; O2SAT 93
[2022-07-23] MEDS: Metoprolol Tartrate 25 MG TABLET 12.5 MG PO (19:41)
[2022-07-23] MEDS: Acetaminophen 325 MG TABLET 650 MG PO (19:41)
[2022-07-23] MEDS: 0.9 % Sodium Chloride Flush 3 ML SYRINGE IVFLUSH (19:42)
--- NOTE | 2022-07-23 20:11 | P.CNUR_ITS ---
History of Present Illness Consult details Consult date: 07/23/22 Narrative: 81 yo female with history of urinary retention, chronic UTI's, dementia, normal pressure hydrocephalus, COPD on 2L at home, HLD, GERD, osteoporosis, depression and anxiety, HTN, history of hip fracture, She had recent discharge from [facility] 06/2022 and presents to the ED today c/o generalized weakness, and bladder fullness. She reports urinary frequency ,with partial emptying of bladder. She has a long standing history of urinary retention with Torres Catheter. She was scheduled to fu with urology 07/24/22. She denies any fever, nausea, vomiting. Review of Systems Review of Systems: 10 point ROS negative other than stated in HPI [facility] Past Medical History Medical History COPD (chronic obstructive pulmonary disease) Hyperlipidemia Hypertension Hypoxemia Peripheral vascular disease Pneumonia Respiratory failure Family History Family History Mother Breast cancer Surgical History Surgical History History of hip surgery Social History Social History Household Members: Family Housing: House Do you presently have visiting nurse or other home services: No Alcohol intake: never Patient Tobacco Use Status: Former Tobacco user Cigarette Packs Per Day: 3 Cigarettes Per Day: 60.0 Years Smoked: 50 e-Cigarette/Vaping Use: Never Used Second Hand Smoke Exposure: Yes Use of substances other than those prescribed or required for medical reasons: No Currently Displaying Signs/Symptoms of Drug Intoxication Withdrawal: No Have you been hit, kicked, punched, or otherwise hurt by someone within the past year? If so, by whom?: No Do you feel safe in your current relationship?: No Current Relationship Is there a partner from a previous relationship who is making you feel unsafe now?: No Are you made to feel afraid or neglected: No Advance Directives: Yes Advance Directives on File: Yes Advance Directives Date on File: 02/25/22 Do you have thoughts of harming others: None Do you have a plan to hurt others: No Plan Recently lost weight without trying: No Nutrition Risks: No Nutritional Risk Patient : No : No Poor oral hygiene: No service: No Current occupational status: retired and disabled Current occupational exposures/hazards: No Cognitive needs: No Hearing needs: No Vision needs: No Meds Allergies Allergy/AdvReac Type Severity Reaction Status Date / Time No Known Allergies Allergy Verified 07/10/22 13:35 Active Medications: Current Medications Acetaminophen (Acetaminophen 325 Mg Tablet) 650 mg PO Q6H PRN PRN Reason: Pain, Mild (Pain Scale 1-3) Last Admin: 07/23/22 19:41 Dose: 650 mg Albuterol Sulfate (Albuterol Sulfate (0.083%) 2.5 Mg/3 Ml Vial.Neb) 2.5 mg INHALE Q4H PRN PRN Reason: shortness of breath or wheezing Amlodipine Besylate (Amlodipine Besylate 5 Mg Tablet) 5 mg PO DAILY [facility]; Protocol Docusate Sodium (Docusate Sodium 100 Mg Capsule) 100 mg PO DAILY PRN PRN Reason: Constipation Enoxaparin Sodium (Enoxaparin Sodium 40 Mg/0.4 Ml Syringe) 40 mg SUBCUT Q24H [facility] Last Admin: 07/23/22 16:19 Dose: 40 mg Famotidine (Famotidine 20 Mg Tablet) 20 mg PO DAILY [facility] Fluticasone/Vilanterol (Fluticasone/Vilanterol 200/25 Blst.W.Dev) 1 puff INHALE RDAILY [facility] Meropenem 1 gm/ Sodium (Chloride) 100 mls @ 200 mls/hr IV Q8H [facility] Metoprolol Tartrate (Metoprolol Tartrate 25 Mg Tablet) 12.5 mg PO BID [facility]; Protocol Last Admin: 07/23/22 19:41 Dose: 12.5 mg Pharmacy Consult (Consult Rx Perform Med Rec) 1 each MISCELLANE ONCE PRN PRN Reason: Consult order Sertraline HCl (Sertraline Hcl 50 Mg Tablet) 50 mg PO DAILY [facility] Sodium Chloride (0.9 % Sodium Chloride Flush 3 Ml Syringe) 3 ml IVFLUSH QSHIFT [facility] Last Admin: 07/23/22 19:42 Dose: 3 ml Home Medications Medication Instructions Recorded Confirmed Last Taken Type albuterol sulfate 90 mcg/actuation 2 puff inhalation Q6H PRN Dyspnea 06/16/20 07/23/22 06/16/20 09:00 History aerosol inhaler (ProAir HFA) acetaminophen 650 mg 1,300 mg PO BID 03/18/22 07/23/22 03/18/22 History tablet,extended release cyanocobalamin (vitamin B-12) 1,000 mcg PO DAILY 03/18/22 07/23/22 07/23/22 History 1,000 mcg tablet calcium carbonate 200 mg calcium 500 mg PO DAILY Dyspepsia 04/07/22 07/23/22 07/23/22 History (500 mg) chewable tablet amlodipine 5 mg tablet 1 tab PO DAILY 06/11/22 07/23/22 07/23/22 History cholecalciferol (vitamin D3) 25 25 mcg PO DAILY 07/23/22 07/23/22 07/23/22 History mcg (1,000 unit) tablet metoprolol tartrate 25 mg tablet 12.5 mg PO BID 07/23/22 07/23/22 07/23/22 History multivitamin 1 tab PO DAILY 07/23/22 07/23/22 07/23/22 History sennosides 8.6 mg-docusate sodium 1 tab PO DAILY PRN Constipation 07/23/22 07/23/22 Unknown History 50 mg tablet (Senexon-S) sertraline 100 mg tablet 50 mg PO DAILY 07/23/22 07/23/22 07/23/22 History sulfamethoxazole 800 1 tab PO BID 07/23/22 07/23/22 Unknown History mg-trimethoprim 160 mg tablet Physical Exam Vital Signs: Vital Signs: Last Vital Signs Temp 97.6 F 07/23/22 19:07 Pulse 97 07/23/22 19:07 Resp 17 07/23/22 19:07 BP 140/64 H 07/23/22 19:07 Pulse Ox 93 07/23/22 19:07 O2 Del Method 07/23/22 19:07 O2 Flow Rate 2 07/23/22 17:17 Oxygen Flow Rate 2 07/23/22 08:02 BMI result Body Mass Index 20.0 Const: General: cooperative and no acute distress Orientation/consciousness: patient oriented x3 HEENT: Head: Yes normal to inspection, Yes normocephalic and Yes atraumatic Eyes: Conjunctivae: conjunctivae normal Neck: Neck: Yes normal visual inspection and Yes trachea midline Chest: Chest palpation & inspection: normal inspection of the chest Resp: Effort & Inspection: normal respiratory effort Cardio: Rate: regular rate GI: Inspection: Yes normal to inspection Palpation (GI): Soft to palpation : General: No no CVA tenderness Back/Spine/Pelvis: Back: No no CVA tenderness Skin: General skin exam: no rashes or lesions noted Neuro: General: patient oriented x3 Psych: Appearance: grossly normal Results Labs Result diagrams: 07/23/22 11:07/23/22 11:21 Labs: Abnormal lab results 07/23/22 07/23/22 07/23/22 Range/Units 11:21 11:21 12:00 RBC 4.11 L (4.20-5.50) X10*6/uL BUN 18 H (9-16) mg/dL Random Glucose 119 H (60-115) mg/dL Ur Leukocyte Esterase Small (1+) H (Negative) Urine WBC 21-50 H (0-5) /HPF Short CBC 07/23/22 Range/Units 11:21 WBC 5.0 (4.8-10.8) X10*3/uL Hgb 12.2 (12.0-16.0) g/dl Hct 38.6 (37.0-47.0) % Plt Count 335 (160-400) X10*3/uL BMP 07/23/22 11:21 Sodium 140 Potassium 4.1 Chloride 100 Carbon Dioxide 29 BUN 18 H Creatinine 0.70 Calcium 10.1 Liver Function 07/23/22 Range/Units 11:21 Total Bilirubin 0.5 (0.0-1.0) mg/dL Direct Bilirubin 0.2 (0.0-0.5) mg/dL AST 17 (5-31) U/L ALT 10 (0-31) U/L Alkaline Phosphatase 111 (39-117) U/L Albumin 4.3 (3.5-5.0) g/dL Urine 07/23/22 Range/Units 12:00 Urine Color Yellow Urine Appearance Clear Urine pH 6.5 (5.0-9.0) Ur Specific [place] 1.010 (1.005-1.025) Urine Protein Negative (Neg-Trace) mg/dL Urine Glucose (UA) Negative (Negative) mg/dL Urine Culture Final 07/19/22-0836 Organism 1 Klebsiella pneumoniae Quant > 100,000 cfu/mL ESBL Note: NOTE: Extended-Spectrum Beta-Lactamase enzyme present Assessment and Plan (1) Generalized weakness: Status: Acute (2) UTI (urinary tract infection): Status: Acute (3) Urinary retention: Status: Acute Plan Urine Culture--07/19/22 Klebsiella [id number] Beta-Lactamase enzyme present -Resistent organism sensitive to gentamycin and Ertapenem Recommend Infectious Disease consult Currently patient is voiding adequately Procedures Date of Service Date of Service: 07/23/22
[2022-07-24] VITALS: BP 158/68; PULSE 76; RESP 17; TEMP 36.4; O2SAT 98
[2022-07-24 04:00] VITALS: BP 163/79; PULSE 86; RESP 17; TEMP 36.2; O2SAT 96
[2022-07-24] MEDS: Fluticasone/Vilanterol 200/25 BLST.W.DEV 1 PUFF INHALE (07:56)
[2022-07-24 07:57] VITALS: PULSE 82; RESP 10; O2SAT 93
[2022-07-24 08:00] VITALS: BP 143/68; PULSE 79; RESP 16; TEMP 36.1; O2SAT 92
[2022-07-24] MEDS: 0.9 % Sodium Chloride Flush 3 ML SYRINGE IVFLUSH (09:35)
[2022-07-24] MEDS: Metoprolol Tartrate 25 MG TABLET 12.5 MG PO (09:36)
[2022-07-24] MEDS: Famotidine 20 MG TABLET PO (09:36)
[2022-07-24] MEDS: Sertraline HCL 50 MG TABLET PO (09:36)
[2022-07-24] MEDS: amLODIPine Besylate 5 MG TABLET PO (09:36)
[2022-07-24] MEDS: Acetaminophen 325 MG TABLET 650 MG PO (09:43)
--- NOTE | 2022-07-24 11:46 | P.DS_ITS ---
DS: Providers Provider Date of Service: 07/24/22 Date of admission: 07/23/22 15:23 Primary care physician: Juan Jose Haywood MD Consults: 07/23/22 13:40 Consult to Infectious Diseases Routine Consulting Provider: Amy Godinez Reason for consultation: ESBL Klebsiella Has provider been notified: No 07/23/22 13:41 Consult to Urology Stat Consulting Provider: Marco Medina Reason for consultation: ESBL klebsiella UTI and urinary retention Has provider been notified: Yes 07/23/22 17:02 Consult to Infectious Diseases Routine Consulting Provider: Amy Godinez Reason for consultation: ESBL UTI DS: Diagnosis Discharge Diagnosis (1) Generalized weakness: Status: Acute (2) UTI (urinary tract infection): Status: Acute (3) Urinary retention: Status: Acute DS: Summary Hospital Course Hospital Course: from initial hpi: Chief Complaint: back pain, dysuria Pt is a 81-year-old female with PMH significant for history of urinary retention, chronic UTI's, dementia, normal pressure hydrocephalus, HLD, HTN, and history of hip fracture who presents to the ED today due to generalized weakness and bladder fullness. Due to pt's dementia a full HPI difficult to get. She is alert to person only and lives with her son. Pt reports urinary frequency and only partially emptying her bladder. She has a long standing history of urinary retention with Torres Catheter. Pt denies F/C, N/V, dysuria or flank pain. Of note, pt has been seeing Dr. Medina for chronic UTIs and recently started on Bactrim for a UTI, but cultures have now come back ESBL Klebsella. The ED consulted Dr. Medina who suggested admission with IV abx treatment. CBC unremarkable.? hospital course: Patient was admitted for urinary tract infection with concern for ESBL Klebsiella. She was treated with IV meropenem. Urine culture was negative. She was seen by infectious disease recommended 3 more days of p.o. levofloxacin as she had intermediate sensitivity on previous culture. For chronic urinary tension she had no issues urinating, she was seen by Urology recommended outpatient follow-up. Her dementia appear to be at baseline. Patient is currently under workup for normal-pressure hydrocephalus, CT head done in June 2022 at our facility did not show concern for NPH, patient will follow up outpatient. Patient will be discharged home. Time Spent with Patient Time attestation: Total time spent providing and/or coordinating discharge services: Discharge coordination time: Greater than 30 minutes Quality: Safe Use of Opioids Does Pt have an Active Cancer Diagnosis on the Problem List?: No Quality: Stroke Does the patient have a stroke diagnosis?: No Physical Exam Vital Signs: Vital Signs: Last Vital Signs Temp 96.9 F 07/24/22 08:00 Pulse 79 07/24/22 08:00 Resp 16 07/24/22 08:00 BP 143/68 H 07/24/22 08:00 Pulse Ox 92 07/24/22 08:00 O2 Del Method 07/24/22 08:00 O2 Flow Rate 2 07/24/22 00:00 Oxygen Flow Rate 2 07/23/22 08:02 BMI result Body Mass Index 20.0 General: AO X 3, no acute distress Resp: CTA bilateral, no accessory muscles used CVS: S1,S2,RRR GI: soft, non tender, non distended Neuro: motor grossly intact, alert Psych: appropriate affect, appropriate insight DS: Data Data Completed and Pending Labs on day of discharge: Laboratory Results - last 24 hr 07/23/22 07/23/22 07/23/22 11:21 11:21 11:21 WBC 5.0 RBC 4.11 L Hgb 12.2 Hct 38.6 MCV 93.9 MCH 29.7 MCHC 31.6 RDW 13.2 Plt Count 335 MPV 10.0 Immature Gran % (Auto) 0.4 Neut % (Auto) 62.3 Lymph % (Auto) 26.8 [place] % (Auto) 8.5 Eos % (Auto) 1.4 Baso % (Auto) 0.6 Lymph # (Auto) 1.4 [place] # (Auto) 0.4 Eos # (Auto) 0.1 Baso # (Auto) 0.0 Abs Immat Gran (auto) 0.02 Absolute Neuts (auto) 3.1 Absolute Nucleated RBC 0.000 Nucleated RBC % (auto) 0.0 Sodium 140 Potassium 4.1 Chloride 100 Carbon Dioxide 29 Anion Gap 15 BUN 18 H Creatinine 0.70 Estim Creat Clear Calc 59.7 Estimated GFR > 60 Random Glucose 119 H Lactic Acid Calcium 10.1 Magnesium 2.1 Total Bilirubin 0.5 Direct Bilirubin 0.2 AST 17 ALT 10 Alkaline Phosphatase 111 Troponin I High Sens B-Natriuretic Peptide 24 Total Protein 7.6 Albumin 4.3 Urine Color Urine Appearance Urine pH Ur Specific Arthur Urine Protein Urine Glucose (UA) Urine Ketones Urine Blood Urine Nitrite Ur Leukocyte Esterase Urine RBC Urine WBC Ur Squamous Epith Cells Urine Bacteria Hyaline Casts Influenza Type A (PCR) Influenza Type B (PCR) RSV RNA Qual (PCR) SARS-CoV-2 RNA (RT-PCR) 07/23/22 07/23/22 07/23/22 11:21 11:21 12:00 WBC RBC Hgb Hct MCV MCH MCHC RDW Plt Count MPV Immature Gran % (Auto) Neut % (Auto) Lymph % (Auto) [place] % (Auto) Eos % (Auto) Baso % (Auto) Lymph # (Auto) [place] # (Auto) Eos # (Auto) Baso # (Auto) Abs Immat Gran (auto) Absolute Neuts (auto) Absolute Nucleated RBC Nucleated RBC % (auto) Sodium Potassium Chloride Carbon Dioxide Anion Gap BUN Creatinine Estim Creat Clear Calc Estimated GFR Random Glucose Lactic Acid Calcium Magnesium Total Bilirubin Direct Bilirubin AST ALT Alkaline Phosphatase Troponin I High Sens 5.0 B-Natriuretic Peptide Total Protein Albumin Urine Color Yellow Urine Appearance Clear Urine pH 6.5 Ur Specific Arthur 1.010 Urine Protein Negative Urine Glucose (UA) Negative Urine Ketones Negative Urine Blood Negative Urine Nitrite Negative Ur Leukocyte Esterase Small (1+) H Urine RBC 0-2 Urine WBC 21-50 H Ur Squamous Epith Cells 0-2 Urine Bacteria None Seen Hyaline Casts 0-2 Influenza Type A (PCR) NEGATIVE Influenza Type B (PCR) NEGATIVE RSV RNA Qual (PCR) NEGATIVE SARS-CoV-2 RNA (RT-PCR) NEGATIVE 07/23/22 13:53 WBC RBC Hgb Hct MCV MCH MCHC RDW Plt Count MPV Immature Gran % (Auto) Neut % (Auto) Lymph % (Auto) [place] % (Auto) Eos % (Auto) Baso % (Auto) Lymph # (Auto) [place] # (Auto) Eos # (Auto) Baso # (Auto) Abs Immat Gran (auto) Absolute Neuts (auto) Absolute Nucleated RBC Nucleated RBC % (auto) Sodium Potassium Chloride Carbon Dioxide Anion Gap BUN Creatinine Estim Creat Clear Calc Estimated GFR Random Glucose Lactic Acid 0.9 Calcium Magnesium Total Bilirubin Direct Bilirubin AST ALT Alkaline Phosphatase Troponin I High Sens B-Natriuretic Peptide Total Protein Albumin Urine Color Urine Appearance Urine pH Ur Specific Arthur Urine Protein Urine Glucose (UA) Urine Ketones Urine Blood Urine Nitrite Ur Leukocyte Esterase Urine RBC Urine WBC Ur Squamous Epith Cells Urine Bacteria Hyaline Casts Influenza Type A (PCR) Influenza Type B (PCR) RSV RNA Qual (PCR) SARS-CoV-2 RNA (RT-PCR) Discharge Plan Discharge Anticipated Discharge Date/Time: 07/24/22 11:28 Patient Disposition: Home, Self-Care Discharge Diagnosis: back pain, dysuria, possibel uti Referrals: Juan Jose Haywood MD [Primary Care Provider] - 1 Week Discharge Medications: New levofloxacin 500 mg tablet 500 mg PO DAILY Qty: 3 0RF Continued (DME) miscellaneous medical supply Misc See Rx Instructions .ROUTE .MEDSUPPLY Qty: 1 0RF Rx Instructions: Transport chair 4 wheel manual, Daily As directed, 999 days/Lifetime. Disp#1 (DME) Wheel chair Kit See Rx Instructions .Route Qty: 1 0RF Rx Instructions: transport wheel chair famotidine 20 mg tablet 20 mg PO DAILY 30 Days Qty: 30 3RF fluticasone furoate-vilanterol [Breo Ellipta] 200-25 mcg/dose blister with device 1 inh INHALATION DAILY 30 Days Qty: 60 3RF albuterol sulfate 2.5 mg /3 mL (0.083 %) solution for nebulization 2.5 mg inhalation Q4-6H PRN (Reason: shortness of breath or wheezing) 30 Days Qty: 180 2RF albuterol sulfate [ProAir HFA] 90 mcg/actuation Hfa Aerosol Inhaler 2 puff INHALATION Q6H PRN (Reason: Dyspnea) calcium carbonate 200 mg calcium (500 mg) tablet,chewable 500 mg PO DAILY acetaminophen 650 mg Tablet Extended Release 1,300 mg PO BID cyanocobalamin (vitamin B-12) 1,000 mcg Tablet 1,000 mcg PO DAILY amlodipine 5 mg tablet 1 tab PO DAILY sennosides-docusate sodium [Senexon-S] 8.6-50 mg tablet 1 tab PO DAILY PRN (Reason: Constipation) sertraline 100 mg tablet 50 mg PO DAILY metoprolol tartrate 25 mg tablet 12.5 mg PO BID multivitamin Tablet 1 tab PO DAILY cholecalciferol (vitamin D3) 25 mcg (1,000 unit) Tablet 25 mcg PO DAILY (DME) miscellaneous medical supply Misc See Rx Instructions .ROUTE .MEDSUPPLY Qty: 1 0RF Rx Instructions: donut cushion/pillow. As directed. DX: M53.3, Duration 999 days Discontinued sulfamethoxazole-trimethoprim 800-160 mg tablet 1 tab PO BID Discharge Orders: Discharge Order (Routine); Ordered 07/24/22 Ordered By: Jose Elias Leija Diet: Advance to usual diet Activity on Discharge: As tolerated Stand Alone Forms: Patient Portal Discharge page Care Plan Goals: recovery Health Concerns: esbl in urine previously, back pain Plan of Treatment: emprici levaquin for 3 days, Assessment: see above
[2022-07-24 12:00] VITALS: BP 138/72; PULSE 79; RESP 17; TEMP 36.4; O2SAT 97
--- NOTE | 2022-07-24 12:05 | W.MHC.F2F ---
Service Date Service Date: 07/24/22 Encounter Date of encounter: 07/24/22 Reasons for Services Signs and symptoms assessed: weakness, back pain Reason for assisted: medication management, medication treatment and teach disease management Reason for physical therapy: home safety and mobility and therapeutic exercises Homebound: Leaving the home is medically contraindicated at this time without the asist of a device and/or another person due th the listed conditions above and below. Reason homebound: unsteady gait / fall risk Certification: Based on the above findings, I certify that this patient is confined to the home and needs intermittent assisted care, physical therapy and/or speech therapy, or continues to need occupational therapy. The patient is under my care, and I have initiated the establishment of the plan of care. The patient will be followed by a physician who will periodically review the plan of care.
--- NOTE | 2022-07-24 13:59 | MHC.CM.PN ---
IMM 07/24/22, EMR REVIEWED, PT ADMITTED W/DRUG RESISTANT uti, CM MET W/PT WHO REPORTS SHE USES A WALKER ONLY DME, AND HAS NO SERVICES HOWEVER CM CONTACTED TPT'S SON /HCP KENNY FOR TRANSPORT AND HER REPORTED PT IS ACTIVE W/[facility]. PT REPORTS SON ASSIST W/SHOPPING AND [employer], PCP ROQUE ODELL AND EVARISTO LEBLANC X2. PT DISCHARGING TODAY W/RESUMP OF [facility] FOR SN/HOME PT AND SON FOR TRANSPORT
--- NOTE | 2022-07-24 15:19 | P.CNID_ITS ---
History of Present Illness Data of Consult Service Date: 07/24/22 Requesting physician: Jose Elias Leija Primary Care Provider: Juan Jose Haywood MD HPI Reason for consult: ESBL UTI She presents with bladder fullness and pressure for a day She has dementia so isnt a good historian. She has Klebsiella documented on 07/17 and is ESBL but subsequent urine culture negative. She has no fever or leukocytosis. Review of Systems Review of Systems: Yes Unobtainable due to mental status PMFSH Past Medical History Medical History COPD (chronic obstructive pulmonary disease) Hyperlipidemia Hypertension Hypoxemia Peripheral vascular disease Pneumonia Respiratory failure Family History Family History Mother Breast cancer Family history: reviewed and not pertinent Surgical History Surgical History History of hip surgery Social History Social History Household Members: Family Housing: House Do you presently have visiting nurse or other home services: No Alcohol intake: never Patient Tobacco Use Status: Former Tobacco user Cigarette Packs Per Day: 3 Cigarettes Per Day: 60.0 Years Smoked: 50 e-Cigarette/Vaping Use: Never Used Second Hand Smoke Exposure: Yes Use of substances other than those prescribed or required for medical reasons: No Currently Displaying Signs/Symptoms of Drug Intoxication Withdrawal: No Have you been hit, kicked, punched, or otherwise hurt by someone within the past year? If so, by whom?: No Do you feel safe in your current relationship?: No Current Relationship Is there a partner from a previous relationship who is making you feel unsafe now?: No Are you made to feel afraid or neglected: No Advance Directives: Yes Advance Directives on File: Yes Advance Directives Date on File: 02/25/22 Do you have thoughts of harming others: None Do you have a plan to hurt others: No Plan Recently lost weight without trying: No Nutrition Risks: No Nutritional Risk Patient : No : No Poor oral hygiene: No service: No Current occupational status: retired and disabled Current occupational exposures/hazards: No Cognitive needs: No Hearing needs: No Vision needs: No Meds Allergies Allergy/AdvReac Type Severity Reaction Status Date / Time No Known Allergies Allergy Verified 07/10/22 13:35 Active Medications: Current Medications Acetaminophen (Acetaminophen 325 Mg Tablet) 650 mg PO Q6H PRN PRN Reason: Pain, Mild (Pain Scale 1-3) Last Admin: 07/24/22 09:43 Dose: 650 mg Albuterol Sulfate (Albuterol Sulfate (0.083%) 2.5 Mg/3 Ml Vial.Neb) 2.5 mg INHALE Q4H PRN PRN Reason: shortness of breath or wheezing Amlodipine Besylate (Amlodipine Besylate 5 Mg Tablet) 5 mg PO DAILY [facility]; Protocol Last Admin: 07/24/22 09:36 Dose: 5 mg Docusate Sodium (Docusate Sodium 100 Mg Capsule) 100 mg PO DAILY PRN PRN Reason: Constipation Enoxaparin Sodium (Enoxaparin Sodium 40 Mg/0.4 Ml Syringe) 40 mg SUBCUT Q24H [facility] Last Admin: 07/23/22 16:19 Dose: 40 mg Famotidine (Famotidine 20 Mg Tablet) 20 mg PO DAILY [facility] Last Admin: 07/24/22 09:36 Dose: 20 mg Fluticasone/Vilanterol (Fluticasone/Vilanterol 200/25 Blst.W.Dev) 1 puff INHALE RDAILY [facility] Last Admin: 07/24/22 07:56 Dose: 1 puff Meropenem 1 gm/ Sodium (Chloride) 100 mls @ 200 mls/hr IV Q8H [facility] Last Infusion: 07/24/22 10:10 Dose: Infused Metoprolol Tartrate (Metoprolol Tartrate 25 Mg Tablet) 12.5 mg PO BID [facility]; Protocol Last Admin: 07/24/22 09:36 Dose: 12.5 mg Pharmacy Consult (Consult Rx Perform Med Rec) 1 each MISCELLANE ONCE PRN PRN Reason: Consult order Sertraline HCl (Sertraline Hcl 50 Mg Tablet) 50 mg PO DAILY [facility] Last Admin: 07/24/22 09:36 Dose: 50 mg Sodium Chloride (0.9 % Sodium Chloride Flush 3 Ml Syringe) 3 ml IVFLUSH QSHIFT [facility] Last Admin: 07/24/22 09:35 Dose: 3 ml Home Medications Medication Instructions Recorded Confirmed Last Taken Type albuterol sulfate 90 mcg/actuation 2 puff inhalation Q6H PRN Dyspnea 06/16/20 07/23/22 06/16/20 09:00 History aerosol inhaler (ProAir HFA) acetaminophen 650 mg 1,300 mg PO BID 03/18/22 07/23/22 03/18/22 History tablet,extended release cyanocobalamin (vitamin B-12) 1,000 mcg PO DAILY 03/18/22 07/23/22 07/23/22 History 1,000 mcg tablet calcium carbonate 200 mg calcium 500 mg PO DAILY Dyspepsia 04/07/22 07/23/22 07/23/22 History (500 mg) chewable tablet amlodipine 5 mg tablet 1 tab PO DAILY 06/11/22 07/23/22 07/23/22 History cholecalciferol (vitamin D3) 25 25 mcg PO DAILY 07/23/22 07/23/22 07/23/22 History mcg (1,000 unit) tablet metoprolol tartrate 25 mg tablet 12.5 mg PO BID 07/23/22 07/23/22 07/23/22 History multivitamin 1 tab PO DAILY 07/23/22 07/23/22 07/23/22 History sennosides 8.6 mg-docusate sodium 1 tab PO DAILY PRN Constipation 07/23/22 07/23/22 Unknown History 50 mg tablet (Senexon-S) sertraline 100 mg tablet 50 mg PO DAILY 07/23/22 07/23/22 07/23/22 History Physical Exam Vital Signs: Vital Signs: Last Vital Signs Temp 97.6 F 07/24/22 12:00 Pulse 79 07/24/22 12:00 Resp 17 07/24/22 12:00 BP 138/72 07/24/22 12:00 Pulse Ox 97 07/24/22 12:00 O2 Del Method 07/24/22 12:00 O2 Flow Rate 2.0 07/24/22 12:00 Oxygen Flow Rate 2 07/23/22 08:02 BMI result Body Mass Index 20.0 Const: General: cooperative HEENT: Head: Yes normal to inspection Face and sinus: Yes normal facial exam Mouth: Normal oral and palatal mucosa present Teeth and gingiva: dentition normal Eyes: General: appearance normal, both eyes and all related structures Pupils: Equal, round and reactive pupils present Resp: Effort & Inspection: normal respiratory effort Cardio: Rate: regular rate Rhythm: regular rhythm GI: Palpation (GI): Soft to palpation and nontender : General: Yes no CVA tenderness Back/Spine/Pelvis: Back: no CVA tenderness Skin: General skin exam: no rashes or lesions noted Neuro: General: moves all extremities Cranial nerves: Yes Equal, round and reactive pupils present Extrem: General: Yes normal to inspection Psych: Other: confused Results Labs CBC & Chem 7: 07/23/22 11:21 07/23/22 11:21 Microbiology Microbiology Results: Microbiology 07/23/22 Unknown Urine clean catch - Urine butler top Urine Culture - Final No growth. Assessment and Plan (1) Urinary retention: Status: Acute (2) Generalized weakness: Status: Acute (3) Urinary tract infection due to ESBL Klebsiella: Status: Acute She has no signs of sepsis with no leukocytosis or fever. Most likely she was colonized and now urine culture is negative and doesnt seem to correlate with symptoms. Plan She can finish with three days Levaquin although urine culture is negative now. Follow Urology outpatient for urinary retention.
== END 2022-07-24 14:45 | disposition home health service (06) | DRG 690 ==
LOC: HO.ED 14:28 → HO.EDOVER 16:11 → HO.S3 16:20
PROVIDERS: Physician Assistant; Admitting Provider Student in an Organized Health Care Education/Training Program; Emergency Provider Emergency Medicine Emergency Medical Services; PCP Family Medicine; Visit Provider Internal Medicine
DX: N39.0 Urinary tract infection, site not specified (principal); G91.2 (Idiopathic) normal pressure hydrocephalus; J44.9 Chronic obstructive pulmonary disease, unspecified; E78.5 Hyperlipidemia, unspecified; R33.9 Retention of urine, unspecified; I10 Essential (primary) hypertension; F03.90 Unspecified dementia, unspecified severity, without behavioral disturbance, psychotic disturbance, mood disturbance, and anxiety; Z20.822 Contact with and (suspected) exposure to COVID-19; Z87.440 Personal history of urinary (tract) infections; Z87.891 Personal history of nicotine dependence; Z99.81 Dependence on supplemental oxygen; Z79.51 Long term (current) use of inhaled steroids; Z79.899 Other long term (current) drug therapy
CPT/HCPCS: 0241U; 36415; 71045; 80048; 80076; 81001; 83605; 83735; 83880; 84484; 85025; 87040; 87086; 93005; 94640; 99218; 99285; J1335; J1650; J1956; J2185

== ENCOUNTER → 2022-08-13 09:53 | Outpatient (BNVA) | payer MEDICARE, SELFPAY | PROVIDERS: PCP Family Medicine; Visit Provider Urology | DX: R33.9 Retention of urine, unspecified (principal); N20.0 Calculus of kidney; R35.1 Nocturia; Z87.440 Personal history of urinary (tract) infections | CPT/HCPCS: 51798; 99212 ==

== ENCOUNTER → 2022-09-11 15:33 | Outpatient (BNVA) | payer MEDICARE, SELFPAY | PROVIDERS: PCP Family Medicine; Visit Provider Urology | DX: R33.9 Retention of urine, unspecified (principal) | CPT/HCPCS: 51798 ==

== ENCOUNTER 2022-09-30 18:44 | Emergency (ER) | payer MEDICARE, SELFPAY ==
--- NOTE | ~2022-09-30 | XR_ITS ---
EXAMINATION: XR CHEST CLINICAL INFORMATION: Cough, COPD COMPARISON: X-ray 07/23/2022 TECHNIQUE: Frontal view of the chest was obtained. FINDINGS: The cardiomediastinal silhouette is within normal limits. The lungs are slightly low lung volumes.. There is no focal consolidation, edema, or effusion. No pneumothorax. No acute osseous abnormality. Vertebroplasty cement projected over the lower thoracic spine. XR/XR chest 1V IMPRESSION: No evidence of acute pulmonary process.
--- NOTE | 2022-09-30 19:02 | ECG_ITS ---
Test Reason : SOB Blood Pressure : / mmHG Vent. Rate : 094 BPM Atrial Rate : 094 BPM P-R Int : 146 ms QRS Dur : 078 ms QT Int : 372 ms P-R-T Axes : 048 -12 042 degrees QTc Int : 465 ms Normal sinus rhythm Normal ECG When compared with ECG of 23-JUL-2022 11:57, Criteria for Anterior infarct are no longer Present Nonspecific T wave abnormality no longer evident in Lateral leads Referred By: Joanne Cobian Electronically Signed By:PRERNA HOLLY
--- NOTE | 2022-09-30 19:03 | ED.SOB ---
HPI - SOB/Dyspnea General Chief Complaint: Dyspnea Stated Complaint: difficulty breathing Time Seen by Provider: 09/30/22 18:50 Source: patient and EMS Mode of arrival: EMS Limitations: other (hx dementia) History of Present Illness HPI Narrative: Patient comes to emergency room from home via EMS. EMS reports the patient was reporting shortness of breath. Patient has history of COPD and uses 2 L of oxygen at baseline. Patient has also baseline dementia. Patient reports that she was feeling very anxious today, she has been having family problems especially with her son. Unclear if it is true/dementia, patient reports that her son is not very happy that the patient came to the hospital, patient states that her son accused her of backing up symptoms to get attention, patient feeling very anxious and sad about it. Patient reports a new onset cough that started 2-3 hours prior to arrival. Patient denies any chest pain, no significant shortness of breath per patient. Related Data Home Medications Medication Instructions Recorded Confirmed albuterol sulfate 90 mcg/actuation 2 puff inhalation Q6H PRN Dyspnea 06/16/20 07/23/22 aerosol inhaler (ProAir HFA) acetaminophen 650 mg 1,300 mg PO BID 03/18/22 07/23/22 tablet,extended release cyanocobalamin (vitamin B-12) 1,000 mcg PO DAILY 03/18/22 07/23/22 1,000 mcg tablet calcium carbonate 200 mg calcium 500 mg PO DAILY Dyspepsia 04/07/22 07/23/22 (500 mg) chewable tablet amlodipine 5 mg tablet 1 tab PO DAILY 06/11/22 07/23/22 cholecalciferol (vitamin D3) 25 25 mcg PO DAILY 07/23/22 07/23/22 mcg (1,000 unit) tablet multivitamin 1 tab PO DAILY 07/23/22 07/23/22 sennosides 8.6 mg-docusate sodium 1 tab PO DAILY PRN Constipation 07/23/22 07/23/22 50 mg tablet (Senexon-S) Previous Rx's Medication Instructions Recorded miscellaneous medical supply #1 ea 07/16/20 miscellaneous medical supply #1 ea 05/13/21 chair, wheel (Wheel chair) #1 ea 06/17/21 fluticasone furoate 200 1 inh inhalation DAILY 30 days #60 06/21/22 mcg-vilanterol 25 mcg/dose ea inhalation powder (Breo Ellipta) albuterol sulfate 2.5 mg/3 mL 2.5 mg (3 mL) inhalation Q4-6H PRN 07/09/22 (0.083 %) solution for nebulization shortness of breath or wheezing 30 days #180 mL levofloxacin 500 mg tablet 500 mg PO DAILY #3 tabs 07/24/22 famotidine 20 mg tablet 20 mg PO DAILY 30 days #30 tabs 09/16/22 meloxicam 15 mg tablet 15 mg PO DAILY 30 days #30 tabs 09/21/22 clotrimazole 1 % vaginal cream 1 appful vaginal BEDTIME 30 days 09/29/22 #45 grams fluconazole 150 mg tablet 150 mg PO ONCE 1 day #1 tab 09/29/22 (Diflucan) furosemide 20 mg tablet 20 mg PO Q OTHER DAY PRN edema 30 09/29/22 days #15 tabs gabapentin 100 mg capsule See Rx Instructions PO BID 30 days 09/29/22 #90 caps metoprolol tartrate 25 mg tablet 12.5 mg PO BID 90 days #90 tabs 09/29/22 quetiapine 25 mg tablet (Seroquel) 25 mg PO BEDTIME 30 days #30 tabs 09/29/22 Allergies Allergy/AdvReac Type Severity Reaction Status Date / Time No Known Allergies Allergy Verified 09/29/22 15:45 Review of Systems Review of Systems: Constitutional : No Weight loss, No Fever, No Chills, No Night Sweats, No Fatigue, No Malaise ENT/Mouth : No Hearing loss, No Ear Pain, No Nasal Congestion, No Sinus Pain, No Hoarseness, No sore throat, No Rhinorrhea, No Swallowing Difficulty Eyes: No Eye Pain, No Swelling, No Redness, No Foreign Body, No Discharge, No Vision Changes Cardiovascular : No Chest Pain, No SOB, No Dyspnea on Exertion, No Orthopnea, No Edema, No Palpitations Respiratory : Complaining of new onset of productive cough, no wheezing, baseline shortness of breath Gastrointestinal : No Nausea, No Vomiting, No Diarrhea, No Constipation, No abdominal Pain, No Hematochezia, No Melena Genitourinary : no irregular bleeding, No Dysuria, No Urinary Frequency, No Hematuria, No Urinary Incontinence, No Urgency, No Flank Pain, No Urinary Flow Changes, No Hesitancy Musculoskeletal : No joint pain, No Myalgias, No Joint Swelling Skin : No Skin Lesions, No rash Neuro : No Weakness, No Numbness, No Paresthesias, No Loss of Consciousness, No Dizziness, No Headache Psych : Complaining of anxiety, no Depression, No SI/HI/AH/VH, No Social Issues, Heme/Lymph: No Bruising, No Bleeding,No Lymphadenopathy Endocrine : No Polyuria, No Polydipsia, No Temperature Intolerance [facility] Past Medical History Medical History COPD (chronic obstructive pulmonary disease) Hyperlipidemia Hypertension Hypoxemia Peripheral vascular disease Pneumonia Respiratory failure Surgical History History of hip surgery Family History Family History Mother Breast cancer Social History Social History Household Members: Family Housing: House Do you presently have visiting nurse or other home services: No Alcohol intake: never Patient Tobacco Use Status: Former Tobacco user Cigarette Packs Per Day: 3 Cigarettes Per Day: 60.0 Years Smoked: 50 e-Cigarette/Vaping Use: Never Used Second Hand Smoke Exposure: Yes Advance Directives: Yes Advance Directives Information Provided: Yes Advance Directives on File: Yes Advance Directives Date on File: 02/25/22 service: No Current occupational status: retired and disabled Current occupational exposures/hazards: No Cognitive needs: No Hearing needs: No Vision needs: No Physical Exam Vital Signs: Vital Signs: Last Vital Signs Temp 97.9 F 09/30/22 19:19 Pulse 100 09/30/22 19:19 Resp 18 09/30/22 19:19 BP 142/81 H 09/30/22 19:19 Pulse Ox 95 09/30/22 19:19 O2 Del Method 09/30/22 19:19 BMI result Body Mass Index 21.9 Const: Other: Appearance: Alert. Oriented X2. No acute distress. Eyes: Pupils equal, round and reactive to light. ENT: Pharynx normal. Neck: Normal inspection. Neck supple. No lymph nodes noted. No crepitus CVS: Normal heart rate and rhythm. Pulses normal. Normal S1 and S2 Respiratory: No respiratory distress. Breath sounds normal. No Wheezing. No rales , actively coughing, speaking in full sentences, on 2 L oxygen Abdomen: Soft and nontender. No rigidity. No distention. Skin: Skin warm and dry. Normal skin color. Normal skin turgor. Extremities: No lower extremity edema. No Lacerations. No Rash Neuro: Oriented X 2. No motor deficit. No sensory deficit. Moving all extremities. No slurred speech. CN 2 through 12 grossly intact Psych: calm, cooperative, normal affect Course Course Course Narrative: -per EMS, patient's oxygen saturation is at baseline, not requiring more O2. -patient occasionally coughing, no fever reported. -of patient's labs and imaging pending Medical Decision Making Medical Decision Making MDM Narrative: -patient's labs are at baseline. PCO2 67, bicarb 37, pH 7.35. This is chronic. Patient does not need BiPAP. Patient is mentally at baseline. Patient's son at bedside. -seems that patient has history of panic attacks and the son states that this is likely what happened earlier today. -patients and requesting to talk to Case Management about possibly increasing care, they already have services at home. Case Management has been consulted. Differential Diagnosis Differential Diagnoses: The differential diagnosis associated with the presentation includes (Asthma, COPD, anxiety, pneumonia) Lab Data MDM Lab Attestation statement: I reviewed the patient's lab results. 09/30/22 19:40 09/30/22 19:40 Labs: Lab Results 09/30/22 09/30/22 09/30/22 Range/Units 19:40 19:40 19:40 WBC 6.4 (4.8-10.8) X10*3/uL RBC 4.09 L (4.20-5.50) X10*6/uL Hgb 12.3 (12.0-16.0) g/dl Hct 38.9 (37.0-47.0) % MCV 95.1 (80.0-98.0) fL MCH 30.1 (27.0-33.0) pg MCHC 31.6 (31.0-35.0) g/dl RDW 13.4 (11.0-16.0) % Plt Count 328 (160-400) X10*3/uL MPV 9.6 (9.4-12.3) fL Immature Gran % (Auto) 0.5 H (0.0-0.4) % Neut % (Auto) 59.6 (45-73) % Lymph % (Auto) 29.0 (20-40) % [place] % (Auto) 7.3 (2-11) % Eos % (Auto) 3.1 (0-4) % Baso % (Auto) 0.5 (0-2) % Lymph # (Auto) 1.9 (1.2-4.9) X10*3/uL [place] # (Auto) 0.5 (0.1-1.2) X10*3/uL Eos # (Auto) 0.2 (0.0-0.4) X10*3/uL Baso # (Auto) 0.0 (0.0-0.2) X10*3/uL Abs Immat Gran (auto) 0.03 (0.00-0.03) X10*3/uL Absolute Neuts (auto) 3.8 (2.0-8.3) x10*3/uL Absolute Nucleated RBC 0.000 (0.0-0.012) X10*3/uL Nucleated RBC % (auto) 0.0 (0.0-0.2) /100WBC PT 10.4 (10.0-13.1) SEC INR 0.9 (0.9-1.1) VBG pH (7.32-7.43) VBG pCO2 mmHg VBG pO2 mmHg VBG HCO3 (22-26) mmol/L VBG O2 Saturation % VBG Base Excess mmol/L Sodium 141 (135-145) mmol/L Potassium 4.5 (3.3-5.1) mmol/L Chloride 100 (96-108) mmol/L Carbon Dioxide 30 H (22-29) mmol/L Anion Gap 16 (12-20) BUN 28 H (9-16) mg/dL Creatinine 0.72 (0.5-1.4) mg/dL Estim Creat Clear Calc 61.5 Estimated GFR > 60 Random Glucose 113 (60-115) mg/dL Lactic Acid (0.5-2.0) mmol/L Calcium 9.8 (8.4-10.2) mg/dL Total Bilirubin 0.4 (0.0-1.0) mg/dL Direct Bilirubin < 0.2 (0.0-0.5) mg/dL AST 15 (5-31) U/L ALT 10 (0-31) U/L Alkaline Phosphatase 99 (39-117) U/L Troponin I High Sens (<3.5-17.0) ng/L B-Natriuretic Peptide (<100) pg/mL Total Protein 7.7 (6.5-8.0) g/dL Albumin 4.4 (3.5-5.0) g/dL COVID-19 (JASON) (Negative) COVID-19 Clin Com 09/30/22 09/30/22 09/30/22 Range/Units 19:40 19:40 19:41 WBC (4.8-10.8) X10*3/uL RBC (4.20-5.50) X10*6/uL Hgb (12.0-16.0) g/dl Hct (37.0-47.0) % MCV (80.0-98.0) fL MCH (27.0-33.0) pg MCHC (31.0-35.0) g/dl RDW (11.0-16.0) % Plt Count (160-400) X10*3/uL MPV (9.4-12.3) fL Immature Gran % (Auto) (0.0-0.4) % Neut % (Auto) (45-73) % Lymph % (Auto) (20-40) % [place] % (Auto) (2-11) % Eos % (Auto) (0-4) % Baso % (Auto) (0-2) % Lymph # (Auto) (1.2-4.9) X10*3/uL [place] # (Auto) (0.1-1.2) X10*3/uL Eos # (Auto) (0.0-0.4) X10*3/uL Baso # (Auto) (0.0-0.2) X10*3/uL Abs Immat Gran (auto) (0.00-0.03) X10*3/uL Absolute Neuts (auto) (2.0-8.3) x10*3/uL Absolute Nucleated RBC (0.0-0.012) X10*3/uL Nucleated RBC % (auto) (0.0-0.2) /100WBC PT (10.0-13.1) SEC INR (0.9-1.1) VBG pH (7.32-7.43) VBG pCO2 mmHg VBG pO2 mmHg VBG HCO3 (22-26) mmol/L VBG O2 Saturation % VBG Base Excess mmol/L Sodium (135-145) mmol/L Potassium (3.3-5.1) mmol/L Chloride (96-108) mmol/L Carbon Dioxide (22-29) mmol/L Anion Gap (12-20) BUN (9-16) mg/dL Creatinine (0.5-1.4) mg/dL Estim Creat Clear Calc Estimated GFR Random Glucose (60-115) mg/dL Lactic Acid 1.4 (0.5-2.0) mmol/L Calcium (8.4-10.2) mg/dL Total Bilirubin (0.0-1.0) mg/dL Direct Bilirubin (0.0-0.5) mg/dL AST (5-31) U/L ALT (0-31) U/L Alkaline Phosphatase (39-117) U/L Troponin I High Sens < 3.5 (<3.5-17.0) ng/L B-Natriuretic Peptide 26 (<100) pg/mL Total Protein (6.5-8.0) g/dL Albumin (3.5-5.0) g/dL COVID-19 (JASON) (Negative) COVID-19 Clin Com 09/30/22 09/30/22 Range/Units 19:41 19:48 WBC (4.8-10.8) X10*3/uL RBC (4.20-5.50) X10*6/uL Hgb (12.0-16.0) g/dl Hct (37.0-47.0) % MCV (80.0-98.0) fL MCH (27.0-33.0) pg MCHC (31.0-35.0) g/dl RDW (11.0-16.0) % Plt Count (160-400) X10*3/uL MPV (9.4-12.3) fL Immature Gran % (Auto) (0.0-0.4) % Neut % (Auto) (45-73) % Lymph % (Auto) (20-40) % [place] % (Auto) (2-11) % Eos % (Auto) (0-4) % Baso % (Auto) (0-2) % Lymph # (Auto) (1.2-4.9) X10*3/uL [place] # (Auto) (0.1-1.2) X10*3/uL Eos # (Auto) (0.0-0.4) X10*3/uL Baso # (Auto) (0.0-0.2) X10*3/uL Abs Immat Gran (auto) (0.00-0.03) X10*3/uL Absolute Neuts (auto) (2.0-8.3) x10*3/uL Absolute Nucleated RBC (0.0-0.012) X10*3/uL Nucleated RBC % (auto) (0.0-0.2) /100WBC PT (10.0-13.1) SEC INR (0.9-1.1) VBG pH 7.35 (7.32-7.43) VBG pCO2 67 mmHg VBG pO2 47 mmHg VBG HCO3 37 H (22-26) mmol/L VBG O2 Saturation 68.0 % VBG Base Excess 9.6 mmol/L Sodium (135-145) mmol/L Potassium (3.3-5.1) mmol/L Chloride (96-108) mmol/L Carbon Dioxide (22-29) mmol/L Anion Gap (12-20) BUN (9-16) mg/dL Creatinine (0.5-1.4) mg/dL Estim Creat Clear Calc Estimated GFR Random Glucose (60-115) mg/dL Lactic Acid (0.5-2.0) mmol/L Calcium (8.4-10.2) mg/dL Total Bilirubin (0.0-1.0) mg/dL Direct Bilirubin (0.0-0.5) mg/dL AST (5-31) U/L ALT (0-31) U/L Alkaline Phosphatase (39-117) U/L Troponin I High Sens (<3.5-17.0) ng/L B-Natriuretic Peptide (<100) pg/mL Total Protein (6.5-8.0) g/dL Albumin (3.5-5.0) g/dL COVID-19 (JASON) Negative (Negative) COVID-19 Clin Com See Note Independent Interpretation I performed an independent interpretation of an: Plain X-Ray (My interpretation of Chest x-ray: No infiltrates) Radiology Impression Discussion of test interpretation with radiology: I have reviewed the radiologist's reading. Radiologist Impression: INDINGS: The cardiomediastinal silhouette is within normal limits. The lungs are slightly low lung volumes.. There is no focal consolidation, edema, or effusion. No pneumothorax. No acute osseous abnormality. Vertebroplasty cement projected over the lower thoracic spine. XR/XR chest 1V IMPRESSION: No evidence of acute pulmonary process. Discharge Plan Discharge Clinical Impression: Anxiety Patient Disposition: Home, Self-Care Instructions: Anxiety (ED) Additional Instructions: Please follow-up with your primary care physician tomorrow. If you have any worsening or new symptoms, please return to the emergency room or call 911 Prescriptions: No Action (DME) miscellaneous medical supply Misc See Rx Instructions .ROUTE .MEDSUPPLY Qty: 1 0RF Rx Instructions: Transport chair 4 wheel manual, Daily As directed, 999 days/Lifetime. Disp#1 (DME) Wheel chair Kit See Rx Instructions .Route Qty: 1 0RF Rx Instructions: transport wheel chair fluticasone furoate-vilanterol [Breo Ellipta] 200-25 mcg/dose blister with device 1 inh INHALATION DAILY 30 Days Qty: 60 3RF albuterol sulfate 2.5 mg /3 mL (0.083 %) solution for nebulization 2.5 mg inhalation Q4-6H PRN (Reason: shortness of breath or wheezing) 30 Days Qty: 180 2RF famotidine 20 mg tablet 20 mg PO DAILY 30 Days Qty: 30 3RF meloxicam 15 mg tablet 15 mg PO DAILY 30 Days Qty: 30 2RF albuterol sulfate [ProAir HFA] 90 mcg/actuation Hfa Aerosol Inhaler 2 puff INHALATION Q6H PRN (Reason: Dyspnea) calcium carbonate 200 mg calcium (500 mg) tablet,chewable 500 mg PO DAILY acetaminophen 650 mg Tablet Extended Release 1,300 mg PO BID cyanocobalamin (vitamin B-12) 1,000 mcg Tablet 1,000 mcg PO DAILY amlodipine 5 mg tablet 1 tab PO DAILY sennosides-docusate sodium [Senexon-S] 8.6-50 mg tablet 1 tab PO DAILY PRN (Reason: Constipation) multivitamin Tablet 1 tab PO DAILY cholecalciferol (vitamin D3) 25 mcg (1,000 unit) Tablet 25 mcg PO DAILY levofloxacin 500 mg tablet 500 mg PO DAILY Qty: 3 0RF (DME) miscellaneous medical supply Misc See Rx Instructions .ROUTE .MEDSUPPLY Qty: 1 0RF Rx Instructions: donut cushion/pillow. As directed. DX: M53.3, Duration 999 days gabapentin 100 mg capsule See Rx Instructions PO BID 30 Days Qty: 90 1RF Rx Instructions: 100 mg in morning and 200 mg in the evening. orally 2 times a day; metoprolol tartrate 25 mg tablet 12.5 mg PO BID 90 Days Qty: 90 4RF furosemide 20 mg tablet 20 mg PO Q OTHER DAY PRN (Reason: edema) 30 Days Qty: 15 1RF fluconazole [Diflucan] 150 mg tablet 150 mg PO ONCE 1 Days Qty: 1 0RF clotrimazole 1 % cream 1 appful vaginal BEDTIME 30 Days Qty: 45 1RF quetiapine [Seroquel] 25 mg tablet 25 mg PO BEDTIME 30 Days Qty: 30 1RF
[2022-09-30 19:05] VITALS: BP 128/84; PULSE 110; O2SAT 99
[2022-09-30 19:19] VITALS: BP 142/81; PULSE 100; RESP 18; TEMP 36.6; O2SAT 95; BMI 21.9
--- OUTSIDE RECORDS SUMMARY | 2022-09-30 19:28 | XMS_ITS ---
:1940 Author Name Juan Jose Haywood Care Team Providers Name Role Phone Juan Jose Haywood Unavailable Unavailable PROBLEMS Unknown Problems ALLERGIES No Information ENCOUNTERS Encounter Location Date Diagnosis [facility] [address] [place] [id number] IMMUNIZATIONS No Known Immunizations SOCIAL HISTORY Never Assessed REASON FOR REFERRAL FUNCTIONAL STATUS PLAN OF CARE VITAL SIGNS MEDICATIONS Unknown Medications PROCEDURES No Known procedures RESULTS No Results REASON FOR VISIT Insurance Providers [facility] Member Patient Patient Patient Patient Patient Subscriber Subscriber Subscriber Group Insurance Plan Plan Plan Plan ID Relationship Address Phone Name Date of ID Name Date of No Type Insurance Insurance Insurance Coverage to Subscriber Address Phone Name Dates [place] [phone] Lauren self Prudence [id number] Senior [id number] Senior [place] [address] [facility] [place] [facility] [id number]
[2022-09-30 19:48] LABS: MANUAL DIFF FLAG NO
[2022-09-30 19:54] LABS: Venous Blood Gas Refer to POC result
[2022-09-30 19:55] LABS: VBG Base Excess 9.6 mmol/L; VBG HCO3 37 mmol/L (22-26); VBG pCO2 67 mmHg; VBG pH 7.35 (7.32-7.43); VBG pO2 47 mmHg
[2022-09-30 20:06] LABS: COVID-19 Test Negative (Negative); IDNOW Serial# 6674DD1D
[2022-09-30 20:09] LABS: Lactic Acid 1.4 mmol/L (0.5-2.0)
[2022-09-30 20:13] LABS: Alanine Aminotransferase 10 U/L (0-31); Albumin Level 4.4 g/dL (3.5-5.0); Alkaline Phosphatase 99 U/L (39-117); Anion Gap 16 (12-20); Aspartate Amino Transferase 15 U/L (5-31); Basophils Percent Auto 0.5 % (0-2); Bilirubin Direct < 0.2 mg/dL (0.0-0.5); Bilirubin Total 0.4 mg/dL (0.0-1.0); Blood Urea Nitrogen 28 mg/dL (9-16); Calcium 9.8 mg/dL (8.4-10.2); Carbon Dioxide 30 mmol/L (22-29); Chloride 100 mmol/L (96-108); Creatinine Clr Calc Pharmacy 61.5; Eosinophils Absolute Auto 0.2 X10*3/uL (0.0-0.4); Eosinophils Percent Auto 3.1 % (0-4); Estimated Glomerular Filt Rate > 60; Glucose Random 113 mg/dL (60-115); Hematocrit 38.9 % (37.0-47.0); Hemoglobin 12.3 g/dl (12.0-16.0); Imm Gran Abs Auto 0.03 X10*3/uL (0.00-0.03); Imm Gran Pct Auto 0.5 % (0.0-0.4); Lymphocytes Absolute Auto 1.9 X10*3/uL (1.2-4.9); Mean Corpuscular HGB Conc 31.6 g/dl (31.0-35.0); Mean Corpuscular Hemoglobin 30.1 pg (27.0-33.0); Mean Corpuscular Volume 95.1 fL (80.0-98.0); Mean Platelet Volume 9.6 fL (9.4-12.3); Monocytes Absolute Auto 0.5 X10*3/uL (0.1-1.2); Monocytes Percent Auto 7.3 % (2-11); Neutrophils Absolute Auto 3.8 x10*3/uL (2.0-8.3); Neutrophils Percent Auto 59.6 % (45-73); Platelet Count 328 X10*3/uL (160-400); Potassium 4.5 mmol/L (3.3-5.1); Red Blood Count 4.09 X10*6/uL (4.20-5.50); Red Cell Distribution Width 13.4 % (11.0-16.0); Sodium 141 mmol/L (135-145); Total Protein 7.7 g/dL (6.5-8.0); White Blood Count 6.4 X10*3/uL (4.8-10.8)
[2022-09-30 20:19] LABS: INTERNATIONAL NORM RATIO 0.9 (0.9-1.1); Prothrombin Time 10.4 SEC (10.0-13.1)
[2022-09-30 20:19] LABS: B Type Natriuretic Peptide 26 pg/mL (<100)
[2022-09-30 20:21] LABS: Troponin-I High Sensitivity < 3.5 ng/L (<3.5-17.0)
[2022-09-30 22:35] VITALS: BP 153/91; PULSE 106; RESP 16; O2SAT 97
== END 2022-09-30 22:49 | disposition home or self-care (01) ==
PROVIDERS: Emergency Provider Emergency Medicine
DX: F41.9 Anxiety disorder, unspecified (principal); R06.02 Shortness of breath; Z20.822 Contact with and (suspected) exposure to COVID-19; J44.9 Chronic obstructive pulmonary disease, unspecified; Z99.81 Dependence on supplemental oxygen; Z87.891 Personal history of nicotine dependence; Z79.899 Other long term (current) drug therapy
CPT/HCPCS: 36415; 71045; 80048; 80076; 82803; 83605; 83880; 84484; 85025; 85610; 87040; 87635; 93005; 99283; 99284

== ENCOUNTER 2022-11-02 13:50 | Outpatient (REF) | payer MEDICARE, SELFPAY ==
--- NOTE | ~2022-11-02 | XR_ITS ---
EXAMINATION: XR CHEST CLINICAL INFORMATION: Chronic obstructive pulmonary disease COMPARISON: Chest radiograph from 09/30/2022 TECHNIQUE: 2 views of the chest were obtained. FINDINGS: Chronic interstitial lung markings. Bilateral low lung volumes. Slight elevation the right hemidiaphragm, nonspecific. No pneumothorax. Trachea is midline. Cardiomediastinal silhouette is stable. Aorta demonstrates tortuosity with atherosclerotic calcifications. No large pleural effusion. Osteopenia. Degenerative changes of the thoracolumbar spine. Prominent anterior compression deformity of T6. Status post vertebral augmentation of T11 and T12. Soft tissues are unremarkable. XR/XR chest 2V IMPRESSION: 1. Chronic interstitial lung markings. 2. Bilateral low lung volumes. 3. Slight elevation the right hemidiaphragm, nonspecific. 4. Osteopenia. 5. Prominent anterior compression deformity of T6. 6. Status post vertebral augmentation of T11 and T12.
--- NOTE | ~2022-11-02 | XR_ITS ---
EXAMINATION: XR ABDOMEN KUB CLINICAL INDICATION: Calculus of kidney COMPARISON: CT abdomen from 06/11/2022 TECHNIQUE: AP view of the abdomen. FINDINGS: No radiopaque calcifications overlying the bilateral renal shadows or ureteral paths. Bowel gas is nonobstructive. Aorta demonstrates tortuosity with atherosclerotic calcifications. Osteopenia. Status post vertebral augmentation of T11, T12, L3. Partially visualized right trochanteric femoral nail. 3 partially cannulated screws transfixing the left femoral head and neck. Soft tissues are unremarkable. XR/XR KUB IMPRESSION: 1. No radiopaque calcifications overlying the bilateral renal shadows or ureteral paths. 2. Bowel gas is nonobstructive. 3. Status post vertebral augmentation of T11, T12, L3. 4. Partially visualized right trochanteric femoral nail. 3 partially cannulated screws transfixing the left femoral head and neck.
== END 2022-11-02 13:51 | disposition home or self-care (01) ==
LOC: HO.XRAY 13:50
PROVIDERS: PCP Family Medicine; Visit Provider Urology
DX: N20.0 Calculus of kidney (principal); J44.9 Chronic obstructive pulmonary disease, unspecified; J18.9 Pneumonia, unspecified organism; R09.02 Hypoxemia
CPT/HCPCS: 71046; 74018

== ENCOUNTER 2022-11-11 15:00 | Outpatient (REF) | payer MEDICARE, SELFPAY ==
[2022-11-11 17:04] LABS: Alanine Aminotransferase 7 U/L (0-31); Albumin Level 4.2 g/dL (3.5-5.0); Alkaline Phosphatase 110 U/L (39-117); Anion Gap 16 (12-20); Aspartate Amino Transferase 15 U/L (5-31); Bilirubin Total 0.5 mg/dL (0.0-1.0); Blood Urea Nitrogen 23 mg/dL (9-16); Calcium 9.9 mg/dL (8.4-10.2); Carbon Dioxide 32 mmol/L (22-29); Chloride 99 mmol/L (96-108); Estimated Glomerular Filt Rate > 60; Glucose Random 86 mg/dL (60-115); Potassium 4.1 mmol/L (3.3-5.1); Sodium 143 mmol/L (135-145); Total Protein 7.3 g/dL (6.5-8.0)
== END 2022-11-11 15:01 | disposition home or self-care (01) ==
LOC: HO.LAB 15:00
PROVIDERS: PCP Family Medicine; Visit Provider Family Medicine
DX: M79.89 Other specified soft tissue disorders (principal); R33.9 Retention of urine, unspecified; N39.0 Urinary tract infection, site not specified; R35.1 Nocturia; N20.0 Calculus of kidney
CPT/HCPCS: 36415; 51798; 80053; 99212

== ENCOUNTER → 2022-11-16 13:55 | Outpatient (BNVA) | payer MEDICARE, SELFPAY | PROVIDERS: PCP Family Medicine; Visit Provider Internal Medicine | DX: J44.9 Chronic obstructive pulmonary disease, unspecified (principal); J96.90 Respiratory failure, unspecified, unspecified whether with hypoxia or hypercapnia; J40 Bronchitis, not specified as acute or chronic | CPT/HCPCS: 99212 ==

== ENCOUNTER → 2023-03-01 13:49 | Outpatient (BNVA) | payer MEDICARE, SELFPAY | PROVIDERS: PCP Family Medicine; Visit Provider Internal Medicine | DX: J44.9 Chronic obstructive pulmonary disease, unspecified (principal); J96.91 Respiratory failure, unspecified with hypoxia | CPT/HCPCS: 99212 ==

== ENCOUNTER 2023-03-24 15:14 | Outpatient (AMB) | payer MEDICARE, SELFPAY ==
[2023-03-24 15:31] VITALS: BP 128/72; PULSE 83; O2SAT 96; BMI 23.3
--- NOTE | 2023-03-24 15:31 | MHC.PC.OV ---
Vital Signs 03/24/23 15:31 Height 5 ft 7 in Weight 149 lb BMI 23.3 BP 128/72 Blood Pressure Location Lt brachial Position Sitting Pulse 83 Pulse Source Pulse Oximeter Pulse Oximetry (%) 96 Oxygen Delivery Method Room Air Oxygen Flow Rate 2 Intake Visit Reasons: follow up chronic conditions Intake Note: Patient is here for follow up on chronic conditions. Allergies No Known Allergies Allergy (Verified 03/24/23 15:33) Medication List - Last Reconciled 03/24/23 by Juan Jose Haywood MD acetaminophen ER 1,300 mg PO BID albuterol sulfate 90 mcg/actuation (ProAir HFA) 2 puffs inhalation Q6H PRN 30 days albuterol sulfate 2.5 mg (3 mL) inhalation Q4-6H PRN 30 days amlodipine 5 mg PO DAILY 90 days calcium carbonate 500 mg PO DAILY chair, wheel (Wheel chair) transport wheel chair cholecalciferol (vitamin D3) 25 mcg PO DAILY clotrimazole 1% 1 appful vaginal BEDTIME 30 days cyanocobalamin (vitamin B-12) 1,000 mcg PO DAILY diclofenac sodium 1% 4 grams topical QID 30 days famotidine 20 mg PO DAILY 30 days fluticasone furoate-vilanterol 200-25 mcg/dose (Breo Ellipta) 1 inh inhalation DAILY 30 days furosemide 20 mg PO DAILY PRN 30 days gabapentin 100 mg in morning and 200 mg in the evening. orally 2 times a day; 30 days meloxicam 15 mg PO DAILY 30 days metoprolol tartrate 12.5 mg (1/2 x 25 mg) PO BID 90 days miscellaneous medical supply donut cushion/pillow. As directed. DX: M53.3, Duration 999 days miscellaneous medical supply Transport chair 4 wheel manual, Daily As directed, 999 days/Lifetime. Disp#1 multivitamin 1 tab PO DAILY sertraline 75 mg (1.5 x 50 mg) PO DAILY 90 days Tobacco use date assessed: 03/24/23 Fall risk assessment: No Falls in past year Last assessed Fall Risk: 03/24/23 Dental Screening Dental Screen Date: 03/24/23 Did you have a dental visit in the last 12 months?: No Did you have a dental problem in the last 6 months where you did not have access to dental care?: No Was dental information given to patient?: No HPI follow up chronic conditions HPI Details 82 y/o female presents to f/u hypertension and chronic conditions. Blood pressure today is 128/72. She is on metoprolol 12.5mg b.i.d. and amlodipine 1 tab daily. They have questions about a flu shot and pneumonia shot. Pt had 1 pneumonia shot in 2019. They report LE weakness and notes weakness has been improving. [facility] Medical History COPD (chronic obstructive pulmonary disease) Hyperlipidemia Hypertension Hypoxemia Peripheral vascular disease Pneumonia Respiratory failure Respiratory failure with hypoxia Surgical History History of hip surgery Family History Mother Breast cancer Social History Household Members: Family Housing: House Do you presently have visiting nurse or other home services: No Alcohol intake: never Patient Tobacco Use Status: Former Tobacco user Cigarette Packs Per Day: 3 Cigarettes Per Day: 60.0 Years Smoked: 50 e-Cigarette/Vaping Use: Never Used Second Hand Smoke Exposure: Yes Advance Directives Date on File: 02/25/22 service: No Current occupational status: retired and disabled Current occupational exposures/hazards: No Cognitive needs: No Hearing needs: No Vision needs: No Questionnaire PHQ-9 Over the last 2 weeks, how often have you been bothered by any of the following problems? 1. Little interest or pleasure in doing things: not at all 2. Feeling down, depressed, or hopeless: not at all 3. Trouble falling or staying asleep, or sleeping too much: not at all 4. Feeling tired or having little energy: not at all 5. Poor appetite or overeating: not at all 6. Feeling bad about yourself - or that you are a failure or have let yourself or your family down: not at all 7. Trouble concentrating on things, such as reading the newspaper or watching television: not at all 8. Moving or speaking so slowly that other people could have noticed. Or the opposite - being so fidgety or restless that you have been moving around a lot more than usual: not at all 9. Thoughts that you would be better off or of hurting yourself in some way: not at all Total score: 0 Source: Developed by Drs. Cosmo Knox, Caryn Whyte, Pilo Kraft and colleagues, with an educational jie from [employer]. Thrive Questionnaire Date Thrive assessed: 01/13/22 I am a: Patient What is your living situation today?: I have a steady place to live Within the past 12 months, did the food you bought not last and you didn't have the money to get more?: Never true Within the past 12 months, did you worry whether your food would run out before you got money to buy more?: Never true Do you have trouble paying for medicines?: No Do you have trouble getting transportation to medical appointments?: No Do you have trouble paying your heating and electricity bill?: No Do you have trouble taking care of your child, family member or friend?: No Do you have trouble with day-to-day activities such as bathing, preparing meals, shopping, managing finances, etc.?: No Are you currently unemployed and looking for a job?: No Are you interested in more education?: No AUDIT C Alcohol Use Questionnaire (AUDIT-C) 1. How often do you have a drink containing alcohol?: Never 3. How often do you have six or more drinks on one occasion?: Never Total Score: 0 JOHNSON-7 AMB Questionnaire JOHNSON-7 Date JOHNSON - 7 assessed: 03/25/22 Feeling nervous, anxious, or on edge: 1 = Several days Not being able to stop or control worryin = Nearly every day Worrying too much about different things: 3 = Nearly every day Trouble relaxin = Several days Being so restless that it is hard to sit still: 1 = Several days Becoming easily annoyed or irritable: 0 = Not at all Feeling afraid as if something awful might happen: 3 = Nearly every day Total JOHNSON-7 score (0-4 normal; 5-9 mild; 10-14 moderate; 15-21 severe): 12 Source: Developed by Drs. Cosmo Knox, Caryn Whyte, Pilo Kraft and colleagues, with an educational jie from [employer]. Review of Systems Const Denies chills, Denies fatigue, Denies fever(s), Denies headache(s) and Denies weakness ENT Denies dizziness and Denies headache(s) Card Denies chest pain, Denies lightheadedness, Denies dyspnea and Denies other (Palpitations) Resp Denies cough, Denies dyspnea, Denies wheezing and Denies other ( shortness of breath) Musc Denies numbness and Denies tingling Neuro Denies dizziness, Denies headache(s), Denies numbness, Denies tingling, Denies paresthesias and Denies weakness Psych Denies anxiety and Denies depression Endo Denies fatigue Aller/Immun Denies wheezing Physical exam (Primary Care) Vital Signs: Last Vital Signs Pulse 83 03/24/23 15:31 BP 128/72 03/24/23 15:31 Pulse Ox 96 03/24/23 15:31 Oxygen Delivery Method Room Air 03/24/23 15:31 Oxygen Flow Rate 2 03/24/23 15:31 BMI result Body Mass Index 23.3 Tobacco/Smoking Status: Tobacco use Status Tobacco use date assessed 03/24/23 03/24/23 15:35 Patient Tobacco Use Status Former Tobacco user 03/24/23 15:35 e-Cigarette/Vaping Use Never Used 03/24/23 15:35 PHQ-9: PHQ-9 Score PHQ-9: Total score 0 03/24/23 16:01 Thrive Assessment: Date of Thrive Assessment Date Thrive assessed 01/13/22 03/24/23 15:35 Const General: no acute distress and well developed Nutritional Appearance: well nourished Orientation/consciousness: patient oriented x3 [facility] Head: Yes normocephalic and Yes atraumatic Eyes General: appearance normal, both eyes and all related structures Pupils: Equal, round and reactive pupils present EOM: EOMs intact bilaterally Resp Effort & Inspection: normal respiratory effort Auscultation: clear to auscultation bilaterally Cardio Rate: regular rate Rhythm: regular rhythm Heart sounds: S1 normal heart sound present, S2 normal heart sound present, no gallops, no murmurs and no rubs Neuro General: patient oriented x3 and gait normal Cranial nerves: Yes Equal, round and reactive pupils present Psych Affect: normal affect Assessment and Plan Assessment & Plan (1) Respiratory failure with hypoxia: Comment: PATIENT HAS HYPOXEMIA CORRECTED WITH OXYGEN. ADVISED TO CONTINUE O2. 2.5 L/MINUTE 24 HOURS A DAY Code(s): J96.91 - Respiratory failure, unspecified with hypoxia Plan: Stable and lungs are clear Continue inhaled meds Encouraged deep breathing Continue oxygen Follow-up with pulmonology as recommended (2) Hypertension: Code(s): I10 - Essential (primary) hypertension Plan: Blood pressure is controlled. Goal is less than 140/90 Continue current medications (3) Lower extremity weakness: Code(s): R29.898 - Other symptoms and signs involving the musculoskeletal system Plan: Improving Had discussed referring patient to physical therapy but her son would like to help her walks to get exercise at home He will supervise and have a chair for her to sit on if she gets tired. (4) Immunization counseling: Code(s): Z71.85 - Encounter for immunization safety counseling Plan: Advised PCV 13 She will get her flu shot in early June Also advised she get RSV shot at pharmacy Medications: New pregabalin (Lyrica) 25 mg PO BID 30 days 60 caps 0RF M79.2 - Neuralgia and neuritis, unspecified Discontinued gabapentin Discontinued Reason: Duplicate 100 mg in morning and 200 mg in the evening. orally 2 times a day; 30 days 90 caps 1RF Coding Level of Care Code Est Pt Level 4 (24869) Diagnoses Respiratory failure with hypoxia J96.91 Hypertension I10 Lower extremity weakness R29.898 Immunization counseling Z71.85
== END 2023-03-24 16:18 | disposition home or self-care (01) ==
PROVIDERS: Visit Provider Family Medicine
DX: J96.91 Respiratory failure, unspecified with hypoxia (principal); I10 Essential (primary) hypertension; R29.898 Other symptoms and signs involving the musculoskeletal system; Z71.85 Encounter for immunization safety counseling
CPT/HCPCS: 99214

== ENCOUNTER 2023-05-11 16:37 | Outpatient (REF) | payer MEDICARE, SELFPAY ==
--- NOTE | ~2023-05-11 | US_ITS ---
EXAMINATION: US RETROPERITONEAL LIMITED (RENAL ONLY) CLINICAL INFORMATION: Calculus of kidney. COMPARISON: K[facility] dated 04/01/2023. CT abdomen and pelvis without contrast dated 06/11/2022. TECHNIQUE: Real-time imaging of the kidneys. FINDINGS: RIGHT KIDNEY: 8.4 x 3.8 x 4.8 cm (SAG x AP x TRV). The kidney is normal in size, contour, and echogenicity. Renal cortical thickness is normal. No calculi or focal parenchymal lesions. No hydronephrosis. LEFT KIDNEY: 9.0 x 4.7 x 4.1 cm (SAG x AP x TRV). The kidney is normal in size, contour, and echogenicity. Renal cortical thickness is normal. No focal parenchymal lesions or hydronephrosis. At the lower pole, a 6 mm nonobstructing calculus is seen, with twinkle artifact. US/US renal BI IMPRESSION: A 6 mm nonobstructing left renal calculus is seen. No right renal calculus is seen. There is no hydronephrosis.
== END 2023-05-11 16:38 | disposition home or self-care (01) ==
LOC: HO.US 16:37
PROVIDERS: Visit Provider Urology
DX: N20.0 Calculus of kidney (principal)
CPT/HCPCS: 76775

== ENCOUNTER 2023-06-02 15:18 | Outpatient (AMB) | payer MEDICARE, SELFPAY ==
--- NOTE | 2023-06-02 15:19 | A.OFFVIS_ITS ---
Intake Intake Visit Reasons: 6m/US Intake Note: Patient presents today for a follow-up on US results: US Completed on 05/11/2023. Meds- Furosemide Allergies to Antibiotic- No Known Allergies Blood Thinner- None Railway Equipment Operator Required: No Accompanied by: Son Allergies No Known Allergies Allergy (Verified 06/07/23 13:23) HPI HPI Comments History of Present Illness Details Prudence is an 82-year-old female who presents today via Tele-health visit for a follow-up. 06/02/2023? 82 yo female with history of urinary ret ention, chronic UTI's, dementia, normal pressure hydrocephalus, COPD on 2L at home, HLD, GERD, osteoporosis, depression and anxiety, HTN, history of hip fracture, She was last seen by me on 11/11/2022 for FU for urinary retention. She is followed today for US results. The Patient states that she is using pull-ups (states minimal wetting) denies dysuria, hematuria.? She is on lasix. ? I reviewed the renal US results from 05/11/2023 revealed a 6 mm nonobstructing left renal calculus is seen. No right renal calculus is seen. There is no hydronephrosis. Review of charts: Imaging 06/2022- CAT scan 4 mm left kidney stone.? 11/11/22-- She is here for fu with her son .? 06/02/2023: Plan: Tele-health follow-up in 6 months. Will re-check renal US in 1 year. [facility] Medical History Respiratory failure with hypoxia Hypoxemia Pneumonia Respiratory failure Peripheral vascular disease Hyperlipidemia Hypertension COPD (chronic obstructive pulmonary disease) Surgical History History of hip surgery Family History Mother Breast cancer Social History Household Members: Family Housing: House Do you presently have visiting nurse or other home services: No Alcohol intake: never Patient Tobacco Use Status: Former Tobacco user Cigarette Packs Per Day: 3 Cigarettes Per Day: 60.0 Years Smoked: 50 e-Cigarette/Vaping Use: Never Used Second Hand Smoke Exposure: Yes Advance Directives Date on File: 02/25/22 service: No Current occupational status: retired and disabled Current occupational exposures/hazards: No Cognitive needs: No Hearing needs: No Vision needs: No Review of Systems Const All systems reviewed & are unremarkable except as noted in HPI and below Reports no additional complaints Eyes Reports no additional complaints ENT Reports no additional complaints Resp Denies cough GI Reports no additional complaints Reports no additional complaints Musc Reports no additional complaints Skin/Breast Denies rash and Denies unusual bruising Neuro Reports no additional complaints Psych Reports no additional complaints Endo Reports no additional complaints Alexandru/Lymph Reports no additional complaints Aller/Immun Reports no additional complaints Results Reviewed Results Reviewed: Date of Service: 05/11/23 EXAMINATION:? US RETROPERITONEAL LIMITED (RENAL ONLY) CLINICAL INFORMATION: Calculus of kidney. COMPARISON:? [facility] dated 04/01/2023. CT abdomen and pelvis without contrast dated 06/11/2022. FINDINGS: RIGHT KIDNEY: 8.4 x 3.8 x 4.8 cm (SAG x AP x TRV). The kidney is normal in size, contour, and echogenicity. Renal cortical thickness is normal. No calculi or focal parenchymal lesions. No hydronephrosis. LEFT KIDNEY: 9.0 x 4.7 x 4.1 cm (SAG x AP x TRV). The kidney is normal in size, contour, and echogenicity. Renal cortical thickness is normal. No focal parenchymal lesions or hydronephrosis. At the lower pole, a 6 mm nonobstructing calculus is seen, with twinkle artifact. IMPRESSION:? A 6 mm nonobstructing left renal calculus is seen. No right renal calculus is seen. There is no hydronephrosis Assessment & Plan Assessment & Plan (1) Urinary retention: Code(s): R33.9 - Retention of urine, unspecified (2) Generalized weakness: Code(s): R53.1 - Weakness (3) Kidney stone on left side: Code(s): N20.0 - Calculus of kidney Plan Tele-health follow-up in 6 months. Will re-check renal US in 1 year. Patient Instructions: The patient had an opportunity to ask questions regarding treatment plan. All questions were answered. Imaging, Laboratory studies and physical exam results were discussed and reviewed in detail. No major barriers to understanding were identified. The patient expressed understanding and agreement with the above treatment plan.? ? ? The patient is aware they should contact our office by phone for worsening of their current condition or the appearance of new symptoms. Compliance is encouraged with any medications and followup testing that is ordered.? ? ? It is a privilege to be allowed the opportunity to participate in the urologic care of your patient. If you have any questions or concerns regarding treatment for the above conditions please do not hesitate to contact me. The office te [place] contact is [phone].? ? ? This note is constructed in part using voice recognition software. While every effort has been made to ensure accuracy echo vascular technologist errors may have been included.? ? ? Yours sincerely,? ? ? Mindy Garcia MD? ? Coding Level of Care Code Est Pt Level 3 (16131) Diagnoses Urinary retention R33.9 Generalized weakness R53.1 Kidney stone on left side N20.0
== END 2023-06-02 16:00 | disposition home or self-care (01) ==
LOC: HO.HUSH 15:18
PROVIDERS: PCP Family Medicine; Visit Provider Urology
DX: R33.9 Retention of urine, unspecified (principal); R53.1 Weakness; N20.0 Calculus of kidney
CPT/HCPCS: 99213

== ENCOUNTER → 2023-06-02 15:18 | Outpatient (BNVA) | payer MEDICARE, SELFPAY | PROVIDERS: PCP Family Medicine; Visit Provider Urology | DX: R33.9 Retention of urine, unspecified (principal); R53.1 Weakness; N20.0 Calculus of kidney | CPT/HCPCS: 99212 ==

== ENCOUNTER 2023-06-07 12:42 | Outpatient (AMB) | payer MEDICARE, SELFPAY ==
--- NOTE | 2023-06-07 13:23 | AM.OFFWIN_ITS ---
Intake Vital Signs 06/07/23 13:24 Height 5 ft 7 in BMI Reason not done Patient refused/unable BP 122/72 Blood Pressure Location Rt brachial Position Sitting Pulse 98 Pulse Source Pulse Oximeter Temp 98.1 F Temp Source Oral Pulse Oximetry (%) 96 Oxygen Delivery Method Nasal Cannula Intake Visit Reasons: EP Wheezing/?Pneumonia Intake Note: Patient is here today for heavy breathing and also bad cough, patient also states she been wheezing and this been occurring for 2 wks. Patient Tobacco Use Status: Former Tobacco user Allergies No Known Allergies Allergy (Verified 06/07/23 13:23) HPI HPI Comments History of Present Illness Details Patient presents increased congestion over the past 7-10 days. HPI is mostly provided by her family, son and daughter whom she lives with. She has not experienced altered mental status, worsening appetite, or need for increased oxygen. They note wet rattling sound when she coughs. She does take Mucinex. [facility] Medical History COPD (chronic obstructive pulmonary disease) Hyperlipidemia Hypertension Hypoxemia Peripheral vascular disease Pneumonia Respiratory failure Respiratory failure with hypoxia Surgical History History of hip surgery Family History Mother Breast cancer Social History Household Members: Family Housing: House Do you presently have visiting nurse or other home services: No Alcohol intake: never Patient Tobacco Use Status: Former Tobacco user Cigarette Packs Per Day: 3 Cigarettes Per Day: 60.0 Years Smoked: 50 e-Cigarette/Vaping Use: Never Used Second Hand Smoke Exposure: Yes Advance Directives Date on File: 02/25/22 service: No Current occupational status: retired and disabled Current occupational exposures/hazards: No Cognitive needs: No Hearing needs: No Vision needs: No Physical Exam Vital Signs: Last Vital Signs Temp 98.1 F 06/07/23 13:24 Pulse 98 06/07/23 13:24 BP 122/72 06/07/23 13:24 Pulse Ox 96 06/07/23 13:24 Oxygen Delivery Method Nasal Cannula 06/07/23 13:24 Const General: cooperative, comfortable, no acute distress and other (Most HPI by family however patient answers questions appropriately) Orientation/consciousness: patient oriented x3 Limitations: wheelchair HEENT Mouth: Normal oral and palatal mucosa present Resp Effort & Inspection: normal respiratory effort, able to speak in complete sentences and Actively coughing Quality: wet Auscultation: diminished lung sounds bilateral Cardio Rate: regular rate Rhythm: regular rhythm Heart sounds: S1 normal heart sound present and S2 normal heart sound present Neuro General: patient oriented x3 Extrem General: Yes no pedal edema Results Reviewed Results Reviewed: Chest x-ray contemporaneously read by me without acute finding, consolidation. Will report radiology results as available if different. Assessment & Plan Assessment & Plan (1) Productive cough: Code(s): R05.8 - Other specified cough Plan: Will treat for COPD exacerbation with Z-Tony. Advised to continue Mucinex as needed. Encourage good fluid intake. ER if she is noted to have worsening need for oxygen, altered mental status or fever. Orders: Orders XR chest 2V Today R05.8 - Other specified cough Medications: New azithromycin (Zithromax Z-Tony) 2 pills day one then 1 pill per day x 4 days 250 mg PO DAILY 5 days 6 tabs 0RF Coding Level of Care Code Est Pt Level 4 (27259) Diagnoses Productive cough R05.8
[2023-06-07 13:24] VITALS: BP 122/72; PULSE 98; TEMP 36.7; O2SAT 96
== END 2023-06-07 14:41 | disposition home or self-care (01) ==
PROVIDERS: PCP Family Medicine; Visit Provider Physician Assistant
DX: R05.8 Other specified cough (principal)
CPT/HCPCS: 99214

== ENCOUNTER 2023-06-07 13:47 | Outpatient (REF) | payer MEDICARE, SELFPAY ==
--- NOTE | ~2023-06-07 | XR_ITS ---
EXAMINATION: XR CHEST CLINICAL INFORMATION: Other specified cough New productive cough COMPARISON: Chest 11/02/2022 TECHNIQUE: 2 views of the chest were obtained. The patient is rotated on the frontal PA view. 1400. FINDINGS: Chronic interstitial lung markings. Possible mild right middle lobe opacity, based on the lateral view. No pneumothorax. No pleural effusion. The cardiomediastinal silhouette is stable. The aorta demonstrates tortuosity with atherosclerotic calcifications. The bones are diffusely osteopenic. Degenerative changes of the thoracolumbar spine. Prominent anterior compression deformity of T6. Status post vertebral kyphoplasty of T11 and T12. XR/XR chest 2V IMPRESSION: Possible mild right middle lobe pneumonia. Follow-up to resolution is suggested.
== END 2023-06-07 13:48 | disposition home or self-care (01) ==
LOC: HO.HMGCX 13:47
PROVIDERS: PCP Family Medicine; Visit Provider Physician Assistant
DX: R05.8 Other specified cough (principal)
CPT/HCPCS: 71046

== ENCOUNTER 2023-06-09 20:42 | Emergency (ER) | payer MEDICARE, SELFPAY ==
--- NOTE | ~2023-06-09 | XR_ITS ---
EXAMINATION: XR HIP, RIGHT CLINICAL INFORMATION: Pain post fall COMPARISON: Previous x-rays March and July 2021 TECHNIQUE: Two views of the right hip and one view of the pelvis. FINDINGS: Osteopenia. There is no acute fracture or dislocation. There is an intramedullary barrington and 2 proximal screws in the right femur. The distal end of an intramedullary barrington is not imaged. There are 3 screws left proximal femur. There is a healed left femoral neck fracture. No pelvic fracture is bones of the pelvis are unremarkable. Soft tissues are unremarkable. XR/XR hip RT w PEL1V IMPRESSION: No acute fracture or dislocation.
--- NOTE | ~2023-06-09 | CT_ITS ---
EXAMINATION: CT HEAD WITHOUT CONTRAST CT CERVICAL SPINE WITHOUT CONTRAST CLINICAL INFORMATION: Fall. Neck pain. Head strike. COMPARISON: CT head and cervical spine from 07/07/2021. TECHNIQUE: Contiguous axial imaging was performed from the skull base to vertex without intravenous administration of contrast. Contiguous axial imaging was performed from the upper chest through the skull base without intravenous administration of contrast. Coronal and sagittal reformats were obtained at the acquisition workstation. This CT examination was performed using dose optimization techniques as appropriate, variously including the following: *Automated exposure control. *Adjustment of mA and/or kV according to patient size (this includes techniques or standardized protocols for targeted exams where dose is matched to indication/reason for exam; i.e. extremities or head). *Use of iterative reconstruction technique. DLP: 917 mGy-cm FINDINGS: Head: There is no evidence of acute intracranial hemorrhage or edematous territorial infarction. Hannon-white matter differentiation is preserved. Scattered and partially confluent hypoattenuation in the periventricular and deep white matter are consistent with moderate microangiopathy. There is a degree of generalized cerebral volume loss with prominence of both the ventricles and sulcal spaces. However, there appears to be mildly disproportionate prominence of the ventricles. The posterior callosal angle is decreased (62 degrees) when measured on a corrected coronal image, orthogonal to the anterior commissure-posterior commissure line. No abnormal mass effect or midline shift. No extra-axial fluid collections. No acute soft tissue or osseous abnormalities. Mild mucosal thickening of the paranasal sinuses. The mastoid air cells and middle ear cavities are clear. The patient is edentulous. Bilateral lens extractions. Cervical Spine: The atlantooccipital and atlantoaxial articulations remain well aligned. Mild degenerative stepwise anterolistheses of C4-T1. Otherwise, there is anatomic alignment of the vertebral bodies and posterior elements. No evidence of acute fracture or subluxation. The vertebral body heights are maintained. Moderate degenerative disc disease from C4-C7. There is no prevertebral soft tissue swelling. Moderate fatty atrophy of the paraspinal musculature. The thyroid gland and remaining cervical soft tissues are within normal limits. The lung apices demonstrate no abnormalities. CT/CT cervical spine wo IV con IMPRESSION: 1. No evidence of acute intracranial hemorrhage or edematous territorial infarction. 2. No evidence of acute fracture or traumatic subluxation of the cervical spine. 3. Moderate underlying microangiopathy. 4. There is a degree of generalized cerebral volume loss with prominence of both the ventricles and sulcal spaces. However, there appears to be mildly disproportionate prominence of the ventricles. This may be due to disproportionate central volume loss; however, correlation with symptoms of potential superimposed normal pressure hydrocephalus is recommended. 5. Moderate multilevel degenerative spondyloarthropathy of the cervical spine.
[2023-06-09 20:46] VITALS: BP 142/78; PULSE 70
[2023-06-09 20:53] VITALS: BP 142/78; PULSE 70
[2023-06-09 20:58] VITALS: BP 138/64; PULSE 71; RESP 20; TEMP 36.9; O2SAT 94; BMI 26.6
--- NOTE | 2023-06-09 21:11 | ECG_ITS ---
Test Reason : FALL Blood Pressure : / mmHG Vent. Rate : 063 BPM Atrial Rate : 063 BPM P-R Int : 178 ms QRS Dur : 068 ms QT Int : 436 ms P-R-T Axes : 044 -13 050 degrees QTc Int : 446 ms Normal sinus rhythm Normal ECG When compared with ECG of 30-SEP-2022 20:02, Vent. rate has decreased BY 31 BPM Referred By: Marina Sweeney Electronically Signed By:BETTE YUN
[2023-06-09 21:37] LABS: MANUAL DIFF FLAG NO
[2023-06-09 21:39] LABS: Basophils Percent Auto 0.6 % (0-2); Eosinophils Absolute Auto 0.2 X10*3/uL (0.0-0.4); Eosinophils Percent Auto 3.8 % (0-4); Hematocrit 40.3 % (37.0-47.0); Hemoglobin 12.5 g/dl (12.0-16.0); Imm Gran Abs Auto 0.02 X10*3/uL (0.00-0.03); Imm Gran Pct Auto 0.4 % (0.0-0.4); Lymphocytes Absolute Auto 1.8 X10*3/uL (1.2-4.9); Lymphocytes Percent Auto 34.5 % (20-40); Mean Corpuscular Volume 93.5 fL (80.0-98.0); Mean Platelet Volume 10.5 fL (9.4-12.3); Monocytes Absolute Auto 0.6 X10*3/uL (0.1-1.2); Monocytes Percent Auto 12.3 % (2-11); Neutrophils Absolute Auto 2.5 x10*3/uL (2.0-8.3); Neutrophils Percent Auto 48.4 % (45-73); Platelet Count 235 X10*3/uL (160-400); Red Blood Count 4.31 X10*6/uL (4.20-5.50); Red Cell Distribution Width 13.2 % (11.0-16.0); White Blood Count 5.2 X10*3/uL (4.8-10.8)
[2023-06-09 21:55] LABS: Alanine Aminotransferase 7 U/L (0-31); Alkaline Phosphatase 127 U/L (39-117); Anion Gap 14 (12-20); Aspartate Amino Transferase 13 U/L (5-31); Bilirubin Total 0.3 mg/dL (0.0-1.0); Blood Urea Nitrogen 28 mg/dL (9-16); Calcium 9.5 mg/dL (8.4-10.2); Carbon Dioxide 28 mmol/L (22-29); Chloride 102 mmol/L (96-108); Estimated Glomerular Filt Rate > 60; Glucose Random 93 mg/dL (60-115); Magnesium 2.2 mg/dL (1.6-2.6); Potassium 3.8 mmol/L (3.3-5.1); Sodium 140 mmol/L (135-145); Total Protein 7.4 g/dL (6.5-8.0)
--- NOTE | 2023-06-09 22:06 | ED_ITS ---
HPI - Fall General Chief Complaint: Fall Stated Complaint: fall w/ headstrike Time Seen by Provider: 06/09/23 20:49 Source: patient and EMS Mode of arrival: EMS Limitations: altered mental status (Dementia) History of Present Illness HPI Narrative: Patient is an 82-year-old female who presents emergency department via EMS for evaluation after a fall at home with head strike. Patient states that she was walking with her walker when suddenly her legs gave out and she fell backwards striking her head on the ground. This reportedly occurred in the bathroom. She denies LOC, however it was unwitnessed and she was found on the floor by family members. She was assisted to standing. She denies any precipitating symptoms. She initially reported to EMS having pain in her lower back which she did endorse to me as well but then later states she is not having any lower back pain. She denies headache, neck pain, dizziness, chest pain, numbness or tingling of her extremities. She is able to answer questions appropriately but she does seem forgetful, per her family she has a history of dementia and she is at her current baseline mentation overall. Although family states that she has been more forgetful the past couple of days and she is currently on azithromycin for treatment of pneumonia. When asked she denies shortness of breath, she is not hypoxic nor tachypneic, she uses O2 via nasal cannula at 2 L chronically secondary to COPD. Related Data Home Medications Medication Instructions Recorded Confirmed acetaminophen 650 mg 1,300 mg PO BID 03/18/22 03/24/23 tablet,extended release cyanocobalamin (vitamin B-12) 1,000 mcg PO DAILY 03/18/22 03/24/23 1,000 mcg tablet calcium carbonate 200 mg calcium 500 mg PO DAILY Dyspepsia 04/07/22 03/24/23 (500 mg) chewable tablet cholecalciferol (vitamin D3) 25 25 mcg PO DAILY 07/23/22 03/24/23 mcg (1,000 unit) tablet multivitamin 1 tab PO DAILY 07/23/22 03/24/23 Previous Rx's Medication Instructions Recorded miscellaneous medical supply #1 ea 07/16/20 miscellaneous medical supply #1 ea 05/13/21 chair, wheel (Wheel chair) #1 ea 06/17/21 clotrimazole 1 % vaginal cream 1 appful vaginal BEDTIME 30 days 09/29/22 #45 grams metoprolol tartrate 25 mg tablet 12.5 mg (1/2 x 25 mg) PO BID 90 09/29/22 days #90 tabs albuterol sulfate 2.5 mg/3 mL 2.5 mg (3 mL) inhalation Q4-6H PRN 11/09/22 (0.083 %) solution for nebulization shortness of breath or wheezing 30 days #180 mL sertraline 50 mg tablet 75 mg (1.5 x 50 mg) PO DAILY 90 11/09/22 days #135 tabs amlodipine 5 mg tablet 5 mg PO DAILY 90 days #90 tabs 02/08/23 diclofenac sodium 1 % topical gel 4 g topical QID 30 days #200 grams 03/16/23 meloxicam 15 mg tablet 15 mg PO DAILY 30 days #30 tabs 03/16/23 albuterol sulfate 90 mcg/actuation 2 puff inhalation Q6H PRN Dyspnea 03/24/23 aerosol inhaler (ProAir HFA) 30 days #8.5 grams fluticasone furoate 200 1 inh inhalation DAILY 30 days #60 03/24/23 mcg-vilanterol 25 mcg/dose ea inhalation powder (Breo Ellipta) pregabalin 25 mg capsule (Lyrica) 25 mg PO BID 30 days #60 caps 05/04/23 furosemide 20 mg tablet 20 mg PO DAILY PRN edema 30 days 05/11/23 #30 tabs famotidine 20 mg tablet 20 mg PO DAILY 30 days #30 tabs 05/17/23 azithromycin 250 mg tablet 250 mg PO DAILY 5 days #6 tabs 06/07/23 (Zithromax Z-Tony) Allergies Allergy/AdvReac Type Severity Reaction Status Date / Time No Known Allergies Allergy Verified 06/07/23 13:23 Review of Systems 2 Review of Systems: Yes all other systems are reviewed and are negative [facility] Past Medical History Source: old records reviewed Medical History Respiratory failure with hypoxia Hypoxemia Pneumonia Respiratory failure Peripheral vascular disease Hyperlipidemia Hypertension COPD (chronic obstructive pulmonary disease) Surgical History History of hip surgery Family History Family History Mother Breast cancer Social History Social History Household Members: Family Housing: House Do you presently have visiting nurse or other home services: No Alcohol intake: never Patient Tobacco Use Status: Former Tobacco user Cigarette Packs Per Day: 3 Cigarettes Per Day: 60.0 Years Smoked: 50 Smoked in Last 30 Days: No e-Cigarette/Vaping Use: Never Used Second Hand Smoke Exposure: Yes Use of substances other than those prescribed or required for medical reasons: No Advance Directives: Yes Advance Directives on File: Yes Advance Directives Date on File: 02/25/22 service: No Current occupational status: retired and disabled Current occupational exposures/hazards: No Cognitive needs: No Hearing needs: No Vision needs: No Physical Exam 2 Vital Signs: Vital Signs: Last Vital Signs Temp 97.6 F 06/09/23 22:43 Pulse 62 06/09/23 22:43 Resp 11 L 06/09/23 22:43 BP 131/71 06/09/23 22:43 Pulse Ox 94 06/09/23 22:43 O2 Del Method Nasal Cannula 06/09/23 22:43 O2 Flow Rate 2 06/09/23 22:43 Oxygen Flow Rate 2.0 06/09/23 20:58 BMI result Body Mass Index 26.6 Appearance: Alert.?Oriented to person and place. No acute distress.?Normal affect. Eyes: Pupils equal, round and reactive to light.? EOMI. No nystagmus. ENT: Pharynx normal.??TM normal. Neck: Normal inspection.? Neck supple.? No midline cervical spine tenderness, step-offs, deformities. ? CVS: Heart sounds normal. Normal heart rate and rhythm.? Pulses normal.?? Respiratory: No respiratory distress.? Lung sounds clear to auscultation bilaterally?? Abdomen: Soft and non-tender. Normoactive bowel sounds. Back: No palpable midline thoracic or lumbar spine tenderness, step-offs, deformities. Skin: Skin warm and dry.? Normal skin color.? ? Extremities: No lower extremity edema. Full AROM to the bilateral hips knees and ankles. No tenderness upon palpation. No shortening and no rotation. 2+ DP/PT pulse bilaterally. Neuro: Moves all extremities spontaneously. Sensation intact bilaterally. CN II- XII intact. No focal neuro deficits. Course Reevaluation(s) Reevaluation #1: Nursing staff attempted to assist patient to commode she has significant weakness requiring 3 person assist for transfer. She was noted to put weight on both lower extremities without complication. Reviewed XR imaging of the right hip and pelvis which reveals no evidence of acute fracture, again this obtained as she did endorse hip pain initially and she has dementia. CT of the head reveals no acute intracranial abnormality, no evidence of acute cervical spine fracture or traumatic subluxation, symptoms consistent with, normal pressure hydrocephalus. CBC is without leukocytosis or anemia. CMP is overall unremarkable aside from mildly elevated alk-phos which has been seen in the past. Urinalysis with microscopic hematuria, 2+ leukocyte esterase without urine bacteria or nitrates, do not suspect urinary tract infection at this time. Patient placed in physician observation so that case management/physical therapy evaluation may ensue in determination of whether short-term rehab is warranted. Time: 00:10 Medications Administered Discontinued Medications Generic Name Dose Route Start Last Admin Trade Name Freq PRN Reason Stop Dose Admin Acetaminophen 975 mg 06/10/23 00:15 06/10/23 00:45 Acetaminophen 325 Mg Tablet PO 06/10/23 00:16 975 mg ONCE ONE Administration Medical Decision Making Medical Decision Making MDM Narrative: Patient is an 82-year-old female with past medical history of COPD, Chronic hypoxemic respiratory failure on oxygen supplementation at 2 L via nasal cannula, NPH, dementia, recent diagnosis of pneumonia currently on azithromycin, GERD, hyperlipidemia, hypertension presenting to emergency department for evaluation after a fall of unknown etiology. She has a vague historian due to her history of dementia. Hard cervical spine collar is in place, plan to obtain CT of the head and cervical spine to exclude ICH, SDH, fracture, subluxation. In addition will obtain XR imaging of the right hip as there was an initial endorsement of pain although physical examination is benign. There are no focal neurological deficits. In addition will obtain serum labs and urinalysis to exclude abnormality Differential Diagnosis Differential Diagnoses: The differential diagnosis associated with the presentation includes (As noted above) Admission/Observation Consideration of admission/observation: Escalation of care including admission/observation considered (See course narrative for further detail) Lab Data [facility] Lab Attestation statement: I reviewed the patient's lab results. 06/09/23 21:18 06/09/23 21:18 Labs: Lab Results 06/09/23 06/09/23 Range/Units 21:18 23:18 WBC 5.2 (4.8-10.8) X10*3/uL RBC 4.31 (4.20-5.50) X10*6/uL Hgb 12.5 (12.0-16.0) g/dl Hct 40.3 (37.0-47.0) % MCV 93.5 (80.0-98.0) fL MCH 29.0 (27.0-33.0) pg MCHC 31.0 (31.0-35.0) g/dl RDW 13.2 (11.0-16.0) % Plt Count 235 D (160-400) X10*3/uL MPV 10.5 (9.4-12.3) fL Immature Gran % (Auto) 0.4 (0.0-0.4) % Neut % (Auto) 48.4 (45-73) % Lymph % (Auto) 34.5 (20-40) % [place] % (Auto) 12.3 H (2-11) % Eos % (Auto) 3.8 (0-4) % Baso % (Auto) 0.6 (0-2) % Lymph # (Auto) 1.8 (1.2-4.9) X10*3/uL [place] # (Auto) 0.6 (0.1-1.2) X10*3/uL Eos # (Auto) 0.2 (0.0-0.4) X10*3/uL Baso # (Auto) 0.0 (0.0-0.2) X10*3/uL Abs Immat Gran (auto) 0.02 (0.00-0.03) X10*3/uL Absolute Neuts (auto) 2.5 (2.0-8.3) x10*3/uL Absolute Nucleated RBC 0.000 (0.0-0.012) X10*3/uL Nucleated RBC % (auto) 0.0 (0.0-0.2) /100WBC Sodium 140 (135-145) mmol/L Potassium 3.8 (3.3-5.1) mmol/L Chloride 102 (96-108) mmol/L Carbon Dioxide 28 (22-29) mmol/L Anion Gap 14 (12-20) BUN 28 H (9-16) mg/dL Creatinine 0.84 (0.5-1.4) mg/dL Estim Creat Clear Calc 61.0 Estimated GFR > 60 Random Glucose 93 (60-115) mg/dL Calcium 9.5 (8.4-10.2) mg/dL Magnesium 2.2 (1.6-2.6) mg/dL Total Bilirubin 0.3 (0.0-1.0) mg/dL AST 13 (5-31) U/L ALT 7 (0-31) U/L Alkaline Phosphatase 127 H (39-117) U/L Total Protein 7.4 (6.5-8.0) g/dL Albumin 4.0 (3.5-5.0) g/dL Urine Color Yellow Urine Appearance Clear Urine pH 5.5 (5.0-9.0) Ur Specific [place] 1.010 (1.005-1.025) Urine Protein Negative (Neg-Trace) mg/dL Urine Glucose (UA) Negative (Negative) mg/dL Urine Ketones Negative (Negative) mg/dL Urine Blood Trace H (Negative) Urine Nitrite Negative (Negative) Ur Leukocyte Esterase Moderate (2+) H (Negative) Urine RBC 0-2 (0-2) /HPF Urine WBC 11-20 H (0-5) /HPF Ur Squamous Epith Cells 3-5 (0-2) /HPF Urine Bacteria None Seen (None Seen) Hyaline Casts 0-2 (0-2) /LPF COVID-19 (JASON) Negative (Negative) COVID-19 Clin Com See Note Influenza Type A (DAVIS) Negative (Negative) Influenza Type B (DAVIS) Negative (Negative) Influenza A & B Note See Note Independent Interpretation I performed an independent interpretation of an: EKG and Plain X-Ray (I personally interpreted x-ray of the hip and agree with radiologist impression.) Interpretation: Rate: 63 Rhythm:? Normal sinus rhythm [place]:? Normal Normal P waves.? Normal AMINA.?? Normal QRS complex.?? ST T wave :??No ST elevation no ST depression qTC:[id number] The study has been interpreted contemporaneously by me. Radiology Impression Discussion of test interpretation with radiology: I have reviewed the radiologist's reading. Radiologist Impression: CT/CT head/brain wo IV con IMPRESSION: 1. No evidence of acute intracranial hemorrhage or edematous territorial infarction. 2. No evidence of acute fracture or traumatic subluxation of the cervical spine. 3. Moderate underlying microangiopathy. 4. There is a degree of generalized cerebral volume loss with prominence of both the ventricles and sulcal spaces. However, there appears to be mildly disproportionate prominence of the ventricles. This may be due to disproportionate central volume loss; however, correlation with symptoms of potential superimposed normal pressure hydrocephalus is recommended. 5. Moderate multilevel degenerative spondyloarthropathy of the cervical spine. XR/XR hip RT w PEL1V IMPRESSION: No acute fracture or dislocation. Independent Historian Clinical information obtained from an independent historian. History obtained from or confirmed by: EMS External Record Review External record reviewed: Outpatient record Discharge Plan Discharge Clinical Impression: Unwitnessed fall Patient Disposition: Still a Patient Prescriptions: No Action (DME) miscellaneous medical supply Misc See Rx Instructions .ROUTE .MEDSUPPLY Qty: 1 0RF Rx Instructions: Transport chair 4 wheel manual, Daily As directed, 999 days/Lifetime. Disp#1 (DME) Wheel chair Kit See Rx Instructions .Route Qty: 1 0RF Rx Instructions: transport wheel chair amlodipine 5 mg tablet 5 mg PO DAILY 90 Days Qty: 90 3RF diclofenac sodium 1 % gel 4 g topical QID 30 Days Qty: 200 3RF Rx Instructions: apply to single knee, ankle, foot; for foot includes sole/toes/top of foot meloxicam 15 mg tablet 15 mg PO DAILY 30 Days Qty: 30 2RF pregabalin [Lyrica] 25 mg capsule 25 mg PO BID 30 Days Qty: 60 0RF furosemide 20 mg tablet 20 mg PO DAILY PRN (Reason: edema) 30 Days Qty: 30 1RF famotidine 20 mg tablet 20 mg PO DAILY 30 Days Qty: 30 3RF calcium carbonate 200 mg calcium (500 mg) tablet,chewable 500 mg PO DAILY acetaminophen 650 mg Tablet Extended Release 1,300 mg PO BID cyanocobalamin (vitamin B-12) 1,000 mcg Tablet 1,000 mcg PO DAILY multivitamin Tablet 1 tab PO DAILY cholecalciferol (vitamin D3) 25 mcg (1,000 unit) Tablet 25 mcg PO DAILY (DME) miscellaneous medical supply Misc See Rx Instructions .ROUTE .MEDSUPPLY Qty: 1 0RF Rx Instructions: verito winters/gloria. As directed. DX: M53.3, Duration 999 days metoprolol tartrate 25 mg tablet 12.5 mg PO BID 90 Days Qty: 90 4RF clotrimazole 1 % cream 1 appful vaginal BEDTIME 30 Days Qty: 45 1RF albuterol sulfate 2.5 mg /3 mL (0.083 %) solution for nebulization 2.5 mg inhalation Q4-6H PRN (Reason: shortness of breath or wheezing) 30 Days Qty: 180 2RF sertraline 50 mg tablet 75 mg PO DAILY 90 Days Qty: 135 3RF albuterol sulfate [ProAir HFA] 90 mcg/actuation HFA aerosol inhaler 2 puff INHALATION Q6H PRN (Reason: Dyspnea) 30 Days Qty: 8.5 3RF fluticasone furoate-vilanterol [Breo Ellipta] 200-25 mcg/dose blister with device 1 inh INHALATION DAILY 30 Days Qty: 60 3RF azithromycin [Zithromax Z-Tony] 250 mg tablet 250 mg PO DAILY 5 Days Qty: 6 0RF Rx Instructions: 2 pills day one then 1 pill per day x 4 days
[2023-06-09 22:43] VITALS: BP 131/71; PULSE 62; RESP 11; TEMP 36.4; O2SAT 94
[2023-06-09 23:26] LABS: Appearance Urine Clear; Color Urine Yellow; Glucose Urine UA Negative (Negative); Leukocyte Esterase Urine Moderate (2+) (Negative); Nitrite Urine Negative (Negative); PH 5.5 (5.0-9.0); UMIC TRIGGER UACC YES; Urine Blood Trace (Negative); Urine Ketones Negative (Negative); Urine Protein Negative (Neg-Trace)
[2023-06-09 23:36] LABS: Bacteria Urine None Seen (None Seen); Hyaline Casts Urine 0-2 /LPF (0-2); RBC Urine 0-2 /HPF (0-2); UACC Culture Trigger YES
[2023-06-09 23:40] LABS: COVID-19 Test Negative (Negative); IDNOW Serial# 08D9AD1C; IDNOW Serial# BCCEAD1C; Influenza A Negative (Negative); Influenza B2 Negative (Negative)
[2023-06-10] MEDS: Acetaminophen 325 MG TABLET 975 MG PO (00:45)
--- NOTE | 2023-06-10 05:42 | PC.NURSE ---
pt moved into ED bed 22 from ED bed 3 as pt was found getting herself up out of bed and using commode as a walker. pt did not fall or sustain any injuries. moved to bed 22 to be within view of nurses station and camera placed in room . call ross within reach. pt waiting to PT/CM andresal.
[2023-06-10 06:20] VITALS: BP 154/64; PULSE 55; RESP 14; TEMP 36.6; O2SAT 97
--- NOTE | 2023-06-10 07:51 | PHA.MEDREC ---
Pharmacy Consult ? Medication Reconciliation Pharmacy has reviewed the medication reconciliation.
[2023-06-10 09:09] VITALS: BP 194/93; O2SAT 91
[2023-06-10 09:23] VITALS: BP 179/81; PULSE 74; RESP 18; TEMP 36.4; O2SAT 95
--- NOTE | 2023-06-10 09:33 | PC.NURSE ---
patient sitting up eating breakfast, patient took her meds this morning. Calm and cooperative, VSS. patient has video monitor in place
--- NOTE | 2023-06-10 11:36 | MHC.CM.ED ---
Received case management consult overnight. Patient came to the ER after a fall. Work up essentially negative. Physical therapy eval completed. 29/03 care is recommended. Met with patient and son, Jas at patient's bedside. Patient lives with Jas and his , uses a walker, and had no services prior to coming to the hospital. PCP verified. Copy of HCP verified to be on file. Patient typically sleeps from 4am-2pm. Jas and his work from 6a-2p and then return home. Jas will make sure there is food available for patient while they are work. Patient has a walker and a life line. House is a single level ranch. Patient can ambulate between her bedroom, bathroom, kitchen and living room without an issue. Jas has been looking into hiring additional help at home and has an appointment today to meet with a caregiver. Jas is hoping to meet with caregiver and arrange it so patient can return home with them tomorrow. Patient, Jas and Gissell PAREDES aware and agreeable to patient staying overnight so more care can be provided at home. Continue to monitor for d/c needs.
--- NOTE | 2023-06-10 12:00 | PC.NURSE ---
patient up to commode 1 assist with walker, patient tolerated well
[2023-06-10 15:29] VITALS: BP 179/81; PULSE 62; RESP 17; TEMP 36.6
--- NOTE | 2023-06-10 16:17 | PC.NURSE ---
Patient is alert to name and date of , unable to recall date, place, or reason for admission. Does not recall fall. Patient able to get up to commode with assistance and direction. Performed head to toe assessment. Patient ate 50% of lunch.
[2023-06-10 21:00] VITALS: BP 158/70; PULSE 72; RESP 18; TEMP 36.2; O2SAT 94
--- NOTE | 2023-06-11 00:49 | PC.NURSE ---
Pt endorsing chest pain and shortness of breath, O2 91% on 2L NC, this RN offered pt tylenol but she refused since it didnt come from a bottle, assisted back into bed from commode and informed pt that it will be best to use a bed malik from now on d/t shortness of breath
[2023-06-11 05:29] VITALS: BP 149/83; PULSE 92; RESP 18; TEMP 36.7; O2SAT 95
[2023-06-11 15:21] VITALS: BP 127/63; PULSE 80; RESP 15; TEMP 36.1; O2SAT 98
== END 2023-06-11 17:51 | disposition home or self-care (01) ==
PROVIDERS: Nurse Practitioner Family; Emergency Provider Emergency Medicine Emergency Medical Services; PCP Family Medicine
DX: S00.93XA Contusion of unspecified part of head, initial encounter (principal); R51.9 Headache, unspecified; M54.2 Cervicalgia; R60.0 Localized edema; R26.2 Difficulty in walking, not elsewhere classified; M25.551 Pain in right hip; Z20.822 Contact with and (suspected) exposure to COVID-19; Z11.52 Encounter for screening for COVID-19; Z87.891 Personal history of nicotine dependence; Z79.899 Other long term (current) drug therapy
CPT/HCPCS: 70450; 72125; 73502; 80053; 81001; 83735; 85025; 87086; 87502; 87635; 93005; 97161; 99285

== ENCOUNTER 2023-08-05 15:30 | Outpatient (AMB) | payer MEDICARE, SELFPAY ==
--- NOTE | 2023-08-05 15:33 | A.OFFPC_ITS ---
Vital Signs 08/05/23 15:35 Weight 138 lb BP 130/70 Blood Pressure Location Lt brachial Position Sitting Pulse 83 Pulse Source Pulse Oximeter Pulse Oximetry (%) 94 Oxygen Delivery Method Nasal Cannula Oxygen Flow Rate 3 Intake Visit Reasons: follow up chronic conditions Allergies No Known Allergies Allergy (Verified 06/07/23 13:23) Tobacco use date assessed: 03/24/23 HPI follow up chronic conditions HPI Details 82 y/o female presents to f/u chronic co nditions. Blood pressure today 130/70. She is on metoprolol 12.5mg b.i.d. and amlodipine 5mg daily. ED visit 06/27/23 for generalized weakness and fall. She had endorsed head strike/loss of consciousness. CT scan of head/neck negative. Pt notes she has been depressed. Pt's family admits that she has been spending long hours in bed, up to 20-22 hours. Pt's son mentions that pt has been telling her family that she wants to . When questioned about this, she states she feels like she has done everything already. She states she does not have a therapist. HPI Comments History of Present Illness Details Documentation assistance for Juan Jose Haywood MD, was provided by Samy Kerr,? Culinary Director on 08/05/2023 4:59 PM EST. I, Dr. Haywood, have read, observed, and verified documentation.? 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 Cosmo Knox, Caryn Whyte, Pilo Kraft and colleagues, with an educational jie from [employer]. Review of Systems Const Denies chills, Denies fatigue, Denies fever(s), Denies headache(s) and Denies weakness ENT Denies dizziness and Denies headache(s) Card Denies chest pain, Denies lightheadedness, Denies dyspnea and Denies other (Palpitations) Resp Denies cough, Denies dyspnea, Denies wheezing and Denies other ( shortness of breath) Musc Denies numbness and Denies tingling Neuro Denies dizziness, Denies headache(s), Denies numbness, Denies tingling, Denies paresthesias and Denies weakness Psych Reports anxiety and Reports depression Endo Denies fatigue Aller/Immun Denies wheezing Physical exam (Primary Care) Vital Signs: Last Vital Signs Pulse 83 08/05/23 15:35 BP 130/70 08/05/23 15:35 Pulse Ox 94 08/05/23 15:35 Oxygen Delivery Method Nasal Cannula 08/05/23 15:35 Oxygen Flow Rate 3 08/05/23 15:35 Tobacco/Smoking Status: Tobacco use Status Tobacco use date assessed 03/24/23 08/05/23 15:34 Patient Tobacco Use Status Former Tobacco user 08/05/23 15:34 e-Cigarette/Vaping Use Never Used 08/05/23 15:34 Thrive Assessment: Date of Thrive Assessment Date Thrive assessed 01/13/22 08/05/23 15:34 Const General: no acute distress and well developed Nutritional Appearance: well nourished Orientation/consciousness: patient oriented x3 HENMT Head: Yes normocephalic and Yes atraumatic Eyes General: appearance normal, both eyes and all related structures Pupils: Equal, round and reactive pupils present EOM: EOMs intact bilaterally Resp Effort & Inspection: normal respiratory effort Auscultation: clear to auscultation bilaterally Cardio Rate: regular rate Rhythm: regular rhythm Heart sounds: S1 normal heart sound present, S2 normal heart sound present, no gallops, no murmurs and no rubs Neuro General: patient oriented x3 and gait normal Cranial nerves: Yes Equal, round and reactive pupils present Psych Affect: normal affect Assessment and Plan Assessment & Plan (1) Depression with anxiety: Code(s): F41.8 - Other specified anxiety disorders Plan: Significant?depression She?is?on?sertraline. Will?have?her?increase?this?to?a?total?daily?dose?of?100?mg Will?ask?the?nurse?navigator?to?help?connect?her?with?a?therapist (2) Hypertension: Code(s): I10 - Essential (primary) hypertension (3) Lower extremity weakness: Code(s): R29.898 - Other symptoms and signs involving the musculoskeletal system Plan: Home care thru [facility] A[facility] coming?daily. Has?physical?therapy?and?occupational?therapy - continue?these (4) Fall: Code(s): W19.XXXA - Unspecified fall, initial encounter Qualifiers: Encounter type: initial encounter Qualified Code(s): W19.XXXA - Unspecified fall, initial encounter Plan: Recent?fall Continue?physical?therapy Has?wheelchair (5) Respiratory failure with hypoxia: Code(s): J96.91 - Respiratory failure, unspecified with hypoxia Plan: Continue?oxygen?by?nasal?cannula Increase?to?3?L?with?activity Orders: Referrals Nurse Navigator Referral F41.8 - Other specified anxiety disorders Medications: Changed From sertraline 75 mg (1.5 x 50 mg) PO DAILY 135 tabs 3RF 90 days To sertraline 1.5?tabs?(75?mg)?in?a.m.?and?0.5?tabs?(25?mg)?p.m. 180 tabs 3RF 90 days Coding Level of Care Code Est Pt Level 4 (17411) Diagnoses Depression with anxiety F41.8 Hypertension I10 Lower extremity weakness R29.898 Fall W19.XXXA Encounter type: initial encounter Respiratory failure with hypoxia J96.91
[2023-08-05 15:35] VITALS: BP 130/70; PULSE 83; O2SAT 94
== END 2023-08-05 17:02 | disposition home or self-care (01) ==
PROVIDERS: PCP Family Medicine; Visit Provider Family Medicine
DX: F41.8 Other specified anxiety disorders (principal); J96.91 Respiratory failure, unspecified with hypoxia; I10 Essential (primary) hypertension; R29.898 Other symptoms and signs involving the musculoskeletal system; W19.XXXA Unspecified fall, initial encounter
CPT/HCPCS: 99214

== ENCOUNTER 2023-08-17 13:25 | Outpatient (REF) | payer MEDICARE, SELFPAY ==
--- NOTE | ~2023-08-17 | XR_ITS ---
EXAMINATION: XR CHEST CLINICAL INFORMATION: Reason for Exam J96.91 - Respiratory failure, unspecified with hypoxia COMPARISON: Chest radiograph June 2023 TECHNIQUE: 2 views of the chest FINDINGS: Lines and tubes: None. Background of chronically increased interstitial opacities may reflect sequelae of senescent change. Suspect persistent right middle lobe retrocardiac consolidation, given findings are not resolved, recommend CT chest for further evaluation. No pleural effusion. No pneumothorax. Unchanged cardiomediastinal silhouette. Multilevel thoracolumbar wedge compression deformities status post kyphoplasty. XR/XR chest 2V IMPRESSION: 1. Suspect persistent right middle lobe retrocardiac consolidation, given findings are not resolved, recommend CT chest for further evaluation. 2. Background of chronically increased interstitial opacities may reflect sequelae of senescent change. 3. Multilevel thoracolumbar wedge compression deformities status post kyphoplasty. The report will be called to the ordering clinician by a [facility] Glost Tile Shader.
== END 2023-08-17 13:26 | disposition home or self-care (01) ==
LOC: HO.XRAY 13:25
PROVIDERS: PCP Family Medicine; Visit Provider Internal Medicine
DX: J44.9 Chronic obstructive pulmonary disease, unspecified (principal); F03.90 Unspecified dementia, unspecified severity, without behavioral disturbance, psychotic disturbance, mood disturbance, and anxiety; R13.10 Dysphagia, unspecified; J96.91 Respiratory failure, unspecified with hypoxia; J40 Bronchitis, not specified as acute or chronic; J18.9 Pneumonia, unspecified organism
CPT/HCPCS: 71046; 99212

== ENCOUNTER 2023-08-17 13:25 | Outpatient (AMB) | payer MEDICARE, SELFPAY ==
--- NOTE | 2023-08-17 13:34 | A.OFFVIS_ITS ---
Intake Vital Signs 08/17/23 13:36 Height 5 ft 7 in BP 120/78 Blood Pressure Location Lt brachial Position Sitting Pulse 75 Pulse Source Pulse Oximeter Pulse Oximetry (%) 95 Oxygen Delivery Method Nasal Cannula Oxygen Flow Rate 2 Intake Visit Reasons: COPD Intake Note: pt is here for follow up and states her O2 has been fluctuating at different times, She does takes breaks from O2, was in rehab for about 3 weeks. Pt had garbled cough and nasal congestion. trouble eating since home from rehab, feels like stuck in throat. Market Development Director Required: No Allergies No Known Allergies Allergy (Verified 08/17/23 13:46) Medication List - Last Reconciled 08/17/23 by Lorna Bradley MD acetaminophen ER 1,300 mg PO BID albuterol sulfate 90 mcg/actuation (ProAir HFA) 2 puffs inhalation Q6H PRN 30 days albuterol sulfate 2.5 mg (3 mL) inhalation Q4-6H PRN 30 days amlodipine 5 mg PO DAILY 90 days chair, wheel (Wheel chair) transport wheel chair diclofenac sodium 1% 4 grams topical QID 30 days famotidine 20 mg PO DAILY 30 days fluticasone furoate-vilanterol 200-25 mcg/dose (Breo Ellipta) 1 inh inhalation DAILY 30 days furosemide 20 mg PO DAILY PRN 30 days meloxicam 15 mg PO DAILY 30 days metoprolol tartrate 12.5 mg (1/2 x 25 mg) PO BID 90 days miscellaneous medical supply donut cushion/pillow. As directed. DX: M53.3, Duration 999 days miscellaneous medical supply Transport chair 4 wheel manual, Daily As directed, 999 days/Lifetime. Disp#1 multivitamin 1 tab PO DAILY pregabalin (Lyrica) 25 mg PO BID 30 days sertraline 1.5?tabs?(75?mg)?in?a.m.?and?0.5?tabs?(25?mg)?p.m. 90 days Do you need a note to return to daycare/school/sports/work: No HPI COPD HPI Details This 82 years old female, past history of smoking and does have chronic obstructive pulmonary disease, She is using Breo 200-251 inhalation daily and updrafts of albuterol solution p.r.n.. Her general medical condition as well as mental status has somewhat deteriorated. She has vascular dementia, with impairment of the mental status as well as locomotion. Has difficulty in standing and walking so mostly in the wheelchair. She has been hospitalized recently at [facility] after a fall, and then she was in a rehab facility for about 2 weeks. Now she is at home, she is being cared by her son, Also has a EVP MANAGING DIRECTOR who will be staying with her at night. Prudence , does not talk much, but she does understand the conversation. Most of the talk was done by her son. She has difficulty in swallowing, certain foods, after eating she does have increased cough. Recently she has had no fever or chills. She does get short of breath, she is on oxygen 2 L/minute continuously but and sometimes increased to 3 L/minute. She is brought here for follow-up after the rehab placement . 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 Tobacco Use Status: Former Tobacco user Cigarette Packs Per Day: 3 Cigarettes Per Day: 60.0 Years Smoked: 50 e-Cigarette/Vaping Use: Never Used Second Hand Smoke Exposure: Yes Advance Directives Date on File: 02/25/22 service: No Current occupational status: retired and disabled Current occupational exposures/hazards: No Cognitive needs: No Hearing needs: No Vision needs: No Review of Systems Const All systems reviewed & are unremarkable except as noted in HPI and below Eyes Reports no additional complaints ENT Reports no additional complaints Card Denies chest pain, Denies irregular heart rhythm and Denies leg edema Resp Reports as per HPI GI Reports no additional complaints Reports no additional complaints Musc Reports abnormal gait (Non ambulatory), Reports back pain, Reports arthralgias and Reports muscle weakness Skin/Breast Reports system reviewed and no additional complaints, except as documented Neuro Reports abnormal gait (Non ambulatory) Psych Reports no additional complaints Physical Exam Vital Signs: Last Vital Signs Pulse 75 08/17/23 13:36 BP 120/78 08/17/23 13:36 Pulse Ox 95 08/17/23 13:36 Oxygen Delivery Method Nasal Cannula 08/17/23 13:36 Oxygen Flow Rate 2 08/17/23 13:36 Const General: comfortable (In wheelchair), no acute distress, alert and awake Orientation/consciousness: patient oriented x3 HEENT Head: Yes normal to inspection General nose exam: No nasal polyps present and No nasal discharge present Face and sinus: Yes sinuses nontender Mouth: oropharynx normal Throat: Yes posterior oropharynx normal Eyes General: appearance normal, both eyes and all related structures Neck Neck: Yes normal visual inspection, Yes no lymphadenopathy, Yes trachea midline and Yes no JVD Thyroid: Thyroid normal Chest Chest palpation & inspection: normal inspection of the chest, normal palpation of entire chest wall and no tenderness Resp Other: PERCUSSION NOTE IS RESONANT. BREATH SOUNDS ARE DISTANT. INSPIRATORY CRACKLES HEARD OVER THE RIGHT LOWER LOBE. A FEW CRACKLES OVER THE LEFT BASE. NO WHEEZES . Cardio Palpation: normal PMI Rate: regular rate Rhythm: regular rhythm Heart sounds: no gallops and no murmurs GI Palpation (GI): Soft to palpation, nontender, No hepatosplenomegaly present and no masses Auscultation: normal bowel sounds Back/Spine/Pelvis Thoracic/Lumbar Spine: thoracic and lumbar spine normal to inspection and thoraco-lumbar ROM limited Skin General skin exam: no rashes or lesions noted Neuro General: patient oriented x3, No gait normal (Non ambulatory) and no focal motor deficits Cranial nerves: Yes CN's II-XII intact bilaterally Extrem General: Yes normal to inspection, Yes no clubbing, cyanosis or edema and Yes no calf tenderness Psych Appearance: grossly normal Speech and movement: Normal speech and movement present Assessment & Plan Assessment & Plan (1) COPD (chronic obstructive pulmonary disease): Comment: This patient does have moderately advanced chronic obstructive pulmonary disease. [place] : Continue Breo 200-25 1 inhalation daily. Albuterol solution 2.5 mg/ 3 ml in the nebulizer Q 4-6 hours p.r.n.. Code(s): J44.9 - Chronic obstructive pulmonary disease, unspecified Plan: Advised to continue the present meds. (2) Dementia: Comment: Patient has multifactorial dementia, most predominantly secondary to micro vascular disease. Code(s): F03.90 - Unspecified dementia, unspecified severity, without behavioral disturbance, psychotic disturbance, mood disturbance, and anxiety Plan: Patient should be followed by urology service regularly (3) Swallowing difficulty: Comment: As per son she has difficulty in swallowing her food sometime. She has had occasional. Of choking and cough after eating. This raises possibility of aspiration . Code(s): R13.10 - Dysphagia, unspecified Plan: MODIFIED BARIUM SWALLOW IS ORDERED TO CHECK FOR MICRO ASPIRATIONS. AFTER THAT SHE MAY NEED REFER TO SPEECH THERAPY FOR SWALLOWING EXERCISES. (4) Respiratory failure with hypoxia: Code(s): J96.91 - Respiratory failure, unspecified with hypoxia Plan: PATIENT IS KNOWN TO HAVE HYPOXEMIA DUE TO HER CHRONIC OBSTRUCTIVE PULMONARY DISEASE. Plan ADVISED TO STAY ON OXYGEN 2 L/MINUTE AND IF THERE IS RESPIRATORY DISTRESS IT MAY BE INCREASED TO 3 L/MINUTE. Orders: Orders XR chest 2V Today J18.9 - Pneumonia, unspecified organism, J40 - Bronchitis, not specified as acute or chronic, J96.91 - Respiratory failure, unspecified with hypoxia FL barium swallow modified Today J40 - Bronchitis, not specified as acute or chronic, R13.10 - Dysphagia, unspecified Coding Level of Care Code Est Pt Level 4 (61535) Diagnoses COPD (chronic obstructive pulmonary disease) J44.9 Dementia F03.90 Swallowing difficulty R13.10 Respiratory failure with hypoxia J96.91
[2023-08-17 13:36] VITALS: BP 120/78; PULSE 75; O2SAT 95
== END 2023-08-17 14:07 | disposition home or self-care (01) ==
PROVIDERS: PCP Family Medicine; Visit Provider Internal Medicine
DX: J44.9 Chronic obstructive pulmonary disease, unspecified (principal); F03.90 Unspecified dementia, unspecified severity, without behavioral disturbance, psychotic disturbance, mood disturbance, and anxiety; R13.10 Dysphagia, unspecified; J96.91 Respiratory failure, unspecified with hypoxia
CPT/HCPCS: 99214

== ENCOUNTER 2023-09-16 14:25 | Outpatient (AMB) | payer MEDICARE, SELFPAY ==
[2023-09-16 14:26] VITALS: BP 126/76; PULSE 76; O2SAT 97; BMI 20.7
--- NOTE | 2023-09-16 14:26 | MHC.PC.OV ---
Vital Signs 09/16/23 14:26 Height 5 ft 7 in Weight 132 lb 2 oz BMI 20.7 BP 126/76 Blood Pressure Location Lt brachial Position Sitting Pulse 76 Pulse Source Pulse Oximeter Pulse Oximetry (%) 97 Oxygen Delivery Method Room Air Intake Visit Reasons: f/u depression/anxiety Intake Note: Patient is here to follow up on depression and anxiety, and has a UTI symptoms. Allergies No Known Allergies Allergy (Verified 09/16/23 14:37) Tobacco use date assessed: 09/16/23 Fall risk assessment: 1 Fall in past year Last assessed Fall Risk: 09/16/23 HPI f/u depression/anxiety HPI Details 82 y/o female presents to f/u depression/anxiety. Had increased her sertraline last office visit. Had asked nurse navigator to help connect her with a therapist. Pt reports UTI symptoms today. Had seen Pulmonology 08/17/23. Had ordered a modified barium swallow to check for micro aspirations. Had advised to continue present meds for COPD. 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 1. Little interest or pleasure in doing things: nearly every day 2. Feeling down, depressed, or hopeless: not at all 3. Trouble falling or staying asleep, or sleeping too much: not at all 4. Feeling tired or having little energy: nearly every day (patient states it's normal for her.) 5. Poor appetite or overeating: not at all 6. Feeling bad about yourself - or that you are a failure or have let yourself or your family down: not at all 7. Trouble concentrating on things, such as reading the newspaper or watching television: not at all 8. Moving or speaking so slowly that other people could have noticed. Or the opposite - being so fidgety or restless that you have been moving around a lot more than usual: not at all 9. Thoughts that you would be better off or of hurting yourself in some way: not at all Total score: 6 Source: Developed by Drs. Cosmo Knox, Caryn Whyte, Pilo Kraft and colleagues, with an educational jie from [employer]. Thrive Questionnaire Date Thrive assessed: 01/13/22 JOHNSON-7 AMB Questionnaire JOHNSON-7 Date JOHNSON - 7 assessed: 09/16/23 Feeling nervous, anxious, or on edge: 1 = Several days Not being able to stop or control worryin = Not at all Worrying too much about different things: 1 = Several days Trouble relaxin = Nearly every day Being so restless that it is hard to sit still: 0 = Not at all Becoming easily annoyed or irritable: 0 = Not at all Feeling afraid as if something awful might happen: 0 = Not at all Total JOHNSON-7 score (0-4 normal; 5-9 mild; 10-14 moderate; 15-21 severe): 5 Source: Developed by Drs. Cosmo Knox, Caryn Whyte, Pilo Kraft and colleagues, with an educational jie from [employer]. Review of Systems Const Denies chills, Denies fatigue, Denies fever(s), Denies headache(s) and Denies weakness ENT Denies dizziness and Denies headache(s) Card Denies chest pain, Denies lightheadedness, Denies dyspnea and Denies other (Palpitations) Resp Denies cough, Denies dyspnea, Denies wheezing and Denies other ( shortness of breath) Musc Denies numbness and Denies tingling Neuro Denies dizziness, Denies headache(s), Denies numbness, Denies tingling, Denies paresthesias and Denies weakness Psych Denies anxiety and Denies depression Endo Denies fatigue Aller/Immun Denies wheezing Physical exam (Primary Care) Vital Signs: Last Vital Signs Pulse 76 09/16/23 14:26 BP 126/76 09/16/23 14:26 Pulse Ox 97 09/16/23 14:26 Oxygen Delivery Method Room Air 09/16/23 14:26 BMI result Body Mass Index 20.7 Tobacco/Smoking Status: Tobacco use Status Tobacco use date assessed 09/16/23 09/16/23 14:42 Patient Tobacco Use Status Former Tobacco user 09/16/23 14:31 e-Cigarette/Vaping Use Never Used 09/16/23 14:31 PHQ-9: PHQ-9 Score PHQ-9: Total score 6 09/16/23 15:37 Thrive Assessment: Date of Thrive Assessment Date Thrive assessed 01/13/22 09/16/23 14:31 Const General: no acute distress and well developed Nutritional Appearance: well nourished Orientation/consciousness: patient oriented x3 [facility] Head: Yes normocephalic and Yes atraumatic Eyes General: appearance normal, both eyes and all related structures Pupils: Equal, round and reactive pupils present EOM: EOMs intact bilaterally Resp Effort & Inspection: normal respiratory effort Auscultation: clear to auscultation bilaterally Cardio Rate: regular rate Rhythm: regular rhythm Heart sounds: S1 normal heart sound present, S2 normal heart sound present, no gallops, no murmurs and no rubs Neuro General: patient oriented x3 and gait normal Cranial nerves: Yes Equal, round and reactive pupils present Psych Affect: normal affect Results AMB Urinalysis Dipstick UR Leukocytes Negative Last Edit by Sola Kaye CMA on 09/16/23 15:10 UR Nitrite Negative Last Edit by Sola Kaye CMA on 09/16/23 15:10 UR Urobilinogen 2 Last Edit by Sola Kaye CMA on 09/16/23 15:10 UR Protein Negative Last Edit by Sola Kaye CMA on 09/16/23 15:10 UR Ph Last Edit by Sola Kaye CMA on 09/16/23 15:10 UR Blood Small Last Edit by Sola Kaye CMA on 09/16/23 15:10 UR Specific Robinson 1.010 Last Edit by Sola Kaye, BARBER APPRENTICE on 09/16/23 15:10 UR Ketone Negative Last Edit by Sola Kaye, KENNY on 09/16/23 15:10 UR Bilirubin Negative Last Edit by Sola Kaye CMA on 09/16/23 15:10 UR Glucose Negative Last Edit by Sola Kaye CMA on 09/16/23 15:10 Burning while urinating, tired, sluggish, frequency Results Reviewed Results Reviewed: Laboratory Last Values Specific Robinson (Clinic) 1.010 09/16/23 15:06 Ur Protein (Clinic) Negative 09/16/23 15:06 Ur Ketones (Clinic) Negative 09/16/23 15:06 Urine Blood (Clinic) Small 09/16/23 15:06 Urine Nitrite Negative 09/16/23 15:06 Urine Bilirubin (Clinic) Negative 09/16/23 15:06 Urobilinogen (Clinic) 2 09/16/23 15:06 Leukocyte Esterase (Clinic) Negative 09/16/23 15:06 Urine Glucose (Clinic) Negative 09/16/23 15:06 Assessment and Plan Assessment & Plan (1) Depression with anxiety: Code(s): F41.8 - Other specified anxiety disorders Plan: Had?increased?patient's?sertraline?and?her?son?notes?that?mood?is?improved Continue?current?medication?rash (2) UTI symptoms: Code(s): R39.9 - Unspecified symptoms and signs involving the genitourinary system Plan: Vaginal?burning?and?some?vaginal?discharge. Urine?dip?is?rather?clear?and?not?suggestive?of?urinary?tract?infection. Given?patient's?age?and?previous?urinary?tract?infections?however,?will?send?for?UA?and?culture?and?sensitivities More?likely?yeast?infection?however?so?sending?a?script?for?Diflucan (3) Swallowing difficulty: Code(s): R13.10 - Dysphagia, unspecified Plan: She?has?a?modified?barium?swallow?scheduled?for?the?end?of?the?month. I?will?be?seeing?her?a?couple?weeks?after?and?can?make?a?referral?to?an?TICKET SCHEDULER?afterwards?if?patient?has?not?seen?Pulmonary?yet. (4) COPD (chronic obstructive pulmonary disease): Code(s): J44.9 - Chronic obstructive pulmonary disease, unspecified Plan: Moderately?severe?COPD. Lungs?are?clear?today. Continue?oxygen?at?2?L?per?minute?and?can?increase?to?3?L?for?distress. Continue?inhaled?medication Follow-up?with?pulmonology?as?recommended Orders: Orders UA and rflx microscopic Today N94.9 - Unspecified condition associated with female genital organs and menstrual cycle, Z00.00 - Encounter for general adult medical examination without abnormal findings AMB Urinalysis Dipstick Today R39.9 - Unspecified symptoms and signs involving the genitourinary system Urine Culture Today N94.9 - Unspecified condition associated with female genital organs and menstrual cycle Medications: New fluconazole 150 mg PO Q3D 2 tabs 0RF Coding Level of Care Code Est Pt Level 4 (56430) Diagnoses Depression with anxiety F41.8 UTI symptoms R39.9 Swallowing difficulty R13.10 COPD (chronic obstructive pulmonary disease) J44.9
== END 2023-09-16 15:54 | disposition home or self-care (01) ==
PROVIDERS: PCP Family Medicine; Visit Provider Family Medicine
DX: F41.8 Other specified anxiety disorders (principal); R39.9 Unspecified symptoms and signs involving the genitourinary system; R13.10 Dysphagia, unspecified; J44.9 Chronic obstructive pulmonary disease, unspecified
CPT/HCPCS: 81002; 99214

== ENCOUNTER 2023-09-16 15:50 | Outpatient (REF) | payer MEDICARE, SELFPAY ==
[2023-09-16 18:50] LABS: Appearance Urine Clear; Color Urine Yellow; Glucose Urine UA Negative (Negative); Leukocyte Esterase Urine Small (1+) (Negative); Nitrite Urine Negative (Negative); Specific Gravity - Urine <= 1.005 (1.005-1.025); UMIC TRIGGER UA YES; Urine Blood Trace (Negative); Urine Ketones Negative (Negative); Urine Protein Negative (Neg-Trace)
[2023-09-16 19:06] LABS: Bacteria Urine None Seen (None Seen); Hyaline Casts Urine 0-2 /LPF (0-2); RBC Urine 0-2 /HPF (0-2); Squamous Epithelial Cell Urine 0-2 /HPF (0-2); WBC Urine 0-5 /HPF (0-5)
== END 2023-09-16 15:51 | disposition home or self-care (01) ==
LOC: HO.LAB 15:50
PROVIDERS: Visit Provider Family Medicine
DX: Z00.00 Encounter for general adult medical examination without abnormal findings (principal); N94.9 Unspecified condition associated with female genital organs and menstrual cycle; R35.0 Frequency of micturition
CPT/HCPCS: 81001; 87086

== ENCOUNTER 2023-10-04 14:35 | Outpatient (REF) | payer MEDICARE, SELFPAY ==
--- NOTE | ~2023-10-04 | FL_ITS ---
EXAMINATION: Modified Barium Swallows CLINICAL INFORMATION: Dysphagia COMPARISON: None TECHNIQUE: Modified barium swallow was performed under lateral fluoroscopy with patient in standing position. Different consistency of barium was administered by the speech therapist. FINDINGS: No aspiration or laryngeal penetration was seen during this examination. FLUOROSCOPY TIME: 1 minute 34 seconds Number of Spot Images: 1 DOSE AREA PRODUCT: 277 uGy-m2 (microgray-meter squared) FL/FL barium swallow modified IMPRESSION: No aspiration or laryngeal penetration was seen during this examination. Refer to the speech therapy report for further clarification This procedure was performed by Juan Gardner PA-C, and supervised by Dr. Grace
--- NOTE | 2023-10-06 15:51 | MHC.SL.IMP ---
Date of Plan of Treatment: 10/04/23 Onset of Symptoms/Illness: 07/04/23 Date Treatment Started: 10/04/23 Admitting Diagnosis: J40 Bronchitis, not specified as acute or chronic R13.10 Dysphagia, unspecified Primary Speech & Language Diagnosis: R13.12 Oropharyngeal Phase Dysphagia Reason for Today's Visit: 49494 Modified Barium Swallow Study Pre-evaluation Dietary Consistencies: Regular Pre-evaluation Liquid Consistency: Thin Pre-evaluation Medication Administration: Whole with Liquid Medical History: Modified Barium Swallow Study Fluoroscopic Evaluation of Swallowing Function CPT Code 33216 Evaluation Year: 2023 Reason for Study: Family reports difficulty swallowing. Referring Physician: Lorna Bradley MD Evaluating Clinician: Florina Reese MA, CCC-USED CAR MANAGER Study Number: 1 Patient Name: Katrin Dominguez Status: Outpatient, Wheelchair Age: 82 Gender: Female Medical History Swallowing difficulty Respiratory failure with hypoxia Hypoxemia Pneumonia Respiratory failure Peripheral vascular disease Hyperlipidemia Hypertension COPD (chronic obstructive pulmonary disease) Current (pre-evaluation) Intake/Diet: Route: PO Diet Grade: Regular Liquid Consistencies: Thin Pre-Study Functional Oral Intake Scale (FOIS): 7- Total oral intake with no restrictions Pain: None reported at time of study SUBJECTIVE: Pt is an 82 year old female with vascular dementia. Pt?s history also includes pneumonia, COPD, and respiratory failure. Pt is followed by Pulmonology and is on oxygen 2 L/minute continuously but sometimes increased to 3L/minute. Pt was recently hospitalized at [facility] after sustaining a fall, then was sent to a rehab facility for 2 weeks. Pt is now at home and is cared for by her son. 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 Pt was referred for a modified barium swallow study by her human resource analyst after pt?s son reported pt has been coughing after meals. Today pt?s son elaborated on his concerns, reporting that pt started having difficulty 3 months ago. He described pt to ?sound like she is choking and coughing up phlegm.? He reports this has been occurring more frequently in the past few weeks. Oral Motor Exam Facial Symmetry: Symmetrical Mouth Occlusion: Normal Oral-Facial Teeth Characteristics: Dentures Oral-Facial Smile (Lips) Description: Normal Oral-Facial Puff Cheeks Description: Normal Tongue Size: Normal Tongue Excursion Description: Normal Tongue Range of Movement Description: Normal Tongue Speed of Movement Description: Normal Tongue Strength of Movement (against opposing pressure): Normal Tongue Movement Characteristics: Normal/Absent Is patient able to manage secretions?: Yes Food and Liquid Trials: Oral Impairment: Lip Closure: Did not test Oral Impairment: Tongue Control During Bolus Hold: Did not test Oral Impairment: Bolus Preparation/Mastication: 2=Disorganized chewing/mashing with solid pieces of bolus Oral Impairment: Bolus Transport/Lingual Motion: 2=Slowed tongue motion Oral Impairment: Oral Residue: 2=Residue collection on oral structures Oral Impairment:Initiation of Pharyngeal Swallow: 2=Bolus head at posterior laryngeal surface of epiglottis Pharyngeal Impairment: Soft Palate Elevation: 0=No bolus between soft palate (SP)/pharyngeal wall (PW) Pharyngeal Impairment: Laryngeal Elevation: 2=Minimal superior movement of thyroid cartilage (see description) Pharyngeal Impairment: Anterior Hyoid Excursion: 1=Partial anterior movement Pharyngeal Impairment: Epiglottic Movement: 2=No inversion Pharyngeal Impairment: Laryngeal Vestibular Closure:: 1=Incomplete: narrow column air/contrast in laryngeal vestibule Pharyngeal Impairment: Pharyngeal Stripping Wave: 1=Present: diminished Pharyngeal Impairment: Pharyngeal Contraction: Did not test Pharyngeal Impairment: Pharyngoesophageal Segment Openin=Complete distension and complete duration: no obstruction of flow Pharyngeal Impairment: Tongue Base (TB) Retraction: 1=Trace column of contrast/air between TB and posterior PW Pharyngeal Impairment: Pharyngeal Residue: 2=Collection of residue within or on pharyngeal structures Pharyngeal Impairment: Esophageal Clearance Upright Position: Did not test Impressions and Recommendations OBJECTIVE: Time-out: performed at 15:00 Evaluation Start: 14:30; Stop: 14:35 Patient Positioning: Seated 70-90 degrees Viewing Planes: LATERAL ONLY Contrast: MBSImP? Standardized Protocol using commercially prepared, standardized Barium viscosities, including: Varibar? THIN LIQUID (40% w/v, <15 cps) , Varibar? NECTAR (40% w/v, <150-450 cps) , 1/2 Shortbread Cookie (1 x1 x.25 ) MBSImP ID: [id number] MBSImP Results: Lip closure for intraoral bolus containment could not be assessed due to logistical reasons not related to physiologic impairment. Tongue control during bolus hold could not be assessed due to logistical reasons not related to physiologic impairment. Bolus preparation and mastication demonstrated disorganized chewing/mashing with solid pieces of the bolus unchewed. Bolus transport/lingual motion was with slowed tongue motion. Oral residue was a collection on oral structures. Initiation of the pharyngeal swallow occurred as the bolus head was at the posterior laryngeal surface of the epiglottis. Soft palate elevation resulted in no bolus between the soft palate and the pharyngeal wall. Laryngeal elevation was incomplete, as indicated through minimal superior movement of the thyroid cartilage with minimal approximation of the arytenoids to the epiglottic petiole. Anterior hyoid excursion demonstrated partial anterior movement. Epiglottic movement resulted in no inversion. Laryngeal vestibular closure was incomplete, with a narrow column of air/contrast noted within the laryngeal vestibule at the height of the swallow. Pharyngeal stripping wave was present, but diminished. Pharyngeal contraction could not be determined due to logistical reasons not related to physiologic impairment. Pharyngoesophageal segment opening was completely distended for complete duration with no obstruction of bolus flow. Tongue base retraction allowed a trace column of contrast or air between the retracted tongue base and the posterior pharyngeal wall. Pharyngeal residue was a collection of residue within or on pharyngeal structures. Esophageal clearance in the upright position could not be assessed due to logistical reasons not related to physiologic impairment. Oral Impairment Score: 8 (absence of score, component 1component 2) Pharyngeal Impairment Score: 9 (absence of score, component 13) Esophageal Impairment Score: --- (absence of score, component 17) Laryngeal Penetration and Aspiration: Penetration was observed in today's study. [place]-thick, Thin Contrast entered the airway, remained above the vocal folds, and were ejected from the airway. ASSESSMENT: This exam was performed by the speech pathologist and the radiologist. Pt was seated upright at 90 degrees in a wheelchair and trialed thin, nectar thick, pureed, and regular solid consistencies. Note reduced bolus control, with some pooling of contrast to the floor of mouth. Posterior lingual movements were mildly slowed and delayed. Mastication was disorganized, with some visible solid, unchewed pieces embedded in the bolus. There was mild residue on the palate and tongue, which cleared with subsequent swallows. Pharyngeal swallow trigger initiated as the bolus head reached the posterior laryngeal surface of the epiglottis. Minimal superior movement of the thyroid cartilage with minimal approximation of the arytenoids to the epiglottic petiole. Minimal to no epiglottic inversion and incomplete laryngeal vestibular closure. There was flash penetration consistently with thin liquid and nectar thick liquid. A trace amount of contrast entered the airway above the vocal folds momentarily and spontaneously ejected. No evidence of aspiration during this exam. There was mild residue on the tongue base and in the vallecuale which also cleared with subsequent swallows. Liquid Intake Recommendation: Thin Liquid Intake Strategies: Small Sips, No Straws, Double Swallow Dietary Recommendations: Regular Medication Administration: Whole with Puree Please contact the pharmacy regarding appropriate crushable or liquid drug formulations that are available whenever modified delivery is recommended. Compensatory Strategies Recommended: Sitting Upright (90 deg), Double Swallow, Small Bites and Sips, Alternate Liquids/Solids, Rate of Ingestion Change, Avoid Specific Foods Supervision during eating and or drinking: Total Supervision (1:1) Recommendation for Speech Therapy: NA:Typical Evaluation Text Comment: Intake Recommendations: Route: PO Diet Grade: Regular (Soft, Easy to Chew) Liquid Consistencies: Thin Post-Study Functional Oral Intake Scale (FOIS): 6- Total oral intake with no special preparation, but must avoid specific foods or liquid items Slowed and disorganized oral phase. There was flash penetration above the vocal folds with thin liquid and nectar thick liquid, which spontaneously cleared. No evidence of aspiration. Mild oral and pharyngeal residue cleared with subsequent swallows. For ease of mastication, pt is recommended to cut up food into smaller, manageable pieces and to select softer, easier to chew food items. The following strategies were discussed with pt?s son, her primary caregiver: -Select foods which are soft, tender, and easy to chew -Avoid foods which are tough, dry, sticky, or crunchy -Moisten meat with sauces and gravies -Cut food into small, bite size pieces -Small bites, one bite at a time -Small sips, one sip at a time -Ensure oral cavity is clear before giving next bite -Follow bite with dry swallow -Maintain 90 degree position during PO intake Therapy Recommendations: Speech intervention is not warranted at this time. Pt and her caregivers are recommended to monitor pt?s dysphagia closely. If there are any changes or worsening of symptoms, contact PCP, at which point a re-assessment may be warranted. Clinician - Supplemental, Miscellaneous Communication: It is important to note MBSS objective studies are snapshots in time and Patient function might vary with factors such as time of day or concomitant medical conditions. For this reason, the final treatment plan for this patient should rest with their medical care team. Additional recommendations should be considered with the totality of the Patient in mind. Thank for the opportunity to participate in the care of this patient. If you have any questions about the content of this report, please contact the [facility] at [facility]. Education: Education regarding findings from today's study and plans for therapy were provided to Patient and family/caregiver through Verbal Instruction. Understanding was expressed by the Patient and family/caregiver. Chinese Teacher Clinician/Clinical Fellow: No Supervisory Statement: N/A Speech Language Pathologist: Florina Reese M.A., CCC-USED CAR MANAGER
== END 2023-10-04 14:36 | disposition home or self-care (01) ==
LOC: HO.XRAY 14:35
PROVIDERS: PCP Family Medicine; Visit Provider Internal Medicine
DX: R13.10 Dysphagia, unspecified (principal); J40 Bronchitis, not specified as acute or chronic
CPT/HCPCS: 74230; 92611

== ENCOUNTER → 2023-10-04 14:36 | Outpatient (BNV) | payer MEDICARE, SELFPAY | PROVIDERS: PCP Family Medicine; Visit Provider Radiology Diagnostic Radiology | DX: R13.10 Dysphagia, unspecified (principal) | CPT/HCPCS: 74230 ==

== ENCOUNTER 2023-10-14 14:31 | Outpatient (AMB) | payer MEDICARE, SELFPAY ==
[2023-10-14 14:35] VITALS: BP 132/84; PULSE 71; O2SAT 95
--- NOTE | 2023-10-14 14:35 | MHC.OFFVIS ---
Intake Vital Signs 10/14/23 14:35 Height 5 ft 7 in BP 132/84 Blood Pressure Location Lt brachial Position Sitting Pulse 71 Pulse Source Pulse Oximeter Pulse Oximetry (%) 95 Oxygen Delivery Method Nasal Cannula Oxygen Flow Rate 2 Intake Visit Reasons: f/u testing Intake Note: pt is here for follow up and states she is stable, here for barium swallow results and chest xray. pt needs refills on Breo, albuterol hfa, albuterol liquid for nebulizer. Real Estate Director Required: No Allergies No Known Allergies Allergy (Verified 10/14/23 14:40) Medication List - Last Reconciled 10/14/23 by Lorna Bradley MD acetaminophen ER 1,300 mg PO BID albuterol sulfate 90 mcg/actuation (ProAir HFA) 2 puffs inhalation Q6H PRN 30 days albuterol sulfate 2.5 mg (3 mL) inhalation Q4-6H PRN 30 days amlodipine 5 mg PO DAILY 90 days chair, wheel (Wheel chair) transport wheel chair diclofenac sodium 1% 4 grams topical QID 30 days famotidine 20 mg PO DAILY 30 days fluconazole 150 mg PO Q3D 2 doses fluticasone furoate-vilanterol 200-25 mcg/dose (Breo Ellipta) 1 inh inhalation DAILY 30 days furosemide 20 mg PO DAILY PRN 30 days meloxicam 15 mg PO DAILY 30 days metoprolol tartrate 12.5 mg (1/2 x 25 mg) PO BID 90 days miscellaneous medical supply donut cushion/pillow. As directed. DX: M53.3, Duration 999 days miscellaneous medical supply Transport chair 4 wheel manual, Daily As directed, 999 days/Lifetime. Disp#1 multivitamin 1 tab PO DAILY pregabalin (Lyrica) 25 mg PO BID 30 days sertraline 1.5?tabs?(75?mg)?in?a.m.?and?0.5?tabs?(25?mg)?p.m. 90 days Do you need a note to return to daycare/school/sports/work: No HPI f/u testing HPI Details PRUDENCE, 82 YEARS OLD FEMALE WITH THE VASCULAR DEMENTIA, IN WHEELCHAIR, HAS CHRONIC OBSTRUCTIVE PULMONARY DISEASE, ON O2 2 L/MINUTE. IS HERE FOR FOLLOW-UP. SHE HAS HAD BARIUM SWALLOW, . AND A REPEAT CHEST X-RAY SHE HAS BEEN DOING VERY WELL. AND REMAINED STABLE ONLY MILD INTERMITTENT COUGH, SHE HAS HAD NO RESPIRATORY DISTRESS. SHE IS ON SOFT DIET, AND SWALLOWS THE FOOD SLOWLY. THERE HAS BEEN NO INCIDENCE OF ANY CHOKING OR ASPIRATION. 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 Tobacco Use Status: Former Tobacco user Cigarette Packs Per Day: 3 Cigarettes Per Day: 60.0 Years Smoked: 50 e-Cigarette/Vaping Use: Never Used Second Hand Smoke Exposure: Yes Advance Directives Date on File: 02/25/22 service: No Current occupational status: retired and disabled Current occupational exposures/hazards: No Cognitive needs: No Hearing needs: No Vision needs: No Review of Systems Const All systems reviewed & are unremarkable except as noted in HPI and below Eyes Reports no additional complaints ENT Reports no additional complaints Card Denies chest pain, Denies irregular heart rhythm and Denies leg edema Resp Reports as per HPI GI Reports no additional complaints Reports no additional complaints Musc Reports abnormal gait (Non ambulatory), Reports back pain, Reports arthralgias and Reports muscle weakness Skin/Breast Reports system reviewed and no additional complaints, except as documented Neuro Reports abnormal gait (Non ambulatory) Psych Reports no additional complaints Physical Exam Vital Signs: Last Vital Signs Pulse 71 10/14/23 14:35 BP 132/84 10/14/23 14:35 Pulse Ox 95 10/14/23 14:35 Oxygen Delivery Method Nasal Cannula 10/14/23 14:35 Oxygen Flow Rate 2 10/14/23 14:35 Const General: comfortable (In wheelchair), no acute distress, alert and awake Orientation/consciousness: patient oriented x3 HEENT Head: Yes normal to inspection General nose exam: No nasal polyps present and No nasal discharge present Face and sinus: Yes sinuses nontender Mouth: oropharynx normal Throat: Yes posterior oropharynx normal Eyes General: appearance normal, both eyes and all related structures Neck Neck: Yes normal visual inspection, Yes no lymphadenopathy, Yes trachea midline and Yes no JVD Thyroid: Thyroid normal Chest Chest palpation & inspection: normal inspection of the chest, normal palpation of entire chest wall and no tenderness Resp Other: PERCUSSION NOTE IS RESONANT. BREATH SOUNDS ARE DISTANT. ONLY A FEW INSPIRATORY CRACKLES HEARD OVER THE RIGHT LOWER LOBE. NO WHEEZES . Cardio Palpation: normal PMI Rate: regular rate Rhythm: regular rhythm Heart sounds: no gallops and no murmurs GI Palpation (GI): Soft to palpation, nontender, No hepatosplenomegaly present and no masses Auscultation: normal bowel sounds Back/Spine/Pelvis Thoracic/Lumbar Spine: thoracic and lumbar spine normal to inspection and thoraco-lumbar ROM limited Skin General skin exam: no rashes or lesions noted Neuro General: patient oriented x3, No gait normal (Non ambulatory) and no focal motor deficits Cranial nerves: Yes CN's II-XII intact bilaterally Extrem General: Yes normal to inspection, Yes no clubbing, cyanosis or edema and Yes no calf tenderness Psych Appearance: grossly normal Speech and movement: Normal speech and movement present Results Reviewed Results Reviewed: CHEST X-RAY, SHOWS A RESIDUAL DENSITY IN THE RIGHT MID LOBE, RETROCARDIAC AREA . NO OTHER INFILTRATES BARIUM SWALLOW THERE IS SOME RETENTION OF 4 PARTICLES IN THE PHARYNX, . NO DEFINITE ASPIRATION SHE HAS BEEN INSTRUCTED TO BE ON THIN LIQUIDS, SOFT DIET, AND DOUBLE PHARYNGEAL SWALLOWING. Assessment & Plan Assessment & Plan (1) Dementia: Comment: Patient has multifactorial dementia, most predominantly secondary to micro vascular disease. Code(s): F03.90 - Unspecified dementia, unspecified severity, without behavioral disturbance, psychotic disturbance, mood disturbance, and anxiety Plan: BASICALLY STABLE AT THIS TIME. SHE HAS DIFFICULTY IN LOCOMOTION,. AND SPEECH DISORDER SHE IS IN WHEELCHAIR (2) Respiratory failure with hypoxia: Comment: PATIENT DOES HAVE UNDERLYING COPD WITH RESPIRATORY FAILURE. SINCE HER ADMISSION AT [facility] A FEW MONTHS AGO SHE HAS BEEN ON OXYGEN 2 L/MINUTE. Code(s): J96.91 - Respiratory failure, unspecified with hypoxia Plan: CONTINUE USING O2 2 L/MINUTE (3) Swallowing difficulty: Comment: SHE WAS CONSIDERED TO HAVE POSSIBLE ASPIRATION PNEUMONIA FOR WHICH SHE WAS ADMITTED [facility]. BARIUM SWALLOW TEST HAS SHOWN NO SIGNIFICANT PULMONARY ASPIRATION, BUT SOME MUSCULAR DISCOORDINATION AND SLOWED SWALLOWING PROCESS Code(s): R13.10 - Dysphagia, unspecified Plan: SPEECH THERAPY HAS GIVEN INSTRUCTIONS TO USE THIN ARE SOFT DIET. AND PATIENT INSTRUCTED TO DO DOUBLE SWALLOW EFFORT (4) Pneumonia: Comment: Patient has been treated for pneumonia right lower lobe in the past, CHEST X-RAY DOES SHOW RESIDUAL DENSITY IN THE RIGHT MIDDLE LOBE AND RIGHT BASE. CT SCAN OF THE CHEST HAS BEEN RECOMMENDED FOR CLARIFICATION. Code(s): J18.9 - Pneumonia, unspecified organism Plan: CT SCAN OF THE CHEST IS ORDERED Orders: Orders CT chest wo IV con Today J18.9 - Pneumonia, unspecified organism, J98.4 - Other disorders of lung Coding Level of Care Code Est Pt Level 3 (16642) Diagnoses Dementia F03.90 Respiratory failure with hypoxia J96.91 Swallowing difficulty R13.10 Pneumonia J18.9
== END 2023-10-14 14:51 | disposition home or self-care (01) ==
PROVIDERS: PCP Family Medicine; Visit Provider Internal Medicine
DX: F03.90 Unspecified dementia, unspecified severity, without behavioral disturbance, psychotic disturbance, mood disturbance, and anxiety (principal); J96.91 Respiratory failure, unspecified with hypoxia; R13.10 Dysphagia, unspecified; J18.9 Pneumonia, unspecified organism
CPT/HCPCS: 99213

== ENCOUNTER → 2023-10-14 14:31 | Outpatient (BNVA) | payer MEDICARE, SELFPAY | PROVIDERS: PCP Family Medicine; Visit Provider Internal Medicine | DX: J96.91 Respiratory failure, unspecified with hypoxia (principal); J18.9 Pneumonia, unspecified organism; F03.90 Unspecified dementia, unspecified severity, without behavioral disturbance, psychotic disturbance, mood disturbance, and anxiety; R13.10 Dysphagia, unspecified | CPT/HCPCS: 99212 ==

== ENCOUNTER 2023-10-18 14:38 | Outpatient (AMB) | payer MEDICARE, SELFPAY ==
--- NOTE | 2023-10-18 14:52 | A.OFFPC_ITS ---
Vital Signs 10/18/23 15:03 Height 5 ft 7 in Weight 142 lb BMI 22.2 BP 134/74 Blood Pressure Location Lt brachial Position Sitting Pulse 105 H Pulse Source Pulse Oximeter Pulse Oximetry (%) 96 Oxygen Delivery Method Room Air Intake Visit Reasons: f/u difficulty swallowing and chronic conditions Intake Note: Patient is here to follow up on difficulty swallowing, and chronic conditions. Patient needs refill Proair, Breo, Albuterol, and pregabalin. Allergies No Known Allergies Allergy (Verified 10/18/23 15:06) Tobacco use date assessed: 10/18/23 Fall risk assessment: 1 Fall in past year Last assessed Fall Risk: 10/18/23 HPI f/u difficulty swallowing and chronic conditions HPI Details 82 y/o female presents to f/u difficulty swallowing and chronic conditions. They report she has done a modified barium swallow test and they report ongoing difficulties. 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 Cosmo Knox, Caryn Whyte, Pilo Kraft and colleagues, with an educational jie from [employer] Review of Systems Const Denies chills, Denies fatigue, Denies fever(s), Denies headache(s) and Denies weakness ENT Denies dizziness and Denies headache(s) Card Denies chest pain, Denies lightheadedness, Denies dyspnea and Denies other (Palpitations) Resp Denies cough, Denies dyspnea, Denies wheezing and Denies other ( shortness of breath) Musc Denies numbness and Denies tingling Neuro Denies dizziness, Denies headache(s), Denies numbness, Denies tingling, Denies paresthesias and Denies weakness Psych Denies anxiety and Denies depression Endo Denies fatigue Aller/Immun Denies wheezing Physical exam (Primary Care) Vital Signs: Last Vital Signs Pulse 105 H 10/18/23 15:03 BP 134/74 10/18/23 15:03 Pulse Ox 96 10/18/23 15:03 Oxygen Delivery Method Room Air 10/18/23 15:03 BMI result Body Mass Index 22.2 Tobacco/Smoking Status: Tobacco use Status Tobacco use date assessed 10/18/23 10/18/23 15:09 Patient Tobacco Use Status Former Tobacco user 10/18/23 14:53 e-Cigarette/Vaping Use Never Used 10/18/23 14:53 Thrive Assessment: Date of Thrive Assessment Date Thrive assessed 01/13/22 10/18/23 14:53 Const General: no acute distress and well developed Nutritional Appearance: well nourished Orientation/consciousness: patient oriented x3 HENMT Head: Yes normocephalic and Yes atraumatic Eyes General: appearance normal, both eyes and all related structures Pupils: Equal, round and reactive pupils present EOM: EOMs intact bilaterally Resp Effort & Inspection: normal respiratory effort Auscultation: clear to auscultation bilaterally Cardio Rate: regular rate Rhythm: regular rhythm Heart sounds: S1 normal heart sound present, S2 normal heart sound present, no gallops, no murmurs and no rubs Neuro General: patient oriented x3 and gait normal Cranial nerves: Yes Equal, round and reactive pupils present Psych Affect: normal affect Assessment and Plan Assessment & Plan (1) Swallowing difficulty: Code(s): R13.10 - Dysphagia, unspecified Plan: Going?difficulty?swallowing MBS?did?not?show?any?penetration?of?food?or?liquids?however Will?ask?speech?language?pathologist?to?work?with?patient (2) COPD (chronic obstructive pulmonary disease): Code(s): J44.9 - Chronic obstructive pulmonary disease, unspecified Plan: COPD?with?some?respiratory?failure?hypoxia?and?oxygen?dependence. Pulmonary?has?ordered?a?CT?scan?due?to?likely?scarring, perha ps?secondary?to?a?prior?pneumonia. Continue?oxygen Continue?inhaled?medications Follow-up?with?Pulmonary?as?recommend Orders: Orders Comprehensive [place]. Panel Fast Today Z00.00 - Encounter for general adult medical examination without abnormal findings Complete Blood Count Auto Diff Today Z00.00 - Encounter for general adult medical examination without abnormal findings UA and rflx microscopic Today Z00.00 - Encounter for general adult medical examination without abnormal findings TSH reflex Free T4 Today Z00.00 - Encounter for general adult medical examination without abnormal findings Lipid Panel Today Z00.00 - Encounter for general adult medical examination without abnormal findings Microalbumin, Random (w Creat) Today I10 - Essential (primary) hypertension Vitamin D 25-OH Total Today E55.9 - Vitamin D deficiency, unspecified Vitamin B12 and Folate Today E53.8 - Deficiency of other specified B group vitamins Referrals Speech and Hearing Referral R13.10 - Dysphagia, unspecified Medications: Refilled albuterol sulfate 2.5 mg (3 mL) inhalation Q4-6H PRN 180 mL 2RF shortness of breath or wheezing 30 days pregabalin (Lyrica) 25 mg PO BID 60 caps 0RF 30 days M79.2 - Neuralgia and neuritis, unspecified albuterol sulfate 90 mcg/actuation (ProAir HFA) 2 puffs inhalation Q6H PRN 8.5 grams 3RF Dyspnea 30 days fluticasone furoate-vilanterol 200-25 mcg/dose (Breo Ellipta) 1 inh inhalation DAILY 60 ea 3RF 30 days Coding Level of Care Code Est Pt Level 3 (66875) Diagnoses Swallowing difficulty R13.10 COPD (chronic obstructive pulmonary disease) J44.9
[2023-10-18 15:03] VITALS: BP 134/74; PULSE 105; O2SAT 96; BMI 22.2
== END 2023-10-18 15:41 | disposition home or self-care (01) ==
PROVIDERS: PCP Family Medicine; Visit Provider Family Medicine
DX: R13.10 Dysphagia, unspecified (principal); J44.9 Chronic obstructive pulmonary disease, unspecified
CPT/HCPCS: 99213

== ENCOUNTER 2023-10-27 21:18 | Inpatient (IN) | payer MEDICARE, SELFPAY ==
--- NOTE | 2023-10-27 | ECG_ITS ---
Test Reason : DYSPNEA Blood Pressure : / mmHG Vent. Rate : 106 BPM Atrial Rate : 106 BPM P-R Int : 160 ms QRS Dur : 080 ms QT Int : 348 ms P-R-T Axes : 036 -26 040 degrees QTc Int : 462 ms Sinus tachycardia Nonspecific ST abnormality Abnormal ECG When compared with ECG of 09-JUN-2023 22:10, Vent. rate has increased BY 43 BPM Referred By: Joanne Cobian Electronically Signed By:EVE MACIAS MD
--- NOTE | ~2023-10-27 | XR_ITS ---
EXAMINATION: XR CHEST CLINICAL INFORMATION: Dyspnea COMPARISON: Chest radiograph from 08/17/2023 TECHNIQUE: Frontal view of the chest was obtained. FINDINGS: Bilateral low lung volumes. Chronic reticular and interstitial markings. Right basilar atelectasis versus evolving infectious/inflammatory etiology. No pneumothorax. Trachea is midline. Cardiac mediastinal silhouette is stable. No large pleural effusion. Multilevel vertebral augmentation. Soft tissues are unremarkable. XR/XR chest 1V IMPRESSION: 1. Bilateral low lung volumes. 2. Chronic reticular and interstitial markings. 3. Right basilar atelectasis versus evolving infectious/inflammatory etiology.
--- NOTE | ~2023-10-27 | CT_ITS ---
EXAMINATION: CT ANGIOGRAM OF THE CHEST WITH AND WITHOUT CONTRAST (CT PULMONARY ANGIOGRAM FOR PE), CT ABDOMEN AND PELVIS WITHOUT CONTRAST CLINICAL INFORMATION: Tachycardia. Hypoxia. Shortness of breath. COMPARISON: 08/16/2021. TECHNIQUE: Prior to contrast administration, noncontrast localization images were obtained. Subsequently, multidetector volumetric imaging was performed from the thoracic inlet to below the diaphragms following the administration of 80 mL Omnipaque 350 intravenous contrast. Contrast-enhanced CT scan imaging of the abdomen and pelvis also obtained. No contrast reaction reported Sagittal, coronal, and MIP oblique sagittal reformatted images were obtained on the CT workstation, uploaded to PACS, and reviewed. This CT examination was performed using dose optimization techniques as appropriate, variously including the following: *Automated exposure control *Adjustment of mA and/or kV according to patient size (this includes techniques or standardized protocols for targeted exams where dose is matched to indication/reason for exam; i.e. extremities or head) *Use of iterative reconstruction technique Total exam dose-length product 1007 mGy-cm FINDINGS: QUALITY OF STUDY/CONTRAST BOLUS: Satisfactory. PULMONARY ARTERIES: No pulmonary emboli. THORACIC AORTA: There is atherosclerotic plaque of the aortic arch and descending thoracic aorta. LUNG: There is upper lung field emphysematous change. There is consolidation at the right lung base. There is atelectatic change/scarring at the left lung base. PLEURA: No pleural effusion or pneumothorax. MEDIASTINUM: The heart is at the upper limits of normal for size. No pericardial effusion. No hilar or mediastinal lymphadenopathy. No evidence of septal bowing or right heart strain. CORONARY ARTERY CALCIFICATION: None visualized on this study. CHEST WALL/AXILLA: No axillary or internal mammary lymphadenopathy. LIVER, GALLBLADDER, AND BILIARY TREE: The liver is normal in size, shape, and attenuation. No focal hepatic lesion or biliary ductal dilatation is present. The gallbladder is normal in appearance. PANCREAS: Normal; no mass or surrounding fluid. SPLEEN: Normal size. No focal lesion. ADRENAL GLANDS: Normal; no mass. KIDNEYS AND URETERS: The kidneys are normal in size and attenuation. There are two 3 to 4 mm lower pole left renal calculi. Both renal collecting systems and ureters are prominent without ureteral calculi. GASTROINTESTINAL TRACT: There are diverticula of the distal transverse, descending and sigmoid colon without diverticulitis. The appendix is visualized and is within normal limits. ABDOMINAL WALL: There is a small periumbilical hernia containing fat. LYMPHOVASCULAR STRUCTURES: No lymphadenopathy. There is atherosclerotic plaque throughout the abdominal aorta with an infrarenal abdominal aortic aneurysm measuring 3.2 cm. BLADDER: No focal mass or wall thickening seen. No bladder calculi. PELVIC VISCERA: Unremarkable. OSSEOUS STRUCTURES: The bony structures are osteopenic. Bilateral femoral head screws are in place. There is diffuse thoracolumbar disc degenerative change with mild curvature of the lumbar spine convex to the left. There is significant T6 compression fracture with minimal retropulsion resulting in mild spinal canal narrowing. There is mild loss of height of the T2, T3 and T4 vertebral bodies. There is also mild loss of height of T7. There are prior T11 and T12 as well as L3 vertebroplasties. There is mild loss of height of the L2 vertebral body as well. CT/CT abdomen pelvis w IV con IMPRESSION: 1. No evidence of pulmonary embolism. 2. Consolidation at the right lung base likely atelectatic atelectasis. A component of infiltrate is considered less likely. Atelectasis/scarring at the left lung base. 3. Left renal lower pole calculi. 4. Prominence of the bilateral renal collecting systems and ureters without ureteral calculi. 5. Diverticulosis without diverticulitis. 6. Infrarenal abdominal aortic aneurysm measuring 3.2 cm. 7. Osteopenia. Multiple thoracic and lumbar vertebral body compression fractures some of which are new or progressed compared to prior particularly the T6 vertebral body fracture.. VTE: negative.
--- NOTE | ~2023-10-27 | XR_ITS ---
EXAMINATION: XR CHEST CLINICAL INFORMATION: Follow-up Covid COMPARISON: 10/27/2023 TECHNIQUE: Frontal view of the chest was obtained. FINDINGS: Cardiomediastinal silhouette is unchanged. Aortic calcifications again noted. Low lung volumes are present. No vascular congestion. Increased markings at the right base without significant change. No consolidations. Trace left costophrenic angle blunting again noted. Bones are demineralized. Vertebroplasty cement noted. XR/XR chest 1V IMPRESSION: Redemonstration right breast increased markings, likely atelectasis, pneumonia less likely.
[2023-10-27 21:28] VITALS: BP 155/83; BP 171/86; PULSE 108; PULSE 111; RESP 26; TEMP 37.4; O2SAT 87; O2SAT 91; BMI 22.2
--- NOTE | 2023-10-27 22:17 | ED_ITS ---
HPI - General Adult General Chief complaint: General Medical Stated complaint: UTI SYMPTOMS Time Seen by Provider: 10/27/23 21:20 Source: patient and EMS Mode of arrival: EMS Limitations: no limitations History of Present Illness HPI narrative: Patient comes to the emergency room from home. Patient's son who is the health orthotic practitioner and healthcare proxy call 911. The patient's son has noticed that for the last few days patient has had increased dyspnea and urinary symptoms. According to the patient's son, patient usually uses 3 L of oxygen, her normal oxygen saturation is in the mid 90s with the 3 L. also, the patient has noted that the patient's mother seems weaker than usual. Patient is usually able to walk from her bedroom towards the kitchen to eat her meals. Today, patient has been too weak to even get out of bed. Seems that the patient is not doing very well with drinking fluids, the son states that the patient is a ?picky drinker? Related Data Home Medications Medication Instructions Recorded Confirmed acetaminophen 650 mg 1,300 mg PO BID 03/18/22 06/10/23 tablet,extended release multivitamin 1 tab PO DAILY 07/23/22 08/17/23 Previous Rx's Medication Instructions Recorded miscellaneous medical supply #1 ea 07/16/20 miscellaneous medical supply #1 ea 05/13/21 chair, wheel (Wheel chair) #1 ea 06/17/21 amlodipine 5 mg tablet 5 mg PO DAILY 90 days #90 tabs 02/08/23 diclofenac sodium 1 % topical gel 4 g topical QID 30 days #200 grams 03/16/23 furosemide 20 mg tablet 20 mg PO DAILY PRN edema 30 days 05/11/23 #30 tabs famotidine 20 mg tablet 20 mg PO DAILY 30 days #30 tabs 05/17/23 meloxicam 15 mg tablet 15 mg PO DAILY 30 days #30 tabs 06/18/23 sertraline 50 mg tablet See Rx Instructions PO DAILY 08/05/23 days #180 tabs fluconazole 150 mg tablet 150 mg PO Q3D 2 doses #2 tabs 09/16/23 metoprolol tartrate 25 mg tablet 12.5 mg (1/2 x 25 mg) PO BID 90 10/05/23 days #90 tabs albuterol sulfate 2.5 mg/3 mL 2.5 mg (3 mL) inhalation Q4-6H PRN 10/18/23 (0.083 %) solution for nebulization shortness of breath or wheezing 30 days #180 mL albuterol sulfate 90 mcg/actuation 2 puff inhalation Q6H PRN Dyspnea 10/18/23 aerosol inhaler (ProAir HFA) 30 days #8.5 grams fluticasone furoate 200 1 inh inhalation DAILY 30 days #60 10/18/23 mcg-vilanterol 25 mcg/dose ea inhalation powder (Breo Ellipta) pregabalin 25 mg capsule (Lyrica) 25 mg PO BID 30 days #60 caps 10/18/23 Allergies Allergy/AdvReac Type Severity Reaction Status Date / Time No Known Allergies Allergy Verified 10/18/23 15:06 Review of Systems 2 Review of Systems: Constitutional : No Weight loss, No Fever, No Chills, No Night Sweats, complaining of weakness and generalized malaise ENT/Mouth : No Hearing loss, No Ear Pain, No Nasal Congestion, No Sinus Pain, No Hoarseness, No sore throat, No Rhinorrhea, No Swallowing Difficulty Eyes: No Eye Pain, No Swelling, No Redness, No Foreign Body, No Discharge, No Vision Changes Cardiovascular : No Chest Pain, No SOB, No Dyspnea on Exertion, No Orthopnea, No Edema, No Palpitations Respiratory : No Cough, complaining of shortness of breath, no wheezing Gastrointestinal : No Nausea, No Vomiting, No Diarrhea, No Constipation, No abdominal Pain, No Hematochezia, No Melena Genitourinary : no irregular bleeding, No Dysuria, No Urinary Frequency, No Hematuria, No Urinary Incontinence, No Urgency, No Flank Pain, No Urinary Flow Changes, No Hesitancy Musculoskeletal : No joint pain, No Myalgias, No Joint Swelling Skin : No Skin Lesions, No rash Neuro : No Weakness, No Numbness, No Paresthesias, No Loss of Consciousness, No Dizziness, No Headache Psych : No Anxiety/Panic, No Depression, No SI/HI/AH/VH, No Social Issues, Heme/Lymph: No Bruising, No Bleeding,No Lymphadenopathy Endocrine : No Polyuria, No Polydipsia, No Temperature Intolerance PMFSH Past Medical History Medical History Lung density on x-ray Swallowing difficulty Respiratory failure with hypoxia Hypoxemia Pneumonia Respiratory failure Peripheral vascular disease Hyperlipidemia Hypertension COPD (chronic obstructive pulmonary disease) Surgical History History of hip surgery Family History Family History Mother Breast cancer Social History Social History Household Members: Family Housing: House Do you presently have visiting nurse or other home services: No Alcohol intake: never 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 Tobacco Use Status: Former Tobacco user Cigarette Packs Per Day: 3 Cigarettes Per Day: 60.0 Years Smoked: 50 Smoked in Last 30 Days: No e-Cigarette/Vaping Use: Never Used Second Hand Smoke Exposure: Yes Use of substances other than those prescribed or required for medical reasons: No Advance Directives: Yes Advance Directives on File: Yes Advance Directives Date on File: 02/25/22 service: No Current occupational status: retired and disabled Current occupational exposures/hazards: No Cognitive needs: No Hearing needs: No Vision needs: No Physical Exam ED Vital Signs: Vital Signs - 24 hr 10/27/23 21:28 10/27/23 22:47 10/27/23 22:49 Temperature 99.3 F Pulse Rate 111 H Respiratory Rate 26 H Blood Pressure 155/83 H Pulse Oximetry 91 L 86 L 93 Oxygen Delivery Method Nasal Cannula Nasal Cannula Oxymask Oxygen Flow Rate 6 6 10/28/23 00:00 10/28/23 00:42 10/28/23 02:00 Temperature Pulse Rate 94 92 Respiratory Rate 22 H 18 Blood Pressure 148/84 H Pulse Oximetry 93 94 91 L Oxygen Delivery Method Nasal Cannula Nasal Cannula Nasal Cannula Oxygen Flow Rate 3 3 3 BMI result Body Mass Index 22.2 Const Other: Appearance: Alert. Oriented X3. No acute distress. Seems tired, weak Eyes: Pupils equal, round and reactive to light. ENT: Pharynx normal. Neck: Normal inspection. Neck supple. No lymph nodes noted. No crepitus CVS: Normal heart rate and rhythm. Pulses normal. Normal S1 and S2 Respiratory: No respiratory distress. Bibasilar crackles. Oxygen saturation 87% on 6 L of oxygen Abdomen: Soft , tenderness to palpation in all quadrants No rigidity. No distention. Skin: Skin warm and dry. Slightly pale skin color. Normal skin turgor. Extremities: No lower extremity edema. No Lacerations. No Rash Neuro: Oriented X 3. No motor deficit. No sensory deficit. Moving all extremities. No slurred speech. CN 2 through 12 grossly intact Psych: calm, cooperative, normal affect Medications Administered Discontinued Medications Generic Name Dose Route Start Last Admin Trade Name Lopez PRN Reason Stop Dose Admin Ceftriaxone Sodium 1 gm/ 50 mls @ 100 mls/hr 10/27/23 22:11 10/27/23 23:25 Sodium Chloride IV 10/27/23 22:40 Infused ONCE ONE Infusion Azithromycin 500 mg/ Sodium 250 mls @ 125 mls/hr 10/27/23 22:11 10/28/23 00:48 Chloride IV 10/28/23 00:10 Infused ONCE ONE Infusion Sodium Chloride 1,000 mls @ 999 mls/hr 10/27/23 22:11 10/28/23 00:33 Ns IVCONT 10/27/23 23:11 Infused .Q1H1M ONE Infusion Iohexol 65 ml 10/28/23 00:24 10/28/23 00:25 Iohexol 350 Mg/Ml 100 Ml Infus..Btl IV 10/28/23 00:25 65 ml ONCE ONE Administration Medical Decision Making Medical Decision Making MDM Narrative: -patient came in complaining of respiratory symptoms, weakness, known to have prior UTIs. Empirically, patient was treated with IV antibiotics, ceftriaxone and azithromycin. -patient to be more hypoxic than usual. Patient usually saturating 95% with 3-4 L at baseline. Today, patient is barely saturating 87% on 6 L. -my interpretation of x-ray: There is an opacity on the right long. Chronic. No new infiltrates. -We will obtain CT scan of the chest and abdomen -my interpretation of labs: Normal white blood cell count, normal lactic acid, normal LFTs, urine negative for UTI: Patient tested positive for COVID -patient's blood pressure stable, sepsis is not suspected. Oxygen desaturation secondary to tachycardia. -initially, patient was on a OxyMask at 6 L saturating in the low 90s. Patient kept taking it off. Eventually patient was able to tolerate 3 L and saturating 94%. -my interpretation a CT scan of the chest: No obvious pulmonary embolism. -patient was initially saturating 86% on 6 L, patient was put on an OxyMask, saturating 96%. Patient was able to be weaned down to her usual 3 L, saturating 92%. -I discussed the patient with Dr. Worrell from the Medicine team, patient being admitted. Differential Diagnosis Differential Diagnoses: The differential diagnosis associated with the presentation includes (COVID, pulmonary embolism, influenza, pneumonia, CHF) Admission/Observation Consideration of admission/observation: Escalation of care including admission/observation considered Consult Healthcare Provider Management of the patient was discussed with: Hospitalist Lab Data MDM Lab Attestation statement: I reviewed the patient's lab results. 10/27/23 22:17 10/27/23 22:17 Labs: Lab Results 10/27/23 10/27/23 10/27/23 Range/Units 22:16 22:17 22:26 WBC 6.1 (4.8-10.8) X10*3/uL RBC 4.52 (4.20-5.50) X10*6/uL Hgb 12.9 (12.0-16.0) g/dl Hct 39.6 (37.0-47.0) % MCV 87.6 (80.0-98.0) fL MCH 28.5 (27.0-33.0) pg MCHC 32.6 (31.0-35.0) g/dl RDW 14.3 (11.0-16.0) % Plt Count 207 (160-400) X10*3/uL MPV 10.1 (9.4-12.3) fL Immature Gran % (Auto) 0.3 (0.0-0.4) % Neut % (Auto) 80.3 H (45-73) % Lymph % (Auto) 8.8 L (20-40) % [place] % (Auto) 10.0 (2-11) % Eos % (Auto) 0.3 (0-4) % Baso % (Auto) 0.3 (0-2) % Lymph # (Auto) 0.5 L (1.2-4.9) X10*3/uL [place] # (Auto) 0.6 (0.1-1.2) X10*3/uL Eos # (Auto) 0.0 (0.0-0.4) X10*3/uL Baso # (Auto) 0.0 (0.0-0.2) X10*3/uL Abs Immat Gran (auto) 0.02 (0.00-0.03) X10*3/uL Absolute Neuts (auto) 4.9 (2.0-8.3) x10*3/uL Absolute Nucleated RBC 0.000 (0.0-0.012) X10*3/uL Nucleated RBC % (auto) 0.0 (0.0-0.2) /100WBC PT 11.4 (11.1-13.3) SEC INR 0.9 (0.9-1.1) VBG pH (7.32-7.43) VBG pCO2 mmHg VBG pO2 mmHg VBG HCO3 (22-26) mmol/L VBG O2 Saturation % VBG Base Excess mmol/L Sodium 138 (135-145) mmol/L Potassium 4.0 (3.3-5.1) mmol/L Chloride 99 (96-108) mmol/L Carbon Dioxide 28 (22-29) mmol/L Anion Gap 15 (12-20) BUN 14 (9-16) mg/dL Creatinine 0.66 (0.5-1.4) mg/dL Estim Creat Clear Calc 73.4 Estimated GFR > 60 Random Glucose 137 H (60-115) mg/dL Lactic Acid 1.4 (0.5-2.0) mmol/L Calcium 10.0 (8.4-10.2) mg/dL Total Bilirubin 0.5 (0.0-1.0) mg/dL AST 17 (5-31) U/L ALT 8 (0-31) U/L Alkaline Phosphatase 126 H (39-117) U/L Troponin I High Sens 8.0 D (<3.5-17.0) ng/L B-Natriuretic Peptide 61 (<100) pg/mL Total Protein 8.1 H (6.5-8.0) g/dL Albumin 4.2 (3.5-5.0) g/dL Hold Green Top See Note Urine Color Urine Appearance Urine pH (5.0-9.0) Ur Specific [place] (1.005-1.025) Urine Protein (Neg-Trace) mg/dL Urine Glucose (UA) (Negative) mg/dL Urine Ketones (Negative) mg/dL Urine Blood (Negative) Urine Nitrite (Negative) Ur Leukocyte Esterase (Negative) Urine RBC (0-2) /HPF Urine WBC (0-5) /HPF Ur Squamous Epith Cells (0-2) /HPF Urine Bacteria (None Seen) Hyaline Casts (0-2) /LPF Influenza Type A (PCR) NEGATIVE (Negative) Influenza Type B (PCR) NEGATIVE (Negative) RSV RNA Qual (PCR) NEGATIVE (Negative) SARS-CoV-2 RNA (RT-PCR) POSITIVE A (Negative) 10/27/23 10/28/23 Range/Units 22:45 00:05 WBC (4.8-10.8) X10*3/uL RBC (4.20-5.50) X10*6/uL Hgb (12.0-16.0) g/dl Hct (37.0-47.0) % MCV (80.0-98.0) fL MCH (27.0-33.0) pg MCHC (31.0-35.0) g/dl RDW (11.0-16.0) % Plt Count (160-400) X10*3/uL MPV (9.4-12.3) fL Immature Gran % (Auto) (0.0-0.4) % Neut % (Auto) (45-73) % Lymph % (Auto) (20-40) % [place] % (Auto) (2-11) % Eos % (Auto) (0-4) % Baso % (Auto) (0-2) % Lymph # (Auto) (1.2-4.9) X10*3/uL [place] # (Auto) (0.1-1.2) X10*3/uL Eos # (Auto) (0.0-0.4) X10*3/uL Baso # (Auto) (0.0-0.2) X10*3/uL Abs Immat Gran (auto) (0.00-0.03) X10*3/uL Absolute Neuts (auto) (2.0-8.3) x10*3/uL Absolute Nucleated RBC (0.0-0.012) X10*3/uL Nucleated RBC % (auto) (0.0-0.2) /100WBC PT (11.1-13.3) SEC INR (0.9-1.1) VBG pH 7.41 (7.32-7.43) VBG pCO2 53 mmHg VBG pO2 46 mmHg VBG HCO3 34 H (22-26) mmol/L VBG O2 Saturation 76.0 % VBG Base Excess 7.9 mmol/L Sodium (135-145) mmol/L Potassium (3.3-5.1) mmol/L Chloride (96-108) mmol/L Carbon Dioxide (22-29) mmol/L Anion Gap (12-20) BUN (9-16) mg/dL Creatinine (0.5-1.4) mg/dL Estim Creat Clear Calc Estimated GFR Random Glucose (60-115) mg/dL Lactic Acid (0.5-2.0) mmol/L Calcium (8.4-10.2) mg/dL Total Bilirubin (0.0-1.0) mg/dL AST (5-31) U/L ALT (0-31) U/L Alkaline Phosphatase (39-117) U/L Troponin I High Sens (<3.5-17.0) ng/L B-Natriuretic Peptide (<100) pg/mL Total Protein (6.5-8.0) g/dL Albumin (3.5-5.0) g/dL Hold Green Top Urine Color Yellow Urine Appearance Clear Urine pH 7.0 (5.0-9.0) Ur Specific [place] <= 1.005 (1.005-1.025) Urine Protein Negative (Neg-Trace) mg/dL Urine Glucose (UA) Negative (Negative) mg/dL Urine Ketones Negative (Negative) mg/dL Urine Blood Negative (Negative) Urine Nitrite Negative (Negative) Ur Leukocyte Esterase Negative (Negative) Urine RBC 0-2 (0-2) /HPF Urine WBC 0-5 (0-5) /HPF Ur Squamous Epith Cells 0-2 (0-2) /HPF Urine Bacteria None Seen (None Seen) Hyaline Casts 0-2 (0-2) /LPF Influenza Type A (PCR) (Negative) Influenza Type B (PCR) (Negative) RSV RNA Qual (PCR) (Negative) SARS-CoV-2 RNA (RT-PCR) (Negative) Independent Interpretation I performed an independent interpretation of an: EKG (My interpretation of EKG, sinus tachycardia, heart rate 106, no ST segment depression or elevation, no T- wave inversion, QTC 462) and CT Scan Radiology Impression Discussion of test interpretation with radiology: I have reviewed the radiologist's reading. Radiologist Impression: FINDINGS: QUALITY OF STUDY/CONTRAST BOLUS: Satisfactory. PULMONARY ARTERIES: No pulmonary emboli. THORACIC AORTA: There is atherosclerotic plaque of the aortic arch and descending thoracic aorta. LUNG: There is upper lung field emphysematous change. There is consolidation at the right lung base. There is atelectatic change/scarring at the left lung base. PLEURA: No pleural effusion or pneumothorax. MEDIASTINUM: The heart is at the upper limits of normal for size. No pericardial effusion. No hilar or mediastinal lymphadenopathy. No evidence of septal bowing or right heart strain. CORONARY ARTERY CALCIFICATION: None visualized on this study. CHEST WALL/AXILLA: No axillary or internal mammary lymphadenopathy. LIVER, GALLBLADDER, AND BILIARY TREE: The liver is normal in size, shape, and attenuation. No focal hepatic lesion or biliary ductal dilatation is present. The gallbladder is normal in appearance. PANCREAS: Normal; no mass or surrounding fluid. SPLEEN: Normal size. No focal lesion. ADRENAL GLANDS: Normal; no mass. KIDNEYS AND URETERS: The kidneys are normal in size and attenuation. There are two 3 to 4 mm lower pole left renal calculi. Both renal collecting systems and ureters are prominent without ureteral calculi. GASTROINTESTINAL TRACT: There are diverticula of the distal transverse, descending and sigmoid colon without diverticulitis. The appendix is visualized and is within normal limits. ABDOMINAL WALL: There is a small periumbilical hernia containing fat. LYMPHOVASCULAR STRUCTURES: No lymphadenopathy. There is atherosclerotic plaque throughout the abdominal aorta with an infrarenal abdominal aortic aneurysm measuring 3.2 cm. BLADDER: No focal mass or wall thickening seen. No bladder calculi. PELVIC VISCERA: Unremarkable. OSSEOUS STRUCTURES: The bony structures are osteopenic. Bilateral femoral head screws are in place. There is diffuse thoracolumbar disc degenerative change with mild curvature of the lumbar spine convex to the left. There is significant T6 compression fracture with minimal retropulsion resulting in mild spinal canal narrowing. There is mild loss of height of the T2, T3 and T4 vertebral bodies. There is also mild loss of height of T7. There are prior T11 and T12 as well as L3 vertebroplasties. There is mild loss of height of the L2 vertebral body as well. CT/CT angio chest PE protocol IMPRESSION: 1. No evidence of pulmonary embolism. 2. Consolidation at the right lung base likely atelectatic atelectasis. A component of infiltrate is considered less likely. Atelectasis/scarring at the left lung base. 3. Left renal lower pole calculi. 4. Prominence of the bilateral renal collecting systems and ureters without ureteral calculi. 5. Diverticulosis without diverticulitis. 6. Infrarenal abdominal aortic aneurysm measuring 3.2 cm. 7. Osteopenia. Multiple thoracic and lumbar vertebral body compression fractures some of which are new or progressed compared to prior particularly the T6 vertebral body fracture.. VTE: negative. Critical Care Time Critical Care Time Critical Care Time: Yes Total Critical Care Time: 75 Attestation: I have personally provided critical care time. Time includes review of lab data, radiology results, discussion with consultants, and monitoring for potential decompensation. Intervention performed as documented. Discharge Plan Discharge Clinical Impression: COVID-19, Hypoxia Patient Disposition: Admitted As Inpatient
[2023-10-27 22:35] LABS: MANUAL DIFF FLAG NO
[2023-10-27 22:42] LABS: Basophils Percent Auto 0.3 % (0-2); Eosinophils Percent Auto 0.3 % (0-4); Hematocrit 39.6 % (37.0-47.0); Hemoglobin 12.9 g/dl (12.0-16.0); Imm Gran Abs Auto 0.02 X10*3/uL (0.00-0.03); Imm Gran Pct Auto 0.3 % (0.0-0.4); Lymphocytes Absolute Auto 0.5 X10*3/uL (1.2-4.9); Lymphocytes Percent Auto 8.8 % (20-40); Mean Corpuscular HGB Conc 32.6 g/dl (31.0-35.0); Mean Corpuscular Hemoglobin 28.5 pg (27.0-33.0); Mean Corpuscular Volume 87.6 fL (80.0-98.0); Mean Platelet Volume 10.1 fL (9.4-12.3); Monocytes Absolute Auto 0.6 X10*3/uL (0.1-1.2); Neutrophils Absolute Auto 4.9 x10*3/uL (2.0-8.3); Neutrophils Percent Auto 80.3 % (45-73); Platelet Count 207 X10*3/uL (160-400); Red Blood Count 4.52 X10*6/uL (4.20-5.50); Red Cell Distribution Width 14.3 % (11.0-16.0); White Blood Count 6.1 X10*3/uL (4.8-10.8)
[2023-10-27] MEDS: 0.9 % Sodium Chloride 1,000 ML 999 ML IVCONT (22:45)
[2023-10-27] MEDS: cefTRIAXone sodium 1 GM in 0.9 % Sodium Chloride 50 ML IV (22:45)
[2023-10-27] MEDS: Azithromycin 500 MG in 0.9 % Sodium Chloride 250 ML 125 MG IV (22:45)
[2023-10-27 22:47] VITALS: O2SAT 86
[2023-10-27 22:47] LABS: INTERNATIONAL NORM RATIO 0.9 (0.9-1.1); Prothrombin Time 11.4 SEC (11.1-13.3)
--- NOTE | 2023-10-27 22:48 | PC.NURSE ---
Pt demonstrating desaturation below threshold of 88-92% despite increasing NC O2 rate. Changed to Oxymask with improvement.
[2023-10-27 22:49] VITALS: O2SAT 93
[2023-10-27 22:50] LABS: Venous Blood Gas Refer to POC result
[2023-10-27 22:51] LABS: VBG Base Excess 7.9 mmol/L; VBG HCO3 34 mmol/L (22-26); VBG pCO2 53 mmHg; VBG pH 7.41 (7.32-7.43); VBG pO2 46 mmHg
[2023-10-27 22:51] LABS: Lactic Acid 1.4 mmol/L (0.5-2.0)
[2023-10-27 22:54] LABS: Alanine Aminotransferase 8 U/L (0-31); Albumin Level 4.2 g/dL (3.5-5.0); Alkaline Phosphatase 126 U/L (39-117); Anion Gap 15 (12-20); Aspartate Amino Transferase 17 U/L (5-31); Bilirubin Total 0.5 mg/dL (0.0-1.0); Blood Urea Nitrogen 14 mg/dL (9-16); Carbon Dioxide 28 mmol/L (22-29); Chloride 99 mmol/L (96-108); Creatinine Clr Calc Pharmacy 73.4; Estimated Glomerular Filt Rate > 60; Glucose Random 137 mg/dL (60-115); Sodium 138 mmol/L (135-145); Total Protein 8.1 g/dL (6.5-8.0)
[2023-10-27 22:58] LABS: B Type Natriuretic Peptide 61 pg/mL (<100)
[2023-10-27 23:20] LABS: Influenza A PCR NEGATIVE (Negative); Influenza B PCR NEGATIVE (Negative); Resp Syncy Virus RNA Qual PCR NEGATIVE (Negative); SARS COV2 PCR INHOUSE POSITIVE (Negative)
--- NOTE | 2023-10-27 23:51 | PC.NURSE ---
Pt not tolerating oxymask, switched to nasal cannula back to home O 2level of 3l - for goal of 88-92%.
[2023-10-28] VITALS (19 sets, daily range): BP systolic 121–164; BP diastolic 64–91; PULSE 64–96; RESP 14–22; TEMP 36.4–36.9; O2SAT 91–100
--- NOTE | 2023-10-28 00:07 | PC.NURSE ---
Straight catheterized pt for 500mL output, straw colored cloudy urine, sample sent to lab for testing.
[2023-10-28 00:14] LABS: Appearance Urine Clear; Color Urine Yellow; Glucose Urine UA Negative (Negative); Leukocyte Esterase Urine Negative (Negative); Nitrite Urine Negative (Negative); Specific Gravity - Urine <= 1.005 (1.005-1.025); Urine Blood Negative (Negative); Urine Ketones Negative (Negative); Urine Protein Negative (Neg-Trace)
[2023-10-28 00:17] LABS: Bacteria Urine None Seen (None Seen); Hyaline Casts Urine 0-2 /LPF (0-2); RBC Urine 0-2 /HPF (0-2); Squamous Epithelial Cell Urine 0-2 /HPF (0-2); WBC Urine 0-5 /HPF (0-5)
[2023-10-28] MEDS: iohexoL 350 MG/ML 100 ML INFUS..BTL 65 ML IV (00:25)
--- NOTE | 2023-10-28 05:44 | P.HPHOSP_ITS ---
History of Present Illness Date of Service: 10/28/23 Attending physician on admission: Ameena Finch Chief Complaint: Shortness on breath Katrin Dominguez is 82 years old woman with past medical history significant for dementia, COPD -on home O2, depression and hyperlipidemia was brought to the emergency department by EMS after his son noted her to be short of breath and has been too weak to get out of the bed. The patient also has been complaining of acute urinary symptoms, headache and cough. No fever or chills reported. Denies any headache. She denied significant abdominal pain, nausea, vomiting or diarrhea. In the ED, she was found to have tachycardia and tachypnea. She is currently requiring 2 L/min of supplemental oxygen. Blood workup showed no leukocytosis. There are no electrolyte imbalances and renal function is normal. COVID-19 test is positive. Chest CT showed no evidence of pulmonary embolism however, it showed consolidation at the right lung base likely atelectasis ? Infiltrate. The incidental finding of diverticulosis without diverticulitis, infrarenal abdominal aortic aneurysm (3.2 cm) and multiple thoracic and lumbar vertebral compression fractures (new or progressed compared to prior particularly T6). Urinalysis showed no evidence of urinary tract infection. ED tx: Ceftriaxone 1 g IV, azithromycin 500 mg IV and NS 1 L Review of Systems 2 Review of Systems: All 12 systems were reviewed and normal except as noted in HPI. 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 Tobacco Use Status: Former Tobacco user Cigarette Packs Per Day: 3 Cigarettes Per Day: 60.0 Years Smoked: 50 Smoked in Last 30 Days: No e-Cigarette/Vaping Use: Never Used Second Hand Smoke Exposure: Yes Use of substances other than those prescribed or required for medical reasons: No Advance Directives: Yes Advance Directives on File: Yes Advance Directives Date on File: 02/25/22 Nutrition Risks: No Nutritional Risk service: No Current occupational status: retired and disabled Current occupational exposures/hazards: No Cognitive needs: No Hearing needs: No Vision needs: No Meds Allergies Allergy/AdvReac Type Severity Reaction Status Date / Time No Known Allergies Allergy Verified 10/18/23 15:06 Active Medications: Current Medications Acetaminophen (Acetaminophen 325 Mg Tablet) 975 mg PO Q6H PRN PRN Reason: Pain, Mild (Pain Scale 1-3) Albuterol Sulfate (Albuterol Sulfate 90 Mcg 8 Gm Inhaler) 4 puff INHALE RQ4H WHILE AWAKE [facility] Heparin Sodium (Porcine) (Heparin Sodium,Porcine 5,000 Unit/Ml Vial) 5,000 unit SUBCUT Q12H [place] Methylprednisolone Sodium Succinate (Methylprednisolone Sod Succ 40 Mg/Ml Vial) 40 mg IVPUSH Q6H [facility] Metoprolol Tartrate (Metoprolol Tartrate 12.5 Mg Halftab) 12.5 mg PO BID [facility]; Protocol Pregabalin (Pregabalin 25 Mg Capsule) 25 mg PO BID [facility] Sodium Chloride (0.9 % Sodium Chloride Flush 3 Ml Syringe) 3 ml IVFLUSH QSHIFT [facility] Home Medications Medication Instructions Recorded Confirmed Last Taken Type acetaminophen 650 mg 1,300 mg PO BID 03/18/22 06/10/23 03/18/22 History tablet,extended release multivitamin 1 tab PO DAILY 07/23/22 08/17/23 07/23/22 History albuterol sulfate 90 mcg/actuation 2 puff inhalation Q6H PRN dyspnea 10/28/23 10/28/23 Unknown History aerosol inhaler metoprolol tartrate 25 mg tablet 12.5 mg PO BID 10/28/23 10/28/23 Unknown History pregabalin 25 mg capsule 25 mg PO BID 10/28/23 10/28/23 Unknown History Physical Exam 2 Vital Signs and Narrative: Vital Signs: Last Vital Signs Temp 99.3 F 10/27/23 21:28 Pulse 92 10/28/23 03:25 Resp 18 10/28/23 03:25 BP 155/79 H 10/28/23 03:25 Pulse Ox 93 10/28/23 03:25 O2 Del Method Nasal Cannula 10/28/23 03:25 O2 Flow Rate 3 10/28/23 03:25 Oxygen Flow Rate 4 10/27/23 21:28 BMI result Body Mass Index 22.2 Constitutional - Awake and Alert, No apparent distress. Acutely ill. HEENT - pupils equally round, dry oral mucosa. No scleral icterus Heart - S1S2, RRR, No edema Lungs - Normal lung expansion, Normal respiratory effort, No respiratory distress, mild end expiratory wheezing. Abdomen - NT / ND; +BS; No rebound or guarding Extremities - no calf tenderness bilaterally, no swelling Musculoskeletal - Normal inspection, normal ROM Skin - Warm/Dry Neurological - Alert & oriented x3. No gross focal weakness. Normal speech. Normal behavior. Psychological - Appropriate affect Results Labs 10/27/23 22:17 10/27/23 22:17 Labs: Laboratory Results - last 24 hr 10/27/23 10/27/23 10/27/23 22:16 22:17 22:26 MCV 87.6 MCH 28.5 MCHC 32.6 RDW 14.3 Plt Count 207 MPV 10.1 Immature Gran % (Auto) 0.3 Neut % (Auto) 80.3 H Lymph % (Auto) 8.8 L Vance % (Auto) 10.0 Eos % (Auto) 0.3 Baso % (Auto) 0.3 Lymph # (Auto) 0.5 L Vance # (Auto) 0.6 Eos # (Auto) 0.0 Baso # (Auto) 0.0 Abs Immat Gran (auto) 0.02 Absolute Neuts (auto) 4.9 Absolute Nucleated RBC 0.000 Nucleated RBC % (auto) 0.0 PT 11.4 INR 0.9 VBG pH VBG pCO2 VBG pO2 VBG HCO3 VBG O2 Saturation VBG Base Excess Anion Gap 15 Estim Creat Clear Calc 73.4 Estimated GFR > 60 Random Glucose 137 H Lactic Acid 1.4 Calcium 10.0 Total Bilirubin 0.5 AST 17 ALT 8 Alkaline Phosphatase 126 H Troponin I High Sens 8.0 D B-Natriuretic Peptide 61 Total Protein 8.1 H Albumin 4.2 Hold Green Top See Note Urine Color Urine Appearance Urine pH Ur Specific [place] Urine Protein Urine Glucose (UA) Urine Ketones Urine Blood Urine Nitrite Ur Leukocyte Esterase Urine RBC Urine WBC Ur Squamous Epith Cells Urine Bacteria Hyaline Casts Influenza Type A (PCR) NEGATIVE Influenza Type B (PCR) NEGATIVE RSV RNA Qual (PCR) NEGATIVE SARS-CoV-2 RNA (RT-PCR) POSITIVE A 10/27/23 10/28/23 22:45 00:05 MCV MCH MCHC RDW Plt Count MPV Immature Gran % (Auto) Neut % (Auto) Lymph % (Auto) Vance % (Auto) Eos % (Auto) Baso % (Auto) Lymph # (Auto) Vance # (Auto) Eos # (Auto) Baso # (Auto) Abs Immat Gran (auto) Absolute Neuts (auto) Absolute Nucleated RBC Nucleated RBC % (auto) PT INR VBG pH 7.41 VBG pCO2 53 VBG pO2 46 VBG HCO3 34 H VBG O2 Saturation 76.0 VBG Base Excess 7.9 Anion Gap Estim Creat Clear Calc Estimated GFR Random Glucose Lactic Acid Calcium Total Bilirubin AST ALT Alkaline Phosphatase Troponin I High Sens B-Natriuretic Peptide Total Protein Albumin Hold Green Top Urine Color Yellow Urine Appearance Clear Urine pH 7.0 Ur Specific [place] <= 1.005 Urine Protein Negative Urine Glucose (UA) Negative Urine Ketones Negative Urine Blood Negative Urine Nitrite Negative Ur Leukocyte Esterase Negative Urine RBC 0-2 Urine WBC 0-5 Ur Squamous Epith Cells 0-2 Urine Bacteria None Seen Hyaline Casts 0-2 Influenza Type A (PCR) Influenza Type B (PCR) RSV RNA Qual (PCR) SARS-CoV-2 RNA (RT-PCR) Imaging Radiologist's Impressions: Impressions Chest X-Ray 10/27/23 21:52 IMPRESSION: 1. Bilateral low lung volumes. 2. Chronic reticular and interstitial markings. 3. Right basilar atelectasis versus evolving infectious/inflammatory etiology. Abdomen/Pelvis CT 10/28/23 00:43 IMPRESSION: 1. No evidence of pulmonary embolism. 2. Consolidation at the right lung base likely atelectatic atelectasis. A component of infiltrate is considered less likely. Atelectasis/scarring at the left lung base. 3. Left renal lower pole calculi. 4. Prominence of the bilateral renal collecting systems and ureters without ureteral calculi. 5. Diverticulosis without diverticulitis. 6. Infrarenal abdominal aortic aneurysm measuring 3.2 cm. 7. Osteopenia. Multiple thoracic and lumbar vertebral body compression fractures some of which are new or progressed compared to prior particularly the T6 vertebral body fracture.. VTE: negative. Chest CTA 10/28/23 00:45 IMPRESSION: 1. No evidence of pulmonary embolism. 2. Consolidation at the right lung base likely atelectatic atelectasis. A component of infiltrate is considered less likely. Atelectasis/scarring at the left lung base. 3. Left renal lower pole calculi. 4. Prominence of the bilateral renal collecting systems and ureters without ureteral calculi. 5. Diverticulosis without diverticulitis. 6. Infrarenal abdominal aortic aneurysm measuring 3.2 cm. 7. Osteopenia. Multiple thoracic and lumbar vertebral body compression fractures some of which are new or progressed compared to prior particularly the T6 vertebral body fracture.. VTE: negative. Assessment and Plan (1) COVID-19: Status: Acute (2) Acute exacerbation of COPD with asthma: Status: Acute Plan Prudenchair Dominguez is 82 years old woman with past medical history significant for dementia and depression admitted with: * Acute exacerbation of chronic obstructive pulmonary disease secondary to COVID-19 infection. Admit to hospitalist service. Pulse ox. Telemetry. Continue supplemental oxygen to keep oxygen saturation 90% (currently pt is using 3L/min -her baseline). Continue bronchodilator therapy and IV steroids. ID consult -to consider treatment with remdesivir. * Hypertension. Continue. * Hyperlipidemia. Unclear if patient is taking medications for this. DVT prophylaxis: Heparin subcut Code status: Full Patient will need hospitalization for at least 2 midnights for acute exacerbation of chronic obstructive pulmonary disease treatment with supplemental oxygen, bronchodilator therapy and IV steroids. Quality Stroke Does the patient have a stroke diagnosis?: No VTE Prior VTE?: No VTE Risk Level:: Medical - moderate - high VTE Device Contraindication: Treatment Not Indicated VTE Drug Contraindication: N/A - Med Ordered
[2023-10-28 06:26] LABS: Basophils Percent Auto 0.4 % (0-2); Eosinophils Absolute Auto 0.1 X10*3/uL (0.0-0.4); Eosinophils Percent Auto 1.2 % (0-4); Hematocrit 38.5 % (37.0-47.0); Hemoglobin 12.5 g/dl (12.0-16.0); Imm Gran Abs Auto 0.02 X10*3/uL (0.00-0.03); Imm Gran Pct Auto 0.4 % (0.0-0.4); Lymphocytes Percent Auto 19.6 % (20-40); Mean Corpuscular HGB Conc 32.5 g/dl (31.0-35.0); Mean Corpuscular Hemoglobin 28.8 pg (27.0-33.0); Mean Corpuscular Volume 88.7 fL (80.0-98.0); Mean Platelet Volume 10.6 fL (9.4-12.3); Monocytes Absolute Auto 0.8 X10*3/uL (0.1-1.2); Monocytes Percent Auto 16.3 % (2-11); Neutrophils Absolute Auto 3.1 x10*3/uL (2.0-8.3); Neutrophils Percent Auto 62.1 % (45-73); Red Blood Count 4.34 X10*6/uL (4.20-5.50); Red Cell Distribution Width 14.4 % (11.0-16.0)
[2023-10-28 06:28] LABS: Platelet Count 204 X10*3/uL (160-400)
[2023-10-28 06:32] LABS: Alanine Aminotransferase 6 U/L (0-31); Albumin Level 3.6 g/dL (3.5-5.0); Alkaline Phosphatase 115 U/L (39-117); Anion Gap 15 (12-20); Aspartate Amino Transferase 13 U/L (5-31); Bilirubin Total 0.4 mg/dL (0.0-1.0); Blood Urea Nitrogen 9 mg/dL (9-16); Calcium 9.1 mg/dL (8.4-10.2); Carbon Dioxide 27 mmol/L (22-29); Chloride 101 mmol/L (96-108); Creatinine Clr Calc Pharmacy 86.6; Estimated Glomerular Filt Rate > 60; Glucose Random 101 mg/dL (60-115); Potassium 3.5 mmol/L (3.3-5.1); Sodium 139 mmol/L (135-145)
[2023-10-28] MEDS: Albuterol Sulfate 90 MCG 8 GM INHALER 4 PUFF INHALE ×4 (07:25→19:35)
[2023-10-28] MEDS: methylPREDNISolone Sod Succ 40 MG/ML VIAL IVPUSH ×3 (07:30→19:25)
--- NOTE | 2023-10-28 07:35 | PC.NURSE ---
VS updated. Pt given breakfast tray, states I'm not hungry.
[2023-10-28] MEDS: Heparin Sodium,Porcine 5,000 UNIT/ML VIAL 5000 UNIT SUBCUT ×2 (08:33→20:43)
[2023-10-28] MEDS: Acetaminophen 325 MG TABLET 975 MG PO (08:35)
[2023-10-28] MEDS: Metoprolol Tartrate 12.5 MG HALFTAB PO ×2 (08:35→20:42)
--- NOTE | 2023-10-28 08:37 | PC.NURSE ---
Pt tolerated am meds with water without difficulty. Pt boosted and repositioned in bed. Pt medicated for chronic back pain per request. Purewick in place, pt remains dry.
--- NOTE | 2023-10-28 09:10 | MHC.CM.PN ---
IMM 10/28/23, Pt lives with her son and d-i-l, she has 3 hours a day (plus extra on 2 days a week to help with shower) private home health aid services. She has med equipment of a walker, and home O2. She was in STR at [facility] in Jun - Jul. She has VNA from [facility]. Her son Jas is HCP, form to be completed here and added to chart. He would prefer [facility] if rec upon DC. Son to provide transportation home upon DC. CM to follow and assist with DC plan.
[2023-10-28] MEDS: Pregabalin 25 MG CAPSULE PO ×2 (09:46→20:42)
--- NOTE | 2023-10-28 10:00 | PC.NURSE ---
calm, coop, no distress noted
--- NOTE | 2023-10-28 11:13 | MHC.EDTECH ---
this tech went to answer call ross to 1 [facility], clean linen was given, chey clean was done, pt was [facility] and is now comfortable in bed with warm blankets.
--- NOTE | 2023-10-28 12:58 | PM.EVENT ---
Event Note Date of Service: 10/28/23 Event Note: Laying comfortable in her bed denies any fever or chills on 3L O2 Pending ID evaluation Continue steroids and nebulizers Time Spent With Patient Time: Total time managing care of this patient today ____ minutes.
--- NOTE | 2023-10-28 13:00 | PC.NURSE ---
offered lunch- declined. given sips of drink. no distress. calm, coop. afebrile. breathing well.
--- NOTE | 2023-10-28 15:03 | PHA.MEDREC ---
Pharmacy Consult ? Medication Reconciliation Pharmacy has completed the medication reconciliation. pt was able to confirm medications based on claim history. she initially stated she was only on 2 medications but when questioned she confirmed she was on 5 home meds.
--- NOTE | 2023-10-28 17:25 | MHC.EDTECH ---
THIS PCT ASSUMED CARE OF PATIENT AT 1500 ,VITALS TAKEN ,PT WAS REPOSITION AND BOOSTED UP IN BED .
--- NOTE | 2023-10-28 18:58 | MHC.EDTECH ---
patient refused dinner ,INESSA cruz .
--- NOTE | 2023-10-28 21:59 | MHC.EDTECH ---
Patient was incontinent of urine ,care given and bed pads change ,Patient was offer snacks ,but Patient refused .
[2023-10-28 23:48] LABS: Glucose, Whole Blood 153 mg/dL (60-115)
[2023-10-29] VITALS (13 sets, daily range): BP systolic 143–168; BP diastolic 73–93; PULSE 64–95; RESP 15–24; TEMP 36–36.8; O2SAT 85–100; BMI 22.9
[2023-10-29] MEDS: Acetaminophen 325 MG TABLET 975 MG PO (01:12)
--- NOTE | 2023-10-29 01:12 | PC.NURSE ---
Pt medicated per NOV for 9/10 head pain.
--- NOTE | 2023-10-29 04:09 | MHC.EDTECH ---
0400 rounding done ,patient awake ,and was incontinent of urine ,care given ,Patient was a 1 :1 feed ,was fed apple sauce and drank 480 ml fluids ,patient is on nectar thicken liquids .Vitals taken ,patient watching television .
[2023-10-29 05:38] LABS: Hematocrit 38.1 % (37.0-47.0); Mean Corpuscular HGB Conc 31.5 g/dl (31.0-35.0); Mean Corpuscular Volume 88.8 fL (80.0-98.0); Mean Platelet Volume 10.3 fL (9.4-12.3); Platelet Count 232 X10*3/uL (160-400); Red Blood Count 4.29 X10*6/uL (4.20-5.50); Red Cell Distribution Width 14.4 % (11.0-16.0)
[2023-10-29 05:59] LABS: Anion Gap 16 (12-20); Blood Urea Nitrogen 20 mg/dL (9-16); Calcium 9.4 mg/dL (8.4-10.2); Carbon Dioxide 24 mmol/L (22-29); Chloride 102 mmol/L (96-108); Creatinine Clr Calc Pharmacy 59.8; Estimated Glomerular Filt Rate > 60; Glucose Random 201 mg/dL (60-115); Potassium 4.1 mmol/L (3.3-5.1); Sodium 138 mmol/L (135-145)
[2023-10-29 06:00] LABS: C Reactive Protein 2.81 mg/dL (< or = 0.50); Lactate Dehydrogenase 151 U/L (122-220)
[2023-10-29] MEDS: methylPREDNISolone Sod Succ 40 MG/ML VIAL IVPUSH ×4 (06:00→17:04)
--- NOTE | 2023-10-29 06:21 | MHC.EDTECH ---
0600 ROUNDING DONE ,PATIENT AWAKE WATCHING TELEVISION ,PATIENT WAS CHECKED AND WAS DRY .
[2023-10-29] MEDS: Albuterol Sulfate 90 MCG 8 GM INHALER 4 PUFF INHALE ×4 (08:43→19:47)
[2023-10-29] MEDS: Heparin Sodium,Porcine 5,000 UNIT/ML VIAL 5000 UNIT SUBCUT ×2 (10:21→20:35)
[2023-10-29] MEDS: 0.9 % Sodium Chloride Flush 3 ML SYRINGE IVFLUSH ×4 (10:21→20:35)
[2023-10-29] MEDS: Metoprolol Tartrate 12.5 MG HALFTAB PO ×2 (10:22→20:37)
[2023-10-29] MEDS: Pregabalin 25 MG CAPSULE PO ×2 (10:22→20:35)
--- NOTE | 2023-10-29 11:56 | HO.PM.IMPN ---
Subjective Subjective Date of Service: 10/29/23 Interval History: seen and evaluated feels the same on 3L O2 denies any fever or chills Review of Systems Review of Systems: Yes all other systems are reviewed and are negative Physical Exam Vital Signs: Vital Signs: Last Vital Signs Temp 97.2 F 10/29/23 10:39 Pulse 85 10/29/23 10:39 Resp 20 10/29/23 10:39 BP 143/73 H 10/29/23 10:39 Pulse Ox 100 10/29/23 10:39 O2 Del Method Room Air 10/29/23 10:39 O2 Flow Rate 3 10/29/23 08:19 Oxygen Flow Rate 4 10/27/23 21:28 BMI result Body Mass Index 22.9 Const: Other: Constitutional : Awake, interactive, not in distress Neck : Normal inspection, Supple Cardiovascular : RRR, no JVP, no lower extremity edema Respiratory : good bilateral air entry, no crackles, wheezes or rhonchi Gastrointestinal: soft, lax, Normal bowel sounds, Non tender Skin : Warm, Dry Neurological : Alert & oriented x3, No focal deficit Objective Data Active Medications Acetaminophen (Acetaminophen 325 Mg Tablet) 975 mg PO Q6H PRN PRN Reason: Pain, Mild (Pain Scale 1-3) Last Admin: 10/29/23 01:12 Dose: 975 mg Documented By: MIKE Albuterol Sulfate (Albuterol Sulfate 90 Mcg 8 Gm Inhaler) 4 puff INHALE RQ4H WHILE AWAKE [facility] Last Admin: 10/29/23 08:43 Dose: 4 puff Documented By: ADAM Heparin Sodium (Porcine) (Heparin Sodium,Porcine 5,000 Unit/Ml Vial) 5,000 unit SUBCUT Q12H [facility] Last Admin: 10/29/23 10:21 Dose: 5,000 unit Documented By: HERNANDO Methylprednisolone Sodium Succinate (Methylprednisolone Sod Succ 40 Mg/Ml Vial) 40 mg IVPUSH Q6H [facility] Last Admin: 10/29/23 10:21 Dose: 40 mg Documented By: HERNANDO Metoprolol Tartrate (Metoprolol Tartrate 12.5 Mg Halftab) 12.5 mg PO BID [facility]; Protocol Last Admin: 10/29/23 10:22 Dose: 12.5 mg Documented By: HERNANDO Pregabalin (Pregabalin 25 Mg Capsule) 25 mg PO BID [facility] Last Admin: 10/29/23 10:22 Dose: 25 mg Documented By: HERNANDO Sodium Chloride (0.9 % Sodium Chloride Flush 3 Ml Syringe) 3 ml IVFLUSH QSHIFT [facility] Last Admin: 10/29/23 10:21 Dose: 3 ml Documented By: HERNANDO Labs 10/29/23 05:18 10/29/23 05:18 Labs: Laboratory Results - last 24 hr 10/28/23 10/29/23 23:45 05:18 MCV 88.8 MCH 28.0 MCHC 31.5 RDW 14.4 Plt Count 232 MPV 10.3 Absolute Nucleated RBC 0.000 Nucleated RBC % (auto) 0.0 Anion Gap 16 Estim Creat Clear Calc 59.8 Estimated GFR > 60 POC Glucose 153 H Random Glucose 201 H Calcium 9.4 Lactate Dehydrogenase 151 C-Reactive Protein 2.81 H Microbiology Microbiology Results: Microbiology 10/27/23 22:26 Blood Culture - Preliminary Blood - Venous No growth after 24 hours. 10/27/23 22:16 Blood Culture - Preliminary Blood - Venous No growth after 24 hours. Assessment and Plan (1) Acute exacerbation of COPD with asthma: Status: Acute (2) COVID-19: Status: Acute Plan Prudencahir Dominguez is 82 years old woman with past medical history significant for dementia and depression admitted with: # Acute exacerbation of chronic obstructive pulmonary disease secondary to COVID-19 infection with Hypoxemia Continue bronchodilator therapy IV steroids ID consult -to consider treatment with remdesivir. Wean O2 down as tolerated # Hypertension. Continue home medications. DVT prophylaxis: Heparin subcut Code status: Full Patient will need hospitalization overnight for acute exacerbation of chronic obstructive pulmonary disease treatment with supplemental oxygen, bronchodilator therapy and IV steroids. Quality Stroke Does the patient have a stroke diagnosis?: No VTE Prior VTE?: No VTE Risk Level:: Medical - moderate - high VTE Device Contraindication: Treatment Not Indicated VTE Drug Contraindication: N/A - Med Ordered
[2023-10-29 17:06] LABS: Alanine Aminotransferase 8 U/L (0-31); Albumin Level 3.7 g/dL (3.5-5.0); Alkaline Phosphatase 108 U/L (39-117); Aspartate Amino Transferase 14 U/L (5-31); Bilirubin Direct 0.2 mg/dL (0.0-0.5); Bilirubin Total 0.3 mg/dL (0.0-1.0); Total Protein 7.1 g/dL (6.5-8.0)
--- NOTE | 2023-10-29 17:12 | W.PM.IDCN ---
History of Present Illness Data of Consult Service Date: 10/29/23 Requesting physician: Orly Patel Primary Care Provider: Juan Jose Haywood MD HPI Reason for consult: COVID She comes in with cough and shortness of breath. She has hypoxia three liters but uses oxygen at home as well. She has symptoms for two days. Review of Systems Review of Systems: Yes all other systems are reviewed and are negative PMFSH Past Medical History Medical History Lung density on x-ray Swallowing difficulty Respiratory failure with hypoxia Hypoxemia Pneumonia Respiratory failure Peripheral vascular disease Hyperlipidemia Hypertension COPD (chronic obstructive pulmonary disease) Family History Family History Mother Breast cancer Family history: reviewed and not pertinent Surgical History Surgical History History of hip surgery Social History Social History Household Members: None Housing: House Do you presently have visiting nurse or other home services: No Alcohol intake: never 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 Tobacco Use Status: Former Tobacco user Cigarette Packs Per Day: 3 Cigarettes Per Day: 60.0 Years Smoked: 50 e-Cigarette/Vaping Use: Never Used Second Hand Smoke Exposure: Yes Advance Directives Date on File: 02/25/22 service: No Current occupational status: retired and disabled Current occupational exposures/hazards: No Cognitive needs: No Hearing needs: No Vision needs: No Meds Allergies Allergy/AdvReac Type Severity Reaction Status Date / Time No Known Allergies Allergy Verified 10/18/23 15:06 Active Medications: Current Medications Acetaminophen (Acetaminophen 325 Mg Tablet) 975 mg PO Q6H PRN PRN Reason: Pain, Mild (Pain Scale 1-3) Last Admin: 10/29/23 01:12 Dose: 975 mg Albuterol Sulfate (Albuterol Sulfate 90 Mcg 8 Gm Inhaler) 4 puff INHALE RQ4H WHILE AWAKE [facility] Last Admin: 10/29/23 15:38 Dose: 4 puff Heparin Sodium (Porcine) (Heparin Sodium,Porcine 5,000 Unit/Ml Vial) 5,000 unit SUBCUT Q12H [facility] Last Admin: 10/29/23 10:21 Dose: 5,000 unit Methylprednisolone Sodium Succinate (Methylprednisolone Sod Succ 40 Mg/Ml Vial) 40 mg IVPUSH Q6H [facility] Last Admin: 10/29/23 17:04 Dose: 40 mg Metoprolol Tartrate (Metoprolol Tartrate 12.5 Mg Halftab) 12.5 mg PO BID [facility]; Protocol Last Admin: 10/29/23 10:22 Dose: 12.5 mg Pregabalin (Pregabalin 25 Mg Capsule) 25 mg PO BID [facility] Last Admin: 10/29/23 10:22 Dose: 25 mg Sodium Chloride (0.9 % Sodium Chloride Flush 3 Ml Syringe) 3 ml IVFLUSH QSHIFT [facility] Last Admin: 10/29/23 17:05 Dose: 3 ml Home Medications Medication Instructions Recorded Confirmed Last Taken Type multivitamin 1 tab PO DAILY 07/23/22 10/28/23 07/23/22 History albuterol sulfate 90 mcg/actuation 2 puff inhalation Q6H PRN dyspnea 10/28/23 10/28/23 Unknown History aerosol inhaler famotidine 20 mg tablet 20 mg PO DAILY@0630 PRN Heartburn 10/28/23 10/28/23 Unknown History metoprolol tartrate 25 mg tablet 12.5 mg PO BID 10/28/23 10/28/23 Unknown History pregabalin 25 mg capsule 25 mg PO BID 10/28/23 10/28/23 Unknown History Physical Exam Vital Signs: Vital Signs: Last Vital Signs Temp 98.2 F 10/29/23 15:11 Pulse 89 10/29/23 15:39 Resp 20 10/29/23 15:39 BP 144/93 H 10/29/23 15:11 Pulse Ox 93 10/29/23 15:11 O2 Del Method Nasal Cannula 10/29/23 15:11 O2 Flow Rate 2 10/29/23 15:11 Oxygen Flow Rate 4 10/27/23 21:28 BMI result Body Mass Index 22.9 Neuro: Other: fatigue Results Labs 10/29/23 05:18 10/29/23 05:18 Labs: Short CBC 10/29/23 Range/Units 05:18 WBC 4.0 L (4.8-10.8) X10*3/uL Hgb 12.0 (12.0-16.0) g/dl Hct 38.1 (37.0-47.0) % Plt Count 232 (160-400) X10*3/uL BMP 10/29/23 05:18 Sodium 138 Potassium 4.1 Chloride 102 Carbon Dioxide 24 BUN 20 H Creatinine 0.81 Calcium 9.4 Liver Function 10/29/23 Range/Units 05:18 Total Bilirubin 0.3 (0.0-1.0) mg/dL Direct Bilirubin 0.2 (0.0-0.5) mg/dL AST 14 (5-31) U/L ALT 8 (0-31) U/L Alkaline Phosphatase 108 (39-117) U/L Albumin 3.7 (3.5-5.0) g/dL Microbiology Microbiology Results: Microbiology 10/27/23 22:26 Blood - Venous Blood Culture - Preliminary No growth after 24 hours. 10/27/23 22:16 Blood - Venous Blood Culture - Preliminary No growth after 24 hours. Assessment and Plan (1) Acute exacerbation of COPD with asthma: Status: Acute (2) Hypoxia: Status: Acute (3) COVID-19: Status: Acute Plan Would treat COVID with Remdesivir and steroids since recent duration 5 days Remdesivir.
[2023-10-29] MEDS: Remdesivir 200 MG in 0.9 % Sodium Chloride 210 ML 105 MG IV (17:59)
[2023-10-30] VITALS (10 sets, daily range): BP systolic 138–166; BP diastolic 66–84; PULSE 68–102; RESP 16–20; TEMP 36.2–36.8; O2SAT 92–962
[2023-10-30] MEDS: methylPREDNISolone Sod Succ 40 MG/ML VIAL IVPUSH ×4 (00:39→18:08)
[2023-10-30] MEDS: 0.9 % Sodium Chloride Flush 3 ML SYRINGE IVFLUSH ×2 (00:39→16:21)
[2023-10-30] MEDS: Albuterol Sulfate 90 MCG 8 GM INHALER 4 PUFF INHALE ×4 (08:31→20:01)
[2023-10-30] MEDS: Metoprolol Tartrate 12.5 MG HALFTAB PO ×2 (10:07→20:22)
[2023-10-30] MEDS: Pregabalin 25 MG CAPSULE PO ×2 (10:08→20:22)
[2023-10-30] MEDS: Heparin Sodium,Porcine 5,000 UNIT/ML VIAL 5000 UNIT SUBCUT ×2 (10:08→20:22)
--- NOTE | 2023-10-30 11:04 | P.PNIM_ITS ---
Subjective Subjective Date of Service: 10/30/23 Interval History: seen and evaluated feels the same on 3L O2 denies any fever or chills Review of Systems Review of Systems: Yes all other systems are reviewed and are negative Physical Exam 2 Vital Signs: Vital Signs: Last Vital Signs Temp 97.3 F 10/30/23 07:35 Pulse 77 10/30/23 08:35 Resp 18 10/30/23 08:35 BP 155/84 H 10/30/23 07:35 Pulse Ox 96 10/30/23 07:35 O2 Del Method Nasal Cannula 10/30/23 07:35 O2 Flow Rate 2 10/30/23 07:35 Oxygen Flow Rate 4 10/27/23 21:28 BMI result Body Mass Index 22.9 Const: Other: Constitutional : Awake, interactive, not in distress Neck : Normal inspection, Supple Cardiovascular : RRR, no JVP, no lower extremity edema Respiratory : good bilateral air entry, no crackles, wheezes or rhonchi Gastrointestinal: soft, lax, Normal bowel sounds, Non tender Skin : Warm, Dry Neurological : Alert & oriented x3, No focal deficit Objective Data Active Medications Acetaminophen (Acetaminophen 325 Mg Tablet) 975 mg PO Q6H PRN PRN Reason: Pain, Mild (Pain Scale 1-3) Last Admin: 10/29/23 01:12 Dose: 975 mg Documented By: MIKE Albuterol Sulfate (Albuterol Sulfate 90 Mcg 8 Gm Inhaler) 4 puff INHALE RQ4H WHILE AWAKE [facility] Last Admin: 10/30/23 08:31 Dose: 4 puff Documented By: JOHN Famotidine (Famotidine 20 Mg Tablet) 20 mg PO DAILY@0630 PRN PRN Reason: Heartburn Heparin Sodium (Porcine) (Heparin Sodium,Porcine 5,000 Unit/Ml Vial) 5,000 unit SUBCUT Q12H [facility] Last Admin: 10/30/23 10:08 Dose: 5,000 unit Documented By: USAMA Remdesivir 100 mg/ Sodium (Chloride) 230 mls @ 115 mls/hr IV Q24H [facility] Stop: 11/02/23 21:59 Methylprednisolone Sodium Succinate (Methylprednisolone Sod Succ 40 Mg/Ml Vial) 40 mg IVPUSH Q6H [facility] Last Admin: 10/30/23 05:54 Dose: 40 mg Documented By: PETRA Metoprolol Tartrate (Metoprolol Tartrate 12.5 Mg Halftab) 12.5 mg PO BID [facility]; Protocol Last Admin: 10/30/23 10:07 Dose: 12.5 mg Documented By: USAMA Pregabalin (Pregabalin 25 Mg Capsule) 25 mg PO BID [facility] Last Admin: 10/30/23 10:08 Dose: 25 mg Documented By: USAMA Sodium Chloride (0.9 % Sodium Chloride Flush 3 Ml Syringe) 3 ml IVFLUSH QSHIFT [facility] Last Admin: 10/30/23 00:39 Dose: 3 ml Documented By: PETRA Labs 10/29/23 05:18 10/29/23 05:18 Labs: Laboratory Results - last 24 hr 10/29/23 05:18 Total Bilirubin 0.3 Direct Bilirubin 0.2 AST 14 ALT 8 Alkaline Phosphatase 108 Total Protein 7.1 Albumin 3.7 Microbiology Microbiology Results: Microbiology 10/27/23 22:26 Blood Culture - Preliminary Blood - Venous No growth after 48 hours. 10/27/23 22:16 Blood Culture - Preliminary Blood - Venous No growth after 48 hours. Assessment and Plan (1) Acute exacerbation of COPD with asthma: Status: Acute (2) COVID-19: Status: Acute Plan Prudenchair Dominguez is 82 years old woman with past medical history significant for dementia and depression admitted with: # Acute exacerbation of chronic obstructive pulmonary disease secondary to COVID-19 infection PAtient on 3L O2 at baseline at home Continue bronchodilator therapy IV steroids ID input appreciated, start remdesivir. Wean O2 down as tolerated # Hypertension. Continue home medications. DVT prophylaxis: Heparin subcut Code status: Full Patient will need hospitalization overnight for acute exacerbation of chronic obstructive pulmonary disease treatment with supplemental oxygen, bronchodilator therapy and IV steroids. Quality Stroke Does the patient have a stroke diagnosis?: No VTE Prior VTE?: No VTE Risk Level:: Medical - moderate - high VTE Device Contraindication: Treatment Not Indicated VTE Drug Contraindication: N/A - Med Ordered
[2023-10-30] MEDS: Remdesivir 100 MG in 0.9 % Sodium Chloride 230 ML 115 MG IV (20:22)
[2023-10-31] VITALS (12 sets, daily range): BP systolic 146–194; BP diastolic 54–102; PULSE 72–114; RESP 16–22; TEMP 36.2–37; O2SAT 92–96
[2023-10-31] MEDS: 0.9 % Sodium Chloride Flush 3 ML SYRINGE IVFLUSH ×3 (01:11→15:12)
[2023-10-31] MEDS: methylPREDNISolone Sod Succ 40 MG/ML VIAL IVPUSH ×4 (01:17→17:31)
[2023-10-31] MEDS: Albuterol Sulfate 90 MCG 8 GM INHALER 4 PUFF INHALE ×4 (08:15→20:01)
[2023-10-31] MEDS: Metoprolol Tartrate 12.5 MG HALFTAB PO ×2 (09:27→20:49)
[2023-10-31] MEDS: Pregabalin 25 MG CAPSULE PO ×2 (09:27→20:49)
[2023-10-31] MEDS: amLODIPine Besylate 5 MG TABLET PO (09:27)
[2023-10-31] MEDS: Heparin Sodium,Porcine 5,000 UNIT/ML VIAL 5000 UNIT SUBCUT ×2 (09:27→20:49)
--- NOTE | 2023-10-31 10:12 | HO.PM.IMPN ---
Subjective Subjective Date of Service: 10/31/23 Interval History: seen and evaluated feels better overall, generalized weakness on 3L O2 denies any fever or chills Review of Systems Review of Systems: Yes all other systems are reviewed and are negative Physical Exam Vital Signs: Vital Signs: Last Vital Signs Temp 97.2 F 10/31/23 08:00 Pulse 74 10/31/23 08:20 Resp 19 10/31/23 08:20 BP 154/72 H 10/31/23 08:00 Pulse Ox 96 10/31/23 08:00 O2 Del Method Nasal Cannula 10/31/23 08:00 O2 Flow Rate 2 10/31/23 08:00 Oxygen Flow Rate 4 10/27/23 21:28 BMI result Body Mass Index 22.9 Const: Other: Constitutional : Awake, interactive, not in distress Neck : Normal inspection, Supple Cardiovascular : RRR, no JVP, no lower extremity edema Respiratory : good bilateral air entry, no crackles, wheezes or rhonchi Gastrointestinal: soft, lax, Normal bowel sounds, Non tender Skin : Warm, Dry Neurological : Alert & oriented x3, No focal deficit Objective Data Active Medications Acetaminophen (Acetaminophen 325 Mg Tablet) 975 mg PO Q6H PRN PRN Reason: Pain, Mild (Pain Scale 1-3) Last Admin: 10/29/23 01:12 Dose: 975 mg Documented By: MIKE Albuterol Sulfate (Albuterol Sulfate 90 Mcg 8 Gm Inhaler) 4 puff INHALE RQ4H WHILE AWAKE [facility] Last Admin: 10/31/23 08:15 Dose: 4 puff Documented By: JOHN Amlodipine Besylate (Amlodipine Besylate 5 Mg Tablet) 5 mg PO DAILY [facility]; Protocol Last Admin: 10/31/23 09:27 Dose: 5 mg Documented By: USAMA Famotidine (Famotidine 20 Mg Tablet) 20 mg PO DAILY@0630 PRN PRN Reason: Heartburn Heparin Sodium (Porcine) (Heparin Sodium,Porcine 5,000 Unit/Ml Vial) 5,000 unit SUBCUT Q12H [facility] Last Admin: 10/31/23 09:27 Dose: 5,000 unit Documented By: USAMA Remdesivir 100 mg/ Sodium (Chloride) 230 mls @ 115 mls/hr IV Q24H [facility] Stop: 11/02/23 21:59 Last Infusion: 10/30/23 22:29 Dose: Infused Documented By: ROMAIN Methylprednisolone Sodium Succinate (Methylprednisolone Sod Succ 40 Mg/Ml Vial) 40 mg IVPUSH Q6H [facility] Last Admin: 10/31/23 04:12 Dose: 40 mg Documented By: MARZENA Metoprolol Tartrate (Metoprolol Tartrate 12.5 Mg Halftab) 12.5 mg PO BID [facility]; Protocol Last Admin: 10/31/23 09:27 Dose: 12.5 mg Documented By: USAMA Pregabalin (Pregabalin 25 Mg Capsule) 25 mg PO BID [facility] Last Admin: 10/31/23 09:27 Dose: 25 mg Documented By: USAMA Sodium Chloride (0.9 % Sodium Chloride Flush 3 Ml Syringe) 3 ml IVFLUSH QSHIFT [facility] Last Admin: 10/31/23 09:28 Dose: 3 ml Documented By: USAMA Labs 10/29/23 05:18 10/29/23 05:18 Assessment and Plan (1) Acute exacerbation of COPD with asthma: Status: Acute (2) COVID-19: Status: Acute Plan Prudenchair Dominguez is 82 years old woman with past medical history significant for dementia and depression admitted with: # Acute exacerbation of chronic obstructive pulmonary disease secondary to COVID-19 infection PAtient on 3L O2 at baseline at home Continue bronchodilator therapy IV steroids ID input appreciated, start remdesivir. Wean O2 down as tolerated get PT evaluation # Hypertension. Continue home medications. DVT prophylaxis: Heparin subcut Code status: Full Patient will need hospitalization overnight for acute exacerbation of chronic obstructive pulmonary disease treatment with supplemental oxygen, bronchodilator therapy and IV steroids. Quality Stroke Does the patient have a stroke diagnosis?: No VTE Prior VTE?: No VTE Risk Level:: Medical - moderate - high VTE Device Contraindication: Treatment Not Indicated VTE Drug Contraindication: N/A - Med Ordered
[2023-10-31] MEDS: Remdesivir 100 MG in 0.9 % Sodium Chloride 230 ML 115 MG IV (20:49)
[2023-10-31] MEDS: Acetaminophen 325 MG TABLET 975 MG PO (21:03)
[2023-11-01] VITALS (10 sets, daily range): BP systolic 136–165; BP diastolic 70–84; PULSE 63–100; RESP 16–20; TEMP 36.1–36.9; O2SAT 94–98
[2023-11-01] MEDS: methylPREDNISolone Sod Succ 40 MG/ML VIAL IVPUSH ×3 (00:39→09:01)
[2023-11-01] MEDS: 0.9 % Sodium Chloride Flush 3 ML SYRINGE IVFLUSH ×2 (00:39→08:39)
[2023-11-01] MEDS: Albuterol Sulfate 90 MCG 8 GM INHALER 4 PUFF INHALE ×4 (07:48→20:24)
[2023-11-01] MEDS: amLODIPine Besylate 5 MG TABLET PO (08:39)
[2023-11-01] MEDS: Pregabalin 25 MG CAPSULE PO ×2 (08:39→20:45)
[2023-11-01] MEDS: Metoprolol Tartrate 12.5 MG HALFTAB PO ×2 (08:39→20:44)
[2023-11-01] MEDS: Heparin Sodium,Porcine 5,000 UNIT/ML VIAL 5000 UNIT SUBCUT ×2 (08:39→20:46)
--- NOTE | 2023-11-01 09:47 | P.CDIM_ITS ---
PROVIDER RESPONSE TEXT: To clarify, the appropriate diagnosis supported by the clinical indicators: Mild intermittent QUERY TEXT: PHYSICIAN'S DOCUMENTATION REQUEST Date of Query: 11/01/2023 08:49 AM EST Patient Name: Katrin Dominguez Admit Date: 10/28/2023 Dear Orly Patel, A review of the medical record indicates additional documentation may be needed. Please review below and update the documentation accordingly. Clinical indicators: Progress note: Acute exacerbation of COPD/Asthma Admit to hospitalist service. Pulse ox. Telemetry. Continue supplemental oxygen to keep oxygen satura tion 90%. Continue bronchodilator therapy and IV steroids. Albuterol Sulfate Based on the above, please clarify in the Progress Notes further specificity regarding the type of as thma: Mild intermittent Mild persistent Moderate persistent Severe persistent Other (explain) Clinically unable to determine (explain) Thank you, Pina Auguste, CCS, CDIS Use of terms such as suspected, likely, concern for, or probable (associated with a specific diagnosi s that is being evaluated, monitored, or treated as if it exists) are acceptable and can be coded in the inpatient se tting, when documented at the time of discharge. Please use your independent medical judgment in providing your response. THIS QUERY IS PART OF THE PERMANENT MEDICAL RECORD
--- NOTE | 2023-11-01 11:40 | P.PNIM_ITS ---
Subjective Subjective Date of Service: 11/01/23 Interval History: seen and evaluated feels better overall, generalized weakness on 3L O2 denies any fever or chills Physical Exam 2 Vital Signs: Vital Signs: Last Vital Signs Temp 97.0 F 11/01/23 11:29 Pulse 63 11/01/23 11:29 Resp 20 11/01/23 11:29 BP 146/76 H 11/01/23 11:29 Pulse Ox 98 11/01/23 11:29 O2 Del Method Nasal Cannula 11/01/23 11:29 O2 Flow Rate 3 11/01/23 11:29 Oxygen Flow Rate 4 10/27/23 21:28 BMI result Body Mass Index 22.9 Const: Other: Constitutional : Awake, interactive, not in distress Neck : Normal inspection, Supple Cardiovascular : RRR, no JVP, no lower extremity edema Respiratory : good bilateral air entry, no crackles, wheezes or rhonchi Gastrointestinal: soft, lax, Normal bowel sounds, Non tender Skin : Warm, Dry Neurological : Alert & oriented x3, No focal deficit Objective Data Active Medications Acetaminophen (Acetaminophen 325 Mg Tablet) 975 mg PO Q6H PRN PRN Reason: Pain, Mild (Pain Scale 1-3) Last Admin: 10/31/23 21:03 Dose: 975 mg Documented By: TAMERA Albuterol Sulfate (Albuterol Sulfate 90 Mcg 8 Gm Inhaler) 4 puff INHALE RQ4H WHILE AWAKE [facility] Last Admin: 11/01/23 07:48 Dose: 4 puff Documented By: [place] Amlodipine Besylate (Amlodipine Besylate 5 Mg Tablet) 5 mg PO DAILY [facility]; Protocol Last Admin: 11/01/23 08:39 Dose: 5 mg Documented By: JALEN Famotidine (Famotidine 20 Mg Tablet) 20 mg PO DAILY@0630 PRN PRN Reason: Heartburn Heparin Sodium (Porcine) (Heparin Sodium,Porcine 5,000 Unit/Ml Vial) 5,000 unit SUBCUT Q12H [facility] Last Admin: 11/01/23 08:39 Dose: 5,000 unit Documented By: JALEN Remdesivir 100 mg/ Sodium (Chloride) 230 mls @ 115 mls/hr IV Q24H [facility] Stop: 11/02/23 21:59 Last Infusion: 10/31/23 23:00 Dose: Infused Documented By: DANIELLE Methylprednisolone Sodium Succinate (Methylprednisolone Sod Succ 40 Mg/Ml Vial) 40 mg IVPUSH DAILY [facility] Last Admin: 11/01/23 09:01 Dose: 40 mg Documented By: JALEN Metoprolol Tartrate (Metoprolol Tartrate 12.5 Mg Halftab) 12.5 mg PO BID [facility]; Protocol Last Admin: 11/01/23 08:39 Dose: 12.5 mg Documented By: JALEN Pregabalin (Pregabalin 25 Mg Capsule) 25 mg PO BID [facility] Last Admin: 11/01/23 08:39 Dose: 25 mg Documented By: JALEN Sodium Chloride (0.9 % Sodium Chloride Flush 3 Ml Syringe) 3 ml IVFLUSH QSHIFT [facility] Last Admin: 11/01/23 08:39 Dose: 3 ml Documented By: JALNE Labs 10/29/23 05:18 10/29/23 05:18 Assessment and Plan (1) Acute exacerbation of COPD with asthma: Status: Acute (2) COVID-19: Status: Acute Plan Prudenchair Dominguez is 82 years old woman with past medical history significant for dementia and depression admitted with: # Acute exacerbation of chronic obstructive pulmonary disease secondary to COVID-19 infection PAtient on 3L O2 at baseline at home Continue bronchodilator therapy IV steroids ID input appreciated, Continue remdesivir.day 4 Wean O2 down as tolerated PT evaluation # Hypertension. Continue home medications. DVT prophylaxis: Heparin subcut Code status: Full Patient will need hospitalization overnight for acute exacerbation of chronic obstructive pulmonary disease treatment with supplemental oxygen, bronchodilator therapy and IV steroids. Quality Stroke Does the patient have a stroke diagnosis?: No VTE Prior VTE?: No VTE Risk Level:: Medical - moderate - high VTE Device Contraindication: Treatment Not Indicated VTE Drug Contraindication: N/A - Med Ordered
--- NOTE | 2023-11-01 13:10 | MHC.CM.PN ---
Pt not yet ready for DC, she is being treated for exacerbation of COPD, COVID. She will have PT eval to determine DC care needs. Pt. lives with family, family would like [facility] services if VNA is rec. CM to follow and assist with DC plan.
--- NOTE | 2023-11-01 14:35 | ECG_ITS ---
Test Reason : chest pain Blood Pressure : / mmHG Vent. Rate : 098 BPM Atrial Rate : 098 BPM P-R Int : 148 ms QRS Dur : 068 ms QT Int : 342 ms P-R-T Axes : 041 -16 052 degrees QTc Int : 436 ms Normal sinus rhythm Nonspecific ST abnormality Abnormal ECG When compared with ECG of 27-OCT-2023 21:42, No significant change was found Referred By: Orly Patel Electronically Signed By:PRERNA HOLLY
[2023-11-01] MEDS: Acetaminophen 325 MG TABLET 975 MG PO ×2 (14:50→20:45)
[2023-11-01] MEDS: Remdesivir 100 MG in 0.9 % Sodium Chloride 230 ML 115 MG IV (20:44)
[2023-11-02] VITALS (10 sets, daily range): BP systolic 141–170; BP diastolic 70–78; PULSE 69–97; RESP 16–20; TEMP 36.1–36.7; O2SAT 88–100
[2023-11-02] MEDS: 0.9 % Sodium Chloride Flush 3 ML SYRINGE IVFLUSH ×3 (00:34→20:43)
[2023-11-02 06:56] LABS: Hematocrit 40.8 % (37.0-47.0); Mean Corpuscular HGB Conc 31.9 g/dl (31.0-35.0); Mean Corpuscular Hemoglobin 28.1 pg (27.0-33.0); Mean Corpuscular Volume 88.3 fL (80.0-98.0); Mean Platelet Volume 10.6 fL (9.4-12.3); Platelet Count 227 X10*3/uL (160-400); Red Blood Count 4.62 X10*6/uL (4.20-5.50); Red Cell Distribution Width 15.1 % (11.0-16.0); White Blood Count 7.2 X10*3/uL (4.8-10.8)
[2023-11-02 07:13] LABS: C Reactive Protein 0.22 mg/dL (< or = 0.50)
[2023-11-02 07:14] LABS: Anion Gap 15 (12-20); Blood Urea Nitrogen 43 mg/dL (9-16); Calcium 8.9 mg/dL (8.4-10.2); Carbon Dioxide 27 mmol/L (22-29); Chloride 102 mmol/L (96-108); Creatinine Clr Calc Pharmacy 69.3; Estimated Glomerular Filt Rate > 60; Glucose Random 96 mg/dL (60-115); Potassium 4.7 mmol/L (3.3-5.1); Sodium 139 mmol/L (135-145)
[2023-11-02] MEDS: Albuterol Sulfate 90 MCG 8 GM INHALER 4 PUFF INHALE ×3 (08:01→16:28)
--- NOTE | 2023-11-02 08:44 | P.PNIM_ITS ---
Subjective Subjective Date of Service: 11/02/23 Interval History: seen and evaluated Feels tired and has no energy more congested on 3L O2 denies any fever or chills Review of Systems Review of Systems: Yes all other systems are reviewed and are negative Physical Exam 2 Vital Signs: Vital Signs: Last Vital Signs Temp 97.4 F 11/02/23 07:17 Pulse 72 11/02/23 08:03 Resp 16 11/02/23 08:03 BP 142/72 H 11/02/23 07:17 Pulse Ox 97 11/02/23 07:17 O2 Del Method Nasal Cannula 11/02/23 07:17 O2 Flow Rate 2 11/02/23 07:17 Oxygen Flow Rate 4 10/27/23 21:28 BMI result Body Mass Index 22.9 Const: Other: Constitutional : Awake, interactive, not in distress Neck : Normal inspection, Supple Cardiovascular : RRR, no JVP, no lower extremity edema Respiratory : fair bilateral air entry, basal fine crackles, expiratory rhonchi Gastrointestinal: soft, lax, Normal bowel sounds, Non tender Skin : Warm, Dry Neurological : Alert & oriented x3, No focal deficit Objective Data Active Medications Acetaminophen (Acetaminophen 325 Mg Tablet) 975 mg PO Q6H PRN PRN Reason: Pain, Mild (Pain Scale 1-3) Last Admin: 11/01/23 20:45 Dose: 975 mg Documented By: DANIELLE Albuterol Sulfate (Albuterol Sulfate 90 Mcg 8 Gm Inhaler) 4 puff INHALE RQ4H WHILE AWAKE [facility] Last Admin: 11/02/23 08:01 Dose: 4 puff Documented By: ELVI Amlodipine Besylate (Amlodipine Besylate 5 Mg Tablet) 5 mg PO DAILY [facility]; Protocol Last Admin: 11/01/23 08:39 Dose: 5 mg Documented By: JALEN Famotidine (Famotidine 20 Mg Tablet) 20 mg PO DAILY@0630 PRN PRN Reason: Heartburn Guaifenesin (Guaifenesin La 600 Mg Tab.Er.12h) 600 mg PO BID [facility] Heparin Sodium (Porcine) (Heparin Sodium,Porcine 5,000 Unit/Ml Vial) 5,000 unit SUBCUT Q12H [facility] Last Admin: 11/01/23 20:46 Dose: 5,000 unit Documented By: DANIELLE Remdesivir 100 mg/ Sodium (Chloride) 230 mls @ 115 mls/hr IV Q24H [facility] Stop: 11/02/23 21:59 Last Infusion: 11/01/23 23:12 Dose: Infused Documented By: DANIELLE Methylprednisolone Sodium Succinate (Methylprednisolone Sod Succ 40 Mg/Ml Vial) 40 mg IVPUSH DAILY [facility] Last Admin: 11/01/23 09:01 Dose: 40 mg Documented By: JALEN Metoprolol Tartrate (Metoprolol Tartrate 12.5 Mg Halftab) 12.5 mg PO BID [facility]; Protocol Last Admin: 11/01/23 20:44 Dose: 12.5 mg Documented By: DANIELLE Omeprazole (Omeprazole 40 Mg Capsule.Dr) 40 mg PO DAILY@0630 [facility] Pregabalin (Pregabalin 25 Mg Capsule) 25 mg PO BID [facility] Last Admin: 11/01/23 20:45 Dose: 25 mg Documented By: DANIELLE Sodium Chloride (0.9 % Sodium Chloride Flush 3 Ml Syringe) 3 ml IVFLUSH QSHIFT [facility] Last Admin: 11/02/23 00:34 Dose: 3 ml Documented By: SCOTT Labs 11/02/23 06:18 11/02/23 06:18 Labs: Laboratory Results - last 24 hr 11/02/23 06:18 MCV 88.3 MCH 28.1 MCHC 31.9 RDW 15.1 Plt Count 227 MPV 10.6 Absolute Nucleated RBC 0.000 Nucleated RBC % (auto) 0.0 Anion Gap 15 Estim Creat Clear Calc 69.3 Estimated GFR > 60 Random Glucose 96 Calcium 8.9 C-Reactive Protein 0.22 Microbiology Microbiology Results: Microbiology 10/27/23 22:26 Blood Culture - Final Blood - Venous No growth after 5 days. 10/27/23 22:16 Blood Culture - Final Blood - Venous No growth after 5 days. Assessment and Plan (1) Acute exacerbation of COPD with asthma: Status: Acute (2) Hypoxia: Status: Acute (3) COVID-19: Status: Acute Plan Prudenchair Dominguez is 82 years old woman with past medical history significant for chronic hypoxic failure on 3L at home, dementia and depression admitted with: # Acute exacerbation of chronic obstructive pulmonary disease secondary to COVID-19 infection Sounds wet with increase secretions repeat CXR Continue bronchodilator therapy IV steroids ID input appreciated, Continue remdesivir.day 5 Wean O2 down as tolerated PT evaluation # Hypertension. Continue home medications. DVT prophylaxis: Heparin subcut Code status: Full Patient will need hospitalization overnight for acute exacerbation of chronic obstructive pulmonary disease treatment with supplemental oxygen, bronchodilator therapy and IV steroids. Quality Stroke Does the patient have a stroke diagnosis?: No VTE Prior VTE?: No VTE Risk Level:: Medical - moderate - high VTE Device Contraindication: Treatment Not Indicated VTE Drug Contraindication: N/A - Med Ordered
[2023-11-02] MEDS: methylPREDNISolone Sod Succ 40 MG/ML VIAL IVPUSH (08:54)
[2023-11-02] MEDS: Omeprazole 40 MG CAPSULE.DR PO (08:54)
[2023-11-02] MEDS: Metoprolol Tartrate 12.5 MG HALFTAB PO ×2 (08:54→20:45)
[2023-11-02] MEDS: amLODIPine Besylate 5 MG TABLET PO (08:54)
[2023-11-02] MEDS: guaiFENesin LA 600 MG TAB.ER.12H PO ×2 (08:54→20:45)
[2023-11-02] MEDS: Pregabalin 25 MG CAPSULE PO ×2 (08:54→20:44)
[2023-11-02] MEDS: Heparin Sodium,Porcine 5,000 UNIT/ML VIAL 5000 UNIT SUBCUT ×2 (08:54→20:44)
--- NOTE | 2023-11-02 10:48 | MHC.CM.PN ---
Addendum entered by Alyx Mehta RN 11/02/23 11:29: PER HOSPITALIST PT NOT MEDICALLY CLEARED FOR DC TODAY, CM RECEIVED OFFER FROM [facility] AND THEY WILL FOLLOW. Original Note: EMR REVIEWED, PT MEDICALLY CLEARED FOR DC HOWEVER PT RECOMMENDING STR, CM DISCUSSED W/HCP/SON ANDREA WHO REPORTS [facility] IS PREFERRED HOWEVER ANDREA AWARE THAT D/T PT BEING POSITIVE FOR COVID19 THAT SHE MAY NOT GET A BED OFFER THERE, RAPID COVID ALSO REQUESTED FROM HOSPITALIST, BROAD REFERRAL PLACED, CM WILL CONT TO FOLLOW.
[2023-11-02 15:56] LABS: COVID-19 Test Positive (Negative); IDNOW Serial# 152EDE1D
[2023-11-02] MEDS: LORazepam 0.5 MG TABLET 0.25 MG PO (17:22)
[2023-11-02] MEDS: Remdesivir 100 MG in 0.9 % Sodium Chloride 230 ML 115 MG IV (20:45)
[2023-11-02] MEDS: hydrOXYzine HCL 25 MG TABLET PO (22:25)
[2023-11-03] VITALS (13 sets, daily range): BP systolic 136–187; BP diastolic 64–95; PULSE 76–109; RESP 17–21; TEMP 35.8–36.4; O2SAT 92–97
[2023-11-03] MEDS: Simethicone 80 MG TAB.CHEW 160 MG PO (05:15)
[2023-11-03] MEDS: Acetaminophen 325 MG TABLET 975 MG PO ×3 (05:15→21:24)
[2023-11-03] MEDS: Omeprazole 40 MG CAPSULE.DR PO (05:16)
[2023-11-03] MEDS: Albuterol Sulfate 90 MCG 8 GM INHALER 4 PUFF INHALE ×4 (07:51→19:55)
[2023-11-03] MEDS: amLODIPine Besylate 5 MG TABLET PO (09:02)
[2023-11-03] MEDS: Pregabalin 25 MG CAPSULE PO ×2 (09:02→21:20)
[2023-11-03] MEDS: Metoprolol Tartrate 12.5 MG HALFTAB PO ×2 (09:02→21:20)
[2023-11-03] MEDS: Heparin Sodium,Porcine 5,000 UNIT/ML VIAL 5000 UNIT SUBCUT ×2 (09:02→21:20)
[2023-11-03] MEDS: methylPREDNISolone Sod Succ 40 MG/ML VIAL IVPUSH (09:02)
[2023-11-03] MEDS: guaiFENesin LA 600 MG TAB.ER.12H PO ×2 (09:02→21:20)
[2023-11-03] MEDS: 0.9 % Sodium Chloride Flush 3 ML SYRINGE IVFLUSH ×2 (09:14→21:20)
--- NOTE | 2023-11-03 11:15 | HO.PM.IMPN ---
Subjective Subjective Date of Service: 11/03/23 Interval History: weakness, sob, a bit worse than yesterday Physical Exam Vital Signs: Vital Signs: Last Vital Signs Temp 96.5 F L 11/03/23 07:49 Pulse 90 11/03/23 09:09 Resp 18 11/03/23 07:54 BP 163/95 H 11/03/23 07:49 Pulse Ox 96 11/03/23 07:49 O2 Del Method Nasal Cannula 11/03/23 07:49 O2 Flow Rate 2 11/03/23 07:49 Oxygen Flow Rate 4 10/27/23 21:28 BMI result Body Mass Index 22.9 Const: Other: Constitutional : Awake, interactive, not in distress Neck : Normal inspection, Supple Cardiovascular : RRR, no JVP, no lower extremity edema Respiratory : fair bilateral air entry, basal fine crackles, expiratory rhonchi Gastrointestinal: soft, lax, Normal bowel sounds, Non tender Skin : Warm, Dry Neurological : Alert & oriented x3, No focal deficit Objective Data Active Medications Acetaminophen (Acetaminophen 325 Mg Tablet) 975 mg PO Q6H PRN PRN Reason: Pain, Mild (Pain Scale 1-3) Last Admin: 11/03/23 05:15 Dose: 975 mg Documented By: BHAVANA Albuterol Sulfate (Albuterol Sulfate 90 Mcg 8 Gm Inhaler) 4 puff INHALE RQ4H WHILE AWAKE [facility] Last Admin: 11/03/23 07:51 Dose: 4 puff Documented By: ELVI Amlodipine Besylate (Amlodipine Besylate 5 Mg Tablet) 5 mg PO DAILY [facility]; Protocol Last Admin: 11/03/23 09:02 Dose: 5 mg Documented By: SCOT Famotidine (Famotidine 20 Mg Tablet) 20 mg PO DAILY@0630 PRN PRN Reason: Heartburn Guaifenesin (Guaifenesin La 600 Mg Tab.Er.12h) 600 mg PO BID [facility] Last Admin: 11/03/23 09:02 Dose: 600 mg Documented By: SCOT Heparin Sodium (Porcine) (Heparin Sodium,Porcine 5,000 Unit/Ml Vial) 5,000 unit SUBCUT Q12H [facility] Last Admin: 11/03/23 09:02 Dose: 5,000 unit Documented By: SCOT Methylprednisolone Sodium Succinate (Methylprednisolone Sod Succ 40 Mg/Ml Vial) 40 mg IVPUSH DAILY [facility] Last Admin: 11/03/23 09:02 Dose: 40 mg Documented By: SCOT Metoprolol Tartrate (Metoprolol Tartrate 12.5 Mg Halftab) 12.5 mg PO BID [facility]; Protocol Last Admin: 11/03/23 09:02 Dose: 12.5 mg Documented By: SCOT Omeprazole (Omeprazole 40 Mg Capsule.Dr) 40 mg PO DAILY@0630 [facility] Last Admin: 11/03/23 05:16 Dose: 40 mg Documented By: BHAVANA Pregabalin (Pregabalin 25 Mg Capsule) 25 mg PO BID [facility] Last Admin: 11/03/23 09:02 Dose: 25 mg Documented By: SCOT Sodium Chloride (0.9 % Sodium Chloride Flush 3 Ml Syringe) 3 ml IVFLUSH QSHIFT [facility] Last Admin: 11/03/23 09:14 Dose: 3 ml Documented By: SCOT Labs 11/02/23 06:18 11/02/23 06:18 Labs: Laboratory Results - last 24 hr 11/02/23 15:22 COVID-19 (JASON) Positive A COVID-19 Clin Com See Note Assessment and Plan (1) Acute exacerbation of COPD with asthma: Status: Acute (2) Hypoxia: Status: Acute (3) COVID-19: Status: Acute Plan 82F PMH chronic hypoxic failure on 3L at home due to copd, dementia and depression presented with sob chronic hypoxic respiratory failure due to COPD complicated by acute decompensation due to COVID completed remdesivir Continue bronchodilator therapy IV steroids Wean O2 down as tolerated PT recommending [facility] Hypertension. metoprolol, amldoipine DVT prophylaxis: Heparin subcut Code status: Full reason for continued hospitalization:feeling worse today Quality Stroke Does the patient have a stroke diagnosis?: No VTE Prior VTE?: No VTE Risk Level:: Medical - moderate - high VTE Device Contraindication: Treatment Not Indicated VTE Drug Contraindication: N/A - Med Ordered
--- NOTE | 2023-11-03 12:57 | MHC.CM.PN ---
Pt is not yet ready for DC, DC plan is for her to go to [facility], [facility] accepted pt. CM to follow and continue to assist with DC plan.
--- NOTE | 2023-11-03 13:59 | PC.RT ---
RT called to bedside for pt complaining of SOB. Pt found on 2L SATs 89%, O2 increased to 3L. Pt states she cannot breathe. Pt instructed to breathe through nose, Pt refused and stated it was uncomfortable. RT re-educated pt on aerobika and incentive spirometer. Pt showed poor effort and was re-informed of good form by RT.
[2023-11-04] VITALS (8 sets, daily range): BP systolic 141–161; BP diastolic 61–88; PULSE 63–116; RESP 20; TEMP 35.6–36.4; O2SAT 92–99
[2023-11-04] MEDS: Omeprazole 40 MG CAPSULE.DR PO (05:34)
[2023-11-04] MEDS: Pregabalin 25 MG CAPSULE PO ×2 (08:41→20:28)
[2023-11-04] MEDS: Heparin Sodium,Porcine 5,000 UNIT/ML VIAL 5000 UNIT SUBCUT ×2 (08:42→20:28)
[2023-11-04] MEDS: guaiFENesin LA 600 MG TAB.ER.12H PO ×2 (08:42→20:28)
[2023-11-04] MEDS: Metoprolol Tartrate 12.5 MG HALFTAB PO ×2 (08:42→20:29)
[2023-11-04] MEDS: amLODIPine Besylate 5 MG TABLET PO (08:42)
[2023-11-04] MEDS: 0.9 % Sodium Chloride Flush 3 ML SYRINGE IVFLUSH ×2 (08:42→20:29)
[2023-11-04] MEDS: methylPREDNISolone Sod Succ 40 MG/ML VIAL IVPUSH (08:42)
[2023-11-04 08:48] LABS: Hematocrit 38.9 % (37.0-47.0); Hemoglobin 12.4 g/dl (12.0-16.0); Mean Corpuscular HGB Conc 31.9 g/dl (31.0-35.0); Mean Corpuscular Hemoglobin 28.2 pg (27.0-33.0); Mean Corpuscular Volume 88.6 fL (80.0-98.0); Mean Platelet Volume 10.5 fL (9.4-12.3); Platelet Count 299 X10*3/uL (160-400); Red Blood Count 4.39 X10*6/uL (4.20-5.50); Red Cell Distribution Width 15.2 % (11.0-16.0); White Blood Count 8.2 X10*3/uL (4.8-10.8)
[2023-11-04 09:01] LABS: Anion Gap 10 (12-20); Blood Urea Nitrogen 32 mg/dL (9-16); Calcium 9.4 mg/dL (8.4-10.2); Carbon Dioxide 37 mmol/L (22-29); Chloride 100 mmol/L (96-108); Creatinine Clr Calc Pharmacy 65.5; Estimated Glomerular Filt Rate > 60; Glucose Fasting 91 mg/dL (60-99); Potassium 4.8 mmol/L (3.3-5.1); Sodium 142 mmol/L (135-145)
--- NOTE | 2023-11-04 09:46 | HO.PM.IMPN ---
Subjective Subjective Date of Service: 11/04/23 Interval History: feeling very weak and lethargic Physical Exam Vital Signs: Vital Signs: Last Vital Signs Temp 97.5 F 11/04/23 07:16 Pulse 63 11/04/23 07:16 Resp 20 11/04/23 07:16 BP 161/76 H 11/04/23 07:16 Pulse Ox 98 11/04/23 07:16 O2 Del Method Nasal Cannula 11/04/23 07:16 O2 Flow Rate 3 11/04/23 07:16 Oxygen Flow Rate 4 10/27/23 21:28 BMI result Body Mass Index 22.9 Const: Other: Constitutional : Awake, interactive, not in distress Neck : Normal inspection, Supple Cardiovascular : RRR, no JVP, no lower extremity edema Respiratory : fair bilateral air entry, basal fine crackles, expiratory rhonchi Gastrointestinal: soft, lax, Normal bowel sounds, Non tender Skin : Warm, Dry Neurological : Alert & oriented x3, No focal deficit Objective Data Active Medications Acetaminophen (Acetaminophen 325 Mg Tablet) 975 mg PO Q6H PRN PRN Reason: Pain, Mild (Pain Scale 1-3) Last Admin: 11/03/23 21:24 Dose: 975 mg Documented By: WILMA Albuterol Sulfate (Albuterol Sulfate 90 Mcg 8 Gm Inhaler) 4 puff INHALE RQ4H WHILE AWAKE [facility] Last Admin: 11/04/23 08:02 Dose: Not Given Documented By: ELVI Non-Admin Reason: Patient Refused Amlodipine Besylate (Amlodipine Besylate 5 Mg Tablet) 5 mg PO DAILY [facility]; Protocol Last Admin: 11/04/23 08:42 Dose: 5 mg Documented By: SCOT Famotidine (Famotidine 20 Mg Tablet) 20 mg PO DAILY@0630 PRN PRN Reason: Heartburn Guaifenesin (Guaifenesin La 600 Mg Tab.Er.12h) 600 mg PO BID [facility] Last Admin: 11/04/23 08:42 Dose: 600 mg Documented By: SCOT Heparin Sodium (Porcine) (Heparin Sodium,Porcine 5,000 Unit/Ml Vial) 5,000 unit SUBCUT Q12H [facility] Last Admin: 11/04/23 08:42 Dose: 5,000 unit Documented By: SCOT Methylprednisolone Sodium Succinate (Methylprednisolone Sod Succ 40 Mg/Ml Vial) 40 mg IVPUSH DAILY [facility] Last Admin: 11/04/23 08:42 Dose: 40 mg Documented By: SCOT Metoprolol Tartrate (Metoprolol Tartrate 12.5 Mg Halftab) 12.5 mg PO BID [facility]; Protocol Last Admin: 11/04/23 08:42 Dose: 12.5 mg Documented By: SCOT Omeprazole (Omeprazole 40 Mg Capsule.Dr) 40 mg PO DAILY@0630 [facility] Last Admin: 11/04/23 05:34 Dose: 40 mg Documented By: WILMA Pregabalin (Pregabalin 25 Mg Capsule) 25 mg PO BID [facility] Last Admin: 11/04/23 08:41 Dose: 25 mg Documented By: SCOT Sodium Chloride (0.9 % Sodium Chloride Flush 3 Ml Syringe) 3 ml IVFLUSH QSHIFT [facility] Last Admin: 11/04/23 08:42 Dose: 3 ml Documented By: SCOT Labs 11/04/23 08:23 11/04/23 08:23 Labs: Laboratory Results - last 24 hr 11/04/23 08:23 MCV 88.6 MCH 28.2 MCHC 31.9 RDW 15.2 Plt Count 299 D MPV 10.5 Absolute Nucleated RBC 0.000 Nucleated RBC % (auto) 0.0 Anion Gap 10 L Estim Creat Clear Calc 65.5 Estimated GFR > 60 Fasting Glucose 91 Calcium 9.4 Assessment and Plan (1) Acute exacerbation of COPD with asthma: Status: Acute (2) Hypoxia: Status: Acute (3) COVID-19: Status: Acute Plan 82F PMH chronic hypoxic failure on 3L at home due to copd, dementia and depression presented with sob chronic hypoxic respiratory failure due to COPD complicated by acute decompensation due to COVID completed remdesivir Continue bronchodilator therapy IV steroids Wean O2 down as tolerated PT recommending [facility] Hypertension. metoprolol, amldoipine DVT prophylaxis: Heparin subcut Code status: Full reason for continued hospitalization:still feeling very weak, lethargic, continue to monitor closely Quality Stroke Does the patient have a stroke diagnosis?: No VTE Prior VTE?: No VTE Risk Level:: Medical - moderate - high VTE Device Contraindication: Treatment Not Indicated VTE Drug Contraindication: N/A - Med Ordered
[2023-11-04] MEDS: Albuterol Sulfate 90 MCG 8 GM INHALER 4 PUFF INHALE ×2 (15:44→20:13)
[2023-11-04] MEDS: Acetaminophen 325 MG TABLET 975 MG PO (18:05)
[2023-11-05 03:34] VITALS: BP 167/94; PULSE 101; RESP 20; TEMP 35.9; O2SAT 95
[2023-11-05] MEDS: Omeprazole 40 MG CAPSULE.DR PO (05:58)
[2023-11-05 06:45] LABS: Hematocrit 40.1 % (37.0-47.0); Hemoglobin 12.7 g/dl (12.0-16.0); Mean Corpuscular HGB Conc 31.7 g/dl (31.0-35.0); Mean Corpuscular Hemoglobin 28.7 pg (27.0-33.0); Mean Corpuscular Volume 90.7 fL (80.0-98.0); Mean Platelet Volume 10.6 fL (9.4-12.3); Platelet Count 325 X10*3/uL (160-400); Red Blood Count 4.42 X10*6/uL (4.20-5.50); Red Cell Distribution Width 15.1 % (11.0-16.0); White Blood Count 9.3 X10*3/uL (4.8-10.8)
[2023-11-05 06:46] LABS: Anion Gap 14 (12-20); Blood Urea Nitrogen 30 mg/dL (9-16); Calcium 8.9 mg/dL (8.4-10.2); Carbon Dioxide 34 mmol/L (22-29); Chloride 98 mmol/L (96-108); Creatinine Clr Calc Pharmacy 71.3; Estimated Glomerular Filt Rate > 60; Glucose Fasting 102 mg/dL (60-99); Magnesium 2.1 mg/dL (1.6-2.6); Potassium 4.6 mmol/L (3.3-5.1); Sodium 141 mmol/L (135-145)
[2023-11-05 07:37] VITALS: BP 134/73; PULSE 64; RESP 16; TEMP 36.6; O2SAT 98
[2023-11-05] MEDS: Albuterol Sulfate 90 MCG 8 GM INHALER 4 PUFF INHALE ×2 (08:48→15:50)
[2023-11-05 08:53] VITALS: PULSE 70; RESP 18; O2SAT 98
[2023-11-05] MEDS: methylPREDNISolone Sod Succ 40 MG/ML VIAL IVPUSH (09:46)
[2023-11-05] MEDS: 0.9 % Sodium Chloride Flush 3 ML SYRINGE IVFLUSH (09:46)
[2023-11-05] MEDS: LORazepam 0.5 MG TABLET PO (09:47)
[2023-11-05] MEDS: guaiFENesin LA 600 MG TAB.ER.12H PO (09:47)
[2023-11-05] MEDS: Pregabalin 25 MG CAPSULE PO (09:47)
[2023-11-05] MEDS: Metoprolol Tartrate 12.5 MG HALFTAB PO (09:47)
[2023-11-05] MEDS: Heparin Sodium,Porcine 5,000 UNIT/ML VIAL 5000 UNIT SUBCUT (09:47)
[2023-11-05] MEDS: amLODIPine Besylate 5 MG TABLET PO (09:47)
--- NOTE | 2023-11-05 10:55 | P.DS_ITS ---
DS: Providers Provider Date of Service: 11/05/23 Date of admission: 10/28/23 03:20 Primary care physician: Juan Jose Haywood MD Consults: 10/28/23 05:57 Consult to Infectious Diseases Routine Consulting Provider: [facility] Infectious Disease Reason for consultation: COVID-19 infection Has provider been notified: No DS: Diagnosis Discharge Diagnosis (1) Acute exacerbation of COPD with asthma: Status: Acute (2) Hypoxia: Status: Acute (3) COVID-19: Status: Acute DS: Summary Hospital Course Hospital Course: from initial hpi: 82 years old woman with past medical history significant for dementia, COPD -on home O2, depression and hyperlipidemia was brought to the emergency department by EMS after his son noted her to be short of breath and has been too weak to get out of the bed. The patient also has been complaining of acute urinary symptoms, headache and cough. No fever or chills reported. Denies any headac he. She denied significant abdominal pain, nausea, vomiting or diarrhea. In the ED, she was found to have tachycardia and tachypnea. She is currently requiring 2 L/min of supplemental oxygen. Blood workup showed no leukocytosis. There are no electrolyte imbalances and renal function is normal. COVID-19 test is positive[address] CT showed no evidence of pulmonary embolism however, it showed consolidation at the right lung base likely atelectasis ? Infiltrate. The incidental finding of diverticulosis without diverticulitis, infrarenal abdominal aortic aneurysm (3.2 cm) and multiple thoracic and lumbar vertebral compression fractures (new or progressed compared to prior particularly T6). Urinalysis showed no evidence of urinary tract infection. ED tx: Ceftriaxone 1 g IV, azithromycin 500 mg IV and NS 1 L hospital course: Patient was admitted for chronic hypoxic respiratory failure due to COPD complicated by acute decompensation due to COVID. Patient complete remdesivir course was given IV steroids, she will be discharged on 5 more days of prednisone. She was given bronchodilators therapy and was able to stay on her baseline 3 L home O2. She was seen by physical therapy recommended short-term rehab to which patient will be discharged. Shortness of breaths and significant improved. For hypertension was continued on metoprolol and amlodipine. Time Attestation Discharge coordination time: Greater than 30 minutes Quality: Safe Use of Opioids Does Pt have an Active Cancer Diagnosis on the Problem List?: No Quality: Stroke Does the patient have a stroke diagnosis?: No Physical Exam Vital Signs: Vital Signs: Last Vital Signs Temp 97.8 F 11/05/23 07:37 Pulse 70 11/05/23 08:53 Resp 18 11/05/23 08:53 BP 134/73 11/05/23 07:37 Pulse Ox 98 11/05/23 07:37 O2 Del Method Nasal Cannula 11/05/23 07:37 O2 Flow Rate 3 11/05/23 07:37 Oxygen Flow Rate 4 10/27/23 21:28 BMI result Body Mass Index 22.9 Const: Other: Constitutional : Awake, interactive, not in distress Neck : Normal inspection, Supple Cardiovascular : RRR, no JVP, no lower extremity edema Respiratory : fair bilateral air entry, basal fine crackles, expiratory rhonchi Gastrointestinal: soft, lax, Normal bowel sounds, Non tender Skin : Warm, Dry Neurological : Alert & oriented x3, No focal deficit DS: Data Data Completed and Pending Labs on day of discharge: Laboratory Results - last 24 hr 11/05/23 05:51 WBC 9.3 RBC 4.42 Hgb 12.7 Hct 40.1 MCV 90.7 MCH 28.7 MCHC 31.7 RDW 15.1 Plt Count 325 MPV 10.6 Absolute Nucleated RBC 0.000 Nucleated RBC % (auto) 0.0 Sodium 141 Potassium 4.6 Chloride 98 Carbon Dioxide 34 H Anion Gap 14 BUN 30 H Creatinine 0.68 Estim Creat Clear Calc 71.3 Estimated GFR > 60 Fasting Glucose 102 H Calcium 8.9 Magnesium 2.1 Discharge Plan Discharge Anticipated Discharge Date/Time: 11/05/23 10:52 Patient Disposition: Xfer SNF Discharge Diagnosis: covid Referrals: Juan Jose Haywood MD [Primary Care Provider] - 1 Week Discharge Medications: New amlodipine 5 mg Tablet 5 mg PO DAILY Qty: 0 0RF Protocol: Hold for SBP< HOLD for SBP < : 90 prednisone 20 mg tablet 40 mg PO DAILY Qty: 10 0RF Continued (DME) miscellaneous medical supply Misc See Rx Instructions .ROUTE .MEDSUPPLY Qty: 1 0RF Rx Instructions: Transport chair 4 wheel manual, Daily As directed, 999 days/Lifetime. Disp#1 (DME) Wheel chair Kit See Rx Instructions .Route Qty: 1 0RF Rx Instructions: transport wheel chair fluticasone furoate-vilanterol [Breo Ellipta] 200-25 mcg/dose blister with device 1 inh INHALATION DAILY 30 Days Qty: 60 3RF multivitamin Tablet 1 tab PO DAILY metoprolol tartrate 25 mg tablet 12.5 mg PO BID pregabalin 25 mg capsule 25 mg PO BID albuterol sulfate 90 mcg/actuation HFA aerosol inhaler 2 puff INHALATION Q6H PRN (Reason: dyspnea) famotidine 20 mg tablet 20 mg PO DAILY@0630 PRN (Reason: Heartburn) (DME) miscellaneous medical supply Misc See Rx Instructions .ROUTE .MEDSUPPLY Qty: 1 0RF Rx Instructions: donut cushion/pillow. As directed. DX: M53.3, Duration 999 days albuterol sulfate 2.5 mg /3 mL (0.083 %) solution for nebulization 2.5 mg inhalation Q4-6H PRN (Reason: shortness of breath or wheezing) 30 Days Qty: 180 2RF Discharge Orders: Discharge Order (Routine); Ordered 11/05/23 Ordered By: Jose Elias Leija Diet: Advance to usual diet Activity on Discharge: As tolerated Stand Alone Forms: Patient Portal Discharge page Care Plan Goals: recovery Health Concerns: covid Plan of Treatment: 5 more days prednisone, started amlodipine Assessment: see above
[2023-11-05 12:00] VITALS: BP 147/63; PULSE 65; RESP 15; TEMP 36.2; O2SAT 99
[2023-11-05 12:11] LABS: Glucose, Whole Blood 103 mg/dL (60-115)
--- NOTE | 2023-11-05 13:24 | MHC.CM.PN ---
Second IMM 11/05/23, Pt has been medically cleared for DC, she will be transferred today to [facility] via ambulance. Family aware.
[2023-11-05 15:55] VITALS: PULSE 84; RESP 16; O2SAT 97
[2023-11-05 16:00] VITALS: BP 147/63; PULSE 65; RESP 15; TEMP 36.2; O2SAT 99
== END 2023-11-05 17:12 | disposition skilled nursing facility (03) | DRG 178 ==
LOC: HO.ED 10-28 01:12 → HO.EDOVER 10-28 03:27 → HO.IMC 10-29 07:43
PROVIDERS: Student in an Organized Health Care Education/Training Program; Admitting Provider Internal Medicine; Emergency Provider Emergency Medicine; PCP Family Medicine; Visit Provider Internal Medicine
DX: U07.1 COVID-19 (principal); J45.21 Mild intermittent asthma with (acute) exacerbation; F03.90 Unspecified dementia, unspecified severity, without behavioral disturbance, psychotic disturbance, mood disturbance, and anxiety; F32.A Depression, unspecified; E78.5 Hyperlipidemia, unspecified; I10 Essential (primary) hypertension; Z87.81 Personal history of (healed) traumatic fracture; Z79.51 Long term (current) use of inhaled steroids; Z99.81 Dependence on supplemental oxygen; Z79.899 Other long term (current) drug therapy
CPT/HCPCS: 0241U; 36415; 71045; 71275; 74177; 80048; 80053; 80076; 81001; 82803; 82947; 83605; 83615; 83735; 83880; 84484; 85025; 85027; 85610; 86140; 87040; 87635; 93005; 97110; 97116; 97161; 99285; J0248; J0456; J0696; J1644; J2920; Q9967

== ENCOUNTER → 2023-10-27 21:42 | Outpatient (BNV) | payer MEDICARE, SELFPAY | PROVIDERS: Admitting Provider Internal Medicine; Emergency Provider Emergency Medicine; Visit Provider Internal Medicine Cardiovascular Disease | DX: R00.0 Tachycardia, unspecified (principal); R06.09 Other forms of dyspnea | CPT/HCPCS: 93010 ==

== ENCOUNTER 2023-10-28 03:20 | Outpatient (BNV) | payer MEDICARE, SELFPAY | END 2023-11-01 14:35 | PROVIDERS: Admitting Provider Internal Medicine; Emergency Provider Emergency Medicine; PCP Family Medicine; Visit Provider Internal Medicine | DX: R07.9 Chest pain, unspecified (principal) | CPT/HCPCS: 93010 ==

== ENCOUNTER → 2023-10-28 03:20 | Outpatient (BNV) | payer MEDICARE, SELFPAY | PROVIDERS: Admitting Provider Internal Medicine; Emergency Provider Emergency Medicine; PCP Family Medicine; Visit Provider Internal Medicine | DX: J44.1 Chronic obstructive pulmonary disease with (acute) exacerbation (principal); J45.901 Unspecified asthma with (acute) exacerbation; R09.02 Hypoxemia; U07.1 COVID-19 | CPT/HCPCS: 99222 ==

== ENCOUNTER → 2023-10-28 03:20 | Outpatient (BNV) | payer MEDICARE, SELFPAY | PROVIDERS: Admitting Provider Internal Medicine; Emergency Provider Emergency Medicine; Visit Provider Internal Medicine | DX: J44.1 Chronic obstructive pulmonary disease with (acute) exacerbation (principal); J45.901 Unspecified asthma with (acute) exacerbation; J96.11 Chronic respiratory failure with hypoxia; U07.1 COVID-19 | CPT/HCPCS: 99223; 99232; 99233; 99238; 99499 ==

== ENCOUNTER 2023-11-11 16:17 | Emergency (ER) | payer MEDICARE, SELFPAY ==
--- NOTE | ~2023-11-11 | XR_ITS ---
EXAMINATION: XR CHEST CLINICAL INFORMATION: Pain. COMPARISON: Chest radiograph dated 11/02/2023. TECHNIQUE: 2 views of the chest were obtained. FINDINGS: The cardiomediastinal silhouette remains unchanged in size and configuration. There is no consolidation within either lung. No pleural effusion. No pneumothorax. The patient is status post vertebral augmentation at multiple levels. No acute osseous abnormality. XR/XR chest 2V IMPRESSION: No acute cardiopulmonary disease. Stable appearance of the heart and lungs.
[2023-11-11 16:42] VITALS: BP 134/66; BP 153/82; PULSE 100; PULSE 98; RESP 18; TEMP 36.8; O2SAT 94; O2SAT 96; BMI 26.7
--- NOTE | 2023-11-11 16:49 | ECG_ITS ---
Test Reason : FALL Blood Pressure : / mmHG Vent. Rate : 093 BPM Atrial Rate : 093 BPM P-R Int : 144 ms QRS Dur : 068 ms QT Int : 350 ms P-R-T Axes : 042 -18 047 degrees QTc Int : 435 ms Normal sinus rhythm Anterior infarct , age undetermined Abnormal ECG When compared with ECG of 01-NOV-2023 14:27, Cannot rule out anterior infarct Referred By: Juan Damon Electronically Signed By:Patrice Silverio
--- NOTE | 2023-11-11 17:11 | ED_ITS ---
HPI - General Adult General Chief complaint: Dyspnea Stated complaint: Worsening SOBx 2 days, semi productive cough Time Seen by Provider: 11/11/23 16:37 Source: patient, RN notes reviewed and old records reviewed Mode of arrival: EMS Limitations: other (Patient has a history of dementia at baseline) History of Present Illness HPI narrative: 82-year-old female presents for evaluation of shortness of breath. Patient has a history of COPD on 3 L nasal cannula oxygen dependence at baseline. She was discharged since facility on 11/05/2023 after a COPD exacerbation secondary to COVID-19 On that visit she had a CTA that ruled out pulmonary embolism showed concern for atelectasis versus infiltrate She was treated with antibiotics and prednisone as well as remdesivir The patient reports that she has been coughing for a month. She is somewhat confused reports that she fell in her kitchen at home. However per EMS and staff at [facility] the patient was in bed complaining of chest pain and cough and there was no fall She denies any fevers or chills Related Data Home Medications Medication Instructions Recorded Confirmed multivitamin 1 tab PO DAILY 07/23/22 10/28/23 albuterol sulfate 90 mcg/actuation 2 puff inhalation Q6H PRN dyspnea 10/28/23 10/28/23 aerosol inhaler famotidine 20 mg tablet 20 mg PO DAILY@0630 PRN Heartburn 10/28/23 10/28/23 metoprolol tartrate 25 mg tablet 12.5 mg PO BID 10/28/23 10/28/23 pregabalin 25 mg capsule 25 mg PO BID 10/28/23 10/28/23 Previous Rx's Medication Instructions Recorded miscellaneous medical supply #1 ea 07/16/20 miscellaneous medical supply #1 ea 05/13/21 chair, wheel (Wheel chair) #1 ea 06/17/21 albuterol sulfate 2.5 mg/3 mL 2.5 mg (3 mL) inhalation Q4-6H PRN 10/18/23 (0.083 %) solution for nebulization shortness of breath or wheezing 30 days #180 mL fluticasone furoate 200 1 inh inhalation DAILY 30 days #60 10/29/23 mcg-vilanterol 25 mcg/dose ea inhalation powder (Breo Ellipta) amlodipine 5 mg tablet 5 mg PO DAILY #0 tabs 11/05/23 prednisone 20 mg tablet 40 mg (2 x 20 mg) PO DAILY #10 tabs 11/05/23 Allergies Allergy/AdvReac Type Severity Reaction Status Date / Time No Known Allergies Allergy Verified 10/18/23 15:06 Review of Systems 2 Constitutional: Constitutional: Denies body ache(s), Denies chills, Denies fever(s), Denies headache(s) and Reports malaise Eyes: Eyes: Denies blurry vision ENT: Denies headache(s) Cardiovascular: Cardiovascular: Reports chest pain and Reports dyspnea Respiratory: Respiratory: Reports cough, Reports dyspnea and Reports wheezing Gastrointestinal: Gastrointestinal: Denies abdominal pain, Denies nausea and Denies vomiting Musculoskeletal: Musculoskeletal: Denies back pain Integumentary/Breasts: Skin/Breast: Denies rash Neurologic: Denies headache(s) Allergic/Immunologic: Allergic/Immunologic: Reports wheezing PMFSH Past Medical History Medical History Lung density on x-ray Swallowing difficulty Respiratory failure with hypoxia Hypoxemia Pneumonia Respiratory failure Peripheral vascular disease Hyperlipidemia Hypertension COPD (chronic obstructive pulmonary disease) Surgical History History of hip surgery Family History Family History Mother Breast cancer Social History Social History Household Members: None Housing: House Do you presently have visiting nurse or other home services: No Alcohol intake: never 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 Tobacco Use Status: Former Tobacco user Cigarette Packs Per Day: 3 Cigarettes Per Day: 60.0 Years Smoked: 50 Smoked in Last 30 Days: No e-Cigarette/Vaping Use: Never Used Second Hand Smoke Exposure: Yes Use of substances other than those prescribed or required for medical reasons: No Advance Directives: Yes Advance Directives on File: Yes Advance Directives Date on File: 11/08/23 service: No Current occupational status: retired and disabled Current occupational exposures/hazards: No Cognitive needs: No Hearing needs: No Vision needs: No Physical Exam ED Vital Signs: Vital Signs - 24 hr 11/11/23 16:42 11/11/23 17:20 Temperature 98.3 F Pulse Rate 98 95 Respiratory Rate 18 22 H Blood Pressure 134/66 Pulse Oximetry 96 Oxygen Delivery Method Nasal Cannula BMI result Body Mass Index 26.7 Const General: cooperative, comfortable and no acute distress Nutritional Appearance: well nourished Orientation/consciousness: oriented to person, oriented to place and No oriented to time HENMT Head: Yes normal to inspection, Yes normocephalic and Yes atraumatic Throat: Yes posterior oropharynx normal Eyes Eyelids: Yes eyelids normal Conjunctivae: conjunctivae normal Sclerae: sclerae normal Corneas: corneas normal Pupils: Equal, round and reactive pupils present EOM: EOMs intact bilaterally Neck Neck: Yes full ROM Resp Effort & Inspection: normal respiratory effort, able to speak in complete sentences, audible wheezes and Actively coughing Auscultation: not clear to auscultation bilaterally and wheezes (Coarse expiratory wheeze throughout) Cardio Other: No lower extremity edema Rate: regular rate Rhythm: regular rhythm GI Inspection: No distended Palpation (GI): Soft to palpation, not firm, nontender, no guarding and not rigid Skin General skin exam: elasticity normal Neuro General: oriented to person, oriented to place and No oriented to time Cranial nerves: Yes CN's II-XII intact bilaterally, Yes Equal, round and reactive pupils present and Yes Bilaterally intact EOM present Cognition (Neuro): normal cognition Extrem Other: Moving all extremities well without any obvious deformities. No tenderness with manipulation of the hips bilaterally or elevation of the lower extremities above the hips bilaterally Medications Administered Discontinued Medications Generic Name Dose Route Start Last Admin Trade Name Freq PRN Reason Stop Dose Admin Albuterol Sulfate 2.5 mg/ 0 mg 11/11/23 17:12 11/11/23 17:19 Albuterol/Ipratropium 3 ml INHALE 11/11/23 17:13 5 dose ONCE ONE Administration Methylprednisolone Sodium Succinate 125 mg 11/11/23 16:50 11/11/23 18:00 Methylprednisolone Sod Succ 125 Mg/2 Ml Vial IVPUSH 11/11/23 16:51 125 mg ONCE ONE Administration Medical Decision Making Medical Decision Making MDM Narrative: 82-year-old female with past medical history significant for dementia, COPD presents for evaluation of chest pain shortness of breath. She reports a fall but EMS does not report any falls, regal care states that she did not fall. She has no signs of trauma. She appears to be at her baseline mental status. We will defer any imaging of the brain at this time. Plan for chest x-ray, labs, EKG, viral swabs. Patient's oxygen saturation is 92% on her baseline oxygen supplementation. Differential Diagnosis Differential Diagnoses: The differential diagnosis associated with the presentation includes COPD exacerbation Pneumonia Bronchitis Viral syndrome CHF Delirium Dementia Admission/Observation Consideration of admission/observation: Escalation of care including admission/observation considered Consider admission due to shortness of breath an 82-year-old however the COVID- 19 is an old diagnosis, she has been treated, she is on her baseline oxygen saturation maintained 96%. She will continue her home medications, there is no evidence of pneumonia or sepsis Lab Data MDM Lab Attestation statement: I reviewed the patient's lab results. No leukocytosis or anemia. Normal platelet count. No significant electrolyte abnormalities. Patient's glucose is slightly elevated to 176. Troponin within normal limits. 11/11/23 17:51 11/11/23 17:51 Labs: Lab Results 11/11/23 11/11/23 Range/Units 17:15 17:51 WBC 10.7 (4.8-10.8) X10*3/uL RBC 4.64 (4.20-5.50) X10*6/uL Hgb 13.0 (12.0-16.0) g/dl Hct 41.4 (37.0-47.0) % MCV 89.2 (80.0-98.0) fL MCH 28.0 (27.0-33.0) pg MCHC 31.4 (31.0-35.0) g/dl RDW 15.1 (11.0-16.0) % Plt Count 271 (160-400) X10*3/uL MPV 10.3 (9.4-12.3) fL Immature Gran % (Auto) 0.7 H (0.0-0.4) % Neut % (Auto) 88.2 H (45-73) % Lymph % (Auto) 8.5 L (20-40) % Sabine % (Auto) 2.3 (2-11) % Eos % (Auto) 0.2 (0-4) % Baso % (Auto) 0.1 (0-2) % Lymph # (Auto) 0.9 L (1.2-4.9) X10*3/uL Sabine # (Auto) 0.3 (0.1-1.2) X10*3/uL Eos # (Auto) 0.0 (0.0-0.4) X10*3/uL Baso # (Auto) 0.0 (0.0-0.2) X10*3/uL Abs Immat Gran (auto) 0.07 H (0.00-0.03) X10*3/uL Absolute Neuts (auto) 9.5 H (2.0-8.3) x10*3/uL Absolute Nucleated RBC 0.000 (0.0-0.012) X10*3/uL Nucleated RBC % (auto) 0.0 (0.0-0.2) /100WBC Sodium 139 (135-145) mmol/L Potassium 5.1 (3.3-5.1) mmol/L Chloride 99 (96-108) mmol/L Carbon Dioxide 30 H (22-29) mmol/L Anion Gap 15 (12-20) BUN 25 H (9-16) mg/dL Creatinine 0.76 (0.5-1.4) mg/dL Estim Creat Clear Calc 63.2 Estimated GFR > 60 Random Glucose 176 H (60-115) mg/dL Calcium 9.5 D (8.4-10.2) mg/dL Total Bilirubin 0.3 (0.0-1.0) mg/dL AST 18 (5-31) U/L ALT 18 (0-31) U/L Alkaline Phosphatase 94 (39-117) U/L Troponin I High Sens 4.6 (<3.5-17.0) ng/L Total Protein 7.2 (6.5-8.0) g/dL Albumin 3.6 (3.5-5.0) g/dL Lipase 36 (8-78) U/L Influenza Type A (PCR) NEGATIVE (Negative) Influenza Type B (PCR) NEGATIVE (Negative) RSV RNA Qual (PCR) NEGATIVE (Negative) SARS-CoV-2 RNA (RT-PCR) POSITIVE A (Negative) Independent Interpretation I performed an independent interpretation of an: EKG (Sinus rhythm rate of 93 beats minute, no ST segment elevation CT) and Plain X-Ray (No focal infiltrate) Radiology Impression Discussion of test interpretation with radiology: I have reviewed the radiologist's reading. (No acute cardiopulmonary process) Chronic Conditions Patient?s care impacted by: Other (Dementia) Discharge Plan Discharge Clinical Impression: COPD (chronic obstructive pulmonary disease), Dementia, Chest pain Patient Disposition: Home, Self-Care Instructions: Dementia (ED), COPD (Chronic Obstructive Pulmonary Disease) (ED) Additional Instructions: Your workup in the ER today was reassuring. This includes your blood work, EKG, chest x-ray. Continue your home medications as prescribed. You may use Mucinex as needed for cough/congestion Follow-up with your primary doctor and return for new or worsening symptoms Prescriptions: No Action (DME) miscellaneous medical supply [facility] See Rx Instructions .ROUTE .MEDSUPPLY Qty: 1 0RF Rx Instructions: Transport chair 4 wheel manual, Daily As directed, 999 days/Lifetime. Disp#1 (DME) Wheel chair Kit See Rx Instructions .Route Qty: 1 0RF Rx Instructions: transport wheel chair fluticasone furoate-vilanterol [Breo Ellipta] 200-25 mcg/dose blister with device 1 inh INHALATION DAILY 30 Days Qty: 60 3RF multivitamin Tablet 1 tab PO DAILY metoprolol tartrate 25 mg tablet 12.5 mg PO BID pregabalin 25 mg capsule 25 mg PO BID albuterol sulfate 90 mcg/actuation HFA aerosol inhaler 2 puff INHALATION Q6H PRN (Reason: dyspnea) famotidine 20 mg tablet 20 mg PO DAILY@0630 PRN (Reason: Heartburn) amlodipine 5 mg Tablet 5 mg PO DAILY Qty: 0 0RF Protocol: Hold for SBP< HOLD for SBP < : 90 prednisone 20 mg tablet 40 mg PO DAILY Qty: 10 0RF (DME) miscellaneous medical supply Misc See Rx Instructions .ROUTE .MEDSUPPLY Qty: 1 0RF Rx Instructions: donut cushion/pillow. As directed. DX: M53.3, Duration 999 days albuterol sulfate 2.5 mg /3 mL (0.083 %) solution for nebulization 2.5 mg inhalation Q4-6H PRN (Reason: shortness of breath or wheezing) 30 Days Qty: 180 2RF
[2023-11-11] MEDS: Albuterol Sulfate 2.5 MG, Albuterol/Iprat 2.5/0.5MG 3 ML 3 ML INHALE (17:19)
[2023-11-11 17:20] VITALS: PULSE 95; RESP 22; O2SAT 96
[2023-11-11 17:55] LABS: MANUAL DIFF FLAG NO
[2023-11-11 17:59] LABS: Influenza A PCR NEGATIVE (Negative); Influenza B PCR NEGATIVE (Negative); Resp Syncy Virus RNA Qual PCR NEGATIVE (Negative); SARS COV2 PCR INHOUSE POSITIVE (Negative)
[2023-11-11] MEDS: methylPREDNISolone Sod Succ 125 MG/2 ML VIAL IVPUSH (18:00)
[2023-11-11 18:03] LABS: Basophils Percent Auto 0.1 % (0-2); Eosinophils Percent Auto 0.2 % (0-4); Hematocrit 41.4 % (37.0-47.0); Imm Gran Abs Auto 0.07 X10*3/uL (0.00-0.03); Imm Gran Pct Auto 0.7 % (0.0-0.4); Lymphocytes Absolute Auto 0.9 X10*3/uL (1.2-4.9); Lymphocytes Percent Auto 8.5 % (20-40); Mean Corpuscular HGB Conc 31.4 g/dl (31.0-35.0); Mean Corpuscular Volume 89.2 fL (80.0-98.0); Mean Platelet Volume 10.3 fL (9.4-12.3); Monocytes Absolute Auto 0.3 X10*3/uL (0.1-1.2); Monocytes Percent Auto 2.3 % (2-11); Neutrophils Absolute Auto 9.5 x10*3/uL (2.0-8.3); Neutrophils Percent Auto 88.2 % (45-73); Platelet Count 271 X10*3/uL (160-400); Red Blood Count 4.64 X10*6/uL (4.20-5.50); Red Cell Distribution Width 15.1 % (11.0-16.0); White Blood Count 10.7 X10*3/uL (4.8-10.8)
[2023-11-11 18:19] LABS: Alanine Aminotransferase 18 U/L (0-31); Albumin Level 3.6 g/dL (3.5-5.0); Alkaline Phosphatase 94 U/L (39-117); Anion Gap 15 (12-20); Aspartate Amino Transferase 18 U/L (5-31); Bilirubin Total 0.3 mg/dL (0.0-1.0); Blood Urea Nitrogen 25 mg/dL (9-16); Calcium 9.5 mg/dL (8.4-10.2); Carbon Dioxide 30 mmol/L (22-29); Chloride 99 mmol/L (96-108); Creatinine Clr Calc Pharmacy 63.2; Estimated Glomerular Filt Rate > 60; Glucose Random 176 mg/dL (60-115); Lipase 36 U/L (8-78); Potassium 5.1 mmol/L (3.3-5.1); Sodium 139 mmol/L (135-145); Total Protein 7.2 g/dL (6.5-8.0)
[2023-11-11 18:20] LABS: Troponin-I High Sensitivity 4.6 ng/L (<3.5-17.0)
--- NOTE | 2023-11-11 18:39 | PC.NURSE ---
pt yelling out for help, reports that she needs to leave, she diid not come to the hospital and that we are all holding her here against her will . informed she came for a cough and ?fall and will go back to her jail soon - pt reports she came from home and she doesnt know what you are talking about
[2023-11-11 19:19] LABS: B Type Natriuretic Peptide 32 pg/mL (<100)
[2023-11-11 20:22] VITALS: BP 125/66; PULSE 102; RESP 18; TEMP 36.4; O2SAT 96
== END 2023-11-11 20:49 | disposition home or self-care (01) ==
PROVIDERS: Physician Assistant; Emergency Provider Emergency Medicine
DX: J44.9 Chronic obstructive pulmonary disease, unspecified (principal); F03.90 Unspecified dementia, unspecified severity, without behavioral disturbance, psychotic disturbance, mood disturbance, and anxiety; R07.89 Other chest pain; R06.02 Shortness of breath; R05.9 Cough, unspecified; Z99.81 Dependence on supplemental oxygen; Z11.52 Encounter for screening for COVID-19; Z20.822 Contact with and (suspected) exposure to COVID-19; Z79.899 Other long term (current) drug therapy
CPT/HCPCS: 0241U; 36415; 71046; 80053; 83690; 83880; 84484; 85025; 93005; 94640; 96374; 99284; 99285; J2930

== ENCOUNTER → 2023-11-11 16:49 | Outpatient (BNV) | payer MEDICARE, SELFPAY | PROVIDERS: Emergency Provider Emergency Medicine; Visit Provider Internal Medicine Cardiovascular Disease | DX: R94.31 Abnormal electrocardiogram [ECG] [EKG] (principal) | CPT/HCPCS: 93010 ==